=== PATIENT | female | born 1940 | race Caucasian/White ===

== ENCOUNTER 2016-02-10 13:35 | Inpatient (IN) | payer OTHER, MEDICARE ==
[2016-02-10 14:23] VITALS: BMI 23.1
[2016-02-10 14:37] LABS: MCHC 31.4 g/dl (32.0-36.0); MEAN CELL VOLUME 92.4 fl (80-96); MEAN PLT VOLUME 8.5 fl (7.5-11.1); PLATELET COUNT 144 K/MM3 (134-434); RDW 17.2 % (11.6-15.6); WHITE BLOOD COUNT 14.5 K/mm3 (4.0-10.0)
--- NOTE | 2016-02-10 14:52 | PDOC ---
History of Present Illness - General Chief Complaint: AV shunt bleeding Stated Complaint: BLEEDING Time Seen by Provider: 02/10/16 13:48 History Source: Patient, Primary Care Provider Exam Limitations: No Limitations - History of Present Illness Initial Comments: 02/10/16 14:26 75-year-old female presents to the ED for evaluation of bleeding left AV fistula. As per pt she had dialysis but has not been feeling well and today when she went to dialysis they were unable to access her fistula and then it began to bleed. Patient states has not been feeling well over the past few days describing nausea myalgia, and decreased appetite. Patient denies headache, throat pain, chest pain or shortness of breath. Patient with history of anemia, CVA, CHF, dementia, diabetes, dialysis, hypertension and dyslipidemia , and thyroid disease. Timing/Duration: unsure Severity: moderate Associated Symptoms: reports: loss of appetite, malaise, nausea/vomiting, weakness Past History - Past Medical History Allergies/Adverse Reactions: Allergies Allergy/AdvReac Type Severity Reaction Status Date / Time No Known Drug Allergies Allergy Verified 02/10/16 13:53 Home Medications: Ambulatory Orders Acetaminophen [Tylenol] 650 mg PO BID 04/26/15 Ascorbic Acid [Vitamin C] 500 mg PO DAILY 04/26/15 Ferrous Sulfate [Feosol] 325 mg PO DAILY 04/26/15 Furosemide [Lasix -] 80 mg PO DAILY 04/26/15 Insulin (Levemir) [Levemir Vial] 5 unit SQ DAILY 04/26/15 Metoprolol Succinate [Toprol XL -] 25 mg PO DAILY 04/26/15 Pantoprazole Sodium [Protonix -] 40 mg PO DAILY 04/26/15 Paroxetine HCl 20 mg PO DAILY 04/26/15 Pregabalin [Lyrica -] 50 mg PO DAILY 04/26/15 Sevelamer Carbonate [Renvela -] 1,600 mg PO TID 04/26/15 Hydralazine HCl [Apresoline -] 25 mg PO TID #21 tablet 05/06/15 Oxycodone HCl 10 mg PO BID 05/17/15 Multivitamin [Poly-Vitamin] 1 each PO DAILY 08/15/15 Silver Sulfadiazine 1% Top Cr [Silvadene -] 1 applic TP DAILY 08/15/15 Atorvastatin Ca [Lipitor] 10 mg PO HS 08/28/15 Bisacodyl [Bisacodyl -] 20 mg PO DAILY tablet. 08/31/15 Methylnaltrexone [place] [Relistor -] 12 mg SQ Q2D@2200 kit 09/01/15 Polyethylene Glycol 3350 [Miralax 119 gm Btl -] 17 gm PO DAILY 10/17/15 Zinc Oxide 20% Topical Oint 454 gm NR DAILY 10/17/15 Anemia: Yes Asthma: No Cancer: No Cardiac Disorders: No CVA: Yes (OCT 2012) COPD: No CHF: Yes Dementia: Yes (memory deficit) Diabetes: Yes Dialysis: Yes () GI Disorders: No Disorders: No HTN: Yes Hypercholesterolemia: Yes Liver Disease: No Seizures: No Thyroid Disease: Yes (GOITER) - Surgical History Abdominal Surgery: No Appendectomy: No Cardiac Surgery: No Cholecystectomy: Yes (2011) Lung Surgery: No Neurologic Surgery: No Orthopedic Surgery: No - Immunization History Immunization Up to Date: Yes - Psycho/Social/Smoking Cessation Hx Anxiety: No Suicidal Ideation: No Smoking Status: No Smoking History: Never smoked Have you smoked in the past 12 months: No Number of Cigarettes Smoked Daily: 0 Hx Alcohol Use: No Drug/Substance Use Hx: No Substance Use Type: None Hx Substance Use Treatment: No Patient Lives Alone: No Lives with/in: snf ([facility]) Review of Systems - Review of Systems Able to Perform ROS?: Yes Constitutional: Yes: Loss of Appetite, Weakness HEENTM: No: Symptoms Reported Respiratory: No: Symptoms reported Cardiac (ROS): No: Symptoms Reported ABD/GI: Yes: Nausea : No: Symptoms Reported Musculoskeletal: No: Symptoms Reported Integumentary: No: Symptoms Reported Neurological: No: Symptoms reported Endocrine: No: Symptoms Reported Hematologic/Lymphatic: No: Symptoms Reported *Physical Exam - Vital Signs Last Vital Signs Temp Pulse Resp BP Pulse Ox 97.3 F L 55 L 18 124/48 100 02/10/16 13:45 02/10/16 13:45 02/10/16 13:45 02/10/16 13:45 02/10/16 13:45 - Physical Exam General Appearance: Yes: Nourished, Appropriately Dressed. No: Apparent Distress HEENT: positive: EOMI, ZACARIAS, Pharynx Normal (dry). negative: Pale Conjunctivae Neck: positive: Supple Respiratory/Chest: positive: Lungs Clear, Normal Breath Sounds. negative: Respiratory Distress, Accessory Muscle Use Cardiovascular: positive: Regular Rhythm. negative: Murmur, Bradycardia Gastrointestinal/Abdominal: positive: Soft. negative: Tenderness Extremity: positive: Normal Capillary Refill. negative: Pedal Edema Integumentary: positive: Normal Color, Dry, Warm Neurologic: positive: Alert, Motor Strength 5/5 (moving all extemities actively actively on ). negative: Fully Oriented (time) Heart Score/ECG Review - ECG Intrepretation Rhythm: Regular Rhythm (sinus bradycardic at 55. 1st degree AV block) ED Treatment Course - LABORATORY CBC & Chemistry Diagram: 02/12/16 16:45 02/12/16 08:30 - ADDITIONAL ORDERS Additional order review: 02/10/16 14:30 RBC 4.12 D MCV 92.4 MCHC 31.4 L RDW 17.2 H D MPV 8.5 D Neutrophils % Y Lymphocytes % Y Medical Decision Making - Critical Care Time Total Critical Care Time (minutes): 40 Critical Care Statement: The care of this patient involved high complexity decision making to prevent further life threatening deterioration of the patient 's condition and/or to evalute & treat vital organ system(s) failure or risk of failure. - Medical Decision Making 02/10/16 14:56 Patient with history of end-stage renal disease with left AV fistula bleeding. Patient was sent here from Dr. August, hot roll inspector for admission. He also states patient's mentation is altered also. Patient did not receive dialysis today. Patient was placed for cardiac septic, and nor workup including head CT and ammonia level. Case discussed with Dr. Polly Ramos who will admit to [facility] inpatient. consultation will be placed to Dr. negrete and Dr. August 02/10/16 15:40 Laboratory Tests 02/10/16 02/10/16 02/10/16 14:30 14:30 14:30 WBC 14.5 H D Hgb 11.9 D Hct 38.0 D Plt Count 144 Neutrophils % 94.4 H D INR 1.20 H Sodium 129 L Potassium 7.0 H* D Chloride 93 L Carbon Dioxide 19 L Anion Gap 17 H BUN 104 H Creatinine 7.3 H Random Glucose 99 D Calcium 8.0 L Magnesium 2.4 AST 35 D ALT 30 Ammonia CK-MB (CK-2) 8.861 H Troponin I 1.09 H* Albumin 3.1 L Blood Type Antibody Screen 02/10/16 02/10/16 14:30 14:30 WBC Hgb Hct Plt Count Neutrophils % INR Sodium Potassium Chloride Carbon Dioxide Anion Gap BUN Creatinine Random Glucose Calcium Magnesium AST ALT Ammonia < 10 L CK-MB (CK-2) Troponin I Albumin Blood Type A POSITIVE Antibody Screen Negative Surgery PA here for consultation for Dr. Reid and states patient is to go to the OR tomorrow. Patient ordered for albuterol, calcium gluconate, sodium bicarbonate, incident, D50 and will consult cardiology. Elevated troponin may be related to renal failure versus cardiac etiology. Will hold on heparinizing secondary to bleeding left AV fistula. 02/10/16 16:09 Patient currently receiving emergency bedside shunt placement to her right groin. Call placed to Dr. jones to discuss dialysis today. Case also will be discussed with Dr. Sutton to upgrade to the ICU. 02/10/16 16:[address] Sutton who accepted the patient to the ICU. Patient needs a head CT as per Dr. Jones before they do start dialysis. Dr. Chanel also consulted on patient and feels the elevated troponin is likely due to the renal failure and to hold on heparinizing her secondary to bleeding left AV fistula 02/10/16 17:00 Chest x-ray shows interval bibasal atelectasis changes versus infiltrate with questionable small left pleural effusion. *DC/Admit/Observation/Transfer Diagnosis at time of Disposition: Elevated troponin Dialysis AV fistula malfunction Qualifiers: Encounter type: initial encounter Qualified Code(s): T82.590A - Other mechanical complication of surgically created arteriovenous fistula, initial encounter Altered mental status, unspecified Qualifiers: Altered mental status type: unspecified Qualified Code(s): R41.82 - Altered mental status, unspecified - Discharge Dispostion Admit: Yes
[2016-02-10 14:58] LABS: ALBUMIN 3.1 g/dl (3.4-5.0); BASOPHIL 0.1 % (0-2.0); BILIRUBIN,TOTAL 0.8 mg/dL (0.2-1.0); CREATININE 7.3 mg/dL (0.55-1.02); EOSINOPHIL 0.1 % (0-4.5); MAGNESIUM 2.4 mg/dL (1.8-2.4); NEUTROPHILS 94.4 % (42.8-82.8); PHOSPHOROUS 6.3 mg/dL (2.5-4.9); TOT PROT 7.5 g/dl (6.4-8.2)
[2016-02-10 15:18] LABS: INR 1.2 (0.82-1.09); PROTHROMBIN TIME (PATIENT) 13.2 SEC (9.98-11.88)
[2016-02-10 15:21] LABS: TROPONIN I 1.09 ng/ml (0.00-0.05)
[2016-02-10] MEDS ORDERED: SODIUM BICARBONATE 8.4% 50 MEQ/50 ML DISP.SYRIN IVPUSH ONE (15:21)
[2016-02-10] MEDS ORDERED: INSULIN REGULAR HUMAN 100 UNITS/ML *VIAL IVPUSH ONE (15:21)
[2016-02-10] MEDS ORDERED: DEXTROSE 50%-WATER 50 ML VIAL IVPUSH ONE (15:21)
[2016-02-10] MEDS ORDERED: ALBUTEROL SO4 0.083% IH SOL 2.5 MG/3 ML VIAL.NEB. NEB ONE ×2 (15:22→15:36)
[2016-02-10] MEDS ORDERED: CALCIUM GLUCONATE 10% - 1,000 MG/10 ML VIAL IVPUSH ONE (15:22)
[2016-02-10] MEDS ORDERED: SODIUM POLYSTYRENE SULFONATE 15 GM/60 ML BOTTLE PO ONE (15:29)
--- NOTE | 2016-02-10 15:31 | HP ---
Admitting History and Physical - Primary Care Physician PCP: Royce Joyce - Admission Chief Complaint: malfunctoin graft History of Present Illness: 75 yrs old female ,resident of [facility]- sent from dialysis today for bleeding from AV graft. Pt examined in ER with RAHEEM Puga - graft site bleeding. She is confused and as per Nephrolohgist- this is not her usual mental state. She missed dialysis on Tuesday and today. Appears to be volume overloaded, confused, uremic and with jerky arm movements. 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, Peripheral Neuropathy, Other (bilateral foot drops/gait instability, memory impairment) Cardiovascular: Yes: HTN, Hyperlipdemia, Murmur, Pulmonary Hypertension Pulmonary: Yes: Other (pleural effusions) Gastrointestinal: Yes: GI Bleed, Hemorrhoids Renal/: Yes: Renal Inusuff, Hemodialysis, UTI, Other (urine retention chronic with peters and leg bag) Heme/Onc: Yes: Anemia Musculoskeletal: Yes: Other (Periphral neuropathy and uses walker for mobility) Endocrine: Yes: Diabetes Mellitus (IDDM), Hyperthyroidism (w/ goiter), Other ( goitre) - Past Surgical History Past Surgical History: Yes: Cholecystectomy, Tonsillectomy - Smoking History Smoking history: Never smoked Have you smoked in the past 12 months: No Aproximately how many cigarettes per day: 0 - Alcohol/Substance Use Hx Alcohol Use: No History of Substance Use: reports: None - Social History ADL: Support Services (VNS) History of Recent Travel: No Home Medications - Allergies Allergies/Adverse Reactions: Allergies Allergy/AdvReac Type Severity Reaction Status Date / Time No Known Drug Allergies Allergy Verified 02/10/16 13:53 - Home Medications Home Medications: Ambulatory Orders Acetaminophen [Tylenol] 650 mg PO BID 04/26/15 Ascorbic Acid [Vitamin C] 500 mg PO DAILY 04/26/15 Ferrous Sulfate [Feosol] 325 mg PO DAILY 04/26/15 Furosemide [Lasix -] 80 mg PO DAILY 04/26/15 Insulin (Levemir) [Levemir Vial] 5 unit SQ DAILY 04/26/15 Metoprolol Succinate [Toprol XL -] 25 mg PO DAILY 04/26/15 Pantoprazole Sodium [Protonix -] 40 mg PO DAILY 04/26/15 Paroxetine HCl 20 mg PO DAILY 04/26/15 Pregabalin [Lyrica -] 50 mg PO DAILY 04/26/15 Sevelamer Carbonate [Renvela -] 1,600 mg PO TID 04/26/15 Hydralazine HCl [Apresoline -] 25 mg PO TID #21 tablet 05/06/15 Oxycodone HCl 10 mg PO BID 05/17/15 Multivitamin [Poly-Vitamin] 1 each PO DAILY 08/15/15 Silver Sulfadiazine 1% Top Cr [Silvadene -] 1 applic TP DAILY 08/15/15 Atorvastatin Ca [Lipitor] 10 mg PO HS 08/28/15 Bisacodyl [Bisacodyl -] 20 mg PO DAILY tablet. 08/31/15 Methylnaltrexone [place] [Relistor -] 12 mg SQ Q2D@2200 kit 09/01/15 Polyethylene Glycol 3350 [Miralax 119 gm Btl -] 17 gm PO DAILY 10/17/15 Zinc Oxide 20% Topical Oint 454 gm NR DAILY 10/17/15 Family Disease History - Family Disease History Family Disease History: CA: Mother (Pancreatic cancer 54,colon cancer), Other: Father ( 91), Mother Review of Systems - Review of Systems Constitutional: reports: Weakness. denies: Chills, Fever Cardiovascular: denies: Chest Pain Respiratory: reports: SOB. denies: Cough Physical Examination Vital Signs: Vital Signs Temperature 97.3 F L 02/10/16 13:45 Pulse Rate 55 L 02/10/16 13:45 Respiratory Rate 18 02/10/16 13:45 Blood Pressure 124/48 02/10/16 13:45 O2 Sat by Pulse Oximetry (%) 100 02/10/16 13:45 Constitutional: Yes: No Distress Cardiovascular: Yes: Regular Rate and Rhythm, JVD Respiratory: Yes: Diminished Gastrointestinal: Yes: Normal Bowel Sounds, Soft. No: Distention, Tenderness Musculoskeletal: Yes: Other (asterixis) Extremities: Yes: Other (left AVF- bleeding, poor thrill) Edema: No Neurological: Yes: Confusion Psychiatric: Yes: Alert Labs: Laboratory Last Values WBC 14.5 K/mm3 (4.0-10.0) H D 02/10/16 14:30 RBC 4.12 M/mm3 (3.60-5.2) D 02/10/16 14:30 Hgb 11.9 GM/dL (10.7-15.3) D 02/10/16 14:30 Hct 38.0 % (32.4-45.2) D 02/10/16 14:30 MCV 92.4 fl (80-96) 02/10/16 14:30 MCHC 31.4 g/dl (32.0-36.0) L 02/10/16 14:30 RDW 17.2 % (11.6-15.6) H D 02/10/16 14:30 Plt Count 144 K/MM3 (134-434) 02/10/16 14:30 MPV 8.5 fl (7.5-11.1) D 02/10/16 14:30 Neutrophils % 94.4 % (42.8-82.8) H D 02/10/16 14:30 Lymphocytes % 1.9 % (8-40) L D 02/10/16 14:30 Monocytes % 3.5 % (3.8-10.2) L 02/10/16 14:30 Eosinophils % 0.1 % (0-4.5) D 02/10/16 14:30 Basophils % 0.1 % (0-2.0) 02/10/16 14:30 Band Neutrophils Cancelled 02/10/16 14:30 Metamyelocytes Cancelled 02/10/16 14:30 Myelocytes Cancelled 02/10/16 14:30 Promyelocytes Cancelled 02/10/16 14:30 Nucleated RBCs Cancelled 02/10/16 14:30 Hypersegmented Neuts Cancelled 02/10/16 14:30 Plasmacytoid Lymphs Cancelled 02/10/16 14:30 Reactive Lymphocytes Cancelled 02/10/16 14:30 Blast Cells Cancelled 02/10/16 14:30 Plasma Cells Cancelled 02/10/16 14:30 Other Cell Type Cancelled 02/10/16 14:30 Toxic Granulation Cancelled 02/10/16 14:30 Dohle Bodies Cancelled 02/10/16 14:30 Amilcar Rods Cancelled 02/10/16 14:30 Polychromasia Cancelled 02/10/16 14:30 Hypochromic-Microcytic Cancelled 02/10/16 14:30 Poikilocytosis Cancelled 02/10/16 14:30 Basophilic Stippling Cancelled 02/10/16 14:30 Anisocytosis Cancelled 02/10/16 14:30 Microcytosis Cancelled 02/10/16 14:30 Macrocytosis Cancelled 02/10/16 14:30 Spherocytes Cancelled 02/10/16 14:30 Siderocytes Cancelled 02/10/16 14:30 Sickle Cells Cancelled 02/10/16 14:30 Target Cells Cancelled 02/10/16 14:30 Tear Drop Cells Cancelled 02/10/16 14:30 Ovalocytes Cancelled 02/10/16 14:30 Stomatocytes Cancelled 02/10/16 14:30 Helmet Cells Cancelled 02/10/16 14:30 [place] Bodies Cancelled 02/10/16 14:30 Harvey Rings Cancelled 02/10/16 14:30 [place] Cells Cancelled 02/10/16 14:30 Acanthocytes (Spur) Cancelled 02/10/16 14:30 Rouleaux Cancelled 02/10/16 14:30 Fragmented RBCs Cancelled 02/10/16 14:30 Schistocytes Cancelled 02/10/16 14:30 Morphology Comment Cancelled 02/10/16 14:30 INR 1.20 (0.82-1.09) H 02/10/16 14:30 VBG pH 7.23 (7.31-7.41) L* 02/10/16 15:38 POC VBG pCO2 37.4 mmHg (41-51) L D 02/10/16 15:38 POC VBG pO2 52.2 mmHg (30-40) H D 02/10/16 15:38 Sodium 129 mmol/L (136-145) L 02/10/16 14:30 Potassium 7.0 mmol/L (3.5-5.1) H* D 02/10/16 14:30 Chloride 93 mmol/L (98-107) L 02/10/16 14:30 Carbon Dioxide 19 mmol/L (21-32) L 02/10/16 14:30 Anion Gap 17 (8-16) H 02/10/16 14:30 BUN 104 mg/dL (7-18) H 02/10/16 14:30 Creatinine 7.3 mg/dL (0.55-1.02) H 02/10/16 14:30 Creat Clearance w eGFR 5.48 (>60) 02/10/16 14:30 Random Glucose 99 mg/dL (74-106) D 02/10/16 14:30 Calcium 8.0 mg/dL (8.5-10.1) L 02/10/16 14:30 Phosphorus 6.3 mg/dL (2.5-4.9) H 02/10/16 14:30 Magnesium 2.4 mg/dL (1.8-2.4) 02/10/16 14:30 Total Bilirubin 0.8 mg/dL (0.2-1.0) D 02/10/16 14:30 AST 35 U/L (15-37) D 02/10/16 14:30 ALT 30 U/L (12-78) 02/10/16 14:30 Alkaline Phosphatase 169 U/L (45-117) H 02/10/16 14:30 Ammonia < 10 umol/L (11-32) L 02/10/16 14:30 Creatine Kinase 170 IU/L (26-192) D 02/10/16 14:30 CK-MB (CK-2) 8.861 ng/ml (0.5-3.6) H 02/10/16 14:30 Troponin I 1.09 ng/ml (0.00-0.05) H* 02/10/16 14:30 Total Protein 7.5 g/dl (6.4-8.2) 02/10/16 14:30 Albumin 3.1 g/dl (3.4-5.0) L 02/10/16 14:30 Fluid Tot Cell Count Cancelled 02/10/16 14:30 Blood Type A POSITIVE 02/10/16 14:30 Antibody Screen Negative 02/10/16 14:30 Imaging - Results Chest X-ray: Image Reviewed (bibasilar congestive changes) EKG: Image Reviewed (NSR, no tall T waves) Problem List - Problems (1) Altered mental status, unspecified Code(s): R41.82 - ALTERED MENTAL STATUS, UNSPECIFIED Qualifiers: Altered mental status type: unspecified Qualified Code(s): R41.82 - Altered mental status, unspecified (2) Dialysis AV fistula malfunction Code(s): T82.590A - [facility] COMPL OF SURGICALLY CREATED ARTERIOVENOUS FISTULA, INIT Qualifiers: Encounter type: initial encounter Qualified Code(s): T82.590A - Other mechanical complication of surgically created arteriovenous fistula, initial encounter (3) Elevated troponin Code(s): R79.89 - OTHER SPECIFIED ABNORMAL FINDINGS OF BLOOD CHEMISTRY (4) Hyperkalemia Code(s): E87.5 - HYPERKALEMIA (5) Thrombosis of surgically created arteriovenous fistula Code(s): T82.868A - THROMBOSIS DUE TO VASCULAR PROSTH DEV/GRFT, INIT (6) ESRD (end stage renal disease) on dialysis Code(s): N18.6 - END STAGE RENAL DISEASE Z99.2 - DEPENDENCE ON RENAL DIALYSIS (7) CHF (congestive heart failure) Code(s): I50.9 - HEART FAILURE, UNSPECIFIED (8) Diabetes mellitus Code(s): E11.9 - TYPE 2 DIABETES MELLITUS WITHOUT COMPLICATIONS Assessment/Plan PLAN pt is uremic and needs urgent dialysis. pt will get femoral shiley placed today hyperkalemia-- was given Na Bicarb ,D50 with insulin, Ca-gluconate and kayexalate in ER ICU monitoring Has elevated troponins- likely secondary to renal disease - cardiology consult called may need to go to OR for thrombectomy. continue with meds aspiration precautions serial cardiac enzymes check CXR in AM
[2016-02-10] MEDS ORDERED: CALCIUM CHLORIDE 1 GM/10 ML *DISP.SYRIN ONE (15:36)
[2016-02-10] MEDS ORDERED: DEXTROSE 50%-WATER 50 ML DISP.SYRIN ONE (15:36)
[2016-02-10] MEDS ORDERED: SODIUM BICARBONATE 8.4% 50 MEQ/50 ML VIAL ONE (15:36)
[2016-02-10] MEDS ORDERED: INSULIN REGULAR HUMAN 100 UNITS/ML *VIAL ONE (15:37)
[2016-02-10] MEDS ORDERED: CALCIUM GLUCONATE 10% - 1,000 MG/10 ML VIAL ONE (15:39)
[2016-02-10 15:41] LABS: VENOUS BLOOD GAS HCO3 14.9 meq/L (22-29)
[2016-02-10 15:42] LABS: VENOUS PH 7.23 (7.31-7.41)
[2016-02-10] MEDS ORDERED: VANCOMYCIN 1,000 MG in DEXTROSE 5%-WATER - 250 ML IVPB ONE (15:54)
--- NOTE | 2016-02-10 16:00 | CONSULT ---
Consult Consult Specialty:: Nephrology - History of Present Illness Chief Complaint: sent in for access malfunction History of Present Illness: Pt is a 75 year old female with pmhx of ESRD, anemia, CHF and HTN who was sent in from HD for bleeding from access site. She missed her HD on Tuesday as she did not want to come in. She appeared fluid overloaded in HD today. She did complain of shortness of breath. She denies chest pain. I called vascular surgery to evaluate her. She will need surgical intervention for the graft. She was also confused in the HD unit and did not recognize the staff. 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, Peripheral Neuropathy, Other (bilateral foot drops/gait instability, memory impairment) Cardio/Vascular: Yes: HTN, Hyperlipdemia, Murmur, Pulmonary Hypertension Pulmonary: Yes: Other (pleural effusions) Gastrointestinal: Yes: GI Bleed, Hemorrhoids Renal/: Yes: Renal Inusuff, Hemodialysis, UTI, Other (urine retention chronic with peters and leg bag) Musculoskeletal: Yes: Other (Periphral neuropathy and uses walker for mobility) Endocrine: Yes: Diabetes Mellitus (IDDM), Hyperthyroidism (w/ goiter), Other ( goitre) - Past Surgical History Past Surgical History: Yes: Cholecystectomy, Tonsillectomy - Alcohol/Substance Use Hx Alcohol Use: No History of Substance Use: reports: None - Smoking History Smoking history: Never smoked Have you smoked in the past 12 months: No Aproximately how many cigarettes per day: 0 - Social History Usual Living Arrangement: With Spouse ADL: Support Services (VNS) History of Recent Travel: No Home Medications - Allergies Allergies/Adverse Reactions: Allergies Allergy/AdvReac Type Severity Reaction Status Date / Time No Known Drug Allergies Allergy Verified 02/10/16 13:53 - Home Medications Home Medications: Ambulatory Orders Acetaminophen [Tylenol] 650 mg PO BID 04/26/15 Ascorbic Acid [Vitamin C] 500 mg PO DAILY 04/26/15 Ferrous Sulfate [Feosol] 325 mg PO DAILY 04/26/15 Furosemide [Lasix -] 80 mg PO DAILY 04/26/15 Insulin (Levemir) [Levemir Vial] 5 unit SQ DAILY 04/26/15 Metoprolol Succinate [Toprol XL -] 25 mg PO DAILY 04/26/15 Pantoprazole Sodium [Protonix -] 40 mg PO DAILY 04/26/15 Paroxetine HCl 20 mg PO DAILY 04/26/15 Pregabalin [Lyrica -] 50 mg PO DAILY 04/26/15 Sevelamer Carbonate [Renvela -] 1,600 mg PO TID 04/26/15 Hydralazine HCl [Apresoline -] 25 mg PO TID #21 tablet 05/06/15 Oxycodone HCl 10 mg PO BID 05/17/15 Multivitamin [Poly-Vitamin] 1 each PO DAILY 08/15/15 Silver Sulfadiazine 1% Top Cr [Silvadene -] 1 applic TP DAILY 08/15/15 Atorvastatin Ca [Lipitor] 10 mg PO HS 08/28/15 Bisacodyl [Bisacodyl -] 20 mg PO DAILY tablet. 08/31/15 Methylnaltrexone [place] [Relistor -] 12 mg SQ Q2D@2200 kit 09/01/15 Polyethylene Glycol 3350 [Miralax 119 gm Btl -] 17 gm PO DAILY 10/17/15 Zinc Oxide 20% Topical Oint 454 gm NR DAILY 10/17/15 Family Disease History - Family Disease History Family Disease History: CA: Mother (Pancreatic cancer 54,colon cancer), Other: Father ( 91), Mother Review of Systems - Review of Systems Constitutional: reports: Malaise Eyes: reports: No Symptoms HENT: reports: No Symptoms Neck: reports: No Symptoms Cardiovascular: reports: Shortness of Breath Respiratory: reports: SOB Gastrointestinal: reports: No Symptoms Genitourinary: reports: No Symptoms Musculoskeletal: reports: No Symptoms Integumentary: reports: No Symptoms Neurological: reports: No Symptoms Endocrine: reports: No Symptoms Hematology/Lymphatic: reports: No Symptoms Psychiatric: reports: No Symptoms Physical Exam Vital Signs: Vital Signs Temperature 97.3 F L 02/10/16 13:45 Pulse Rate 55 L 02/10/16 13:45 Respiratory Rate 18 02/10/16 13:45 Blood Pressure 124/48 02/10/16 13:45 O2 Sat by Pulse Oximetry (%) 100 02/10/16 13:45 Constitutional: Yes: Calm Eyes: Yes: Conjunctiva Clear HENT: Yes: Atraumatic Cardiovascular: Yes: JVD, S1, S2 Respiratory: Yes: On Nasal O2, Rhonchi Gastrointestinal: Yes: Soft Musculoskeletal: Yes: Muscle Weakness Extremities: Yes: Other (dressing in place over graft) Edema: Yes Neurological: Yes: Oriented Psychiatric: Yes: Oriented Labs: Laboratory Tests 02/10/16 02/10/16 14:30 14:30 Hgb 11.9 D Sodium 129 L Potassium 7.0 H* D Chloride 93 L Carbon Dioxide 19 L BUN 104 H Creatinine 7.3 H Problem List - Problems (1) Altered mental status, unspecified Code(s): R41.82 - ALTERED MENTAL STATUS, UNSPECIFIED Qualifiers: Altered mental status type: unspecified Qualified Code(s): R41.82 - Altered mental status, unspecified (2) Dialysis AV fistula malfunction Code(s): T82.590A - [facility] COMPL OF SURGICALLY CREATED ARTERIOVENOUS FISTULA, INIT Qualifiers: Encounter type: initial encounter Qualified Code(s): T82.590A - Other mechanical complication of surgically created arteriovenous fistula, initial encounter (3) Elevated troponin Code(s): R79.89 - OTHER SPECIFIED ABNORMAL FINDINGS OF BLOOD CHEMISTRY (4) ESRD (end stage renal disease) on dialysis Code(s): N18.6 - END STAGE RENAL DISEASE Z99.2 - DEPENDENCE ON RENAL DIALYSIS (5) Anemia Code(s): D64.9 - ANEMIA, UNSPECIFIED Qualifiers: Other causes of anemia: acute posthemorrhagic (6) Hypertension Code(s): I10 - ESSENTIAL (PRIMARY) HYPERTENSION Assessment/Plan Current Medications Generic Name Dose Route Start Last Admin Trade Name Freq PRN Reason Stop Dose Admin Epoetin Jakob 5,000 units 02/10/16 15:49 Epogen - IVPUSH 02/10/16 15:50 ONCE ONE Vancomycin HCl 1,000 mg/ 250 mls @ 250 mls/hr 02/10/16 15:54 Dextrose IVPB 02/10/16 16:53 ONCE ONE Impression 1. ESRD 2. av access malfunction 3. hyperkalemia 4. CHF 5. DM 6. HTN 7. anemia 8. depression 9. hyperlipidemia 10. leukocytosis Plan - called and discussed case with vascular surgery - shiley catheter will be placed for HD - will arrange for urgent HD tonight - follow up ct head - send blood cultures - will give dose of vanco - ID eval - monitor hg - change in mental status can be from uremia however should get a ct scan prior to HD - monitor cardiac enzymes - can hold off kayexylate as she will be going to HD - will need admission to monitored unit for bedside HD Dr Jones
--- NOTE | 2016-02-10 16:10 | CONSULT ---
Consult Consult Specialty:: cardiology Reason for Consultation:: TNI elevation; ESRD; - History of Present Illness History of Present Illness: 75-year-old female presents to the ED for evaluation of bleeding left AV fistula. As per pt she had dialysis but has not been feeling well and today when she went to dialysis they were unable to access her fistula and then it began to bleed. Patient states has not been feeling well over the past few days describing nausea myalgia, and decreased appetite. Patient denies headache, throat pain, chest pain or shortness of breath. Patient with history of anemia, CVA, CHF, dementia, diabetes, dialysis, hypertension and dyslipidemia , and thyroid disease. Timing/Duration: unsure Severity: moderate Associated Symptoms: reports: loss of appetite, malaise, nausea/vomiting, weakness - History Source History Provided By: Medical Record - Past Medical History BREAD JOCKEY: Yes: CVA, Peripheral Neuropathy, Other (bilateral foot drops/gait instability, memory impairment) Cardio/Vascular: Yes: HTN, Hyperlipdemia, Murmur, Pulmonary Hypertension Pulmonary: Yes: Other (pleural effusions) Gastrointestinal: Yes: GI Bleed, Hemorrhoids Renal/: Yes: Renal Inusuff, Hemodialysis, UTI, Other (urine retention chronic with peters and leg bag) Reproductive: Yes: Postmenopausal ...: No Musculoskeletal: Yes: Other (Periphral neuropathy and uses walker for mobility) Endocrine: Yes: Diabetes Mellitus (IDDM), Hyperthyroidism (w/ goiter), Other ( goitre) - Past Surgical History Past Surgical History: Yes: Cholecystectomy, Tonsillectomy - Alcohol/Substance Use Hx Alcohol Use: No History of Substance Use: reports: None - Smoking History Smoking history: Never smoked Have you smoked in the past 12 months: No Aproximately how many cigarettes per day: 0 - Social History Usual Living Arrangement: With Spouse ADL: Support Services (VNS) History of Recent Travel: No Home Medications - Allergies Allergies/Adverse Reactions: Allergies Allergy/AdvReac Type Severity Reaction Status Date / Time No Known Drug Allergies Allergy Verified 02/10/16 13:53 - Home Medications Home Medications: Ambulatory Orders Acetaminophen [Tylenol] 650 mg PO BID 04/26/15 Ascorbic Acid [Vitamin C] 500 mg PO DAILY 04/26/15 Ferrous Sulfate [Feosol] 325 mg PO DAILY 04/26/15 Furosemide [Lasix -] 80 mg PO DAILY 04/26/15 Insulin (Levemir) [Levemir Vial] 5 unit SQ DAILY 04/26/15 Metoprolol Succinate [Toprol XL -] 25 mg PO DAILY 04/26/15 Pantoprazole Sodium [Protonix -] 40 mg PO DAILY 04/26/15 Paroxetine HCl 20 mg PO DAILY 04/26/15 Pregabalin [Lyrica -] 50 mg PO DAILY 04/26/15 Sevelamer Carbonate [Renvela -] 1,600 mg PO TID 04/26/15 Hydralazine HCl [Apresoline -] 25 mg PO TID #21 tablet 05/06/15 Oxycodone HCl 10 mg PO BID 05/17/15 Multivitamin [Poly-Vitamin] 1 each PO DAILY 08/15/15 Silver Sulfadiazine 1% Top Cr [Silvadene -] 1 applic TP DAILY 08/15/15 Atorvastatin Ca [Lipitor] 10 mg PO HS 08/28/15 Bisacodyl [Bisacodyl -] 20 mg PO DAILY tablet. 08/31/15 Methylnaltrexone [place] [Relistor -] 12 mg SQ Q2D@2200 kit 09/01/15 Polyethylene Glycol 3350 [Miralax 119 gm Btl -] 17 gm PO DAILY 10/17/15 Zinc Oxide 20% Topical Oint 454 gm NR DAILY 10/17/15 Family Disease History - Family Disease History Family Disease History: CA: Mother (Pancreatic cancer 54,colon cancer), Other: Father ( 91), Mother Review of Systems - Review of Systems Constitutional: reports: Weakness Vital Signs: Vital Signs Temperature 97.3 F L 02/10/16 13:45 Pulse Rate 55 L 02/10/16 13:45 Respiratory Rate 18 02/10/16 13:45 Blood Pressure 124/48 02/10/16 13:45 O2 Sat by Pulse Oximetry (%) 100 02/10/16 13:45 - Other Data Labs, Other Data: INR, PTT INR 1.20 (0.82-1.09) H 02/10/16 14:30 Problem List - Problems (1) Hyperkalemia Assessment/Plan: 7.0-->6.6. insulin; D50, calcium; kayexalate. Hemodialysis Code(s): E87.5 - HYPERKALEMIA (2) Dialysis AV fistula malfunction Code(s): T82.590A - [facility] COMPL OF SURGICALLY CREATED ARTERIOVENOUS FISTULA, INIT Qualifiers: Encounter type: initial encounter Qualified Code(s): T82.590A - Other mechanical complication of surgically created arteriovenous fistula, initial encounter (3) Elevated troponin Assessment/Plan: TNI 1.09-->1.38. EKG: NSR; 1st degree AVB, without acute ST-T changes (no significant change from 12/2015). Cannot r/o myocardial injury, though multiple other factors may contribute to TNI elevation, including CHF, ESRD, sepsis, hypoxia. Problematic starting antiplatelets and systemic AC due to AV graft bleed, but would consider doing so if cleared by surgeon. F/u TNI and EKG serially. On metoprolol. ECHO for LVEF, wall motion, valve status (hx severe pulmonary HTN, valvulopathy) , pericardial effusion ("small" in 2014). Code(s): R79.89 - OTHER SPECIFIED ABNORMAL FINDINGS OF BLOOD CHEMISTRY (4) ESRD (end stage renal disease) on dialysis Code(s): N18.6 - END STAGE RENAL DISEASE Z99.2 - DEPENDENCE ON RENAL DIALYSIS (5) CHF (congestive heart failure) Assessment/Plan: On metoprolol and hydralazine. ECHO for LVEF. Code(s): I50.9 - HEART FAILURE, UNSPECIFIED (6) Hypertension Assessment/Plan: on metoprolol and hydralazine. 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 F/u ECHO in am. Code(s): I27.2 - OTHER SECONDARY PULMONARY HYPERTENSION (8) Anemia Assessment/Plan: On Epogen. Code(s): D64.9 - ANEMIA, UNSPECIFIED Qualifiers: Other causes of anemia: acute posthemorrhagic (9) Leukocytosis Code(s): D72.829 - ELEVATED WHITE BLOOD CELL COUNT, UNSPECIFIED (10) Thyroid disease Assessment/Plan: f/u TFTs. Code(s): E07.9 - DISORDER OF THYROID, UNSPECIFIED
--- NOTE | 2016-02-10 16:10 | PROC ---
Central Line Insertion - Procedure Note TIME OUT performed prior to this procedure with verbal confirmation of correct patient identity, correct side, agreement of the procedure, correct patient position, availability of necessary equipment. The consent form is complete and accurate. Risk of possible infection and bleeding have been discussed with the patient. Safety precautions based on patient history or medication use has been addressed. Indication: Other (HD) Consent on Chart: Yes Central Line: Dialysis Cath, Tri Lumen Position: Supine Area prepped with Chlorhexidine solution then draped using sterile barrier protection. Anesthesia: Lidocaine 1% Technique used: Seldinger Ultrasound Guided Assistance: No Site: Right Femoral Dark venous non-pulsatile flow noted from hub of needle. The catheter was introduced. Guide wire removed intact. Each port aspirated then flushed with sterile normal saline and capped. Line secured to skin with silk suture. Biopatch placed around base of line. Sterile occlusive dressing applied. No complications. Patient tolerated the procedure well.
--- NOTE | 2016-02-10 16:12 | PN ---
Progress Note (short form) - Note Progress Note: PRE-OP NOTE Dx: ESRD on HD; Bleeding fistula (nightmute) Planned procedure: AVF revision; possible ligation Surgeon: True Reid Last Vital Signs Temp Pulse Resp BP Pulse Ox 97.3 F L 55 L 18 124/48 100 02/10/16 13:45 02/10/16 13:45 02/10/16 13:45 02/10/16 13:45 02/10/16 13:45 Blood Type Blood Type A POSITIVE 02/10/16 14:30 INR, PTT INR 1.20 (0.82-1.09) H 02/10/16 14:30 CBC, BMP 02/10/16 14:30 02/10/16 14:30 Troponin 02/10/16 14:30 Troponin I 1.09 H* Problem List - Problems (1) ESRD (end stage renal disease) on dialysis Assessment/Plan: NPO after midnight except PO meds GI / DVT ppx Medical optimization / clearance Cardiology clearance EKG Above plan discussed with Dr. Reid and agrees Code(s): N18.6 - END STAGE RENAL DISEASE Z99.2 - DEPENDENCE ON RENAL DIALYSIS (2) Hyperkalemia Code(s): E87.5 - HYPERKALEMIA (3) Elevated troponin Code(s): R79.89 - OTHER SPECIFIED ABNORMAL FINDINGS OF BLOOD CHEMISTRY
[2016-02-10] MEDS ORDERED: VANCOMYCIN 1 GRAM (PRE-DOCKED) 250 ML IVPB ONE ×2 (16:19→16:46)
--- NOTE | 2016-02-10 16:27 | PDOC ---
*Physical Exam - Vital Signs Last Vital Signs Temp Pulse Resp BP Pulse Ox 97.3 F L 75 17 166/93 96 02/10/16 13:45 02/10/16 16:25 02/10/16 16:25 02/10/16 16:25 02/10/16 16:25 ED Treatment Course - LABORATORY CBC & Chemistry Diagram: 02/17/16 05:00 02/17/16 05:00 - ADDITIONAL ORDERS Additional order review: Laboratory Results 02/10/16 02/10/16 02/10/16 14:30 14:30 14:30 INR Sodium 129 L Potassium 7.0 H* D Chloride 93 L Carbon Dioxide 19 L Anion Gap 17 H BUN 104 H Creatinine 7.3 H Creat Clearance w eGFR 5.48 Random Glucose 99 D Calcium 8.0 L Phosphorus 6.3 H Magnesium 2.4 Total Bilirubin 0.8 D AST 35 D ALT 30 Alkaline Phosphatase 169 H Ammonia < 10 L Creatine Kinase 170 D CK-MB (CK-2) 8.861 H Troponin I 1.09 H* Total Protein 7.5 Albumin 3.1 L Fluid Tot Cell Count Blood Type A POSITIVE Antibody Screen Negative 02/10/16 02/10/16 14:30 14:30 INR 1.20 H Sodium Potassium Chloride Carbon Dioxide Anion Gap BUN Creatinine Creat Clearance w eGFR Random Glucose Calcium Phosphorus Magnesium Total Bilirubin AST ALT Alkaline Phosphatase Ammonia Creatine Kinase CK-MB (CK-2) Troponin I Total Protein Albumin Fluid Tot Cell Count Cancelled Blood Type Antibody Screen 02/10/16 14:30 RBC 4.12 D MCV 92.4 MCHC 31.4 L RDW 17.2 H D MPV 8.5 D Neutrophils % 94.4 H D Lymphocytes % 1.9 L D Monocytes % 3.5 L Eosinophils % 0.1 D Basophils % 0.1 - RADIOLOGY Radiology Studies Ordered: Category Date Time Status HEAD CT WITHOUT CONTRAST [CT] Stat CT Scan 02/10/16 13:54 Ordered CHEST X-RAY PORTABLE* [RAD] Stat Radiology 02/10/16 13:54 Taken - Medications Given in the ED: ED Medications Discontinued Medications Generic Name Dose Route Start Last Admin Trade Name Freq PRN Reason Stop Dose Admin Albuterol Sulfate 1 amp 02/10/16 15:22 02/10/16 15:40 Ventolin 0.083% Nebulizer Soln - NEB 02/10/16 15:23 1 amp ONCE ONE Administration Calcium Gluconate 1,000 mg 02/10/16 15:22 02/10/16 15:47 Calcium Gluconate 10% - IVPUSH 02/10/16 15:23 1,000 mg ONCE ONE Administration Dextrose 50 ml 02/10/16 15:21 02/10/16 15:38 D50w (Vial) - IVPUSH 02/10/16 15:22 50 ml NOW ONE Administration Insulin Human Regular 10 units 02/10/16 15:21 02/10/16 15:38 Novolin R Vial *Ivpush / Er / Icu Only* IVPUSH 02/10/16 15:22 10 units ONCE ONE Administration Sodium Bicarbonate 50 meq 02/10/16 15:21 02/10/16 15:40 Sodium Bicarbonate 8.4% - IVPUSH 02/10/16 15:22 50 meq ONCE ONE Administration Medical Decision Making - Medical Decision Making The patient was seen and evaluated in conjunction with PREETI Amaya under my direct supervision, ancillary studies were reviewed. I independently interviewed and evaluated the patient and I agree with the plan as outlined by PREETI Amaya. Briefly, patient is a 75y F presenting for dialysis - pt had a AV fistula that has been inaccessible due to bleeding - last dialysis was on , pt was unable to obtain dialysis due to bleeding. pt endorses feeling nausea, achy. pt seemed alert, oriented x 2 was able to answer qeustions appropriately - pt was evalated by dr. miranda who was bedside - states pt seems a bit off. her exam otherwse fairly unremarkable. CT head was obtained and was negative. pts labs noted for hyperkalemia, which was treated. Dr. fournier was notified about the patients bleeding fistula, pressure dressing was placed. surgery placed a cordis introducer and pt was sent to dialysis. The pts troponin was slightly elevated to 1 originally, but as pt deneied any cp/sob, and has hx of renal insufficiency, it was thought that the pts troponin was secondary to reduced clearance and not secondary to a myocardial event. The pts EKG is not consistent with a cardiac event. The case was discussed with dr phelps who agrees with deferring a/c/heparin. CRITICAL CARE DOCUMENTATION: I spent 35 minutes of Critical Care time, excluding separately billable procedures, involving high complexity decision making to assess, manipulate and support vital system function(s) to treat single or multiple vital organ system failure and/or to prevent further life threatening deterioration of the patient' s condition. *DC/Admit/Observation/Transfer Diagnosis at time of Disposition: Elevated troponin Dialysis AV fistula malfunction Qualifiers: Encounter type: initial encounter Qualified Code(s): T82.590A - Other mechanical complication of surgically created arteriovenous fistula, initial encounter Altered mental status, unspecified Qualifiers: Altered mental status type: unspecified Qualified Code(s): R41.82 - Altered mental status, unspecified
--- NOTE | 2016-02-10 18:37 | CONSULT ---
Consultation: REQUESTING PROVIDER: CONSULT REQUEST: We have been asked to medically evaluate this patient for bleeding from HD access site. HISTORY OF PRESENT ILLNESS: Pt is a 75yo F with a significant past medical history of ESRD, anemia of chronic disease, CHF, and HTN who was admitted from the ED this afternoon due to a L bleeding AV fistula. Pt was seen today for dialysis however she did not receive it due to an inability to gain access. HD access site began to hemorrhage. Per pt's medical chart, she became altered mentally and did not recognize the dialysis staff. In addition pt states she has been experiencing symptoms of malaise since Tuesday associated with lack of appetite. Pt denies headache, lightheadedness, SOB, and CP/pressure. In the ED pt was found to have a potassium of 7.0, sodium of 129, and an elevated troponin of 1.09. A VBG was drawn showing a pH of 7.21. An emergent bedside shunt placement to her right groin was inserted with intent on emergent dialysis tonight per the nephrology team. ER course was notable for: 1) Head CT obtained (pending read) 2) Emergent bedside shunt placed in R groin 3) Elevated troponin 1.09 4) BMP, CBC, BCx x2, 5) Pt seen by Dr. Maynard, Dr. Sutton, Dr. Chanel, and vascular surgery REVIEW OF SYSTEMS: CONSTITUTIONAL: (+) generalized weakness, malaise Absent: fever, chills, diaphoresis, , loss of appetite, weight change HEENT: Absent: rhinorrhea, nasal congestion, throat pain, throat swelling, difficulty swallowing, mouth swelling, ear pain, eye pain, visual changes CARDIOVASCULAR: Absent: chest pain, syncope, palpitations, irregular heart rate, lightheadedness , peripheral edema RESPIRATORY: Absent: cough, shortness of breath, dyspnea with exertion, orthopnea, wheezing, stridor, hemoptysis GASTROINTESTINAL: Absent: abdominal pain, abdominal distension, nausea, vomiting, diarrhea, constipation, melena, hematochezia GENITOURINARY: Absent: dysuria, frequency, urgency, hesitancy, hematuria, flank pain, genital pain MUSCULOSKELETAL: Absent: myalgia, arthralgia, joint swelling, back pain, neck pain SKIN: Absent: rash, itching, pallor HEMATOLOGIC/IMMUNOLOGIC: Absent: easy bleeding, easy bruising, lymphadenopathy, frequent infections ENDOCRINE: Absent: unexplained weight gain, unexplained weight loss, heat intolerance, cold intolerance NEUROLOGIC: (+) oriented to person and place. Absent: headache, focal weakness or paresthesias, dizziness, unsteady gait, seizure, mental status changes, bladder or bowel incontinence PSYCHIATRIC: (+)AMS Absent: anxiety, depression, suicidal or homicidal ideation, hallucinations. PHYSICAL EXAMINATION Vital Signs - 24 hr 02/10/16 16:25 Pulse Rate [ 75 Apical] Respiratory 17 Rate Blood Pressure 166/93 [Right Arm] O2 Sat by Pulse 96 Oximetry (%) GENERAL: Awake, lethargic, mild Distress. HEAD: Normal with no signs of trauma. EYES: Pupils equal, round and reactive to light, extraocular movements intact, sclera anicteric, conjunctiva clear. No lid lag. EARS, NOSE, THROAT: Ears normal, nares patent, Moist mucous membranes. NECK: goiter on Right. No JVD. LUNGS:Bilateral Scattered rales > bases. No wheezes, and no crackles. No accessory muscle use. HEART: Regular rate and rhythm, normal S1 and S2 without murmur, rub or gallop. ABDOMEN: Soft, nontender, distended, normoactive bowel sounds, no guarding, no rebound, no masses. MUSCULOSKELETAL: Normal range of motion at all joints. No bony deformities or tenderness. No CVA tenderness. UPPER EXTREMITIES:LUE bandaged AV fistula. Bandage appears clean, dry , intact. 2+ pulses, warm, well-perfused. No cyanosis. No clubbing. Cap refill <2 seconds. No peripheral edema. LOWER EXTREMITIES: 2+ pulses, warm, well-perfused. No calf tenderness. No peripheral edema. Shiley placed R groin. NEUROLOGICAL: AAOx 2 and follows commands appropriately. PSYCHIATRIC: lethargic but cooperative. SKIN: Warm, dry, normal turgor, no rashes or lesions noted. Laboratory Results - last 24 hr 02/10/16 15:38 VBG pH 7.23 L* POC VBG pCO2 37.4 L D POC VBG pO2 52.2 H D Active Medications Generic Name Dose Route Start Last Admin Trade Name Freq PRN Reason Stop Dose Admin Epoetin Jakob 5,000 units 02/10/16 15:49 Epogen - IVPUSH 02/10/16 15:50 ONCE ONE ASSESSMENT/PLAN: 75 yo F with PMHx. of ESRD on HD, CHF, HTN, DM and depression admitted to ICU for emergent HD and vascular access revision tomorrow. Neuro: * AMS most likely uremia- will get HD tonight. * CT head (-) for acute pathology. * Continue to monitor with Neuro checks. Pulmonary: * Continue supplemental O2 with 50% Venti Mask to maintain O2 sat > 90% CV: * hyperkalemia-->HD tonight; repeat AM labs. * AVF revison tommopa Reid - NPO after midnight except meds. * Monitor H/H * Trend troponin's ID: * Given 1x VANCO in ED. * blood cultures pending * CXR shows bibasilar atelectasis. ?effusion left side. * repeat CXR in AM Endocrine: * ADA diet * ISS ACHS * BGM ACHS Renal: * Emergent HD tonight * Shiley placed today * Repeat labs in AM * Followed by Dr. Jones. Dispo: We will continue to follow the patient. Thank you for this consultative opportunity. Visit type - Emergency Visit Emergency Visit: Yes ED Registration Date: 02/10/16 Care time: The patient presented to the Emergency Department on the above date and was hospitalized for further evaluation of their emergent condition. - New Patient This patient is new to me today: Yes Date on this admission: 02/11/16 - Critical Care Critical Care patient: Yes Total Critical Care Time (in minutes): 33 Critical Care Statement: The care of this patient involved high complexity decision making to prevent further life threatening deterioration of the patient 's condition and/or to evalute & treat vital organ system(s) failure or risk of failure.
[2016-02-10] MEDS ORDERED: EPOETIN ALFA 2,000 UNITS/1 ML VIAL IVPUSH ONE (20:00)
--- NOTE | 2016-02-10 21:22 | CONSULT ---
Consult Consult Specialty:: Pulm/CCM Reason for Consultation:: Altered Mental status - History of Present Illness Chief Complaint: Bleeding A-V graft site; unable to have HD History of Present Illness: 75yo F with a significant past medical history of ESRD, anemia of chronic disease, CHF, and HTN who was admitted from the ED this afternoon due to a L bleeding AV fistula. Pt missed her HD session on tuesday for unclear reason and did not receive HD today because of A-V fistula bleed. As per report pt became altered mentally and did not recognize the dialysis staff. In addition pt states she has been experiencing symptoms of malaise since Tuesday associated with lack of appetite. Pt denies headache, lightheadedness, SOB, and CP/pressure. In the ED pt was A+O x2 and following simple commands , HD stable. Notable labs K 7.0, Na 129, Trop 1.09. A VBG was drawn showing a pH of 7.21. Hyperkalemia medically treated. CT head showed no acute pathology. An emergent rt femoral HD catheter was inserted and she was transferred to ICU for emergent HD. IN ICU pt admitted initially lethargic but responding to questions. HD was initiated. On exam pt more difficult to arouse and not following commands. - History Source History Provided By: Patient Limitations to Obtaining History: Unresponsive - Past Medical History [employer]: Yes: CVA, Peripheral Neuropathy, Other (bilateral foot drops/gait instability, memory impairment) Cardio/Vascular: Yes: HTN, Hyperlipdemia, Murmur, Pulmonary Hypertension Pulmonary: Yes: Other (pleural effusions) Gastrointestinal: Yes: GI Bleed, Hemorrhoids Renal/: Yes: Renal Inusuff, Hemodialysis, UTI, Other (urine retention chronic with peters and leg bag) Musculoskeletal: Yes: Other (Periphral neuropathy and uses walker for mobility) Endocrine: Yes: Diabetes Mellitus (IDDM), Hyperthyroidism (w/ goiter), Other ( goitre) - Past Surgical History Past Surgical History: Yes: Cholecystectomy, Tonsillectomy - Alcohol/Substance Use Hx Alcohol Use: No History of Substance Use: reports: None - Smoking History Smoking history: Never smoked Have you smoked in the past 12 months: No Aproximately how many cigarettes per day: 0 - Social History Usual Living Arrangement: With Spouse ADL: Support Services ([facility]) History of Recent Travel: No Home Medications - Allergies Allergies/Adverse Reactions: Allergies Allergy/AdvReac Type Severity Reaction Status Date / Time No Known Drug Allergies Allergy Verified 02/10/16 13:53 - Home Medications Home Medications: Ambulatory Orders Acetaminophen [Tylenol] 650 mg PO BID 04/26/15 Ascorbic Acid [Vitamin C] 500 mg PO DAILY 04/26/15 Ferrous Sulfate [Feosol] 325 mg PO DAILY 04/26/15 Furosemide [Lasix -] 80 mg PO DAILY 04/26/15 Insulin (Levemir) [Levemir Vial] 5 unit SQ DAILY 04/26/15 Metoprolol Succinate [Toprol XL -] 25 mg PO DAILY 04/26/15 Pantoprazole Sodium [Protonix -] 40 mg PO DAILY 04/26/15 Paroxetine HCl 20 mg PO DAILY 04/26/15 Pregabalin [Lyrica -] 50 mg PO DAILY 04/26/15 Sevelamer Carbonate [Renvela -] 1,600 mg PO TID 04/26/15 Hydralazine HCl [Apresoline -] 25 mg PO TID #21 tablet 05/06/15 Oxycodone HCl 10 mg PO BID 05/17/15 Multivitamin [Poly-Vitamin] 1 each PO DAILY 08/15/15 Silver Sulfadiazine 1% Top Cr [Silvadene -] 1 applic TP DAILY 08/15/15 Atorvastatin Ca [Lipitor] 10 mg PO HS 08/28/15 Bisacodyl [Bisacodyl -] 20 mg PO DAILY tablet. 08/31/15 Methylnaltrexone [place] [Relistor -] 12 mg SQ Q2D@2200 kit 09/01/15 Polyethylene Glycol 3350 [Miralax 119 gm Btl -] 17 gm PO DAILY 10/17/15 Zinc Oxide 20% Topical Oint 454 gm NR DAILY 10/17/15 Family Disease History - Family Disease History Family History: Unremarkable Family Disease History: CA: Mother (Pancreatic cancer 54,colon cancer), Other: Father ( 91), Mother Review of Systems Unable to obtain ROS, reason: Pt is unresponsive Physical Exam Vital Signs: Vital Signs Temperature 98.4 F 02/10/16 18:00 Pulse Rate 81 02/10/16 20:00 Respiratory Rate 14 02/10/16 20:00 Blood Pressure 106/79 02/10/16 20:00 O2 Sat by Pulse Oximetry (%) 100 02/10/16 19:11 Constitutional: Yes: Well Nourished Eyes: Yes: Other (Pupils dilated 3-4mm equally reactive to light) HENT: Yes: Normocephalic Neck: Yes: Other (large goiter) Cardiovascular: Yes: Regular Rate and Rhythm, Murmur (stage 2/6 systolic murmur) Respiratory: Yes: Diminished, On Venti-Mask Gastrointestinal: Yes: Soft, Abdomen, Obese Extremities: Yes: Other (Bilat foot drop Lt arm A-V fistula dressing intact) Edema: No Integumentary: Yes: WNL Neurological: Yes: Lethargy, Unresponsive ...Motor Strength: LUE (04/11) Labs: CBC, BMP 02/10/16 19:41 CBC,CMP WBC 14.5 K/mm3 (4.0-10.0) H D 02/10/16 14:30 RBC 4.12 M/mm3 (3.60-5.2) D 02/10/16 14:30 Hgb 11.9 GM/dL (10.7-15.3) D 02/10/16 14:30 Hct 38.0 % (32.4-45.2) D 02/10/16 14:30 MCV 92.4 fl (80-96) 02/10/16 14:30 MCHC 31.4 g/dl (32.0-36.0) L 02/10/16 14:30 RDW 17.2 % (11.6-15.6) H D 02/10/16 14:30 Plt Count 144 K/MM3 (134-434) 02/10/16 14:30 MPV 8.5 fl (7.5-11.1) D 02/10/16 14:30 Neutrophils % 94.4 % (42.8-82.8) H D 02/10/16 14:30 Lymphocytes % 1.9 % (8-40) L D 02/10/16 14:30 Monocytes % 3.5 % (3.8-10.2) L 02/10/16 14:30 Eosinophils % 0.1 % (0-4.5) D 02/10/16 14:30 Basophils % 0.1 % (0-2.0) 02/10/16 14:30 Band Neutrophils Cancelled 02/10/16 14:30 Metamyelocytes Cancelled 02/10/16 14:30 Myelocytes Cancelled 02/10/16 14:30 Promyelocytes Cancelled 02/10/16 14:30 Nucleated RBCs Cancelled 02/10/16 14:30 Hypersegmented Neuts Cancelled 02/10/16 14:30 Plasmacytoid Lymphs Cancelled 02/10/16 14:30 Reactive Lymphocytes Cancelled 02/10/16 14:30 Blast Cells Cancelled 02/10/16 14:30 Plasma Cells Cancelled 02/10/16 14:30 Other Cell Type Cancelled 02/10/16 14:30 Toxic Granulation Cancelled 02/10/16 14:30 Dohle Bodies Cancelled 02/10/16 14:30 Amilcar Rods Cancelled 02/10/16 14:30 Polychromasia Cancelled 02/10/16 14:30 Hypochromic-Microcytic Cancelled 02/10/16 14:30 Poikilocytosis Cancelled 02/10/16 14:30 Basophilic Stippling Cancelled 02/10/16 14:30 Anisocytosis Cancelled 02/10/16 14:30 Microcytosis Cancelled 02/10/16 14:30 Macrocytosis Cancelled 02/10/16 14:30 Spherocytes Cancelled 02/10/16 14:30 Siderocytes Cancelled 02/10/16 14:30 Sickle Cells Cancelled 02/10/16 14:30 Target Cells Cancelled 02/10/16 14:30 Tear Drop Cells Cancelled 02/10/16 14:30 Ovalocytes Cancelled 02/10/16 14:30 Stomatocytes Cancelled 02/10/16 14:30 Helmet Cells Cancelled 02/10/16 14:30 Strange-Maybrook Bodies Cancelled 02/10/16 14:30 Speer Rings Cancelled 02/10/16 14:30 Louie Cells Cancelled 02/10/16 14:30 Acanthocytes (Spur) Cancelled 02/10/16 14:30 Rouleaux Cancelled 02/10/16 14:30 Fragmented RBCs Cancelled 02/10/16 14:30 Schistocytes Cancelled 02/10/16 14:30 Morphology Comment Cancelled 02/10/16 14:30 Sodium 128 mmol/L (136-145) L 02/10/16 19:41 Potassium 6.6 mmol/L (3.5-5.1) H* 02/10/16 19:41 Chloride 93 mmol/L (98-107) L 02/10/16 19:41 Carbon Dioxide 21 mmol/L (21-32) 02/10/16 19:41 Anion Gap 14 (8-16) 02/10/16 19:41 BUN 108 mg/dL (7-18) H* 02/10/16 19:41 Creatinine 7.0 mg/dL (0.55-1.02) H 02/10/16 19:41 Creat Clearance w eGFR 5.48 (>60) 02/10/16 14:30 POC Glucometer 159.92440 UNITS (()) 02/10/16 22:39 Random Glucose 85 mg/dL (74-106) 02/10/16 19:41 Calcium 8.0 mg/dL (8.5-10.1) L 02/10/16 19:41 Phosphorus 6.3 mg/dL (2.5-4.9) H 02/10/16 14:30 Magnesium 2.4 mg/dL (1.8-2.4) 02/10/16 14:30 Total Bilirubin 0.8 mg/dL (0.2-1.0) D 02/10/16 14:30 AST 35 U/L (15-37) D 02/10/16 14:30 ALT 30 U/L (12-78) 02/10/16 14:30 Alkaline Phosphatase 169 U/L (45-117) H 02/10/16 14:30 Ammonia < 10 umol/L (11-32) L 02/10/16 14:30 Creatine Kinase 170 IU/L (26-192) D 02/10/16 14:30 CK-MB (CK-2) 8.861 ng/ml (0.5-3.6) H 02/10/16 14:30 Troponin I 1.38 ng/ml (0.00-0.05) H* 02/10/16 20:00 Total Protein 7.5 g/dl (6.4-8.2) 02/10/16 14:30 Albumin 3.1 g/dl (3.4-5.0) L 02/10/16 14:30 Problem List - Problems (1) Altered mental status, unspecified Code(s): R41.82 - ALTERED MENTAL STATUS, UNSPECIFIED Qualifiers: Altered mental status type: unspecified Qualified Code(s): R41.82 - Altered mental status, unspecified (2) Dialysis AV fistula malfunction Code(s): T82.590A - [facility] COMPL OF SURGICALLY CREATED ARTERIOVENOUS FISTULA, INIT Qualifiers: Encounter type: initial encounter Qualified Code(s): T82.590A - Other mechanical complication of surgically created arteriovenous fistula, initial encounter (3) Elevated troponin Code(s): R79.89 - OTHER SPECIFIED ABNORMAL FINDINGS OF BLOOD CHEMISTRY (4) Hyperkalemia Code(s): E87.5 - HYPERKALEMIA (5) Leukocytosis Code(s): D72.829 - ELEVATED WHITE BLOOD CELL COUNT, UNSPECIFIED (6) Thrombosis of surgically created arteriovenous fistula Code(s): T82.868A - THROMBOSIS DUE TO VASCULAR PROSTH DEV/GRFT, INIT (7) Thyroid disease Code(s): E07.9 - DISORDER OF THYROID, UNSPECIFIED (8) ESRD (end stage renal disease) on dialysis Code(s): N18.6 - END STAGE RENAL DISEASE Z99.2 - DEPENDENCE ON RENAL DIALYSIS Assessment/Plan 75yo F with a significant past medical history of DMII, ESRD, anemia of chronic disease, CHF, and HTN who was sent to the ED this afternoon due to a L bleeding AV fistula and inablity to complete HD. Emergent HD started via rt femoral catheter. Ccb AMS m/l 2/2 uremic encephalopathy, NSTEMI in setting of uremia and hyperkalemia, respiratory insufficiency requiring O2. Pulm: - O2 support -Fluid removal with HD as per nephrology -Aspiration precaution with AMS -Low threshold to intubate for airway protection if more altered CV- NSTEMI in setting of uremia, hyperkalemia -cardiac monitoring -Trend troponin and ECG -HD Renal: ESRD missed HD session; uremia and hyperkalemia -Emergent HD as per nephrology -Monitor BMP Neuro: Metabolic encephalopathy in setting of uremia and infection; c/f stroke on admission, CT head unremarkable -Neuro checks -Reorientation -Neuro consult if no improvement Endo: DMII -Fingersticks q4 -Sliding scale insulin coverage -D5W IV as needed ID/Vasc: Leukocytosis; Lt A-V fistula c/f infection +/-clot; Hx ESBL urine infections -Vasc consult -Dressing changes -f/u cultures -Continue vanco -Broad coverage with Meropenem -ID consult Proph: DVT/GI proph
[2016-02-10] MEDS: hydrALAZINE HCL 25 MG TABLET (FP) PO SCH (21:28)
[2016-02-10] MEDS ORDERED: INFLUENZA VACCINE 45 MCG/0.5 ML (MDV 16-17) IM ONE (22:00)
[2016-02-10] MEDS ORDERED: HEMOQUE TEST 1 EACH EACH ONE (22:37)
[2016-02-10 23:26] LABS: MCH 28.2 pg (25.7-33.7); MCHC 31.7 g/dl (32.0-36.0); MEAN CELL VOLUME 88.9 fl (80-96); MEAN PLT VOLUME 8.6 fl (7.5-11.1); PLATELET COUNT 174 K/MM3 (134-434); RDW 16.1 % (11.6-15.6); WHITE BLOOD COUNT 15.3 K/mm3 (4.0-10.0)
[2016-02-11 00:10] LABS: ALBUMIN 3.2 g/dl (3.4-5.0); BILIRUBIN,TOTAL 1.1 mg/dL (0.2-1.0); CALCIUM 8.1 mg/dL (8.5-10.1); CREATININE 2.4 mg/dL (0.55-1.02)
[2016-02-11 00:11] LABS: TOT PROT 7.9 g/dl (6.4-8.2)
[2016-02-11 00:58] LABS: ARTERIAL BLD GAS O2 SATURATION 98.9 % (90-98.9); ARTERIAL BLOOD GAS BASE EXCESS 0.5 meq/l (-2-2); ARTERIAL BLOOD GAS pH 7.39 (7.35-7.45)
[2016-02-11 01:00] LABS: ALLENS TEST POSITIVE; ART PUNCT SITE RIGHT BRACHIAL; LPM/O2% 50; PT. ON O2? YES; TYPE OF O2 VENTIMASK
[2016-02-11] MEDS ORDERED: ACETAMINOPHEN 650 MG SUPP.RECT PR PRN (03:50)
[2016-02-11] MEDS ORDERED: MEROPENEM 500 MG in DEXTROSE 5%-WATER - 100 ML IVPB ONE (04:58)
[2016-02-11 06:01] LABS: MCH 28.4 pg (25.7-33.7); MCHC 31.8 g/dl (32.0-36.0); MEAN CELL VOLUME 89.5 fl (80-96); MEAN PLT VOLUME 8.5 fl (7.5-11.1); PLATELET COUNT 150 K/MM3 (134-434); RDW 16.6 % (11.6-15.6); WHITE BLOOD COUNT 12.7 K/mm3 (4.0-10.0)
[2016-02-11] MEDS: hydrALAZINE HCL 25 MG TABLET (FP) PO SCH ×3 (06:27→22:41)
[2016-02-11 07:04] LABS: THYROID STIMULATING HORMONE < 0.01 uIU/ml (0.358-3.74)
[2016-02-11 07:21] LABS: TROPONIN I 2.91 ng/ml (0.00-0.05)
[2016-02-11 07:23] LABS: ALBUMIN 2.4 g/dl (3.4-5.0); CALCIUM 8.1 mg/dL (8.5-10.1); CREATININE 3.9 mg/dL (0.55-1.02); MAGNESIUM 1.8 mg/dL (1.8-2.4)
[2016-02-11 07:28] LABS: BILIRUBIN,TOTAL 0.8 mg/dL (0.2-1.0); TOT PROT 6.1 g/dl (6.4-8.2)
[2016-02-11] MEDS ORDERED: ACETAMINOPHEN 325 MG TABLET (FP) ONE (07:28)
[2016-02-11] MEDS: ACETAMINOPHEN 325 MG TABLET (FP) PO PRN ×2 (07:34→16:52)
[2016-02-11] MEDS: SEVELAMER CARBONATE 800 MG TAB (FP) PO SCH ×3 (07:47→16:46)
--- NOTE | 2016-02-11 08:17 | PN ---
Progress Note (short form) - Note Progress Note: PT remains in the ICU, as per Nursing staff she is still confused. She is complaining of non-consistent pain symptoms to her left side. No SOB/CP at this time. She had HD yesterday. Vital Signs Period Temp Pulse Resp BP Sys/Rangel Pulse Ox Last 24 Hr 97.3 F-101.7 F 55-90 11-22 79-166/38-97 96-100 PE: GEN: Alert and follows commands, oriented to place LUE: +2 radial pulse, LUE kerlix with mild bleeding on dressing. Solution Professional strength equal b/l. Lower ext: moving b/l lower ext Right groin: Shiley in place an without evidence of bleeding. CBC, BMP 02/11/16 05:00 02/11/16 05:00 Laboratory Tests 02/10/16 02/10/16 02/11/16 14:30 20:00 05:00 Troponin I 1.09 H* 1.38 H* 2.91 H* Current Medications Generic Name Dose Route Start Last Admin Trade Name Freq PRN Reason Stop Dose Admin Acetaminophen 650 mg 02/10/16 19:08 02/11/16 07:34 Tylenol - PO 650 mg BID PRN Administration FEVER Acetaminophen 650 mg 02/11/16 03:50 02/11/16 03:00 Tylenol Suppository - ME 650 mg Q6H PRN Administration FEVER OR PAIN Hydralazine HCl 25 mg 02/10/16 22:00 02/11/16 06:27 Apresoline - PO Not Given TID DUC Pantoprazole Sodium 100 mls @ 200 mls/hr 02/11/16 10:00 Protonix 40mg Ivpb (Pre-Docked) IVPB DAILY DUC Metoprolol Succinate 25 mg 02/11/16 10:00 Toprol Xl - PO DAILY DUC Sevelamer Carbonate 1,600 mg 02/11/16 08:00 02/11/16 07:47 Renvela - PO Not Given TIDCM DUC Problem List - Problems (1) Altered mental status, unspecified Assessment/Plan: Head CT upon admission without any evidence of bleed, pt remains confused today follow-upmanagement as per ICU Code(s): R41.82 - ALTERED MENTAL STATUS, UNSPECIFIED Qualifiers: Altered mental status type: unspecified Qualified Code(s): R41.82 - Altered mental status, unspecified (2) Elevated troponin Assessment/Plan: TNI continue to rise, cardiology follow-up today. AC on hold because of bleeding to LUE. Code(s): R79.89 - OTHER SPECIFIED ABNORMAL FINDINGS OF BLOOD CHEMISTRY (3) ESRD (end stage renal disease) on dialysis Assessment/Plan: HD via shiley, H&H decrease today, otherwise chem values improved BUN/CRET. Repeat HD as per Nephrology She remains npo for revision of LUE access today if she is cleared by cardiology /pulmonary Code(s): N18.6 - END STAGE RENAL DISEASE Z99.2 - DEPENDENCE ON RENAL DIALYSIS (4) AV graft thrombosis Code(s): T82.868A - THROMBOSIS DUE TO VASCULAR PROSTH DEV/GRFT, INIT Qualifiers: Encounter type: initial encounter Qualified Code(s): T82.868A - Thrombosis of vascular prosthetic devices, implants and grafts, initial encounter
[2016-02-11 08:28] LABS: URINE APPEARANCE TURBID; URINE BILIRUBIN NEGATIVE (NEGATIVE); URINE GLUCOSE (UA) NEGATIVE (NEGATIVE); URINE KETONE NEGATIVE (NEGATIVE); URINE NITRITE NEGATIVE (NEGATIVE); URINE UROBILINOGEN NEGATIVE E.U./dl (0.2-1.0)
[2016-02-11 08:31] LABS: URINE BLOOD 2+ (NEGATIVE); URINE COLOR GRAY; URINE LEUK ESTERASE 3+ (NEGATIVE); URINE PROTEIN 2+ (NEGATIVE)
[2016-02-11 08:33] LABS: URINE BACTERIA MODERATE /hpf (NONE SEEN); URINE MUCUS MODERATE; URINE RBC 13 /hpf (0-3); URINE WBC 70 /hpf (3-5)
--- NOTE | 2016-02-11 09:05 | PN ---
Progress Note, Physician Chief Complaint: S/p emergent dialysis yesterday No further bleeding in graft site-- but when dressing is moved, it starts bleeding Pt is more awake, no distress She is able to give more history Does not remember that she had dialysis yesterday - Current Medication List Current Medications: Active Medications Acetaminophen (Tylenol -) 650 mg PO BID PRN PRN Reason: FEVER Last Admin: 02/11/16 07:34 Dose: 650 mg Acetaminophen (Tylenol Suppository -) 650 mg LA Q6H PRN PRN Reason: FEVER OR PAIN Last Admin: 02/11/16 03:00 Dose: 650 mg Hydralazine HCl (Apresoline -) 25 mg PO TID DUC Last Admin: 02/11/16 06:27 Dose: Not Given Pantoprazole Sodium (Protonix 40mg Ivpb (Pre-Docked)) 100 mls @ 200 mls/hr IVPB DAILY DUC Metoprolol Succinate (Toprol Xl -) 25 mg PO DAILY DUC Sevelamer Carbonate (Renvela -) 1,600 mg PO TIDCM [facility] Last Admin: 02/11/16 07:47 Dose: Not Given - Objective Vital Signs: Vital Signs Temperature 98.6 F 02/11/16 07:30 Pulse Rate 72 02/11/16 07:30 Respiratory Rate 18 02/11/16 07:30 Blood Pressure 138/50 02/11/16 07:30 O2 Sat by Pulse Oximetry (%) 100 02/11/16 07:51 Constitutional: Yes: No Distress Neck: Yes: Thyromegaly Cardiovascular: Yes: Regular Rate and Rhythm Respiratory: Yes: Diminished Gastrointestinal: Yes: Normal Bowel Sounds, Soft. No: Distention, Tenderness Extremities: Yes: Other (right arm dressing in place) Edema: No Labs: CBC, BMP 02/11/16 05:00 02/11/16 05:00 INR, PTT INR 1.20 (0.82-1.09) H 02/10/16 14:30 Problem List - Problems (1) Altered mental status, unspecified Code(s): R41.82 - ALTERED MENTAL STATUS, UNSPECIFIED Qualifiers: Altered mental status type: unspecified Qualified Code(s): R41.82 - Altered mental status, unspecified (2) Dialysis AV fistula malfunction Code(s): T82.590A - [facility] COMPL OF SURGICALLY CREATED ARTERIOVENOUS FISTULA, INIT Qualifiers: Encounter type: initial encounter Qualified Code(s): T82.590A - Other mechanical complication of surgically created arteriovenous fistula, initial encounter (3) Elevated troponin Code(s): R79.89 - OTHER SPECIFIED ABNORMAL FINDINGS OF BLOOD CHEMISTRY (4) Hyperkalemia Code(s): E87.5 - HYPERKALEMIA (5) Thrombosis of surgically created arteriovenous fistula Code(s): T82.868A - THROMBOSIS DUE TO VASCULAR PROSTH DEV/GRFT, INIT (6) ESRD (end stage renal disease) on dialysis Code(s): N18.6 - END STAGE RENAL DISEASE Z99.2 - DEPENDENCE ON RENAL DIALYSIS (7) CHF (congestive heart failure) Code(s): I50.9 - HEART FAILURE, UNSPECIFIED (8) Diabetes mellitus Code(s): E11.9 - TYPE 2 DIABETES MELLITUS WITHOUT COMPLICATIONS Qualifiers: Diabetes mellitus type: type 2 Diabetes mellitus complication status: without complication Qualified Code(s): - (9) Bacteremia Code(s): R78.81 - BACTEREMIA (10) Arteriovenous graft infection Code(s): T82.7XXA - INFECT/INFLM REACT D/T OTH CARDI/VASC DEV/IMPLNT/GRFT, INIT Qualifiers: Encounter type: subsequent encounter Qualified Code(s): T82.7XXD - Infection and inflammatory reaction due to other cardiac and vascular devices, implants and grafts, subsequent encounter Assessment/Plan PLAN s/p emergent dialysis. has a femoral shiley hyperkalemia-- resolved ICU monitoring Has elevated troponins- rising troponins check Echo will need to start Heparin drip if ok with cardiology and Surgery spoke with Vascular , will hold off surgery today as blood cultures are positive Graft maybe the source of infection, though I did not see any pus from the graft yesterday continue with meds stat dose of Meropenum and vacno given, ID consult for positive blood cultures serial cardiac enzymes
[2016-02-11] MEDS: PANTOPRAZOLE SODIUM 100 ML IVPB SCH (10:00)
[2016-02-11] MEDS: METOPROLOL SUCCINATE 25 MG TAB.SR.24H (FP) PO SCH (10:01)
--- NOTE | 2016-02-11 10:22 | PN ---
Progress Note (short form) - Note Progress Note: Vascular surgery Pt seen and examined. Left AVG with no bruit and thrill. Blood cx are positive. Pt was bleeding from left avg on admission. Pt with positive troponins. Cardiology to evaluate pt. Will probably get HD thru [facility] and then take shiley out. Pt might need removal of avg, and insertion of permacath. Will insert permacath once cultures are negative. Will cont to follow True Reid DO
--- NOTE | 2016-02-11 11:06 | PN ---
Progress Note (short form) - Note Progress Note: ID consult dictated imp/reccd 75 year old female with ESRD/HD admitted yesterday with blooding from AVG she missed recent dialysis, K was 7 and she was lethargic she had a shiley inserted for emergent HD blood cultures were drawn she was given vancomycin yesterday and meropenem this am blood cultures are now positive for GPC clusters 2/4 bottles Gram positive bacteremia- suspect AVG infection vancomycin given yesterday, for stat level now, if less then 15 will give 1 gram now f/u blood cultures, ECHO- r/o endocarditis repeat blood cultures in am repeat vancomycin level in am vascular to f/u for AVG graft revision positive troponins- cardiology f/u esrd/hd
[2016-02-11 11:07] LABS: FREE T4 2.04 ng/dl (0.76-1.46)
--- NOTE | 2016-02-11 12:15 | PN ---
Teaching Attending Note Name of Resident: Romario Medina ATTENDING PHYSICIAN STATEMENT I saw and evaluated the patient. I reviewed the resident's note and discussed the case with the resident. I agree with the resident's findings and plan as documented. SUBJECTIVE: Pt seen and examined in the ICU. Denies chest pain or shortness of breath. L AVF wrapped with some sanguinous drainage. Blood cultures growing gram positive cocci. OBJECTIVE: Last Vital Signs Temp Pulse Resp BP Pulse Ox 98.6 F 72 18 109/50 95 02/11/16 07:30 02/11/16 11:26 02/11/16 09:56 02/11/16 10:15 02/11/16 11:26 Intake & Output 02/08/16 02/09/16 02/10/16 02/11/16 23:59 23:59 23:59 23:59 Intake Total 30 Output Total 80 Balance -50 Weight 138 lb 14.259 oz 139 lb 12.369 oz Gen: confused, but in NAD Heart: RRR, +systolic murmur Lung: decreased breath sounds at the bases Abd: soft, nontender Ext: no edema CBC, BMP 02/11/16 05:00 02/11/16 05:00 Active Medications Acetaminophen (Tylenol -) 650 mg PO BID PRN PRN Reason: FEVER Last Admin: 02/11/16 07:34 Dose: 650 mg Acetaminophen (Tylenol Suppository -) 650 mg SC Q6H PRN PRN Reason: FEVER OR PAIN Last Admin: 02/11/16 03:00 Dose: 650 mg Chlorhexidine Gluconate (Hibiclens For Decolonization -) 1 applic TP HS [facility] Hydralazine HCl (Apresoline -) 25 mg PO TID [facility] Last Admin: 02/11/16 06:27 Dose: Not Given Pantoprazole Sodium (Protonix 40mg Ivpb (Pre-Docked)) 100 mls @ 200 mls/hr IVPB DAILY [facility] Last Admin: 02/11/16 10:00 Dose: 200 mls/hr Vancomycin HCl (Vancomycin (Pre-Docked)) 250 mls @ 250 mls/hr IVPB ONCE ONE Stop: 02/11/16 15:59 Metoprolol Succinate (Toprol Xl -) 25 mg PO DAILY [facility] Last Admin: 02/11/16 10:01 Dose: 25 mg Mupirocin (Bactroban Ointment (For Decolonization) -) 1 applic NS BID [facility] Stop: 02/16/16 21:59 Sevelamer Carbonate (Renvela -) 1,600 mg PO TIDCM [facility] Last Admin: 02/11/16 11:18 Dose: Not Given ASSESSMENT AND PLAN: Gram Positive Bacteremia from likely AVG infection Acute Blood Loss from AVG NSTEMI Altered Mental Status ESRD on HD Hyperkalemia resolved Pulmonary HTN HTN DM - continue vanco by level - f/u cultures - cardiology f/u, will need clearance prior to OR - echocardiogram - trend cardiac enzymes, EKGs - HD per renal - d/c femoral catheter after next HD session - repeat cultures with HD - aspiration precautions - DVT prophylaxis
--- NOTE | 2016-02-11 12:36 | PN ---
Progress Note, Physician History of Present Illness: 75-year-old female presents to the ED for evaluation of bleeding left AV fistula. As per pt she had dialysis but has not been feeling well and today when she went to dialysis they were unable to access her fistula and then it began to bleed. Patient states has not been feeling well over the past few days describing nausea myalgia, and decreased appetite. Patient denies headache, throat pain, chest pain or shortness of breath. Patient with history of anemia, CVA, CHF, dementia, diabetes, dialysis, hypertension and dyslipidemia , and thyroid disease. - Current Medication List Current Medications: Active Medications Acetaminophen (Tylenol -) 650 mg PO BID PRN PRN Reason: FEVER Last Admin: 02/11/16 07:34 Dose: 650 mg Acetaminophen (Tylenol Suppository -) 650 mg [place] Q6H PRN PRN Reason: FEVER OR PAIN Last Admin: 02/11/16 03:00 Dose: 650 mg Chlorhexidine Gluconate (Hibiclens For Decolonization -) 1 applic TP HS [facility] Hydralazine HCl (Apresoline -) 25 mg PO TID [facility] Last Admin: 02/11/16 06:27 Dose: Not Given Pantoprazole Sodium (Protonix 40mg Ivpb (Pre-Docked)) 100 mls @ 200 mls/hr IVPB DAILY [facility] Last Admin: 02/11/16 10:00 Dose: 200 mls/hr Vancomycin HCl (Vancomycin (Pre-Docked)) 250 mls @ 250 mls/hr IVPB ONCE ONE Stop: 02/11/16 15:59 Metoprolol Succinate (Toprol Xl -) 25 mg PO DAILY [facility] Last Admin: 02/11/16 10:01 Dose: 25 mg Mupirocin (Bactroban Ointment (For Decolonization) -) 1 applic NS BID [facility] Stop: 02/16/16 21:59 Sevelamer Carbonate (Renvela -) 1,600 mg PO TIDCM [facility] Last Admin: 02/11/16 11:18 Dose: Not Given - Objective Vital Signs: Vital Signs Temperature 98.6 F 02/11/16 07:30 Pulse Rate 72 02/11/16 11:26 Respiratory Rate 18 02/11/16 09:56 Blood Pressure 109/50 02/11/16 10:15 O2 Sat by Pulse Oximetry (%) 95 02/11/16 11:26 Eyes: Yes: WNL, Conjunctiva Clear, EOM Intact HENT: Yes: WNL, Atraumatic, Normocephalic Neck: Yes: WNL, Supple, Trachea Midline Cardiovascular: Yes: WNL, Regular Rate and Rhythm Respiratory: Yes: WNL, Regular, CTA Bilaterally Gastrointestinal: Yes: WNL, Normal Bowel Sounds Genitourinary: Yes: WNL Musculoskeletal: Yes: WNL Extremities: Yes: WNL Edema: No Integumentary: Yes: WNL Neurological: Yes: WNL, Alert, Oriented ...Motor Strength: WNL Psychiatric: Yes: WNL Labs: CBC, BMP 02/11/16 05:00 02/11/16 05:00 INR, PTT INR 1.20 (0.82-1.09) H 02/10/16 14:30 Laboratory Tests 02/10/16 02/10/16 02/10/16 14:30 14:30 14:30 WBC 14.5 H D RBC 4.12 D Hgb 11.9 D Hct 38.0 D MCV 92.4 MCHC 31.4 L RDW 17.2 H D Plt Count 144 MPV 8.5 D Neutrophils % 94.4 H D Lymphocytes % 1.9 L D Monocytes % 3.5 L Eosinophils % 0.1 D Basophils % 0.1 Band Neutrophils Cancelled Metamyelocytes Cancelled Myelocytes Cancelled Promyelocytes Cancelled Nucleated RBCs Cancelled Hypersegmented Neuts Cancelled Plasmacytoid Lymphs Cancelled Reactive Lymphocytes Cancelled Blast Cells Cancelled Plasma Cells Cancelled Other Cell Type Cancelled Toxic Granulation Cancelled Dohle Bodies Cancelled Am[place]car Rods Cancelled Polychromasia Cancelled Hypochromic-Microcytic Cancelled Poikilocytosis Cancelled Basophilic Stippling Cancelled Anisocytosis Cancelled Microcytosis Cancelled Macrocytosis Cancelled Spherocytes Cancelled Siderocytes Cancelled Sickle Cells Cancelled Target Cells Cancelled Tear Drop Cells Cancelled Ovalocytes Cancelled Stomatocytes Cancelled Helmet Cells Cancelled [place] Bodies Cancelled [place] Rings Cancelled [place] Cells Cancelled Acanthocytes (Spur) Cancelled Rouleaux Cancelled Fragmented RBCs Cancelled Schistocytes Cancelled Morphology Comment Cancelled INR 1.20 H Puncture Site ABG pH ABG pCO2 at Pt Temp ABG pO2 at Pt Temp ABG HCO3 ABG O2 Sat (Measured) ABG O2 Content ABG Base Excess Joseph Test VBG pH POC VBG pCO2 POC VBG pO2 O2 Delivery Device Oxygen Flow Rate PEEP Sodium 129 L Potassium 7.0 H* D Chloride 93 L Carbon Dioxide 19 L Anion Gap 17 H BUN 104 H Creatinine 7.3 H Creat Clearance w eGFR 5.48 POC Glucometer Random Glucose 99 D Calcium 8.0 L Phosphorus 6.3 H Magnesium 2.4 Total Bilirubin 0.8 D AST 35 D ALT 30 Alkaline Phosphatase 169 H Ammonia Creatine Kinase 170 D CK-MB (CK-2) 8.861 H Troponin I 1.09 H* Total Protein 7.5 Albumin 3.1 L Triglycerides Cholesterol Total LDL Cholesterol HDL Cholesterol TSH Free T4 Urine Color Urine Appearance Urine pH Ur Specific [place] Urine Protein Urine Glucose (UA) Urine Ketones Urine Blood Urine Nitrite Urine Bilirubin Urine Urobilinogen Ur Leukocyte Esterase Urine RBC Urine WBC Amorphous Phosphates Urine Bacteria Urine Mucus Fluid Tot Cell Count Cancelled Blood Type Antibody Screen 02/10/16 02/10/16 02/10/16 14:30 14:30 15:38 WBC RBC Hgb Hct MCV MCHC RDW Plt Count MPV Neutrophils % Lymphocytes % Monocytes % Eosinophils % Basophils % Band Neutrophils Metamyelocytes Myelocytes Promyelocytes Nucleated RBCs Hypersegmented Neuts Plasmacytoid Lymphs Reactive Lymphocytes Blast Cells Plasma Cells Other Cell Type Toxic Granulation Dohle Bodies Am[place]car Rods Polychromasia Hypochromic-Microcytic Poikilocytosis Basophilic Stippling Anisocytosis Microcytosis Macrocytosis Spherocytes Siderocytes Sickle Cells Target Cells Tear Drop Cells Ovalocytes Stomatocytes Helmet Cells [place] Bodies [place] Rings [place] Cells Acanthocytes (Spur) Rouleaux Fragmented RBCs Schistocytes Morphology Comment INR Puncture Site ABG pH ABG pCO2 at Pt Temp ABG pO2 at Pt Temp ABG HCO3 ABG O2 Sat (Measured) ABG O2 Content ABG Base Excess Joseph Test VBG pH 7.23 L* POC VBG pCO2 37.4 L D POC VBG pO2 52.2 H D O2 Delivery Device Oxygen Flow Rate PEEP Sodium Potassium Chloride Carbon Dioxide Anion Gap BUN Creatinine Creat Clearance w eGFR POC Glucometer Random Glucose Calcium Phosphorus Magnesium Total Bilirubin AST ALT Alkaline Phosphatase Ammonia < 10 L Creatine Kinase CK-MB (CK-2) Troponin I Total Protein Albumin Triglycerides Cholesterol Total LDL Cholesterol HDL Cholesterol TSH Free T4 Urine Color Urine Appearance Urine pH Ur Specific [place] Urine Protein Urine Glucose (UA) Urine Ketones Urine Blood Urine Nitrite Urine Bilirubin Urine Urobilinogen Ur Leukocyte Esterase Urine RBC Urine WBC Amorphous Phosphates Urine Bacteria Urine Mucus Fluid Tot Cell Count Blood Type A POSITIVE Antibody Screen Negative 02/10/16 02/10/16 02/10/16 19:41 20:00 22:39 WBC RBC Hgb Hct MCV MCHC RDW Plt Count MPV Neutrophils % Lymphocytes % Monocytes % Eosinophils % Basophils % Band Neutrophils Metamyelocytes Myelocytes Promyelocytes Nucleated RBCs Hypersegmented Neuts Plasmacytoid Lymphs Reactive Lymphocytes Blast Cells Plasma Cells Other Cell Type Toxic Granulation Dohle Bodies [place]car Rods Polychromasia Hypochromic-Microcytic Poikilocytosis Basophilic Stippling Anisocytosis Microcytosis Macrocytosis Spherocytes Siderocytes Sickle Cells Target Cells Tear Drop Cells Ovalocytes Stomatocytes Helmet Cells [place] Bodies [place] Rings [place] Cells Acanthocytes (Spur) Rouleaux Fragmented RBCs Schistocytes Morphology Comment INR Puncture Site ABG pH ABG pCO2 at Pt Temp ABG pO2 at Pt Temp ABG HCO3 ABG O2 Sat (Measured) ABG O2 Content ABG Base Excess Joseph Test VBG pH POC VBG pCO2 POC VBG pO2 O2 Delivery Device Oxygen Flow Rate PEEP Sodium 128 L Potassium 6.6 H* Chloride 93 L Carbon Dioxide 21 Anion Gap 14 BUN 108 H* Creatinine 7.0 H Creat Clearance w eGFR POC Glucometer 159.34157 Random Glucose 85 Calcium 8.0 L Phosphorus Magnesium Total Bilirubin AST ALT Alkaline Phosphatase Ammonia Creatine Kinase CK-MB (CK-2) Troponin I 1.38 H* Total Protein Albumin Triglycerides Cholesterol Total LDL Cholesterol HDL Cholesterol TSH Free T4 Urine Color Urine Appearance Urine pH Ur Specific [place] Urine Protein Urine Glucose (UA) Urine Ketones Urine Blood Urine Nitrite Urine Bilirubin Urine Urobilinogen Ur Leukocyte Esterase Urine RBC Urine WBC Amorphous Phosphates Urine Bacteria Urine Mucus Fluid Tot Cell Count Blood Type Antibody Screen 02/10/16 02/10/16 02/11/16 23:15 23:15 00:33 WBC 15.3 H RBC 4.13 Hgb 11.6 Hct 36.7 MCV 88.9 MCHC 31.7 L RDW 16.1 H Plt Count 174 D MPV 8.6 Neutrophils % Lymphocytes % Monocytes % Eosinophils % Basophils % Band Neutrophils Metamyelocytes Myelocytes Promyelocytes Nucleated RBCs Hypersegmented Neuts Plasmacytoid Lymphs Reactive Lymphocytes Blast Cells Plasma Cells Other Cell Type Toxic Granulation Dohle Bodies [place]car Rods Polychromasia Hypochromic-Microcytic Poikilocytosis Basophilic Stippling Anisocytosis Microcytosis Macrocytosis Spherocytes Siderocytes Sickle Cells Target Cells Tear Drop Cells Ovalocytes Stomatocytes Helmet Cells [place] Bodies [place] Rings [place] Cells Acanthocytes (Spur) Rouleaux Fragmented RBCs Schistocytes Morphology Comment INR Puncture Site Right brachial ABG pH 7.39 ABG pCO2 at Pt Temp 42.2 ABG pO2 at Pt Temp 138.0 H D ABG HCO3 25.0 ABG O2 Sat (Measured) 98.9 ABG O2 Content 14.0 L ABG Base Excess 0.5 Joseph Test Positive VBG pH POC VBG pCO2 POC VBG pO2 O2 Delivery Device Ventimask Oxygen Flow Rate 50 PEEP 0.0 Sodium 135 L Potassium 3.6 D Chloride 95 L Carbon Dioxide 29 D Anion Gap 11 BUN 26 H D Creatinine 2.4 H D Creat Clearance w eGFR 19.79 POC Glucometer Random Glucose 124 H D Calcium 8.1 L Phosphorus Magnesium Total Bilirubin 1.1 H D AST 40 H ALT 33 Alkaline Phosphatase 181 H Ammonia Creatine Kinase CK-MB (CK-2) Troponin I Total Protein 7.9 Albumin 3.2 L Triglycerides Cholesterol Total LDL Cholesterol HDL Cholesterol TSH Free T4 Urine Color Urine Appearance Urine pH Ur Specific [place] Urine Protein Urine Glucose (UA) Urine Ketones Urine Blood Urine Nitrite Urine Bilirubin Urine Urobilinogen Ur Leukocyte Esterase Urine RBC Urine WBC Amorphous Phosphates Urine Bacteria Urine Mucus Fluid Tot Cell Count Blood Type Antibody Screen 02/11/16 02/11/16 02/11/16 05:00 05:00 05:00 WBC 12.7 H RBC 3.43 L Hgb 9.8 L D Hct 30.7 L D MCV 89.5 MCHC 31.8 L RDW 16.6 H Plt Count 150 MPV 8.5 Neutrophils % Y Lymphocytes % Y Monocytes % Eosinophils % Basophils % Band Neutrophils Metamyelocytes Myelocytes Promyelocytes Nucleated RBCs Hypersegmented Neuts Plasmacytoid Lymphs Reactive Lymphocytes Blast Cells Plasma Cells Other Cell Type Toxic Granulation Dohle Bodies Am[place]car Rods Polychromasia Hypochromic-Microcytic Poikilocytosis Basophilic Stippling Anisocytosis Microcytosis Macrocytosis Spherocytes Siderocytes Sickle Cells Target Cells Tear Drop Cells Ovalocytes Stomatocytes Helmet Cells [place] Bodies [place] Rings [place] Cells Acanthocytes (Spur) Rouleaux Fragmented RBCs Schistocytes Morphology Comment INR Puncture Site ABG pH ABG pCO2 at Pt Temp ABG pO2 at Pt Temp ABG HCO3 ABG O2 Sat (Measured) ABG O2 Content ABG Base Excess Joseph Test VBG pH POC VBG pCO2 POC VBG pO2 O2 Delivery Device Oxygen Flow Rate PEEP Sodium 137 Potassium 4.6 D Chloride 100 Carbon Dioxide 27 Anion Gap 10 BUN 47 H D Creatinine 3.9 H D Creat Clearance w eGFR 11.30 POC Glucometer Random Glucose 71 L D Calcium 8.1 L Phosphorus Magnesium 1.8 D Total Bilirubin 0.8 D AST 39 H ALT 25 D Alkaline Phosphatase 134 H D Ammonia Creatine Kinase CK-MB (CK-2) Troponin I 2.91 H* Total Protein 6.1 L D Albumin 2.4 L D Triglycerides 165 H Cholesterol 81 D Total LDL Cholesterol 34 HDL Cholesterol 20 L D TSH < 0.01 L Free T4 2.04 H D Urine Color Urine Appearance Urine pH Ur Specific [place] Urine Protein Urine Glucose (UA) Urine Ketones Urine Blood Urine Nitrite Urine Bilirubin Urine Urobilinogen Ur Leukocyte Esterase Urine RBC Urine WBC Amorphous Phosphates Urine Bacteria Urine Mucus Fluid Tot Cell Count Blood Type Antibody Screen 02/11/16 02/11/16 02/11/16 05:00 05:00 07:00 WBC RBC Hgb Hct MCV MCHC RDW Plt Count MPV Neutrophils % Lymphocytes % Monocytes % Eosinophils % Basophils % Band Neutrophils Metamyelocytes Myelocytes Promyelocytes Nucleated RBCs Hypersegmented Neuts Plasmacytoid Lymphs Reactive Lymphocytes Blast Cells Plasma Cells Other Cell Type Toxic Granulation Dohle Bodies [place] Rods Polychromasia Hypochromic-Microcytic Poikilocytosis Basophilic Stippling Anisocytosis Microcytosis Macrocytosis Spherocytes Siderocytes Sickle Cells Target Cells Tear Drop Cells Ovalocytes Stomatocytes Helmet Cells [place] Bodies [place] Rings [place] Cells Acanthocytes (Spur) Rouleaux Fragmented RBCs Schistocytes Morphology Comment INR Puncture Site ABG pH ABG pCO2 at Pt Temp ABG pO2 at Pt Temp ABG HCO3 ABG O2 Sat (Measured) ABG O2 Content ABG Base Excess Joseph Test VBG pH POC VBG pCO2 POC VBG pO2 O2 Delivery Device Oxygen Flow Rate PEEP Sodium Potassium Chloride Carbon Dioxide Anion Gap BUN Creatinine Creat Clearance w eGFR POC Glucometer Random Glucose Calcium Phosphorus Magnesium Cancelled Total Bilirubin AST ALT Alkaline Phosphatase Ammonia Creatine Kinase CK-MB (CK-2) Troponin I Total Protein Albumin Triglycerides Cancelled Cholesterol Cancelled Total LDL Cholesterol Cancelled HDL Cholesterol Cancelled TSH Free T4 Cancelled Urine Color [place] Urine Appearance Turbid Urine pH 7.0 Ur Specific [place] 1.014 Urine Protein 2+ H Urine Glucose (UA) Negative Urine Ketones Negative Urine Blood 2+ H Urine Nitrite Negative Urine Bilirubin Negative Urine Urobilinogen Negative Ur Leukocyte Esterase 3+ H Urine RBC 13 Urine WBC 70 Amorphous Phosphates Moderate Urine Bacteria Moderate Urine Mucus Moderate Fluid Tot Cell Count Blood Type Antibody Screen 02/11/16 02/11/16 07:10 11:16 WBC RBC Hgb Hct MCV MCHC RDW Plt Count MPV Neutrophils % Lymphocytes % Monocytes % Eosinophils % Basophils % Band Neutrophils Metamyelocytes Myelocytes Promyelocytes Nucleated RBCs Hypersegmented Neuts Plasmacytoid Lymphs Reactive Lymphocytes Blast Cells Plasma Cells Other Cell Type Toxic Granulation Dohle Bodies [place] Rods Polychromasia Hypochromic-Microcytic Poikilocytosis Basophilic Stippling Anisocytosis Microcytosis Macrocytosis Spherocytes Siderocytes Sickle Cells Target Cells Tear Drop Cells Ovalocytes Stomatocytes Helmet Cells [place] Bodies [place] Rings [place] Cells Acanthocytes (Spur) Rouleaux Fragmented RBCs Schistocytes Morphology Comment INR Puncture Site ABG pH ABG pCO2 at Pt Temp ABG pO2 at Pt Temp ABG HCO3 ABG O2 Sat (Measured) ABG O2 Content ABG Base Excess Joseph Test VBG pH POC VBG pCO2 POC VBG pO2 O2 Delivery Device Oxygen Flow Rate PEEP Sodium Potassium Chloride Carbon Dioxide Anion Gap BUN Creatinine Creat Clearance w eGFR POC Glucometer 110.06856 121.07144 Random Glucose Calcium Phosphorus Magnesium Total Bilirubin AST ALT Alkaline Phosphatase Ammonia Creatine Kinase CK-MB (CK-2) Troponin I Total Protein Albumin Triglycerides Cholesterol Total LDL Cholesterol HDL Cholesterol TSH Free T4 Urine Color Urine Appearance Urine pH Ur Specific [place] Urine Protein Urine Glucose (UA) Urine Ketones Urine Blood Urine Nitrite Urine Bilirubin Urine Urobilinogen Ur Leukocyte Esterase Urine RBC Urine WBC Amorphous Phosphates Urine Bacteria Urine Mucus Fluid Tot Cell Count Blood Type Antibody Screen Assessment/Plan Problems (1) Hyperkalemia Assessment/Plan: 7.0-->6.6. insulin; D50, calcium; kayexalate. Hemodialysis Code(s): E87.5 - HYPERKALEMIA (2) Dialysis AV fistula malfunction Code(s): T82.590A - [facility] COMPL OF SURGICALLY CREATED ARTERIOVENOUS FISTULA, INIT Qualifiers: Encounter type: initial encounter Qualified Code(s): T82.590A - Other mechanical complication of surgically created arteriovenous fistula, initial encounter (3) Elevated troponin Assessment/Plan: TNI 1.09-->1.38. EKG: NSR; 1st degree AVB, without acute ST-T changes (no significant change from 12/2015). Cannot r/o myocardial injury, though multiple other factors may contribute to TNI elevation, including CHF, ESRD, sepsis, hypoxia. Problematic starting antiplatelets and systemic AC due to AV graft bleed, but would consider doing so if cleared by surgeon. F/u TNI and EKG serially. On metoprolol. ECHO for LVEF, wall motion, valve status (hx severe pulmonary HTN, valvulopathy) , pericardial effusion ("small" in 2014). Code(s): R79.89 - OTHER SPECIFIED ABNORMAL FINDINGS OF BLOOD CHEMISTRY (4) ESRD (end stage renal disease) on dialysis Code(s): N18.6 - END STAGE RENAL DISEASE Z99.2 - DEPENDENCE ON RENAL DIALYSIS (5) CHF (congestive heart failure) Assessment/Plan: On metoprolol and hydralazine. ECHO for LVEF. Code(s): I50.9 - HEART FAILURE, UNSPECIFIED (6) Hypertension Assessment/Plan: on metoprolol and hydralazine. 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 F/u ECHO in am. Code(s): I27.2 - OTHER SECONDARY PULMONARY HYPERTENSION (8) Anemia Assessment/Plan: On Epogen. Code(s): D64.9 - ANEMIA, UNSPECIFIED Qualifiers: Other causes of anemia: acute posthemorrhagic (9) Leukocytosis Code(s): D72.829 - ELEVATED WHITE BLOOD CELL COUNT, UNSPECIFIED (10) Thyroid disease Assessment/Plan: f/u TFTs. Code(s): E07.9 - DISORDER OF THYROID, UNSPECIFIED CC time 35 min
[2016-02-11] MEDS ORDERED: VANCOMYCIN 1 GRAM (PRE-DOCKED) 250 ML IVPB ONE (15:00)
--- NOTE | 2016-02-11 15:01 | PN ---
Physical Exam: SUBJECTIVE: Patient seen and examined at bedside. Dialyzed overnight. No new complaints. Continue to be lethargic but abusable. Denies CP, PIÑA, SOB, abd. pain , palpitations, N/V. OBJECTIVE: Vital Signs Period Temp Pulse Resp BP Sys/Rangel Pulse Ox Last 24 Hr 98.4 F-101.7 F 65-90 11-22 79-166/38-97 95-100 Gen: Alert to verbal stimulus, resting comfortably at bedside Head: Normocephalic, atraumatic Eyes: PERRLA, EOMI, no scleral icterus/jaundice Neck: Protrusion of thryoid noted; Supple, ROM intact Lungs: CTA bilaterally; no wheezes, rhonchi, rales Cardiac: Regular rate and rhythm, Systolic murmur noted, S1 and S2 present; no clicks or rubs Abdomen: Soft, nontender, nondistended, R groin shiley noted C/D/I Extremities: LUE AVF wrapped in bandage with slight sangrinous breakthrough, pulses strong and intact throughout all four extremities, No edema, <2 cap refill in all four ext. Laboratory Results - last 24 hr 02/10/16 02/10/16 02/10/16 15:38 19:41 20:00 WBC RBC Hgb Hct MCV MCHC RDW Plt Count MPV Neutrophils % Lymphocytes % Puncture Site ABG pH ABG pCO2 at Pt Temp ABG pO2 at Pt Temp ABG HCO3 ABG O2 Sat (Measured) ABG O2 Content ABG Base Excess Joseph Test VBG pH 7.23 L* POC VBG pCO2 37.4 L D POC VBG pO2 52.2 H D O2 Delivery Device Oxygen Flow Rate PEEP Sodium 128 L Potassium 6.6 H* Chloride 93 L Carbon Dioxide 21 Anion Gap 14 BUN 108 H* Creatinine 7.0 H Creat Clearance w eGFR POC Glucometer Random Glucose 85 Calcium 8.0 L Magnesium Total Bilirubin AST ALT Alkaline Phosphatase Troponin I 1.38 H* Total Protein Albumin Triglycerides Cholesterol Total LDL Cholesterol HDL Cholesterol TSH Free T4 Urine Color Urine Appearance Urine pH Ur Specific [place] Urine Protein Urine Glucose (UA) Urine Ketones Urine Blood Urine Nitrite Urine Bilirubin Urine Urobilinogen Ur Leukocyte Esterase Urine RBC Urine WBC Amorphous Phosphates Urine Bacteria Urine Mucus Random Vancomycin 02/10/16 02/10/16 02/10/16 22:39 23:15 23:15 WBC 15.3 H RBC 4.13 Hgb 11.6 Hct 36.7 MCV 88.9 MCHC 31.7 L RDW 16.1 H Plt Count 174 D MPV 8.6 Neutrophils % Lymphocytes % Puncture Site ABG pH ABG pCO2 at Pt Temp ABG pO2 at Pt Temp ABG HCO3 ABG O2 Sat (Measured) ABG O2 Content ABG Base Excess Joseph Test VBG pH POC VBG pCO2 POC VBG pO2 O2 Delivery Device Oxygen Flow Rate PEEP Sodium 135 L Potassium 3.6 D Chloride 95 L Carbon Dioxide 29 D Anion Gap 11 BUN 26 H D Creatinine 2.4 H D Creat Clearance w eGFR 19.79 POC Glucometer [phone] Random Glucose 124 H D Calcium 8.1 L Magnesium Total Bilirubin 1.1 H D AST 40 H ALT 33 Alkaline Phosphatase 181 H Troponin I Total Protein 7.9 Albumin 3.2 L Triglycerides Cholesterol Total LDL Cholesterol HDL Cholesterol TSH Free T4 Urine Color Urine Appearance Urine pH Ur Specific [place] Urine Protein Urine Glucose (UA) Urine Ketones Urine Blood Urine Nitrite Urine Bilirubin Urine Urobilinogen Ur Leukocyte Esterase Urine RBC Urine WBC Amorphous Phosphates Urine Bacteria Urine Mucus Random Vancomycin 02/11/16 02/11/16 02/11/16 00:33 05:00 05:00 WBC 12.7 H RBC 3.43 L Hgb 9.8 L D Hct 30.7 L D MCV 89.5 MCHC 31.8 L RDW 16.6 H Plt Count 150 MPV 8.5 Neutrophils % Y Lymphocytes % Y Puncture Site Right brachial ABG pH 7.39 ABG pCO2 at Pt Temp 42.2 ABG pO2 at Pt Temp 138.0 H D ABG HCO3 25.0 ABG O2 Sat (Measured) 98.9 ABG O2 Content 14.0 L ABG Base Excess 0.5 Joseph Test Positive VBG pH POC VBG pCO2 POC VBG pO2 O2 Delivery Device Ventimask Oxygen Flow Rate 50 PEEP 0.0 Sodium 137 Potassium 4.6 D Chloride 100 Carbon Dioxide 27 Anion Gap 10 BUN 47 H D Creatinine 3.9 H D Creat Clearance w eGFR 11.30 POC Glucometer Random Glucose 71 L D Calcium 8.1 L Magnesium 1.8 D Total Bilirubin 0.8 D AST 39 H ALT 25 D Alkaline Phosphatase 134 H D Troponin I Total Protein 6.1 L D Albumin 2.4 L D Triglycerides 165 H Cholesterol 81 D Total LDL Cholesterol 34 HDL Cholesterol 20 L D TSH Free T4 Urine Color Urine Appearance Urine pH Ur Specific [place] Urine Protein Urine Glucose (UA) Urine Ketones Urine Blood Urine Nitrite Urine Bilirubin Urine Urobilinogen Ur Leukocyte Esterase Urine RBC Urine WBC Amorphous Phosphates Urine Bacteria Urine Mucus Random Vancomycin 02/11/16 02/11/16 02/11/16 05:00 05:00 05:00 WBC RBC Hgb Hct MCV MCHC RDW Plt Count MPV Neutrophils % Lymphocytes % Puncture Site ABG pH ABG pCO2 at Pt Temp ABG pO2 at Pt Temp ABG HCO3 ABG O2 Sat (Measured) ABG O2 Content ABG Base Excess Joseph Test VBG pH POC VBG pCO2 POC VBG pO2 O2 Delivery Device Oxygen Flow Rate PEEP Sodium Potassium Chloride Carbon Dioxide Anion Gap BUN Creatinine Creat Clearance w eGFR POC Glucometer Random Glucose Calcium Magnesium Cancelled Total Bilirubin AST ALT Alkaline Phosphatase Troponin I 2.91 H* Total Protein Albumin Triglycerides Cancelled Cholesterol Cancelled Total LDL Cholesterol Cancelled HDL Cholesterol Cancelled TSH < 0.01 L Free T4 2.04 H D Cancelled Urine Color Urine Appearance Urine pH Ur Specific [place] Urine Protein Urine Glucose (UA) Urine Ketones Urine Blood Urine Nitrite Urine Bilirubin Urine Urobilinogen Ur Leukocyte Esterase Urine RBC Urine WBC Amorphous Phosphates Urine Bacteria Urine Mucus Random Vancomycin 02/11/16 02/11/16 02/11/16 07:00 07:10 11:16 WBC RBC Hgb Hct MCV MCHC RDW Plt Count MPV Neutrophils % Lymphocytes % Puncture Site ABG pH ABG pCO2 at Pt Temp ABG pO2 at Pt Temp ABG HCO3 ABG O2 Sat (Measured) ABG O2 Content ABG Base Excess Joseph Test VBG pH POC VBG pCO2 POC VBG pO2 O2 Delivery Device Oxygen Flow Rate PEEP Sodium Potassium Chloride Carbon Dioxide Anion Gap BUN Creatinine Creat Clearance w eGFR POC Glucometer [phone] Random Glucose Calcium Magnesium Total Bilirubin AST ALT Alkaline Phosphatase Troponin I Total Protein Albumin Triglycerides Cholesterol Total LDL Cholesterol HDL Cholesterol TSH Free T4 Urine Color [place] Urine Appearance Turbid Urine pH 7.0 Ur Specific [place] 1.014 Urine Protein 2+ H Urine Glucose (UA) Negative Urine Ketones Negative Urine Blood 2+ H Urine Nitrite Negative Urine Bilirubin Negative Urine Urobilinogen Negative Ur Leukocyte Esterase 3+ H Urine RBC 13 Urine WBC 70 Amorphous Phosphates Moderate Urine Bacteria Moderate Urine Mucus Moderate Random Vancomycin 02/11/16 11:45 WBC RBC Hgb Hct MCV MCHC RDW Plt Count MPV Neutrophils % Lymphocytes % Puncture Site ABG pH ABG pCO2 at Pt Temp ABG pO2 at Pt Temp ABG HCO3 ABG O2 Sat (Measured) ABG O2 Content ABG Base Excess Joseph Test VBG pH POC VBG pCO2 POC VBG pO2 O2 Delivery Device Oxygen Flow Rate PEEP Sodium Potassium Chloride Carbon Dioxide Anion Gap BUN Creatinine Creat Clearance w eGFR POC Glucometer Random Glucose Calcium Magnesium Total Bilirubin AST ALT Alkaline Phosphatase Troponin I Total Protein Albumin Triglycerides Cholesterol Total LDL Cholesterol HDL Cholesterol TSH Free T4 Urine Color Urine Appearance Urine pH Ur Specific [place] Urine Protein Urine Glucose (UA) Urine Ketones Urine Blood Urine Nitrite Urine Bilirubin Urine Urobilinogen Ur Leukocyte Esterase Urine RBC Urine WBC Amorphous Phosphates Urine Bacteria Urine Mucus Random Vancomycin 11.620 Active Medications Generic Name Dose Route Start Last Admin Trade Name Freq PRN Reason Stop Dose Admin Acetaminophen 650 mg 02/10/16 19:08 02/11/16 07:34 Tylenol - PO 650 mg BID PRN Administration FEVER Acetaminophen 650 mg 02/11/16 03:50 02/11/16 03:00 Tylenol Suppository - [place] 650 mg Q6H PRN Administration FEVER OR PAIN Chlorhexidine Gluconate 1 applic 02/11/16 22:00 Hibiclens For Decolonization - TP HS DUC Hydralazine HCl 25 mg 02/10/16 22:00 02/11/16 13:32 Apresoline - PO 25 mg TID DUC Administration Pantoprazole Sodium 100 mls @ 200 mls/hr 02/11/16 10:00 02/11/16 10:00 Protonix 40mg Ivpb (Pre-Docked) IVPB 200 mls/hr DAILY DUC Administration Vancomycin HCl 250 mls @ 250 mls/hr 02/11/16 15:00 02/11/16 14:10 Vancomycin (Pre-Docked) IVPB 02/11/16 15:59 250 mls/hr ONCE ONE Administration Methimazole 5 mg 02/11/16 14:00 Tapazole - PO TID DUC Metoprolol Succinate 25 mg 02/11/16 10:00 02/11/16 10:01 Toprol Xl - PO 25 mg DAILY DUC Administration Mupirocin 1 applic 02/11/16 22:00 Bactroban Ointment (For Decolonization) - NS 02/16/16 21:59 BID DUC Sevelamer Carbonate 1,600 mg 02/11/16 08:00 02/11/16 11:18 Renvela - PO Not Given TIDCM DUC ASSESSMENT/PLAN: 75yo F with ESRD on dialysis with AMS and mechanical malformation of AVF. Received emergent dialysis last night. (+)BCx's gram positive cocci in clusters. Neuro: * Remains altered, but less than previous day s/p emergent dialysis * Head CT on admission negative for acute pathology noted * Cont. to monitor alongside neuro checks Pulmonary: * Cont. supplemetal O2 with 5L NC to maintain SpO2 >90% CV: * Troponins trending upward; 2.91 currently (Previously 1.09 on admission) --No ST abnormalites on EKG --NSTEMI vs other etiologies (ESRD, sepsis, CHF) * Serial EKGs; Serial Troponins * f/u Echo today --Systolic murmur noted today not apparent in previous reports * Cont. Toprol XL 25mg PO Q daily Renal: * HD per nephrology team (Dr. Jones) * Tentative plan to undergo dialysis tomorrow and remove R groin shiley afterwards * Hyperkalemia resolved after emergent dialysis (currently 4.7 down from 7.0) ID: * Cont. Vanco per ID (Vanco level 11.6 today) * Given Meropenem 1x during dialysis last night * Blood Cx's positive x2 for gram positive cocci in clusters; f/u final * Per ID will obtain new blood cx's and random vanco level tomorrow during dialysis Endocrine: * Head/Neck US- Markedly enlarged and nodular thyroid gland as described above with no additional cervical masses or fluid collections. * Cont. ISS ACHS * Cont. BGM ACHS F/E/N * No IVF * Hyperkalemia resolved s/p HD * Mechanical soft renal diet. Dispo: Continue ICU monitoring YocastaTessie GOEL MS4 Visit type - Emergency Visit Emergency Visit: Yes ED Registration Date: 02/10/16 Care time: The patient presented to the Emergency Department on the above date and was hospitalized for further evaluation of their emergent condition. - New Patient This patient is new to me today: No - Critical Care Critical Care patient: Yes Total Critical Care Time (in minutes): 31 Critical Care Statement: The care of this patient involved high complexity decision making to prevent further life threatening deterioration of the patient 's condition and/or to evalute & treat vital organ system(s) failure or risk of failure.
--- NOTE | 2016-02-11 15:05 | CONS ---
DATE OF CONSULTATION: 02/11/2016 HISTORY OF PRESENT ILLNESS: This is a 75-year-old woman who [facility] the [facility] year and a half. She has a history of end-stage renal disease. She is on dialysis. She has a history of prior CVA as well and is not ambulatory at the [facility]. She is a resident of the [facility]. She presented to the emergency room from dialysis where she was noted to have bleeding from her graft. She reports that she has had some fevers since Tuesday, and that she missed a dialysis. She was noted to be confused in the emergency room. She was evaluated by Nephrology, and she had a Shiley placed and she had emergent hemodialysis. She also had blood cultures drawn and was given a dose of vancomycin. I am asked to see her because blood cultures today 2 of 4 positives were growing Gram positive cocci. PAST MEDICAL HISTORY: Notable for CVA, peripheral neuropathy. She has bilateral foot drop. She has a history of hypertension, hyperlipidemia. She has pleural effusion. She has had GI bleed in the past. She reports she has been on dialysis for about 2 years now. She has a history of UTI, diabetes, hyperthyroidism with a known goiter. SURGICAL HISTORY: Notable for AV graft, cholecystectomy, and tonsillectomy. The graft was last manipulated in December when it was clotted and had to be revised. MEDICATIONS: Notable for Renvela, Lyrica, MiraLAX, Paxil, Protonix, oxycodone, multivitamin, Toprol XL, Relistor, Levemir, insulin, Apresoline, Lasix, Feosol, atorvastatin, and vitamins. ALLERGIES: She has no known drug allergies. SOCIAL HISTORY: Notable for the fact that prior to being at the [facility] she lived alone. She has no children. REVIEW OF SYSTEMS: She denies any cough, any chest pain, any fevers, chills, nausea, or vomiting. PHYSICAL EXAMINATION: General: She is awake and alert. She knows she is at the hospital. Vital signs: Her maximum temperature was 101.7, current temperature is 98.6, pulse of 72, blood pressure 109/50, respiratory rate 18. HEENT: She is normocephalic. Her eyes are anicteric. She has no conjunctival hemorrhages. Neck: She has a large right neck mass. Her neck is supple. She has no meningeal signs. She has no pharyngitis or thrush. Lungs: Clear to auscultation. Heart: Regular rate and rhythm. She has a 2/6 systolic ejection murmur. Abdomen: Soft, nontender. She has a femoral Shiley in place. Extremities: Without edema. She has erythema at both her heels. LABORATORIES: His white count on admission was 14.5, today it is 12.7; hemoglobin is 9.8; platelets are 150. BUN 47, creatinine 3.9. Troponin 2.9. Her blood cultures 2 of 4 bottles are growing positive cocci in clusters. Chest x-ray is negative for infiltrates. SUMMARY: 1. This is a 75-year-old woman with end-stage renal disease on dialysis, admitted with bleeding from her arteriovenous graft. She had missed her recent dialysis. Her potassium was 7, and she was lethargic. She had a Shiley inserted for emergent dialysis. Blood cultures were drawn. She was given vancomycin yesterday and meropenem this morning. She has a history of extended-spectrum beta-lactamase organisms in her urine in the past. Blood cultures are now positive for gram positive cocci in clusters 2 of 4 bottles. Concerns would be gram positive bacteremia. I suspect arteriovenous graft infection. Unfortunately, I cannot take the dressing off her arm as the apparatus lineman reports that she has been bleeding when this happens. Vancomycin was given yesterday. Would get a stat level now. If less than 15, would give another dose. Follow up her blood cultures, echocardiogram, rule out endocarditis. Repeat blood cultures and vancomycin level in the morning with dialysis. This was discussed with the apparatus lineman. Vasculist to follow up for arteriovenous graft revision. 2. Positive troponins. Management per Cardiology. 3. End-stage renal dialysis. Hemodialysis. 4. History of resistant organisms. To continue contact isolation. Further recommendations to follow based on her clinical course. VENKATESH YE M.D. [id number]
[2016-02-11] MEDS: METHIMAZOLE 5 MG TABLET (FP) PO SCH ×2 (16:46→22:41)
--- NOTE | 2016-02-11 17:40 | PN ---
Progress Note, Physician History of Present Illness: Pt seen and examined at bedside. She is more awake than she was yesterday. She has positive cardiac enzymes. - Current Medication List Current Medications: Active Medications Acetaminophen (Tylenol -) 650 mg PO BID PRN PRN Reason: FEVER Last Admin: 02/11/16 16:52 Dose: 650 mg Acetaminophen (Tylenol Suppository -) 650 mg [place] Q6H PRN PRN Reason: FEVER OR PAIN Last Admin: 02/11/16 03:00 Dose: 650 mg Chlorhexidine Gluconate (Hibiclens For Decolonization -) 1 applic TP HS [facility] Hydralazine HCl (Apresoline -) 25 mg PO TID [facility] Last Admin: 02/11/16 13:32 Dose: 25 mg Pantoprazole Sodium (Protonix 40mg Ivpb (Pre-Docked)) 100 mls @ 200 mls/hr IVPB DAILY [facility] Last Admin: 02/11/16 10:00 Dose: 200 mls/hr Methimazole (Tapazole -) 5 mg PO TID [facility] Last Admin: 02/11/16 16:46 Dose: 5 mg Metoprolol Succinate (Toprol Xl -) 25 mg PO DAILY [facility] Last Admin: 02/11/16 10:01 Dose: 25 mg Mupirocin (Bactroban Ointment (For Decolonization) -) 1 applic NS BID [facility] Stop: 02/16/16 21:59 Sevelamer Carbonate (Renvela -) 1,600 mg PO TIDCM [facility] Last Admin: 02/11/16 16:46 Dose: Not Given - Objective Vital Signs: Vital Signs Temperature 100 F H 02/11/16 16:50 Pulse Rate 74 02/11/16 16:00 Respiratory Rate 18 02/11/16 16:00 Blood Pressure 113/48 02/11/16 16:00 O2 Sat by Pulse Oximetry (%) 95 02/11/16 11:26 Constitutional: Yes: Calm Eyes: Yes: Conjunctiva Clear HENT: Yes: Atraumatic Neck: Yes: Other (neck mass) Cardiovascular: Yes: S1, S2 Respiratory: Yes: On Nasal O2 Gastrointestinal: Yes: Soft Musculoskeletal: Yes: Muscle Weakness Edema: Yes Neurological: Yes: Oriented Psychiatric: Yes: Oriented Labs: CBC, BMP 02/11/16 05:00 02/11/16 05:00 INR, PTT INR 1.20 (0.82-1.09) H 02/10/16 14:30 Problem List - Problems (1) Altered mental status, unspecified Code(s): R41.82 - ALTERED MENTAL STATUS, UNSPECIFIED Qualifiers: Altered mental status type: unspecified Qualified Code(s): R41.82 - Altered mental status, unspecified (2) Dialysis AV fistula malfunction Code(s): T82.590A - [facility] OF SURGICALLY CREATED ARTERIOVENOUS FISTULA, INIT Qualifiers: Encounter type: initial encounter Qualified Code(s): T82.590A - Other mechanical complication of surgically created arteriovenous fistula, initial encounter (3) Elevated troponin Code(s): R79.89 - OTHER SPECIFIED ABNORMAL FINDINGS OF BLOOD CHEMISTRY (4) ESRD (end stage renal disease) on dialysis Code(s): N18.6 - END STAGE RENAL DISEASE Z99.2 - DEPENDENCE ON RENAL DIALYSIS (5) Anemia Code(s): D64.9 - ANEMIA, UNSPECIFIED Qualifiers: Other causes of anemia: acute posthemorrhagic (6) Hypertension Code(s): I10 - ESSENTIAL (PRIMARY) HYPERTENSION Assessment/Plan Current Medications Generic Name Dose Route Start Last Admin Trade Name Freq PRN Reason Stop Dose Admin Acetaminophen 650 mg 02/10/16 19:08 02/11/16 16:52 Tylenol - PO 650 mg BID PRN Administration FEVER Acetaminophen 650 mg 02/11/16 03:50 02/11/16 03:00 Tylenol Suppository - [place] 650 mg Q6H PRN Administration FEVER OR PAIN Chlorhexidine Gluconate 1 applic 02/11/16 22:00 Hibiclens For Decolonization - TP HS DUC Hydralazine HCl 25 mg 02/10/16 22:00 02/11/16 13:32 Apresoline - PO 25 mg TID DUC Administration Pantoprazole Sodium 100 mls @ 200 mls/hr 02/11/16 10:00 02/11/16 10:00 Protonix 40mg Ivpb (Pre-Docked) IVPB 200 mls/hr DAILY DUC Administration Methimazole 5 mg 02/11/16 14:00 02/11/16 16:46 Tapazole - PO 5 mg TID DUC Administration Metoprolol Succinate 25 mg 02/11/16 10:00 02/11/16 10:01 Toprol Xl - PO 25 mg DAILY DUC Administration Mupirocin 1 applic 02/11/16 22:00 Bactroban Ointment (For Decolonization) - NS 02/16/16 21:59 BID DUC Sevelamer Carbonate 1,600 mg 02/11/16 08:00 02/11/16 16:46 Renvela - PO Not Given TIDCM DUC Impression 1. ESRD 2. av access malfunction 3. hyperkalemia 4. CHF 5. DM 6. HTN 7. anemia 8. depression 9. hyperlipidemia 10. leukocytosis 11. NSTEMI Plan - pt tolerated HD last night - adriana is in place - will arrange for HD tomorrow - will order blood cultures on HD - abx per ID - discussed with vascular surgery, graft may need to be removed, management per vascular - cardiology follow up - keep in ICU Dr Jones
[2016-02-11 21:06] LABS: TROPONIN I 3.25 ng/ml (0.00-0.05)
[2016-02-11] MEDS: MUPIROCIN 2% TOPICAL OINTMENT FOR DECOLONIZATION NS SCH (22:37)
[2016-02-11] MEDS: CHLORHEXIDINE GLUCONATE 4% CLEANSER FOR DECOLONIZATION TP SCH (22:38)
[2016-02-11] MEDS ORDERED: PT OWN MED DRAWER 7, Y5N ONE (22:40)
[2016-02-12 06:06] LABS: HEP B SURFACE AB Non Reactive (.)
[2016-02-12 06:40] LABS: BASOPHIL 0.2 % (0-2.0); EOSINOPHIL 0.8 % (0-4.5); MCH 29.3 pg (25.7-33.7); MCHC 32.6 g/dl (32.0-36.0); MEAN CELL VOLUME 89.8 fl (80-96); MEAN PLT VOLUME 8.7 fl (7.5-11.1); NEUTROPHILS 89.3 % (42.8-82.8); PLATELET COUNT 131 K/MM3 (134-434); RDW 16.8 % (11.6-15.6); WHITE BLOOD COUNT 13.2 K/mm3 (4.0-10.0)
[2016-02-12] MEDS: hydrALAZINE HCL 25 MG TABLET (FP) PO SCH ×3 (06:54→21:02)
[2016-02-12] MEDS: SEVELAMER CARBONATE 800 MG TAB (FP) PO SCH ×3 (07:48→17:43)
[2016-02-12] MEDS: METHIMAZOLE 5 MG TABLET (FP) PO SCH ×3 (07:48→21:03)
--- NOTE | 2016-02-12 08:20 | PN ---
Progress Note, Physician Chief Complaint: ID Follow up in the ICU for gram positive bacteremia On Vancomycin given yesterday She is lethargic but arousable and able to answer questions appropriately but eyes closed and sleepy. No fever VSS Dialysis in progress this morning Complains of headache - Current Medication List Current Medications: Active Medications Acetaminophen (Tylenol -) 650 mg PO BID PRN PRN Reason: FEVER Last Admin: 02/11/16 16:52 Dose: 650 mg Acetaminophen (Tylenol Suppository -) 650 mg [place] Q6H PRN PRN Reason: FEVER OR PAIN Last Admin: 02/11/16 03:00 Dose: 650 mg Chlorhexidine Gluconate (Hibiclens For Decolonization -) 1 applic TP HS [facility] Last Admin: 02/11/16 22:38 Dose: 1 applic Epoetin Jakob (Epogen -) 6,000 units IVPUSH ONCE ONE Stop: 02/12/16 17:41 Hydralazine HCl (Apresoline -) 25 mg PO TID [facility] Last Admin: 02/12/16 06:54 Dose: 25 mg Pantoprazole Sodium (Protonix 40mg Ivpb (Pre-Docked)) 100 mls @ 200 mls/hr IVPB DAILY [facility] Last Admin: 02/11/16 10:00 Dose: 200 mls/hr Methimazole (Tapazole -) 5 mg PO TID [facility] Last Admin: 02/12/16 07:48 Dose: Not Given Metoprolol Succinate (Toprol Xl -) 25 mg PO DAILY [facility] Last Admin: 02/11/16 10:01 Dose: 25 mg Mupirocin (Bactroban Ointment (For Decolonization) -) 1 applic NS BID [facility] Stop: 02/16/16 21:59 Last Admin: 02/11/16 22:37 Dose: 1 applic Sevelamer Carbonate (Renvela -) 1,600 mg PO TIDCM [facility] Last Admin: 02/12/16 07:48 Dose: Not Given - Objective Vital Signs: Vital Signs Temperature 98 F 02/12/16 06:00 Pulse Rate 80 02/12/16 06:00 Respiratory Rate 16 02/12/16 06:00 Blood Pressure 142/57 02/12/16 06:00 O2 Sat by Pulse Oximetry (%) 100 02/12/16 07:39 Constitutional: Yes: Well Nourished, No Distress, Other (Lethargic) Eyes: Yes: WNL, Conjunctiva Clear, Other (No petechiae) HENT: Yes: WNL, Atraumatic Neck: Yes: Thyromegaly Cardiovascular: Yes: Regular Rate and Rhythm, Murmur, S1, S2, Other (Grade 2/6 systolic murmur) Respiratory: Yes: WNL, Regular, CTA Bilaterally Gastrointestinal: Yes: WNL, Normal Bowel Sounds, Soft. No: Splenomegaly, Tenderness, Tenderness, Rebound Extremities: Yes: Other (Bleeding actively AVG left arm) Edema: No Labs: CBC, BMP 02/12/16 05:20 02/11/16 05:00 INR, PTT INR 1.20 (0.82-1.09) H 02/10/16 14:30 Assessment/Plan Microbiology 02/11/16 07:00 Urine - Urine - Catheterized Urine Culture - Final Contaminated: Please Repeat 02/10/16 20:00 Blood - Peripheral Venous Blood Culture - Preliminary Staphylococcus Latex Coag Pos 02/10/16 20:00 Blood - Peripheral Venous Blood Culture - Preliminary Staphylococcus Latex Coag Pos Laboratory Tests 02/10/16 02/11/16 02/11/16 14:30 00:33 05:00 WBC Hct Plt Count INR 1.20 H ABG pCO2 at Pt Temp 42.2 O2 Delivery Device Ventimask Troponin I 2.91 H* Random Vancomycin 02/11/16 02/12/16 11:45 05:20 WBC 13.2 H Hct 32.6 Plt Count 131 L INR ABG pCO2 at Pt Temp O2 Delivery Device Troponin I Random Vancomycin 11.620 Assessment Gram positive bacteremia Staph aureus on Vanco for now. Systolic murmur apex R/O endocardititis ESRD Bleeding AVG left arm not functioning Headaches to be monitered with imaging if worsen Resistant organism urine Elevated TNI Plan Repeat vanco level today CRP ECHO Repeat blood cultures Ligation of AVF per Dr Reid Discussed with housestaff 40 minutes spent rendering ICU care Andrew DAILEY
[2016-02-12 08:50] LABS: ALBUMIN 2.4 g/dl (3.4-5.0); BILIRUBIN,TOTAL 0.8 mg/dL (0.2-1.0); CALCIUM 8.4 mg/dL (8.5-10.1); CREATININE 4.9 mg/dL (0.55-1.02)
[2016-02-12 08:51] LABS: TOT PROT 6.2 g/dl (6.4-8.2)
--- NOTE | 2016-02-12 09:58 | PN ---
[id number] - Current Medication List Current Medications: Active Medications Acetaminophen (Tylenol -) 650 mg PO BID PRN PRN Reason: FEVER Last Admin: 02/11/16 16:52 Dose: 650 mg Acetaminophen (Tylenol Suppository -) 650 mg [place] Q6H PRN PRN Reason: FEVER OR PAIN Last Admin: 02/11/16 03:00 Dose: 650 mg Chlorhexidine Gluconate (Hibiclens For Decolonization -) 1 applic TP HS [facility] Last Admin: 02/11/16 22:38 Dose: 1 applic Epoetin Jakob (Procrit -) 6,000 unit IVPUSH ONCE ONE Stop: 02/12/16 10:01 Hydralazine HCl (Apresoline -) 25 mg PO TID [facility] Last Admin: 02/12/16 06:54 Dose: 25 mg Pantoprazole Sodium (Protonix 40mg Ivpb (Pre-Docked)) 100 mls @ 200 mls/hr IVPB DAILY [facility] Last Admin: 02/11/16 10:00 Dose: 200 mls/hr Methimazole (Tapazole -) 5 mg PO TID [facility] Last Admin: 02/12/16 07:48 Dose: Not Given Metoprolol Succinate (Toprol Xl -) 25 mg PO DAILY [facility] Last Admin: 02/11/16 10:01 Dose: 25 mg Mupirocin (Bactroban Ointment (For Decolonization) -) 1 applic NS BID [facility] Stop: 02/16/16 21:59 Last Admin: 02/11/16 22:37 Dose: 1 applic Sevelamer Carbonate (Renvela -) 1,600 mg PO TIDCM [facility] Last Admin: 02/12/16 07:48 Dose: Not Given - Objective Vital Signs: Vital Signs Temperature 98 F 02/12/16 06:00 Pulse Rate 86 02/12/16 09:22 Respiratory Rate 16 02/12/16 09:22 Blood Pressure 139/57 02/12/16 09:22 O2 Sat by Pulse Oximetry (%) 100 02/12/16 07:39 Constitutional: Yes: No Distress, Calm Cardiovascular: Yes: Regular Rate and Rhythm Respiratory: Yes: Diminished Gastrointestinal: Yes: Normal Bowel Sounds, Soft. No: Distention, Tenderness Edema: No Labs: CBC, BMP 02/12/16 05:20 02/12/16 08:30 INR, PTT INR 1.20 (0.82-1.09) H 02/10/16 14:30 Problem List - Problems (1) Altered mental status, unspecified Code(s): R41.82 - ALTERED MENTAL STATUS, UNSPECIFIED Qualifiers: Altered mental status type: unspecified Qualified Code(s): R41.82 - Altered mental status, unspecified (2) Dialysis AV fistula malfunction Code(s): T82.590A - [facility] COMPL OF SURGICALLY CREATED ARTERIOVENOUS FISTULA, INIT Qualifiers: Encounter type: initial encounter Qualified Code(s): T82.590A - Other mechanical complication of surgically created arteriovenous fistula, initial encounter (3) Elevated troponin Code(s): R79.89 - OTHER SPECIFIED ABNORMAL FINDINGS OF BLOOD CHEMISTRY (4) Hyperkalemia Code(s): E87.5 - HYPERKALEMIA (5) Thrombosis of surgically created arteriovenous fistula Code(s): T82.868A - THROMBOSIS DUE TO VASCULAR PROSTH DEV/GRFT, INIT (6) ESRD (end stage renal disease) on dialysis Code(s): N18.6 - END STAGE RENAL DISEASE Z99.2 - DEPENDENCE ON RENAL DIALYSIS (7) CHF (congestive heart failure) Code(s): I50.9 - HEART FAILURE, UNSPECIFIED (8) Diabetes mellitus Code(s): E11.9 - TYPE 2 DIABETES MELLITUS WITHOUT COMPLICATIONS Qualifiers: Diabetes mellitus type: type 2 Diabetes mellitus complication status: without complication (9) Bacteremia Code(s): R78.81 - BACTEREMIA (10) Arteriovenous graft infection Code(s): T82.7XXA - INFECT/INFLM REACT D/T OTH CARDI/VASC DEV/IMPLNT/GRFT, INIT Qualifiers: Encounter type: subsequent encounter Qualified Code(s): T82.7XXD - Infection and inflammatory reaction due to other cardiac and vascular devices, implants and grafts, subsequent encounter Assessment/Plan PLAN currently receiving dialysis has a femoral shiley -- need to remove it today after dialysis ICU monitoring troponins trending down not on anticoagulation, aspirin or Plavix due to bleeding from the graft spoke with Vascular , may be able to use the graft on Tuesday as he sutured it IV antibiotics per ID continue with meds
[2016-02-12] MEDS ORDERED: METHIMAZOLE 5 MG TABLET (FP) PO SCH (10:00)
[2016-02-12] MEDS ORDERED: EPOETIN ALFA 3,000 UNIT/1 ML ML IVPUSH ONE (10:00)
[2016-02-12 10:10] LABS: TROPONIN I 2.53 ng/ml (0.00-0.05)
[2016-02-12] MEDS: PANTOPRAZOLE SODIUM 100 ML IVPB SCH (12:51)
[2016-02-12] MEDS: MUPIROCIN 2% TOPICAL OINTMENT FOR DECOLONIZATION NS SCH (12:52)
[2016-02-12] MEDS: METOPROLOL SUCCINATE 25 MG TAB.SR.24H (FP) PO SCH (12:52)
--- NOTE | 2016-02-12 13:24 | PN ---
Teaching Attending Note Name of Resident: Romario Medina ATTENDING PHYSICIAN STATEMENT I saw and evaluated the patient. I reviewed the resident's note and discussed the case with the resident. I agree with the resident's findings and plan as documented. SUBJECTIVE: Pt seen and examined in the ICU. Still some bleeding from AVG site. Lethargic but arousable. Presumptive MSSA in blood cultures. Being dialyzed via femoral catheter. OBJECTIVE: Last Vital Signs Temp Pulse Resp BP Pulse Ox 98.3 F 84 18 143/55 100 02/12/16 11:58 02/12/16 11:58 02/12/16 11:58 02/12/16 11:58 02/12/16 12:00 Intake & Output 02/09/16 02/10/16 02/11/16 02/12/16 23:59 23:59 23:59 23:59 Intake Total 480 Output Total 80 Balance 400 Weight 138 lb 14.259 oz 139 lb 12.369 oz 138 lb 0.15 oz Gen: lethargic but arousable Heart: RRR, +systolic murmur Lung: decreased breath sounds at the bases Abd: soft, nontender Ext: + edema CBC, BMP 02/12/16 05:20 02/12/16 08:30 Active Medications Acetaminophen (Tylenol -) 650 mg PO BID PRN PRN Reason: FEVER Last Admin: 02/11/16 16:52 Dose: 650 mg Acetaminophen (Tylenol Suppository -) 650 mg [place] Q6H PRN PRN Reason: FEVER OR PAIN Last Admin: 02/11/16 03:00 Dose: 650 mg Chlorhexidine Gluconate (Hibiclens For Decolonization -) 1 applic TP HS [facility] Last Admin: 02/11/16 22:38 Dose: 1 applic Hydralazine HCl (Apresoline -) 25 mg PO TID [facility] Last Admin: 02/12/16 06:54 Dose: 25 mg Pantoprazole Sodium (Protonix 40mg Ivpb (Pre-Docked)) 100 mls @ 200 mls/hr IVPB DAILY [facility] Last Admin: 02/12/16 12:51 Dose: 200 mls/hr Methimazole (Tapazole -) 5 mg PO TID [facility] Last Admin: 02/12/16 07:48 Dose: Not Given Metoprolol Succinate (Toprol Xl -) 25 mg PO DAILY [facility] Last Admin: 02/12/16 12:52 Dose: 25 mg Mupirocin (Bactroban Ointment (For Decolonization) -) 1 applic NS BID [facility] Stop: 02/16/16 21:59 Last Admin: 02/12/16 12:52 Dose: 1 applic Sevelamer Carbonate (Renvela -) 1,600 mg PO TIDCM [facility] Last Admin: 02/12/16 12:52 Dose: Not Given ASSESSMENT AND PLAN: Staph Bacteremia from likely AVG infection Acute Blood Loss from AVG NSTEMI Altered Mental Status ESRD on HD Hyperkalemia resolved Pulmonary HTN HTN DM - continue vanco by level - f/u cultures and sensitivities - cardiology f/u, will need clearance prior to OR - trend cardiac enzymes, EKGs - HD per renal - d/c femoral catheter - f/u repeat cultures from HD - aspiration precautions - DVT prophylaxis
--- NOTE | 2016-02-12 14:02 | PN ---
Progress Note, Physician Chief Complaint: Pt alert; denies chest pain or dyspnea; weak, lethargic. History of Present Illness: 75-year-old white female presents to the ED for evaluation of bleeding left AV fistula. As per pt she had dialysis but has not been feeling well and today when she went to dialysis they were unable to access her fistula and then it began to bleed. Patient states has not been feeling well over the past few days describing nausea myalgia, and decreased appetite. Patient denies headache, throat pain, chest pain or shortness of breath. Patient with history of anemia, CVA, CHF, dementia, diabetes, dialysis, hypertension and dyslipidemia , and thyroid disease. Timing/Duration: unsure Severity: moderate Associated Symptoms: reports: loss of appetite, malaise, nausea/vomiting, weakness - Current Medication List Current Medications: Active Medications Acetaminophen (Tylenol -) 650 mg PO BID PRN PRN Reason: FEVER Last Admin: 02/11/16 16:52 Dose: 650 mg Acetaminophen (Tylenol Suppository -) 650 mg [place] Q6H PRN PRN Reason: FEVER OR PAIN Last Admin: 02/11/16 03:00 Dose: 650 mg Chlorhexidine Gluconate (Hibiclens For Decolonization -) 1 applic TP HS [facility] Last Admin: 02/11/16 22:38 Dose: 1 applic Hydralazine HCl (Apresoline -) 25 mg PO TID [facility] Last Admin: 02/12/16 13:24 Dose: 25 mg Pantoprazole Sodium (Protonix 40mg Ivpb (Pre-Docked)) 100 mls @ 200 mls/hr IVPB DAILY [facility] Last Admin: 02/12/16 12:51 Dose: 200 mls/hr Methimazole (Tapazole -) 5 mg PO TID [facility] Last Admin: 02/12/16 13:24 Dose: 5 mg Metoprolol Succinate (Toprol Xl -) 25 mg PO DAILY [facility] Last Admin: 02/12/16 12:52 Dose: 25 mg Mupirocin (Bactroban Ointment (For Decolonization) -) 1 applic NS BID [facility] Stop: 02/16/16 21:59 Last Admin: 02/12/16 12:52 Dose: 1 applic Sevelamer Carbonate (Renvela -) 1,600 mg PO TIDCM [facility] Last Admin: 02/12/16 12:52 Dose: Not Given - Objective Vital Signs: Vital Signs Temperature 98.3 F 02/12/16 11:58 Pulse Rate 82 02/12/16 13:41 Respiratory Rate 18 02/12/16 13:41 Blood Pressure 120/90 02/12/16 13:41 O2 Sat by Pulse Oximetry (%) 100 02/12/16 12:00 Constitutional: Yes: Calm Eyes: Yes: WNL HENT: Yes: WNL Neck: Yes: WNL Cardiovascular: Yes: Murmur (2/6 systolic murmur, RSB-->apex), S1 (split), S2 ( normal) Respiratory: Yes: Regular Gastrointestinal: Yes: Soft ...Rectal Exam: Yes: Deferred Genitourinary: No: Anuria Musculoskeletal: Yes: Muscle Weakness Extremities: Yes: Cool Edema: No Peripheral Pulses WNL: No Peripheral Pulses: Left Doralis Pedis: 1+, Right Dorsalis Pedis: 1+ Integumentary: Yes: Other (LUE AV graft bleed) Neurological: Yes: Alert, Weakness Psychiatric: Yes: Other Labs: CBC, BMP 02/12/16 05:20 02/12/16 08:30 INR, PTT INR 1.20 (0.82-1.09) H 02/10/16 14:30 Abnormal Lab Results 02/12/16 02/12/16 02/12/16 05:20 08:30 08:45 WBC 13.2 H RBC Hgb 10.6 L Hct MCHC RDW 16.8 H Plt Count 131 L Neutrophils % 89.3 H Lymphocytes % 3.1 L D Sodium 133 L BUN 63 H D Creatinine 4.9 H D Calcium 8.4 L Alkaline Phosphatase 136 H Troponin I 2.53 H* C-Reactive Protein 25.2 H Total Protein 6.2 L Albumin 2.4 L 02/12/16 02/12/16 16:45 20:30 WBC 13.6 H 12.2 H RBC 3.12 L 3.54 L Hgb 8.7 L D 9.9 L D Hct 28.2 L 31.6 L MCHC 30.7 L 31.4 L RDW 16.9 H 17.1 H Plt Count 133 L Neutrophils % Lymphocytes % Sodium BUN Creatinine Calcium Alkaline Phosphatase Troponin I C-Reactive Protein Total Protein Albumin Problem List - Problems (1) Hyperkalemia Assessment/Plan: 7.0 on admission; now 5.0. insulin; D50, calcium; kayexalate. s/p hemodialysis today. Code(s): E87.5 - HYPERKALEMIA (2) Dialysis AV fistula malfunction Assessment/Plan: From a cardiac standpoint, there are no absolute contraindications for pt to undergo removal of AV graft and PICC line insertion. Code(s): T82.590A - [facility] COMPL OF SURGICALLY CREATED ARTERIOVENOUS FISTULA, INIT Qualifiers: Encounter type: initial encounter Qualified Code(s): T82.590A - Other mechanical complication of surgically created arteriovenous fistula, initial encounter (3) Elevated troponin Assessment/Plan: TNI 1.09-->1.38-->3.25-->2.5. EKG: NSR; 1st degree AVB, without acute ST-T changes (no significant change from 12/2015). Likely NSTEMI/demand ischemia, though multiple other factors may contribute to TNI elevation, including CHF, ESRD, sepsis, hypoxia. Problematic starting antiplatelets and systemic AC due to AV graft bleed, but would consider doing so if cleared by surgeon. On metoprolol. ECHO: normal LVEF; moderate ; mild-moderate AR; severe TR; mild LA and MR; no pericardial effusion. Pt will require coronary artery evaluation when stable. Code(s): R79.89 - OTHER SPECIFIED ABNORMAL FINDINGS OF BLOOD CHEMISTRY (4) ESRD (end stage renal disease) on dialysis Code(s): N18.6 - END STAGE RENAL DISEASE Z99.2 - DEPENDENCE ON RENAL DIALYSIS (5) Hypertension Assessment/Plan: on metoprolol and hydralazine. Code(s): I10 - ESSENTIAL (PRIMARY) HYPERTENSION (6) Pulmonary hypertension Assessment/Plan: severe pulmonary HTN by 02/11/2015 ECHO; normal LVEF. Code(s): I27.2 - OTHER SECONDARY PULMONARY HYPERTENSION (7) Anemia Assessment/Plan: On Epogen. Code(s): D64.9 - ANEMIA, UNSPECIFIED Qualifiers: Other causes of anemia: acute posthemorrhagic (8) Leukocytosis Code(s): D72.829 - ELEVATED WHITE BLOOD CELL COUNT, UNSPECIFIED (9) Thyroid disease Assessment/Plan: low TSH; elevated Free T4; adjust Tapazole accordingly. Code(s): E07.9 - DISORDER OF THYROID, UNSPECIFIED (10) Acute on chronic diastolic CHF (congestive heart failure) Assessment/Plan: f/u daily weight, Is and Os, BUN/Cr, electrolytes. Code(s): I50.33 - ACUTE ON CHRONIC DIASTOLIC (CONGESTIVE) HEART FAILURE
--- NOTE | 2016-02-12 14:12 | PN ---
Progress Note (short form) - Note Progress Note: Vascular Surgery Pt seen and examined. Shiley cath to be dC Cultures show organism to be staph, with mssa. Will cont vanco, and repeat cx on HD Once cleared, will remove AVG, and place pc. Will need cardiology clearance for procedure. True Reid DO
--- NOTE | 2016-02-12 15:52 | PN ---
Progress Note, Physician History of Present Illness: Pt seen and examined at bedside. She tolerated HD today. She denies shortness of breath. She is lethargic today. - Current Medication List Current Medications: Active Medications Acetaminophen (Tylenol -) 650 mg PO BID PRN PRN Reason: FEVER Last Admin: 02/11/16 16:52 Dose: 650 mg Acetaminophen (Tylenol Suppository -) 650 mg [place] Q6H PRN PRN Reason: FEVER OR PAIN Last Admin: 02/11/16 03:00 Dose: 650 mg Chlorhexidine Gluconate (Hibiclens For Decolonization -) 1 applic TP HS [facility] Last Admin: 02/11/16 22:38 Dose: 1 applic Hydralazine HCl (Apresoline -) 25 mg PO TID [facility] Last Admin: 02/12/16 13:24 Dose: 25 mg Pantoprazole Sodium (Protonix 40mg Ivpb (Pre-Docked)) 100 mls @ 200 mls/hr IVPB DAILY [facility] Last Admin: 02/12/16 12:51 Dose: 200 mls/hr Nafcillin Sodium 2 gm/ (Dextrose) 100 mls @ 100 mls/hr IVPB Q4H-IV DUC Methimazole (Tapazole -) 5 mg PO TID [facility] Last Admin: 02/12/16 13:24 Dose: 5 mg Metoprolol Succinate (Toprol Xl -) 25 mg PO DAILY [facility] Last Admin: 02/12/16 12:52 Dose: 25 mg Mupirocin (Bactroban Ointment (For Decolonization) -) 1 applic NS BID [facility] Stop: 02/16/16 21:59 Last Admin: 02/12/16 12:52 Dose: 1 applic Sevelamer Carbonate (Renvela -) 1,600 mg PO TIDCM [facility] Last Admin: 02/12/16 12:52 Dose: Not Given - Objective Vital Signs: Vital Signs Temperature 98.3 F 02/12/16 14:00 Pulse Rate 82 02/12/16 14:00 Respiratory Rate 18 02/12/16 14:00 Blood Pressure 120/90 02/12/16 14:00 O2 Sat by Pulse Oximetry (%) 100 02/12/16 12:00 Constitutional: Yes: Calm Eyes: Yes: Conjunctiva Clear HENT: Yes: Atraumatic Neck: Yes: Other (neck mass) Cardiovascular: Yes: S1, S2 Respiratory: Yes: On Nasal O2 Gastrointestinal: Yes: Soft Musculoskeletal: Yes: Muscle Weakness Edema: No Neurological: Yes: Other (drowsy) Labs: CBC, BMP 02/12/16 05:20 02/12/16 08:30 INR, PTT INR 1.20 (0.82-1.09) H 02/10/16 14:30 Problem List - Problems (1) Altered mental status, unspecified Code(s): R41.82 - ALTERED MENTAL STATUS, UNSPECIFIED Qualifiers: Altered mental status type: unspecified Qualified Code(s): R41.82 - Altered mental status, unspecified (2) Dialysis AV fistula malfunction Code(s): T82.590A - [facility] COMPL OF SURGICALLY CREATED ARTERIOVENOUS FISTULA, INIT Qualifiers: Encounter type: initial encounter Qualified Code(s): T82.590A - Other mechanical complication of surgically created arteriovenous fistula, initial encounter (3) Elevated troponin Code(s): R79.89 - OTHER SPECIFIED ABNORMAL FINDINGS OF BLOOD CHEMISTRY (4) ESRD (end stage renal disease) on dialysis Code(s): N18.6 - END STAGE RENAL DISEASE Z99.2 - DEPENDENCE ON RENAL DIALYSIS (5) Anemia Code(s): D64.9 - ANEMIA, UNSPECIFIED Qualifiers: Other causes of anemia: acute posthemorrhagic (6) Hypertension Code(s): I10 - ESSENTIAL (PRIMARY) HYPERTENSION Assessment/Plan Current Medications Generic Name Dose Route Start Last Admin Trade Name Freq PRN Reason Stop Dose Admin Acetaminophen 650 mg 02/10/16 19:08 02/11/16 16:52 Tylenol - PO 650 mg BID PRN Administration FEVER Acetaminophen 650 mg 02/11/16 03:50 02/11/16 03:00 Tylenol Suppository - OR 650 mg Q6H PRN Administration FEVER OR PAIN Chlorhexidine Gluconate 1 applic 02/11/16 22:00 02/11/16 22:38 Hibiclens For Decolonization - TP 1 applic HS DUC Administration Hydralazine HCl 25 mg 02/10/16 22:00 02/12/16 13:24 Apresoline - PO 25 mg TID DUC Administration Pantoprazole Sodium 100 mls @ 200 mls/hr 02/11/16 10:00 02/12/16 12:51 Protonix 40mg Ivpb (Pre-Docked) IVPB 200 mls/hr DAILY DUC Administration Nafcillin Sodium 2 gm/ 100 mls @ 100 mls/hr 02/12/16 18:00 Dextrose IVPB Q4H-IV DUC Methimazole 5 mg 02/11/16 14:00 02/12/16 13:24 Tapazole - PO 5 mg TID DUC Administration Metoprolol Succinate 25 mg 02/11/16 10:00 02/12/16 12:52 Toprol Xl - PO 25 mg DAILY DUC Administration Mupirocin 1 applic 02/11/16 22:00 02/12/16 12:52 Bactroban Ointment (For Decolonization) - NS 02/16/16 21:59 1 applic BID DUC Administration Sevelamer Carbonate 1,600 mg 02/11/16 08:00 02/12/16 12:52 Renvela - PO Not Given TIDCM DUC Impression 1. ESRD 2. av access malfunction 3. hyperkalemia 4. CHF 5. DM 6. HTN 7. anemia 8. depression 9. hyperlipidemia 10. leukocytosis 11. NSTEMI Plan - pt was dialyzed today - dressing removed from graft and stitch placed, there is no pain or erythema around graft - pt dialyzed via shiley today - graft has thrill and bruit, discussed with vascular will use on Tuesday - check stat hg and if low can give prbc - abx per ID - follow up repeat blood cultures - cardiology input appreciated - discussed with ICU team - keep in ICU Dr Jones
[2016-02-12] MEDS ORDERED: PT OWN MED DRAWER 7, Y5N ONE ×2 (16:35→20:49)
--- NOTE | 2016-02-12 16:35 | EKG ---
Test Reason : Blood Pressure : / mmHG Vent. Rate : 055 BPM Atrial Rate : 055 BPM P-R Int : 266 ms QRS Dur : 088 ms QT Int : 452 ms P-R-T Axes : 060 031 062 degrees QTc Int : 432 ms POOR DATA QUALITY, INTERPRETATION MAY BE ADVERSELY AFFECTED SINUS BRADYCARDIA WITH 1ST DEGREE A-V BLOCK OTHERWISE NORMAL ECG WHEN COMPARED WITH ECG OF 30-DEC-2015 12:01, NO SIGNIFICANT CHANGE WAS FOUND Confirmed by KING LUCERO MD ([id number]) on 02/12/2016 4:35:17 PM Referred By: Confirmed By:KING LUCERO MD
[2016-02-12] MEDS: BACITRACIN 30 GM TUBE TOPICAL OINTMENT TP SCH (16:38)
[2016-02-12 17:32] LABS: MCH 27.8 pg (25.7-33.7); MCHC 30.7 g/dl (32.0-36.0); MEAN CELL VOLUME 90.3 fl (80-96); MEAN PLT VOLUME 9.1 fl (7.5-11.1); PLATELET COUNT 133 K/MM3 (134-434); RDW 16.9 % (11.6-15.6); WHITE BLOOD COUNT 13.6 K/mm3 (4.0-10.0)
--- NOTE | 2016-02-12 17:37 | PN ---
Physical Exam: SUBJECTIVE: Patient seen and examined at bedside. No overnight events. No new complaints. Continues to be lethargic but arousable. . Denies CP, PIÑA, SOB, palpitations, N/V. OBJECTIVE: Vital Signs Period Temp Pulse Resp BP Sys/Rangel Pulse Ox Last 24 Hr 98 F-99 F 72-90 12-20 103-143/37-90 100-100 Gen: Alert to verbal stimulus, resting comfortably at bedside Head: Normocephalic, atraumatic Eyes: PERRLA, EOMI, no scleral icterus/jaundice Neck: Protrusion of thryoid noted; Supple, ROM intact Lungs: CTA bilaterally; no wheezes, rhonchi, rales Cardiac: Regular rate and rhythm, Systolic murmur noted, S1 and S2 present; no clicks or rubs Abdomen: Soft, nontender, nondistended, R groin shiley noted C/D/I Extremities: LUE AVF wrapped in bandage with slight sangrinous breakthrough, pulses strong and intact throughout all four extremities, No edema, <2 cap refill in all four ext. Laboratory Results - last 24 hr 02/10/16 02/10/16 02/11/16 20:00 20:00 19:28 WBC RBC Hgb Hct MCV MCHC RDW Plt Count MPV Neutrophils % Lymphocytes % Monocytes % Eosinophils % Basophils % Sodium Potassium Chloride Carbon Dioxide Anion Gap BUN Creatinine Creat Clearance w eGFR POC Glucometer [phone] Random Glucose Calcium Total Bilirubin AST ALT Alkaline Phosphatase Creatine Kinase CK-MB (CK-2) Troponin I C-Reactive Protein Total Protein Albumin Random Vancomycin Hepatitis A Ab Total Negative Hep Bs Antigen Negative Hep Bs Antibody Non reactive Hep B Core Total Ab Negative Hepatitis C Antibody 0.2 02/11/16 02/11/16 02/12/16 19:40 22:01 05:20 WBC 13.2 H RBC 3.63 Hgb 10.6 L Hct 32.6 MCV 89.8 MCHC 32.6 RDW 16.8 H Plt Count 131 L MPV 8.7 Neutrophils % 89.3 H Lymphocytes % 3.1 L D Monocytes % 6.6 D Eosinophils % 0.8 D Basophils % 0.2 Sodium Potassium Chloride Carbon Dioxide Anion Gap BUN Creatinine Creat Clearance w eGFR POC Glucometer [phone] Random Glucose Calcium Total Bilirubin AST ALT Alkaline Phosphatase Creatine Kinase 267 H D CK-MB (CK-2) 4.957 H Troponin I 3.25 H* C-Reactive Protein Total Protein Albumin Random Vancomycin Hepatitis A Ab Total Hep Bs Antigen Hep Bs Antibody Hep B Core Total Ab Hepatitis C Antibody 02/12/16 02/12/16 02/12/16 07:00 08:30 08:45 WBC RBC Hgb Hct MCV MCHC RDW Plt Count MPV Neutrophils % Lymphocytes % Monocytes % Eosinophils % Basophils % Sodium 133 L Potassium 5.0 Chloride 100 Carbon Dioxide 23 Anion Gap 10 BUN 63 H D Creatinine 4.9 H D Creat Clearance w eGFR 8.68 POC Glucometer [phone] Random Glucose 83 Calcium 8.4 L Total Bilirubin 0.8 AST 33 ALT 24 Alkaline Phosphatase 136 H Creatine Kinase 148 CK-MB (CK-2) Troponin I 2.53 H* C-Reactive Protein 25.2 H Total Protein 6.2 L Albumin 2.4 L Random Vancomycin Hepatitis A Ab Total Hep Bs Antigen Hep Bs Antibody Hep B Core Total Ab Hepatitis C Antibody 02/12/16 02/12/16 08:45 16:50 WBC RBC Hgb Hct MCV MCHC RDW Plt Count MPV Neutrophils % Lymphocytes % Monocytes % Eosinophils % Basophils % Sodium Potassium Chloride Carbon Dioxide Anion Gap BUN Creatinine Creat Clearance w eGFR POC Glucometer 202.91169 Random Glucose Calcium Total Bilirubin AST ALT Alkaline Phosphatase Creatine Kinase CK-MB (CK-2) Troponin I C-Reactive Protein Total Protein Albumin Random Vancomycin 16.611 Hepatitis A Ab Total Hep Bs Antigen Hep Bs Antibody Hep B Core Total Ab Hepatitis C Antibody Active Medications Generic Name Dose Route Start Last Admin Trade Name Freq PRN Reason Stop Dose Admin Acetaminophen 650 mg 02/10/16 19:08 02/11/16 16:52 Tylenol - PO 650 mg BID PRN Administration FEVER Acetaminophen 650 mg 02/11/16 03:50 02/11/16 03:00 Tylenol Suppository - [place] 650 mg Q6H PRN Administration FEVER OR PAIN Bacitracin 1 applic 02/12/16 16:30 02/12/16 16:38 Bacitracin - TP 1 applic DAILY DUC Administration Chlorhexidine Gluconate 1 applic 02/11/16 22:00 02/11/16 22:38 Hibiclens For Decolonization - TP 1 applic HS DUC Administration Hydralazine HCl 25 mg 02/10/16 22:00 02/12/16 13:24 Apresoline - PO 25 mg TID DUC Administration Pantoprazole Sodium 100 mls @ 200 mls/hr 02/11/16 10:00 02/12/16 12:51 Protonix 40mg Ivpb (Pre-Docked) IVPB 200 mls/hr DAILY DUC Administration Nafcillin Sodium 2 gm/ 100 mls @ 100 mls/hr 02/12/16 18:00 Dextrose IVPB Q4H-IV DUC Methimazole 5 mg 02/11/16 14:00 02/12/16 13:24 Tapazole - PO 5 mg TID DUC Administration Metoprolol Succinate 25 mg 02/11/16 10:00 02/12/16 12:52 Toprol Xl - PO 25 mg DAILY DUC Administration Mupirocin 1 applic 02/11/16 22:00 02/12/16 12:52 Bactroban Ointment (For Decolonization) - NS 02/16/16 21:59 1 applic BID DUC Administration Sevelamer Carbonate 1,600 mg 02/11/16 08:00 02/12/16 12:52 Renvela - PO Not Given TIDCM DUC ASSESSMENT/PLAN: 75yo F with ESRD on dialysis with AMS and mechanical malformation of AVF. Received emergent dialysis last night. (+)BCx's gram positive cocci in clusters. Neuro: * Remains lethargic but more alert than yesterday. * Head CT on admission negative for acute pathology noted * Cont. to monitor alongside neuro checks Pulmonary:C * Cont. supplemetal O2 with 5L NC to maintain SpO2 >90% CV: * Troponins trending upward; 2.91 currently (Previously 1.09 on admission) --No ST abnormalites on EKG --NSTEMI vs other etiologies (ESRD, sepsis, CHF) Serial EKGs; Serial Troponins Echo- shows normal LV size and function RVSP elevated 50-60 --Systolic murmur noted today not apparent in previous reports Cont. Toprol XL 25mg PO Q daily Renal: * HD today took of 2+L (Dr. Jones) * Shilley removed, nothing replaced; will let rest given the setting of active infection. ID: * Cont. Vanco per ID (Vanco level 11.6 today) * Blood Cx's positive x2 for gram positive cocci in clusters; f/u final * Per ID will obtain new blood cx's and random vanco level today with dialysis. Endocrine: * Head/Neck US- Markedly enlarged and nodular thyroid gland as described above with no additional cervical masses or fluid collections. * Cont. ISS ACHS * Cont. BGM ACHS F/E/N * No IVF * Hyperkalemia resolved s/p HD * Mechanical soft renal diet. Visit type - Emergency Visit Emergency Visit: Yes ED Registration Date: 02/10/16 Care time: The patient presented to the Emergency Department on the above date and was hospitalized for further evaluation of their emergent condition. - New Patient This patient is new to me today: No - Critical Care Critical Care patient: Yes Total Critical Care Time (in minutes): 32 Critical Care Statement: The care of this patient involved high complexity decision making to prevent further life threatening deterioration of the patient 's condition and/or to evalute & treat vital organ system(s) failure or risk of failure.
[2016-02-12] MEDS: NAFCILLIN - 2 GM in DEXTROSE 5%-WATER - 100 ML IVPB SCH ×2 (17:43→21:21)
[2016-02-12] MEDS: INSULIN SLIDING SCALE (NOVOLOG) 1 VIAL SQ SCH ×3 (17:47→23:50)
[2016-02-12 21:20] LABS: MCH 28.1 pg (25.7-33.7); MCHC 31.4 g/dl (32.0-36.0); MEAN CELL VOLUME 89.3 fl (80-96); MEAN PLT VOLUME 8.8 fl (7.5-11.1); PLATELET COUNT 152 K/MM3 (134-434); RDW 17.1 % (11.6-15.6); WHITE BLOOD COUNT 12.2 K/mm3 (4.0-10.0)
[2016-02-12] MEDS ORDERED: ACETAMINOPHEN 325 MG TABLET (FP) ONE (21:27)
[2016-02-12] MEDS: ACETAMINOPHEN 325 MG TABLET (FP) PO PRN (21:34)
[2016-02-12] MEDS: CHLORHEXIDINE GLUCONATE 4% CLEANSER FOR DECOLONIZATION TP SCH (23:50)
[2016-02-13] MEDS: NAFCILLIN - 2 GM in DEXTROSE 5%-WATER - 100 ML IVPB SCH ×6 (02:08→21:32)
[2016-02-13] MEDS: INSULIN SLIDING SCALE (NOVOLOG) 1 VIAL SQ SCH ×4 (06:05→22:03)
[2016-02-13] MEDS: hydrALAZINE HCL 25 MG TABLET (FP) PO SCH (06:11)
[2016-02-13] MEDS: METHIMAZOLE 5 MG TABLET (FP) PO SCH ×4 (06:11→21:32)
[2016-02-13 06:12] LABS: BASOPHIL 0.2 % (0-2.0); EOSINOPHIL 0.3 % (0-4.5); MCH 27.8 pg (25.7-33.7); MEAN CELL VOLUME 89.4 fl (80-96); MEAN PLT VOLUME 8.6 fl (7.5-11.1); NEUTROPHILS 84.8 % (42.8-82.8); PLATELET COUNT 147 K/MM3 (134-434); RDW 17.3 % (11.6-15.6); WHITE BLOOD COUNT 12.7 K/mm3 (4.0-10.0)
[2016-02-13 06:38] LABS: ALBUMIN 2.1 g/dl (3.4-5.0); CALCIUM 8.2 mg/dL (8.5-10.1)
[2016-02-13 06:40] LABS: BILIRUBIN,TOTAL 1.7 mg/dL (0.2-1.0); TOT PROT 5.8 g/dl (6.4-8.2)
--- NOTE | 2016-02-13 07:40 | PN ---
Progress Note (short form) - Note Progress Note: icu care Pt seen/ examined/ chart reviewed Drowsy bur arousable denies pain afebrile +ve cultures Vital Signs Temp 97.8 F 02/13/16 05:56 Pulse 72 02/13/16 05:56 Resp 16 02/13/16 05:56 BP 100/34 02/13/16 05:56 Pulse Ox 95 02/13/16 07:27 Intake & Output 02/12/16 02/12/16 02/13/16 11:59 23:59 11:59 Intake Total 480 200 Balance 480 200 Weight 138 lb 0.15 oz 133 lb 6.075 oz Intake: IVPB 300 200 Oral 180 Other: Bowel Movement 1 1 2 Weight Measurement Method Built in Bedscale Built in Bedscale Active Medications Acetaminophen (Tylenol -) 650 mg PO BID PRN PRN Reason: FEVER Last Admin: 02/12/16 21:34 Dose: 650 mg Acetaminophen (Tylenol Suppository -) 650 mg [place] Q6H PRN PRN Reason: FEVER OR PAIN Last Admin: 02/11/16 03:00 Dose: 650 mg Bacitracin (Bacitracin -) 1 applic TP DAILY [facility] Last Admin: 02/12/16 16:38 Dose: 1 applic Chlorhexidine Gluconate (Hibiclens For Decolonization -) 1 applic TP HS [facility] Last Admin: 02/12/16 23:50 Dose: 1 applic Hydralazine HCl (Apresoline -) 25 mg PO TID [facility] Last Admin: 02/13/16 06:11 Dose: Not Given Pantoprazole Sodium (Protonix 40mg Ivpb (Pre-Docked)) 100 mls @ 200 mls/hr IVPB DAILY [facility] Last Admin: 02/12/16 12:51 Dose: 200 mls/hr Nafcillin Sodium 2 gm/ (Dextrose) 100 mls @ 100 mls/hr IVPB Q4H-IV DUC Last Admin: 02/13/16 06:05 Dose: 100 mls/hr Insulin Aspart (Novolog Vial Sliding Scale -) 1 vial SQ ACHS DUC PRN Reason: Protocol Last Admin: 02/13/16 06:05 Dose: 2 units Methimazole (Tapazole -) 5 mg PO TID [facility] Last Admin: 02/13/16 06:18 Dose: Not Given Metoprolol Succinate (Toprol Xl -) 25 mg PO DAILY [facility] Last Admin: 02/12/16 12:52 Dose: 25 mg Mupirocin (Bactroban Ointment (For Decolonization) -) 1 applic NS BID [facility] Stop: 02/16/16 21:59 Last Admin: 02/13/16 00:00 Dose: 1 applic Sevelamer Carbonate (Renvela -) 1,600 mg PO TIDCM [facility] Last Admin: 02/12/16 17:43 Dose: 1,600 mg Physical Exam Constitutional: Yes: No Distress, Calm Cardiovascular: Yes: Regular Rate and Rhythm Respiratory: Yes: Diminished Gastrointestinal: Yes: Normal Bowel Sounds, Soft. No: Distention, Tenderness Edema: No Problem List - Problems (1) Altered mental status, unspecified Code(s): R41.82 - ALTERED MENTAL STATUS, UNSPECIFIED Qualifiers: Altered mental status type: unspecified Qualified Code(s): R41.82 - Altered mental status, unspecified (2) Dialysis AV fistula malfunction Code(s): T82.590A - [facility] COMPL OF SURGICALLY CREATED ARTERIOVENOUS FISTULA, INIT Qualifiers: Encounter type: initial encounter Qualified Code(s): T82.590A - Other mechanical complication of surgically created arteriovenous fistula, initial encounter (3) Elevated troponin Code(s): R79.89 - OTHER SPECIFIED ABNORMAL FINDINGS OF BLOOD CHEMISTRY (4) Hyperkalemia Code(s): E87.5 - HYPERKALEMIA (5) Thrombosis of surgically created arteriovenous fistula Code(s): T82.868A - THROMBOSIS DUE TO VASCULAR PROSTH DEV/GRFT, INIT (6) ESRD (end stage renal disease) on dialysis Code(s): N18.6 - END STAGE RENAL DISEASE Z99.2 - DEPENDENCE ON RENAL DIALYSIS (7) CHF (congestive heart failure) Code(s): I50.9 - HEART FAILURE, UNSPECIFIED (8) Diabetes mellitus Code(s): E11.9 - TYPE 2 DIABETES MELLITUS WITHOUT COMPLICATIONS Qualifiers: Diabetes mellitus type: type 2 Diabetes mellitus complication status: without complication (9) Bacteremia Code(s): R78.81 - BACTEREMIA (10) Arteriovenous graft infection Code(s): T82.7XXA - INFECT/INFLM REACT D/T OTH CARDI/VASC DEV/IMPLNT/GRFT, INIT Qualifiers: Encounter type: subsequent encounter Qualified Code(s): T82.7XXD - Infection and inflammatory reaction due to other cardiac and vascular devices, implants and grafts, subsequent encounter Assessment/Plan Mssa bactremia Meds reviewed Continue present care vascular to follow Echo noted - garry TR Cardiology f/u noted not on anticoagulation, aspirin or Plavix due to bleeding from the graft IV antibiotics per ID will follow
[2016-02-13] MEDS: SEVELAMER CARBONATE 800 MG TAB (FP) PO SCH ×3 (08:54→17:20)
[2016-02-13] MEDS: PANTOPRAZOLE SODIUM 100 ML IVPB SCH (09:31)
[2016-02-13] MEDS: BACITRACIN 30 GM TUBE TOPICAL OINTMENT TP SCH (09:31)
[2016-02-13] MEDS: METOPROLOL SUCCINATE 25 MG TAB.SR.24H (FP) PO SCH (09:32)
--- NOTE | 2016-02-13 11:36 | PN ---
Progress Note, Physician History of Present Illness: 75-year-old female presents to the ED for evaluation of bleeding left AV fistula. As per pt she had dialysis but has not been feeling well and today when she went to dialysis they were unable to access her fistula and then it began to bleed. Patient states has not been feeling well over the past few days describing nausea myalgia, and decreased appetite. Patient denies headache, throat pain, chest pain or shortness of breath. Patient with history of anemia, CVA, CHF, dementia, diabetes, dialysis, hypertension and dyslipidemia , and thyroid disease. - Current Medication List Current Medications: Active Medications Acetaminophen (Tylenol -) 650 mg PO BID PRN PRN Reason: FEVER Last Admin: 02/12/16 21:34 Dose: 650 mg Acetaminophen (Tylenol Suppository -) 650 mg [place] Q6H PRN PRN Reason: FEVER OR PAIN Last Admin: 02/11/16 03:00 Dose: 650 mg Bacitracin (Bacitracin -) 1 applic TP DAILY [facility] Last Admin: 02/13/16 09:31 Dose: 1 applic Chlorhexidine Gluconate (Hibiclens For Decolonization -) 1 applic TP HS [facility] Last Admin: 02/12/16 23:50 Dose: 1 applic Hydralazine HCl (Apresoline -) 25 mg PO TID [facility] Last Admin: 02/13/16 06:11 Dose: Not Given Pantoprazole Sodium (Protonix 40mg Ivpb (Pre-Docked)) 100 mls @ 200 mls/hr IVPB DAILY [facility] Last Admin: 02/13/16 09:31 Dose: 200 mls/hr Nafcillin Sodium 2 gm/ (Dextrose) 100 mls @ 100 mls/hr IVPB Q4H-IV [facility] Last Admin: 02/13/16 10:14 Dose: 100 mls/hr Insulin Aspart (Novolog Vial Sliding Scale -) 1 vial SQ ACHS DUC PRN Reason: Protocol Last Admin: 02/13/16 06:05 Dose: 2 units Methimazole (Tapazole -) 5 mg PO TID [facility] Last Admin: 02/13/16 06:18 Dose: Not Given Metoprolol Succinate (Toprol Xl -) 25 mg PO DAILY [facility] Last Admin: 02/13/16 09:32 Dose: Not Given Mupirocin (Bactroban Ointment (For Decolonization) -) 1 applic NS BID [facility] Stop: 02/16/16 21:59 Last Admin: 02/13/16 00:00 Dose: 1 applic Sevelamer Carbonate (Renvela -) 1,600 mg PO TIDCM [facility] Last Admin: 02/13/16 08:54 Dose: Not Given - Objective Vital Signs: Vital Signs Temperature 97.2 F L 02/13/16 10:00 Pulse Rate 77 02/13/16 10:00 Respiratory Rate 17 02/13/16 10:00 Blood Pressure 97/33 02/13/16 10:00 O2 Sat by Pulse Oximetry (%) 99 02/13/16 08:00 Eyes: Yes: WNL, Conjunctiva Clear, EOM Intact HENT: Yes: WNL, Atraumatic, Normocephalic Neck: Yes: WNL, Supple, Trachea Midline Cardiovascular: Yes: WNL, Regular Rate and Rhythm Respiratory: Yes: WNL, Regular, CTA Bilaterally Gastrointestinal: Yes: WNL, Normal Bowel Sounds Genitourinary: Yes: WNL Musculoskeletal: Yes: WNL Extremities: Yes: WNL Edema: No Integumentary: Yes: WNL Neurological: Yes: Lethargy ...Motor Strength: WNL Psychiatric: Yes: WNL Labs: CBC, BMP 02/13/16 05:15 02/13/16 05:15 INR, PTT INR 1.20 (0.82-1.09) H 02/10/16 14:30 Assessment/Plan - Problems (1) Hyperkalemia Assessment/Plan: 7.0 on admission; now 5.0. insulin; D50, calcium; kayexalate. s/p hemodialysis today. Code(s): E87.5 - HYPERKALEMIA (2) Dialysis AV fistula malfunction Assessment/Plan: From a cardiac standpoint, there are no absolute contraindications for pt to undergo removal of AV graft and PICC line insertion. Code(s): T82.590A - [facility] COMPL OF SURGICALLY CREATED ARTERIOVENOUS FISTULA, INIT Qualifiers: Encounter type: initial encounter Qualified Code(s): T82.590A - Other mechanical complication of surgically created arteriovenous fistula, initial encounter (3) Elevated troponin Assessment/Plan: TNI 1.09-->1.38-->3.25-->2.5. EKG: NSR; 1st degree AVB, without acute ST-T changes (no significant change from 12/2015). Likely NSTEMI/demand ischemia, though multiple other factors may contribute to TNI elevation, including CHF, ESRD, sepsis, hypoxia. Problematic starting antiplatelets and systemic AC due to AV graft bleed, but would consider doing so if cleared by surgeon. On metoprolol. ECHO: normal LVEF; moderate ; mild-moderate AR; severe TR; mild TN and MR; no pericardial effusion. Pt will require coronary artery evaluation when stable. Code(s): R79.89 - OTHER SPECIFIED ABNORMAL FINDINGS OF BLOOD CHEMISTRY (4) ESRD (end stage renal disease) on dialysis Code(s): N18.6 - END STAGE RENAL DISEASE Z99.2 - DEPENDENCE ON RENAL DIALYSIS (5) Hypertension Assessment/Plan: on metoprolol and hydralazine. Code(s): I10 - ESSENTIAL (PRIMARY) HYPERTENSION (6) Pulmonary hypertension Assessment/Plan: severe pulmonary HTN by 02/11/2015 ECHO; normal LVEF. Code(s): I27.2 - OTHER SECONDARY PULMONARY HYPERTENSION (7) Anemia Assessment/Plan: On Epogen. Code(s): D64.9 - ANEMIA, UNSPECIFIED Qualifiers: Other causes of anemia: acute posthemorrhagic (8) Leukocytosis Code(s): D72.829 - ELEVATED WHITE BLOOD CELL COUNT, UNSPECIFIED (9) Thyroid disease Assessment/Plan: low TSH; elevated Free T4; adjust Tapazole accordingly. Code(s): E07.9 - DISORDER OF THYROID, UNSPECIFIED (10) Acute on chronic diastolic CHF (congestive heart failure) Assessment/Plan: f/u daily weight, Is and Os, BUN/Cr, electrolytes. Code(s): I50.33 - ACUTE ON CHRONIC DIASTOLIC (CONGESTIVE) HEART FAILURE cc time 35 min
[2016-02-13] MEDS: MUPIROCIN 2% TOPICAL OINTMENT FOR DECOLONIZATION NS SCH ×3 (11:37→21:32)
--- NOTE | 2016-02-13 11:40 | PN ---
Progress Note, Physician History of Present Illness: Pt seen and examined at bedside. She is arousable however is not at her baseline status. - Current Medication List Current Medications: Active Medications Acetaminophen (Tylenol -) 650 mg PO BID PRN PRN Reason: FEVER Last Admin: 02/12/16 21:34 Dose: 650 mg Acetaminophen (Tylenol Suppository -) 650 mg [place] Q6H PRN PRN Reason: FEVER OR PAIN Last Admin: 02/11/16 03:00 Dose: 650 mg Bacitracin (Bacitracin -) 1 applic TP DAILY [facility] Last Admin: 02/13/16 09:31 Dose: 1 applic Chlorhexidine Gluconate (Hibiclens For Decolonization -) 1 applic TP HS [facility] Last Admin: 02/12/16 23:50 Dose: 1 applic Hydralazine HCl (Apresoline -) 25 mg PO TID [facility] Last Admin: 02/13/16 06:11 Dose: Not Given Pantoprazole Sodium (Protonix 40mg Ivpb (Pre-Docked)) 100 mls @ 200 mls/hr IVPB DAILY [facility] Last Admin: 02/13/16 09:31 Dose: 200 mls/hr Nafcillin Sodium 2 gm/ (Dextrose) 100 mls @ 100 mls/hr IVPB Q4H-IV [facility] Last Admin: 02/13/16 10:14 Dose: 100 mls/hr Insulin Aspart (Novolog Vial Sliding Scale -) 1 vial SQ ACHS DUC PRN Reason: Protocol Last Admin: 02/13/16 06:05 Dose: 2 units Methimazole (Tapazole -) 5 mg PO TID [facility] Last Admin: 02/13/16 06:18 Dose: Not Given Metoprolol Succinate (Toprol Xl -) 25 mg PO DAILY [facility] Last Admin: 02/13/16 09:32 Dose: Not Given Mupirocin (Bactroban Ointment (For Decolonization) -) 1 applic NS BID [facility] Stop: 02/16/16 21:59 Last Admin: 02/13/16 00:00 Dose: 1 applic Sevelamer Carbonate (Renvela -) 1,600 mg PO TIDCM [facility] Last Admin: 02/13/16 08:54 Dose: Not Given - Objective Vital Signs: Vital Signs Temperature 97.2 F L 02/13/16 10:00 Pulse Rate 77 02/13/16 10:00 Respiratory Rate 17 02/13/16 10:00 Blood Pressure 97/33 02/13/16 10:00 O2 Sat by Pulse Oximetry (%) 99 02/13/16 08:00 Constitutional: Yes: Calm Eyes: Yes: Conjunctiva Clear HENT: Yes: Atraumatic Neck: Yes: Other (neck mass) Cardiovascular: Yes: S1, S2 Respiratory: Yes: CTA Bilaterally Gastrointestinal: Yes: Soft Genitourinary: Yes: Incontinence Musculoskeletal: Yes: Muscle Weakness Extremities: Yes: Other (left arm graft with thrill and bruit) Edema: Yes Edema: LLE: Trace, RLE: Trace Neurological: Yes: Lethargy Labs: CBC, BMP 02/13/16 05:15 02/13/16 05:15 INR, PTT INR 1.20 (0.82-1.09) H 02/10/16 14:30 Problem List - Problems (1) Altered mental status, unspecified Code(s): R41.82 - ALTERED MENTAL STATUS, UNSPECIFIED Qualifiers: Qualified Code(s): R41.82 - Altered mental status, unspecified (2) Dialysis AV fistula malfunction Code(s): T82.590A - [facility] COMPL OF SURGICALLY CREATED ARTERIOVENOUS FISTULA, INIT Qualifiers: Qualified Code(s): T82.590A - Other mechanical complication of surgically created arteriovenous fistula, initial encounter (3) Elevated troponin Code(s): R79.89 - OTHER SPECIFIED ABNORMAL FINDINGS OF BLOOD CHEMISTRY (4) ESRD (end stage renal disease) on dialysis Code(s): N18.6 - END STAGE RENAL DISEASE Z99.2 - DEPENDENCE ON RENAL DIALYSIS (5) Anemia Code(s): D64.9 - ANEMIA, UNSPECIFIED Qualifiers: Qualified Code(s): D62 - Acute posthemorrhagic anemia (6) Hypertension Code(s): I10 - ESSENTIAL (PRIMARY) HYPERTENSION Assessment/Plan Current Medications Generic Name Dose Route Start Last Admin Trade Name Freq PRN Reason Stop Dose Admin Acetaminophen 650 mg 02/10/16 19:08 02/12/16 21:34 Tylenol - PO 650 mg BID PRN Administration FEVER Acetaminophen 650 mg 02/11/16 03:50 02/11/16 03:00 Tylenol Suppository - [place] 650 mg Q6H PRN Administration FEVER OR PAIN Bacitracin 1 applic 02/12/16 16:30 02/13/16 09:31 Bacitracin - TP 1 applic DAILY DUC Administration Chlorhexidine Gluconate 1 applic 02/11/16 22:00 02/12/16 23:50 Hibiclens For Decolonization - TP 1 applic HS DUC Administration Hydralazine HCl 25 mg 02/10/16 22:00 02/13/16 06:11 Apresoline - PO Not Given TID DUC Pantoprazole Sodium 100 mls @ 200 mls/hr 02/11/16 10:00 02/13/16 09:31 Protonix 40mg Ivpb (Pre-Docked) IVPB 200 mls/hr DAILY DUC Administration Nafcillin Sodium 2 gm/ 100 mls @ 100 mls/hr 02/12/16 18:00 02/13/16 10:14 Dextrose IVPB 100 mls/hr Q4H-IV DUC Administration Insulin Aspart 1 vial 02/12/16 22:00 02/13/16 11:37 Novolog Vial Sliding Scale - SQ 8 units ACHS DUC Administration Protocol Methimazole 5 mg 02/11/16 14:00 02/13/16 06:18 Tapazole - PO Not Given TID DUC Metoprolol Succinate 25 mg 02/11/16 10:00 02/13/16 09:32 Toprol Xl - PO Not Given DAILY DUC Mupirocin 1 applic 02/11/16 22:00 02/13/16 11:37 Bactroban Ointment (For Decolonization) - NS 02/16/16 21:59 1 applic BID DUC Administration Sevelamer Carbonate 1,600 mg 02/11/16 08:00 02/13/16 08:54 Renvela - PO Not Given TIDCM [facility] Impression 1. ESRD 2. av access malfunction 3. hyperkalemia 4. CHF 5. DM 6. HTN 7. anemia 8. depression 9. hyperlipidemia 10. leukocytosis 11. NSTEMI 12. bacteremia Plan - blood cultures are all positive, called vascular surgery - will evaluate for HD in am, will need access - graft had some oozing from the site today - cont abx - repeat cultures - cardio follow up - monitor hg - discussed with ICU team - keep in ICU Dr Jones
--- NOTE | 2016-02-13 12:13 | EKG ---
Test Reason : Blood Pressure : / mmHG Vent. Rate : 072 BPM Atrial Rate : 072 BPM P-R Int : 236 ms QRS Dur : 098 ms QT Int : 408 ms P-R-T Axes : 060 023 060 degrees QTc Int : 446 ms SINUS RHYTHM WITH 1ST DEGREE A-V BLOCK NONSPECIFIC T WAVE ABNORMALITY ABNORMAL ECG Confirmed by ALOK WRIGHT MD ([id number]) on 02/13/2016 12:13:26 PM Referred By: PETE SERRA Confirmed By:ALOK WRIGHT MD
--- NOTE | 2016-02-13 12:19 | PN ---
Teaching Attending Note Name of Resident: Romario Medina ATTENDING PHYSICIAN STATEMENT I saw and evaluated the patient. I reviewed the resident's note and discussed the case with the resident. I agree with the resident's findings and plan as documented. SUBJECTIVE: Patient seen and examined in the ICU. Lethargic but easily arousable. Oriented to person and place. Vascular follow up noted. OBJECTIVE: Intake & Output 02/10/16 02/11/16 02/12/16 02/13/16 23:59 23:59 23:59 23:59 Intake Total 480 480 200 Output Total 80 Balance 400 480 200 Weight 138 lb 14.259 oz 139 lb 12.369 oz 138 lb 0.15 oz 133 lb 6.075 oz Last Vital Signs Temp Pulse Resp BP Pulse Ox 97.2 F L 77 17 97/33 99 02/13/16 10:00 02/13/16 10:00 02/13/16 10:00 02/13/16 10:00 02/13/16 08:00 Active Medications Acetaminophen (Tylenol -) 650 mg PO BID PRN PRN Reason: FEVER Last Admin: 02/12/16 21:34 Dose: 650 mg Acetaminophen (Tylenol Suppository -) 650 mg AL Q6H PRN PRN Reason: FEVER OR PAIN Last Admin: 02/11/16 03:00 Dose: 650 mg Bacitracin (Bacitracin -) 1 applic TP DAILY DUC Last Admin: 02/13/16 09:31 Dose: 1 applic Chlorhexidine Gluconate (Hibiclens For Decolonization -) 1 applic TP HS DUC Last Admin: 02/12/16 23:50 Dose: 1 applic Hydralazine HCl (Apresoline -) 25 mg PO TID DUC Last Admin: 02/13/16 06:11 Dose: Not Given Pantoprazole Sodium (Protonix 40mg Ivpb (Pre-Docked)) 100 mls @ 200 mls/hr IVPB DAILY DUC Last Admin: 02/13/16 09:31 Dose: 200 mls/hr Nafcillin Sodium 2 gm/ (Dextrose) 100 mls @ 100 mls/hr IVPB Q4H-IV DUC Last Admin: 02/13/16 10:14 Dose: 100 mls/hr Insulin Aspart (Novolog Vial Sliding Scale -) 1 vial SQ ACHS DUC PRN Reason: Protocol Last Admin: 02/13/16 11:37 Dose: 8 units Methimazole (Tapazole -) 5 mg PO TID [facility] Last Admin: 02/13/16 06:18 Dose: Not Given Metoprolol Succinate (Toprol Xl -) 25 mg PO DAILY [facility] Last Admin: 02/13/16 09:32 Dose: Not Given Mupirocin (Bactroban Ointment (For Decolonization) -) 1 applic NS BID [facility] Stop: 02/16/16 21:59 Last Admin: 02/13/16 11:37 Dose: 1 applic Sevelamer Carbonate (Renvela -) 1,600 mg PO TIDCM [facility] Last Admin: 02/13/16 08:54 Dose: Not Given Gen: lethargic but arousable Heart: RRR, +systolic murmur Lung: decreased breath sounds at the bases Abd: soft, nontender Ext: + edema Laboratory Results - last 24 hr 02/12/16 02/12/16 02/12/16 16:45 16:50 20:30 WBC 13.6 H 12.2 H RBC 3.12 L 3.54 L Hgb 8.7 L D 9.9 L D Hct 28.2 L 31.6 L MCV 90.3 89.3 MCHC 30.7 L 31.4 L RDW 16.9 H 17.1 H Plt Count 133 L 152 MPV 9.1 8.8 Neutrophils % Lymphocytes % Monocytes % Eosinophils % Basophils % Sodium Potassium Chloride Carbon Dioxide Anion Gap BUN Creatinine Creat Clearance w eGFR POC Glucometer 202.53263 Random Glucose Calcium Total Bilirubin AST ALT Alkaline Phosphatase Total Protein Albumin 02/12/16 02/13/16 02/13/16 23:48 05:15 05:15 WBC 12.7 H RBC 3.57 L Hgb 9.9 L Hct 31.9 L MCV 89.4 MCHC 31.0 L RDW 17.3 H Plt Count 147 MPV 8.6 Neutrophils % 84.8 H Lymphocytes % 5.1 L D Monocytes % 9.6 Eosinophils % 0.3 Basophils % 0.2 Sodium 139 Potassium 3.8 D Chloride 99 Carbon Dioxide 31 D Anion Gap 9 BUN 38 H D Creatinine 3.0 H D Creat Clearance w eGFR 15.30 POC Glucometer 248.80236 Random Glucose 150 H D Calcium 8.2 L Total Bilirubin 1.7 H D AST 18 D ALT 20 Alkaline Phosphatase 127 H Total Protein 5.8 L Albumin 2.1 L 02/13/16 02/13/16 05:20 10:56 WBC RBC Hgb Hct MCV MCHC RDW Plt Count MPV Neutrophils % Lymphocytes % Monocytes % Eosinophils % Basophils % Sodium Potassium Chloride Carbon Dioxide Anion Gap BUN Creatinine Creat Clearance w eGFR POC Glucometer 184.37946 335.94055 Random Glucose Calcium Total Bilirubin AST ALT Alkaline Phosphatase Total Protein Albumin ASSESSMENT AND PLAN: Staph Bacteremia from likely AVG infection Acute Blood Loss from AVG NSTEMI Altered Mental Status ESRD on HD Hyperkalemia resolved Pulmonary HTN HTN DM - ABX per ID - Vascular plan : to possibly remove AVG with Permacath placement - HD per renal - aspiration precautions - DVT prophylaxis Dr Pryor CCTime 35"
[2016-02-13] MEDS: ACETAMINOPHEN 325 MG TABLET (FP) PO PRN (13:28)
[2016-02-13] MEDS ORDERED: ACETAMINOPHEN 325 MG TABLET (FP) ONE (13:28)
[2016-02-13] MEDS ORDERED: SODIUM CHLORIDE 500 ML IV STA ×2 (13:45→16:18)
--- NOTE | 2016-02-13 13:52 | PN ---
Progress Note (short form) - Note Progress Note: talks to me with her eyes closed, still a bit lethargic Vital Signs Period Temp Pulse Resp BP Sys/Rangel Pulse Ox Last 24 Hr 97.0 F-99.2 F 70-88 13-21 97-128/33-90 95-100 no conjunctival hemorrhages cor-rrr lungs clear abd soft, nt left arm bandaged- small hole in AVG ext no edema CBC, BMP 02/13/16 05:15 02/13/16 05:15 Microbiology 02/10/16 20:00 Blood - Peripheral Venous Blood Culture - Final Staphylococcus Aureus 02/10/16 20:00 Blood - Peripheral Venous Blood Culture - Final Staphylococcus Aureus 02/12/16 08:45 Blood - Post-Dialysis Blood Culture - Preliminary Pending Organism 02/12/16 08:45 Blood - Post-Dialysis Blood Culture - Preliminary Pending Organism 02/11/16 07:00 Urine - Urine - Catheterized Urine Culture - Final Contaminated: Please Repeat 02/10/16 21:30 Nasopharyngeal Swab Respiratory Virus Panel - Preliminary 02/10/16 21:30 Nasopharyngeal Swab Influenza Types A,B Antigen (MANOJ) - Final 02/10/16 21:30 Nasopharyngeal Swab - Final a/p MSSA bacteremia infected avg should remove avg when possible continue nafcillin repeat blood cultures in am esrd/hd d/w Dr Jones who has spoken to vascular
--- NOTE | 2016-02-13 14:14 | PN ---
Physical Exam: SUBJECTIVE: Patient seen and examined at bedside. No overnight events. No new complaints. Continues to be lethargic but arousable. . Denies CP, PIÑA, SOB, palpitations, N/V OBJECTIVE: Vital Signs Period Temp Pulse Resp BP Sys/Rangel Pulse Ox Last 24 Hr 97.0 F-99.2 F 70-88 13-21 97-128/33-90 95-100 Gen: Alert to verbal stimulus, resting comfortably at bedside Head: Normocephalic, atraumatic Eyes: PERRLA, EOMI, no scleral icterus/jaundice Neck: Protrusion of thryoid noted; Supple, ROM intact Lungs: CTA bilaterally; no wheezes, rhonchi, rales Cardiac: Regular rate and rhythm, Systolic murmur noted, S1 and S2 present; no clicks or rubs Abdomen: Soft, nontender, nondistended, R groin shiley noted C/D/I Extremities: LUE AVF wrapped in bandage with slight sangrinous breakthrough, pulses strong and intact throughout all four extremities, No edema, <2 cap refill in all four ext. Laboratory Results - last 24 hr 02/12/16 02/12/16 02/12/16 16:45 16:50 20:30 WBC 13.6 H 12.2 H RBC 3.12 L 3.54 L Hgb 8.7 L D 9.9 L D Hct 28.2 L 31.6 L MCV 90.3 89.3 MCHC 30.7 L 31.4 L RDW 16.9 H 17.1 H Plt Count 133 L 152 MPV 9.1 8.8 Neutrophils % Lymphocytes % Monocytes % Eosinophils % Basophils % Sodium Potassium Chloride Carbon Dioxide Anion Gap BUN Creatinine Creat Clearance w eGFR POC Glucometer 202.50713 Random Glucose Calcium Total Bilirubin AST ALT Alkaline Phosphatase Total Protein Albumin 02/12/16 02/13/16 02/13/16 23:48 05:15 05:15 WBC 12.7 H RBC 3.57 L Hgb 9.9 L Hct 31.9 L MCV 89.4 MCHC 31.0 L RDW 17.3 H Plt Count 147 MPV 8.6 Neutrophils % 84.8 H Lymphocytes % 5.1 L D Monocytes % 9.6 Eosinophils % 0.3 Basophils % 0.2 Sodium 139 Potassium 3.8 D Chloride 99 Carbon Dioxide 31 D Anion Gap 9 BUN 38 H D Creatinine 3.0 H D Creat Clearance w eGFR 15.30 POC Glucometer 248.85565 Random Glucose 150 H D Calcium 8.2 L Total Bilirubin 1.7 H D AST 18 D ALT 20 Alkaline Phosphatase 127 H Total Protein 5.8 L Albumin 2.1 L 02/13/16 02/13/16 05:20 10:56 WBC RBC Hgb Hct MCV MCHC RDW Plt Count MPV Neutrophils % Lymphocytes % Monocytes % Eosinophils % Basophils % Sodium Potassium Chloride Carbon Dioxide Anion Gap BUN Creatinine Creat Clearance w eGFR POC Glucometer 184.92907 335.61515 Random Glucose Calcium Total Bilirubin AST ALT Alkaline Phosphatase Total Protein Albumin Active Medications Generic Name Dose Route Start Last Admin Trade Name Freq PRN Reason Stop Dose Admin Acetaminophen 650 mg 02/10/16 19:08 02/13/16 13:28 Tylenol - PO 650 mg BID PRN Administration FEVER Acetaminophen 650 mg 02/11/16 03:50 02/11/16 03:00 Tylenol Suppository - NV 650 mg Q6H PRN Administration FEVER OR PAIN Bacitracin 1 applic 02/12/16 16:30 02/13/16 09:31 Bacitracin - TP 1 applic DAILY DUC Administration Chlorhexidine Gluconate 1 applic 02/11/16 22:00 02/12/16 23:50 Hibiclens For Decolonization - TP 1 applic HS DUC Administration Hydralazine HCl 25 mg 02/10/16 22:00 02/13/16 06:11 Apresoline - PO Not Given TID DUC Pantoprazole Sodium 100 mls @ 200 mls/hr 02/11/16 10:00 02/13/16 09:31 Protonix 40mg Ivpb (Pre-Docked) IVPB 200 mls/hr DAILY DUC Administration Nafcillin Sodium 2 gm/ 100 mls @ 100 mls/hr 02/12/16 18:00 02/13/16 13:32 Dextrose IVPB 100 mls/hr Q4H-IV DUC Administration Sodium Chloride 500 mls @ 500 mls/hr 02/13/16 13:45 Normal Saline - IV 02/13/16 14:44 ASDIR STA Insulin Aspart 1 vial 02/12/16 22:00 02/13/16 11:37 Novolog Vial Sliding Scale - SQ 8 units ACHS DUC Administration Protocol Methimazole 5 mg 02/11/16 14:00 02/13/16 13:26 Tapazole - PO 5 mg TID DUC Administration Metoprolol Succinate 25 mg 02/11/16 10:00 02/13/16 09:32 Toprol Xl - PO Not Given DAILY DUC Mupirocin 1 applic 02/11/16 22:00 02/13/16 11:37 Bactroban Ointment (For Decolonization) - NS 02/16/16 21:59 1 applic BID DUC Administration Sevelamer Carbonate 1,600 mg 02/11/16 08:00 02/13/16 12:00 Renvela - PO Not Given TIDCM DUC ASSESSMENT/PLAN: 75yo F with ESRD on dialysis with AMS and mechanical malformation of AVF. Received emergent dialysis last night. (+) MSSA. Neuro: Remains lethargic but more alert than yesterday. Head CT on admission negative for acute pathology noted Cont. to monitor alongside neuro checks Pulmonary: Cont. supplemetal O2 with 5L NC to maintain SpO2 >90% CV: BP has been low ; meds held Troponins trending down- most likely are result of demand ichemia 2/2 Sepsis --No ST abnormalites on EKG --NSTEMI vs other etiologies (ESRD, sepsis, CHF) Echo- shows normal LV size and function RVSP elevated 50-60 --Systolic murmur noted today not apparent in previous reports Renal: HD tomorrow (Dr. Jones) Shilley removed, nothing replaced; will let rest given the setting of active infection. Possibly place shillley in left groin for HD tomorrow. ID: MSSA bacteremia- possibly from infected AVG Continue Nafcillin Repeat blood cultures in AM with HD. Endocrine: Head/Neck US- Markedly enlarged and nodular thyroid gland as described above with no additional cervical masses or fluid collections. Cont. ISS ACHS Cont. BGM ACHS F/E/N No IVF HD scheduled for tomorrow. Mechanical soft renal diet. Visit type - Emergency Visit Emergency Visit: Yes ED Registration Date: 02/10/16 Care time: The patient presented to the Emergency Department on the above date and was hospitalized for further evaluation of their emergent condition. - New Patient This patient is new to me today: No - Critical Care Critical Care patient: Yes Total Critical Care Time (in minutes): 31 Critical Care Statement: The care of this patient involved high complexity decision making to prevent further life threatening deterioration of the patient 's condition and/or to evalute & treat vital organ system(s) failure or risk of failure.
[2016-02-13] MEDS ORDERED: PT OWN MED DRAWER 7, Y5N ONE ×2 (17:22→21:25)
[2016-02-13] MEDS: CHLORHEXIDINE GLUCONATE 4% CLEANSER FOR DECOLONIZATION TP SCH (21:32)
--- NOTE | 2016-02-13 22:50 | PROC ---
Central Line Insertion Indication: Other (Dialysis) Risks and Benefits Explained: Yes Consent on Chart: Yes Central Line: Dialysis Cath, Tri Lumen Anesthesia: 1% Lidocaine Sterile Technique: Yes Ultrasound Guided Assistance: Yes Position: Left Femoral Sterile Dressing Applied: Yes Remarks: tolerated well w/o complication
[2016-02-14] MEDS: NAFCILLIN - 2 GM in DEXTROSE 5%-WATER - 100 ML IVPB SCH ×6 (01:13→21:14)
[2016-02-14] MEDS: METHIMAZOLE 5 MG TABLET (FP) PO SCH ×3 (06:26→21:14)
[2016-02-14] MEDS: hydrALAZINE HCL 25 MG TABLET (FP) PO SCH ×3 (06:29→21:13)
[2016-02-14] MEDS: INSULIN SLIDING SCALE (NOVOLOG) 1 VIAL SQ SCH ×4 (07:01→21:28)
--- NOTE | 2016-02-14 09:13 | PN ---
Progress Note (short form) - Note Progress Note: talks to me with her eyes closed Vital Signs Period Temp Pulse Resp BP Sys/Rangel Pulse Ox Last 24 Hr 97.0 F-98.9 F 71-85 14-18 91-119/33-54 99-99 cor-rrr lungs decreased bs abd soft,nt ext no edema femoral line (for HD) CBC, BMP 02/13/16 05:15 02/13/16 05:15 Microbiology 02/12/16 08:45 Blood - Post-Dialysis Blood Culture - Preliminary Staphylococcus Latex Coag Pos 02/10/16 20:00 Blood - Peripheral Venous Blood Culture - Final Staphylococcus Aureus 02/10/16 20:00 Blood - Peripheral Venous Blood Culture - Final Staphylococcus Aureus 02/12/16 08:45 Blood - Post-Dialysis Blood Culture - Preliminary Pending Organism 02/11/16 07:00 Urine - Urine - Catheterized Urine Culture - Final Contaminated: Please Repeat 02/10/16 21:30 Nasopharyngeal Swab Respiratory Virus Panel - Preliminary 02/10/16 21:30 Nasopharyngeal Swab Influenza Types A,B Antigen (MANOJ) - Final 02/10/16 21:30 Nasopharyngeal Swab - Final Current Medications Acetaminophen (Tylenol -) 650 mg PO BID PRN PRN Reason: FEVER Last Admin: 02/13/16 13:28 Dose: 650 mg Acetaminophen (Tylenol Suppository -) 650 mg GA Q6H PRN PRN Reason: FEVER OR PAIN Last Admin: 02/11/16 03:00 Dose: 650 mg Bacitracin (Bacitracin -) 1 applic TP DAILY DUC Last Admin: 02/13/16 09:31 Dose: 1 applic Chlorhexidine Gluconate (Hibiclens For Decolonization -) 1 applic TP HS DUC Last Admin: 02/13/16 21:32 Dose: 1 applic Hydralazine HCl (Apresoline -) 25 mg PO TID DUC Last Admin: 02/14/16 06:29 Dose: Not Given Pantoprazole Sodium (Protonix 40mg Ivpb (Pre-Docked)) 100 mls @ 200 mls/hr IVPB DAILY DUC Last Admin: 02/13/16 09:31 Dose: 200 mls/hr Nafcillin Sodium 2 gm/ (Dextrose) 100 mls @ 100 mls/hr IVPB Q4H-IV DUC Last Admin: 02/14/16 06:26 Dose: 100 mls/hr Insulin Aspart (Novolog Vial Sliding Scale -) 1 vial SQ ACHS [facility] PRN Reason: Protocol Last Admin: 02/14/16 07:01 Dose: 4 units Methimazole (Tapazole -) 5 mg PO TID [facility] Last Admin: 02/14/16 06:26 Dose: 5 mg Metoprolol Succinate (Toprol Xl -) 25 mg PO DAILY [facility] Last Admin: 02/13/16 09:32 Dose: Not Given Mupirocin (Bactroban Ointment (For Decolonization) -) 1 applic NS BID [facility] Stop: 02/16/16 21:59 Last Admin: 02/13/16 21:32 Dose: 1 applic Sevelamer Carbonate (Renvela -) 1,600 mg PO TIDCM [facility] Last Admin: 02/13/16 17:20 Dose: Not Given a/p MSSA bacteremia infected avg should remove avg when possible continue nafcillin repeat blood cultures today esrd/hd d/w Dr Jones who has spoken to vascular
[2016-02-14] MEDS: SEVELAMER CARBONATE 800 MG TAB (FP) PO SCH ×3 (09:32→17:43)
[2016-02-14] MEDS: MUPIROCIN 2% TOPICAL OINTMENT FOR DECOLONIZATION NS SCH ×2 (09:33→21:14)
[2016-02-14] MEDS: PANTOPRAZOLE SODIUM 100 ML IVPB SCH (09:34)
[2016-02-14] MEDS: METOPROLOL SUCCINATE 25 MG TAB.SR.24H (FP) PO SCH (09:42)
[2016-02-14] MEDS: BACITRACIN 30 GM TUBE TOPICAL OINTMENT TP SCH (09:43)
--- NOTE | 2016-02-14 10:26 | EKG ---
Test Reason : Blood Pressure : / mmHG Vent. Rate : 067 BPM Atrial Rate : 067 BPM P-R Int : 228 ms QRS Dur : 100 ms QT Int : 414 ms P-R-T Axes : 055 016 103 degrees QTc Int : 437 ms SINUS RHYTHM WITH 1ST DEGREE A-V BLOCK T WAVE ABNORMALITY, CONSIDER LATERAL ISCHEMIA ABNORMAL ECG WHEN COMPARED WITH ECG OF 10-FEB-2016 14:22, NON-SPECIFIC CHANGE IN ST SEGMENT IN LATERAL LEADS T WAVE INVERSION NOW EVIDENT IN LATERAL LEADS Confirmed by KING LUCERO MD ([id number]) on 02/14/2016 10:25:55 AM Referred By: ISABEL RHODES Confirmed By:KING LUCERO MD
--- NOTE | 2016-02-14 10:27 | PN ---
Progress Note, Physician Chief Complaint: Pt c/o not feeling well but has no specific complaints Due for dialysis today via femoral catheter For repeat BC at HD as per ID request - Current Medication List Current Medications: Active Medications Acetaminophen (Tylenol -) 650 mg PO BID PRN PRN Reason: FEVER Last Admin: 02/13/16 13:28 Dose: 650 mg Acetaminophen (Tylenol Suppository -) 650 mg [place] Q6H PRN PRN Reason: FEVER OR PAIN Last Admin: 02/11/16 03:00 Dose: 650 mg Bacitracin (Bacitracin -) 1 applic TP DAILY [facility] Last Admin: 02/14/16 09:43 Dose: 1 applic Chlorhexidine Gluconate (Hibiclens For Decolonization -) 1 applic TP HS [facility] Last Admin: 02/13/16 21:32 Dose: 1 applic Hydralazine HCl (Apresoline -) 25 mg PO TID [facility] Last Admin: 02/14/16 06:29 Dose: Not Given Pantoprazole Sodium (Protonix 40mg Ivpb (Pre-Docked)) 100 mls @ 200 mls/hr IVPB DAILY [facility] Last Admin: 02/14/16 09:34 Dose: 200 mls/hr Nafcillin Sodium 2 gm/ (Dextrose) 100 mls @ 100 mls/hr IVPB Q4H-IV DUC Last Admin: 02/14/16 09:34 Dose: 100 mls/hr Insulin Aspart (Novolog Vial Sliding Scale -) 1 vial SQ ACHS [facility] PRN Reason: Protocol Last Admin: 02/14/16 07:01 Dose: 4 units Methimazole (Tapazole -) 5 mg PO TID [facility] Last Admin: 02/14/16 06:26 Dose: 5 mg Metoprolol Succinate (Toprol Xl -) 25 mg PO DAILY [facility] Last Admin: 02/14/16 09:42 Dose: 25 mg Mupirocin (Bactroban Ointment (For Decolonization) -) 1 applic NS BID [facility] Stop: 02/16/16 21:59 Last Admin: 02/14/16 09:33 Dose: 1 applic Sevelamer Carbonate (Renvela -) 1,600 mg PO TIDCM [facility] Last Admin: 02/14/16 09:32 Dose: 1,600 mg - Objective Vital Signs: Vital Signs Temperature 98.9 F 02/14/16 06:00 Pulse Rate 78 01/07/17 08:00 Respiratory Rate 18 02/14/16 08:44 Blood Pressure 112/44 02/14/16 08:00 O2 Sat by Pulse Oximetry (%) 99 02/14/16 08:44 Constitutional: Yes: No Distress Cardiovascular: Yes: S1, S2 Respiratory: Yes: Other (Decreased BS at bases) Gastrointestinal: Yes: Normal Bowel Sounds, Soft. No: Tenderness, Rebound Edema: No (Ankle edema ) Labs: CBC, BMP 02/13/16 05:15 02/13/16 05:15 INR, PTT INR 1.20 (0.82-1.09) H 02/10/16 14:30 Assessment/Plan Impression ESRD AV access infection with bacteremia S/P hyperkalemia CHF DM HTN Anemia Depression Hyperlipidemia Leukocytosis NSTEMI Plan HD and repeat BC X2 sets ordered for today Vascular surgery F/U of the LUE AV access that appears to be infected Dr Bess
--- NOTE | 2016-02-14 10:45 | PN ---
Progress Note, Physician History of Present Illness: 75-year-old female presents to the ED for evaluation of bleeding left AV fistula. As per pt she had dialysis but has not been feeling well and today when she went to dialysis they were unable to access her fistula and then it began to bleed. Patient states has not been feeling well over the past few days describing nausea myalgia, and decreased appetite. Patient denies headache, throat pain, chest pain or shortness of breath. Patient with history of anemia, CVA, CHF, dementia, diabetes, dialysis, hypertension and dyslipidemia , and thyroid disease. - Current Medication List Current Medications: Active Medications Acetaminophen (Tylenol -) 650 mg PO BID PRN PRN Reason: FEVER Last Admin: 02/13/16 13:28 Dose: 650 mg Acetaminophen (Tylenol Suppository -) 650 mg IN Q6H PRN PRN Reason: FEVER OR PAIN Last Admin: 02/11/16 03:00 Dose: 650 mg Bacitracin (Bacitracin -) 1 applic TP DAILY [facility] Last Admin: 02/14/16 09:43 Dose: 1 applic Chlorhexidine Gluconate (Hibiclens For Decolonization -) 1 applic TP HS [facility] Last Admin: 02/13/16 21:32 Dose: 1 applic Hydralazine HCl (Apresoline -) 25 mg PO TID [facility] Last Admin: 02/14/16 06:29 Dose: Not Given Pantoprazole Sodium (Protonix 40mg Ivpb (Pre-Docked)) 100 mls @ 200 mls/hr IVPB DAILY [facility] Last Admin: 02/14/16 09:34 Dose: 200 mls/hr Nafcillin Sodium 2 gm/ (Dextrose) 100 mls @ 100 mls/hr IVPB Q4H-IV DUC Last Admin: 02/14/16 09:34 Dose: 100 mls/hr Insulin Aspart (Novolog Vial Sliding Scale -) 1 vial SQ ACHS [facility] PRN Reason: Protocol Last Admin: 02/14/16 07:01 Dose: 4 units Methimazole (Tapazole -) 5 mg PO TID [facility] Last Admin: 02/14/16 06:26 Dose: 5 mg Metoprolol Succinate (Toprol Xl -) 25 mg PO DAILY [facility] Last Admin: 02/14/16 09:42 Dose: 25 mg Mupirocin (Bactroban Ointment (For Decolonization) -) 1 applic NS BID [facility] Stop: 02/16/16 21:59 Last Admin: 02/14/16 09:33 Dose: 1 applic Sevelamer Carbonate (Renvela -) 1,600 mg PO TIDCM [facility] Last Admin: 02/14/16 09:32 Dose: 1,600 mg - Objective Vital Signs: Vital Signs Temperature 98.9 F 02/14/16 06:00 Pulse Rate 78 02/14/16 08:00 Respiratory Rate 18 02/14/16 08:44 Blood Pressure 112/44 02/14/16 08:00 O2 Sat by Pulse Oximetry (%) 99 02/14/16 08:44 Eyes: Yes: WNL, Conjunctiva Clear, EOM Intact HENT: Yes: WNL, Atraumatic, Normocephalic Neck: Yes: WNL, Supple, Trachea Midline Cardiovascular: Yes: WNL, Regular Rate and Rhythm Respiratory: Yes: WNL, Regular, CTA Bilaterally Gastrointestinal: Yes: WNL, Normal Bowel Sounds Genitourinary: Yes: WNL Musculoskeletal: Yes: WNL Extremities: Yes: WNL Edema: No Integumentary: Yes: WNL Neurological: Yes: WNL, Alert, Oriented ...Motor Strength: WNL Psychiatric: Yes: WNL Labs: CBC, BMP 02/13/16 05:15 02/13/16 05:15 INR, PTT INR 1.20 (0.82-1.09) H 02/10/16 14:30 Assessment/Plan - Problems (1) Hyperkalemia Assessment/Plan: 7.0 on admission; now 5.0. insulin; D50, calcium; kayexalate. s/p hemodialysis today. Code(s): E87.5 - HYPERKALEMIA (2) Dialysis AV fistula malfunction Assessment/Plan: From a cardiac standpoint, there are no absolute contraindications for pt to undergo removal of AV graft and PICC line insertion. Code(s): T82.590A - [facility] COMPL OF SURGICALLY CREATED ARTERIOVENOUS FISTULA, INIT Qualifiers: Encounter type: initial encounter Qualified Code(s): T82.590A - Other mechanical complication of surgically created arteriovenous fistula, initial encounter (3) Elevated troponin Assessment/Plan: TNI 1.09-->1.38-->3.25-->2.5. EKG: NSR; 1st degree AVB, without acute ST-T changes (no significant change from 12/2015). Likely NSTEMI/demand ischemia, though multiple other factors may contribute to TNI elevation, including CHF, ESRD, sepsis, hypoxia. Problematic starting antiplatelets and systemic AC due to AV graft bleed, but would consider doing so if cleared by surgeon. On metoprolol. ECHO: normal LVEF; moderate ; mild-moderate AR; severe TR; mild IN and MR; no pericardial effusion. Pt will require coronary artery evaluation when stable. Code(s): R79.89 - OTHER SPECIFIED ABNORMAL FINDINGS OF BLOOD CHEMISTRY (4) ESRD (end stage renal disease) on dialysis Code(s): N18.6 - END STAGE RENAL DISEASE Z99.2 - DEPENDENCE ON RENAL DIALYSIS (5) Hypertension Assessment/Plan: on metoprolol and hydralazine. Code(s): I10 - ESSENTIAL (PRIMARY) HYPERTENSION (6) Pulmonary hypertension Assessment/Plan: severe pulmonary HTN by 02/11/2015 ECHO; normal LVEF. Code(s): I27.2 - OTHER SECONDARY PULMONARY HYPERTENSION (7) Anemia Assessment/Plan: On Epogen. Code(s): D64.9 - ANEMIA, UNSPECIFIED Qualifiers: Other causes of anemia: acute posthemorrhagic (8) Leukocytosis Code(s): D72.829 - ELEVATED WHITE BLOOD CELL COUNT, UNSPECIFIED (9) Thyroid disease Assessment/Plan: low TSH; elevated Free T4; adjust Tapazole accordingly. Code(s): E07.9 - DISORDER OF THYROID, UNSPECIFIED (10) Acute on chronic diastolic CHF (congestive heart failure) Assessment/Plan: f/u daily weight, Is and Os, BUN/Cr, electrolytes. Code(s): I50.33 - ACUTE ON CHRONIC DIASTOLIC (CONGESTIVE) HEART FAILURE cc time 35 min
--- NOTE | 2016-02-14 10:46 | PN ---
Progress Note, Physician Chief Complaint: sleepy today but she answers appropriately pt is eating without difficulty - Current Medication List Current Medications: Active Medications Acetaminophen (Tylenol -) 650 mg PO BID PRN PRN Reason: FEVER Last Admin: 02/13/16 13:28 Dose: 650 mg Acetaminophen (Tylenol Suppository -) 650 mg [place] Q6H PRN PRN Reason: FEVER OR PAIN Last Admin: 02/11/16 03:00 Dose: 650 mg Bacitracin (Bacitracin -) 1 applic TP DAILY [facility] Last Admin: 02/14/16 09:43 Dose: 1 applic Chlorhexidine Gluconate (Hibiclens For Decolonization -) 1 applic TP HS [facility] Last Admin: 02/13/16 21:32 Dose: 1 applic Hydralazine HCl (Apresoline -) 25 mg PO TID [facility] Last Admin: 02/14/16 06:29 Dose: Not Given Pantoprazole Sodium (Protonix 40mg Ivpb (Pre-Docked)) 100 mls @ 200 mls/hr IVPB DAILY [facility] Last Admin: 02/14/16 09:34 Dose: 200 mls/hr Nafcillin Sodium 2 gm/ (Dextrose) 100 mls @ 100 mls/hr IVPB Q4H-IV [facility] Last Admin: 02/14/16 09:34 Dose: 100 mls/hr Insulin Aspart (Novolog Vial Sliding Scale -) 1 vial SQ ACHS [facility] PRN Reason: Protocol Last Admin: 02/14/16 07:01 Dose: 4 units Methimazole (Tapazole -) 5 mg PO TID [facility] Last Admin: 02/14/16 06:26 Dose: 5 mg Metoprolol Succinate (Toprol Xl -) 25 mg PO DAILY [facility] Last Admin: 02/14/16 09:42 Dose: 25 mg Mupirocin (Bactroban Ointment (For Decolonization) -) 1 applic NS BID [facility] Stop: 02/16/16 21:59 Last Admin: 02/14/16 09:33 Dose: 1 applic Sevelamer Carbonate (Renvela -) 1,600 mg PO TIDCM [facility] Last Admin: 02/14/16 09:32 Dose: 1,600 mg - Objective Vital Signs: Vital Signs Temperature 98.9 F 02/14/16 06:00 Pulse Rate 78 02/14/16 08:00 Respiratory Rate 18 02/14/16 08:44 Blood Pressure 112/44 02/14/16 08:00 O2 Sat by Pulse Oximetry (%) 99 02/14/16 08:44 Constitutional: Yes: No Distress Cardiovascular: Yes: Regular Rate and Rhythm Respiratory: Yes: Diminished Gastrointestinal: Yes: Normal Bowel Sounds, Soft. No: Distention, Tenderness Extremities: Yes: Other (elgy arm- dressning in place, left femoral shiley in place) Edema: No Labs: CBC, BMP 02/13/16 05:15 02/13/16 05:15 INR, PTT INR 1.20 (0.82-1.09) H 02/10/16 14:30 Problem List - Problems (1) Altered mental status, unspecified Code(s): R41.82 - ALTERED MENTAL STATUS, UNSPECIFIED Qualifiers: Altered mental status type: unspecified Qualified Code(s): R41.82 - Altered mental status, unspecified (2) Dialysis AV fistula malfunction Code(s): T82.590A - [facility] COMPL OF SURGICALLY CREATED ARTERIOVENOUS FISTULA, INIT Qualifiers: Encounter type: initial encounter Qualified Code(s): T82.590A - Other mechanical complication of surgically created arteriovenous fistula, initial encounter (3) Elevated troponin Code(s): R79.89 - OTHER SPECIFIED ABNORMAL FINDINGS OF BLOOD CHEMISTRY (4) Hyperkalemia Code(s): E87.5 - HYPERKALEMIA (5) Thrombosis of surgically created arteriovenous fistula Code(s): T82.868A - THROMBOSIS DUE TO VASCULAR PROSTH DEV/GRFT, INIT (6) ESRD (end stage renal disease) on dialysis Code(s): N18.6 - END STAGE RENAL DISEASE Z99.2 - DEPENDENCE ON RENAL DIALYSIS (7) Diabetes mellitus Code(s): E11.9 - TYPE 2 DIABETES MELLITUS WITHOUT COMPLICATIONS Qualifiers: Diabetes mellitus type: type 2 Diabetes mellitus complication status: without complication (8) Bacteremia Code(s): R78.81 - BACTEREMIA (9) Arteriovenous graft infection Code(s): T82.7XXA - INFECT/INFLM REACT D/T OTH CARDI/VASC DEV/IMPLNT/GRFT, INIT Qualifiers: Encounter type: subsequent encounter Qualified Code(s): T82.7XXD - Infection and inflammatory reaction due to other cardiac and vascular devices, implants and grafts, subsequent encounter Assessment/Plan PLAN repeat blood cultures still positive ICU monitoring IV antibiotics per ID continue with meds will need to remove AVG as blood cultures are continuing to be positive SCD for DVT prophylaxis
--- NOTE | 2016-02-14 11:19 | PN ---
Progress Note (short form) - Note Progress Note: PULMONARY/CCM Pt seen and examined in the ICU. Somnolent but arousable. Left femoral HD catheter placed overnight. Last blood cultures still positive. Last Vital Signs Temp Pulse Resp BP Pulse Ox 98.9 F 78 18 112/44 99 02/14/16 06:00 02/14/16 08:00 02/14/16 08:44 02/14/16 08:00 02/14/16 08:44 Intake & Output 02/11/16 02/12/16 02/13/16 02/14/16 23:59 23:59 23:59 23:59 Intake Total 944 678 9177 100 Output Total 80 Balance 175 984 5158 100 Weight 139 lb 12.369 oz 138 lb 0.15 oz 133 lb 6.075 oz 136 lb 1 oz Gen: somnolent but arousable Heart: RRR Lung: decreased breath sounds at the bases Abd: soft, nontender Ext: no edema CBC, BMP 02/13/16 05:15 02/13/16 05:15 Active Medications Acetaminophen (Tylenol -) 650 mg PO BID PRN PRN Reason: FEVER Last Admin: 02/13/16 13:28 Dose: 650 mg Acetaminophen (Tylenol Suppository -) 650 mg NE Q6H PRN PRN Reason: FEVER OR PAIN Last Admin: 02/11/16 03:00 Dose: 650 mg Bacitracin (Bacitracin -) 1 applic TP DAILY [facility] Last Admin: 02/14/16 09:43 Dose: 1 applic Chlorhexidine Gluconate (Hibiclens For Decolonization -) 1 applic TP HS [facility] Last Admin: 02/13/16 21:32 Dose: 1 applic Hydralazine HCl (Apresoline -) 25 mg PO TID [facility] Last Admin: 02/14/16 06:29 Dose: Not Given Pantoprazole Sodium (Protonix 40mg Ivpb (Pre-Docked)) 100 mls @ 200 mls/hr IVPB DAILY [facility] Last Admin: 02/14/16 09:34 Dose: 200 mls/hr Nafcillin Sodium 2 gm/ (Dextrose) 100 mls @ 100 mls/hr IVPB Q4H-IV DUC Last Admin: 02/14/16 09:34 Dose: 100 mls/hr Insulin Aspart (Novolog Vial Sliding Scale -) 1 vial SQ ACHS [facility] PRN Reason: Protocol Last Admin: 02/14/16 11:15 Dose: 4 units Methimazole (Tapazole -) 5 mg PO TID [facility] Last Admin: 02/14/16 06:26 Dose: 5 mg Metoprolol Succinate (Toprol Xl -) 25 mg PO DAILY [facility] Last Admin: 02/14/16 09:42 Dose: 25 mg Mupirocin (Bactroban Ointment (For Decolonization) -) 1 applic NS BID [facility] Stop: 02/16/16 21:59 Last Admin: 02/14/16 09:33 Dose: 1 applic Sevelamer Carbonate (Renvela -) 1,600 mg PO TIDCM [facility] Last Admin: 02/14/16 09:32 Dose: 1,600 mg A/P Staph Bacteremia from likely AVG infection Acute Blood Loss from AVG NSTEMI Altered Mental Status ESRD on HD Hyperkalemia resolved Pulmonary HTN HTN DM - continue vanco by level - repeat blood cultures with HD - cardiology f/u, will need clearance prior to OR - HD per renal - will need to remove AVG - aspiration precautions - DVT prophylaxis
[2016-02-14] MEDS: CHLORHEXIDINE GLUCONATE 4% CLEANSER FOR DECOLONIZATION TP SCH (21:14)
[2016-02-14] MEDS ORDERED: INSULIN (NOVOLOG) ASPART 100 UNITS/ML 10ML VIAL ONE (21:27)
[2016-02-15] MEDS: NAFCILLIN - 2 GM in DEXTROSE 5%-WATER - 100 ML IVPB SCH ×6 (02:17→23:20)
[2016-02-15 05:56] LABS: BASOPHIL 0.8 % (0-2.0); EOSINOPHIL 1.4 % (0-4.5); MCH 28.6 pg (25.7-33.7); MCHC 31.8 g/dl (32.0-36.0); MEAN CELL VOLUME 89.8 fl (80-96); MEAN PLT VOLUME 8.7 fl (7.5-11.1); NEUTROPHILS 83.8 % (42.8-82.8); PLATELET COUNT 163 K/MM3 (134-434); WHITE BLOOD COUNT 14.1 K/mm3 (4.0-10.0)
[2016-02-15 06:33] LABS: ALBUMIN 1.7 g/dl (3.4-5.0); BILIRUBIN,TOTAL 3.6 mg/dL (0.2-1.0); CALCIUM 7.9 mg/dL (8.5-10.1); CREATININE 3.5 mg/dL (0.55-1.02); MAGNESIUM 1.9 mg/dL (1.8-2.4); PHOSPHOROUS 1.9 mg/dL (2.5-4.9); TOT PROT 5.4 g/dl (6.4-8.2)
[2016-02-15] MEDS: hydrALAZINE HCL 25 MG TABLET (FP) PO SCH ×3 (06:37→23:21)
[2016-02-15] MEDS: METHIMAZOLE 5 MG TABLET (FP) PO SCH ×3 (06:37→23:21)
[2016-02-15] MEDS: INSULIN SLIDING SCALE (NOVOLOG) 1 VIAL SQ SCH ×4 (07:04→23:38)
[2016-02-15] MEDS: SEVELAMER CARBONATE 800 MG TAB (FP) PO SCH ×3 (08:48→17:24)
--- NOTE | 2016-02-15 08:49 | PN ---
Progress Note, Physician Chief Complaint: sleepy today but she answers appropriately pt is eating without difficulty - Current Medication List Current Medications: Active Medications Acetaminophen (Tylenol -) 650 mg PO BID PRN PRN Reason: FEVER Last Admin: 02/13/16 13:28 Dose: 650 mg Acetaminophen (Tylenol Suppository -) 650 mg [place] Q6H PRN PRN Reason: FEVER OR PAIN Last Admin: 02/11/16 03:00 Dose: 650 mg Bacitracin (Bacitracin -) 1 applic TP DAILY [facility] Last Admin: 02/14/16 09:43 Dose: 1 applic Chlorhexidine Gluconate (Hibiclens For Decolonization -) 1 applic TP HS [facility] Last Admin: 02/14/16 21:14 Dose: 1 applic Hydralazine HCl (Apresoline -) 25 mg PO TID [facility] Last Admin: 02/15/16 06:37 Dose: 25 mg Pantoprazole Sodium (Protonix 40mg Ivpb (Pre-Docked)) 100 mls @ 200 mls/hr IVPB DAILY [facility] Last Admin: 02/14/16 09:34 Dose: 200 mls/hr Nafcillin Sodium 2 gm/ (Dextrose) 100 mls @ 100 mls/hr IVPB Q4H-IV [facility] Last Admin: 02/15/16 06:37 Dose: 100 mls/hr Insulin Aspart (Novolog Vial Sliding Scale -) 1 vial SQ ACHS [facility] PRN Reason: Protocol Last Admin: 02/15/16 07:04 Dose: 2 units Methimazole (Tapazole -) 5 mg PO TID [facility] Last Admin: 02/15/16 06:37 Dose: 5 mg Metoprolol Succinate (Toprol Xl -) 25 mg PO DAILY [facility] Last Admin: 02/14/16 09:42 Dose: 25 mg Mupirocin (Bactroban Ointment (For Decolonization) -) 1 applic NS BID [facility] Stop: 02/16/16 21:59 Last Admin: 02/14/16 21:14 Dose: 1 applic Sevelamer Carbonate (Renvela -) 1,600 mg PO TIDCM [facility] Last Admin: 02/15/16 08:48 Dose: 1,600 mg - Objective Vital Signs: Vital Signs Temperature 97.8 F 02/15/16 06:00 Pulse Rate 88 02/15/16 06:00 Respiratory Rate 20 02/15/16 06:00 Blood Pressure 133/41 02/15/16 06:00 O2 Sat by Pulse Oximetry (%) 99 02/14/16 21:00 Constitutional: Yes: No Distress Cardiovascular: Yes: Regular Rate and Rhythm Respiratory: Yes: Diminished Gastrointestinal: Yes: Normal Bowel Sounds, Soft. No: Distention, Tenderness Extremities: Yes: Other (left arm dressing- very small amount of bloody drainage ) Edema: No Labs: CBC, BMP 02/15/16 05:00 02/15/16 05:00 INR, PTT INR 1.20 (0.82-1.09) H 02/10/16 14:30 Problem List - Problems (1) Altered mental status, unspecified Code(s): R41.82 - ALTERED MENTAL STATUS, UNSPECIFIED Qualifiers: Altered mental status type: unspecified Qualified Code(s): R41.82 - Altered mental status, unspecified (2) Dialysis AV fistula malfunction Code(s): T82.590A - [facility] COMPL OF SURGICALLY CREATED ARTERIOVENOUS FISTULA, INIT Qualifiers: Encounter type: initial encounter Qualified Code(s): T82.590A - Other mechanical complication of surgically created arteriovenous fistula, initial encounter (3) Elevated troponin Code(s): R79.89 - OTHER SPECIFIED ABNORMAL FINDINGS OF BLOOD CHEMISTRY (4) Hyperkalemia Code(s): E87.5 - HYPERKALEMIA (5) Thrombosis of surgically created arteriovenous fistula Code(s): T82.868A - THROMBOSIS DUE TO VASCULAR PROSTH DEV/GRFT, INIT (6) ESRD (end stage renal disease) on dialysis Code(s): N18.6 - END STAGE RENAL DISEASE Z99.2 - DEPENDENCE ON RENAL DIALYSIS (7) Diabetes mellitus Code(s): E11.9 - TYPE 2 DIABETES MELLITUS WITHOUT COMPLICATIONS Qualifiers: Diabetes mellitus type: type 2 Diabetes mellitus complication status: without complication (8) Bacteremia Code(s): R78.81 - BACTEREMIA (9) Arteriovenous graft infection Code(s): T82.7XXA - INFECT/INFLM REACT D/T OTH CARDI/VASC DEV/IMPLNT/GRFT, INIT Qualifiers: Encounter type: subsequent encounter Qualified Code(s): T82.7XXD - Infection and inflammatory reaction due to other cardiac and vascular devices, implants and grafts, subsequent encounter Assessment/Plan PLAN repeat blood cultures pending ICU monitoring AVG to be surgically removed likely Tuesday as blood cultures are continuing to be positive IV antibiotics per ID continue with meds troponins to be checked denies any chest pain ,SOB SCD for DVT prophylaxis
[2016-02-15] MEDS ORDERED: PT OWN MED DRAWER 7, Y5N ONE ×3 (08:52→23:14)
[2016-02-15] MEDS: PANTOPRAZOLE SODIUM 100 ML IVPB SCH (09:09)
[2016-02-15] MEDS: METOPROLOL SUCCINATE 25 MG TAB.SR.24H (FP) PO SCH (09:13)
[2016-02-15] MEDS: BACITRACIN 30 GM TUBE TOPICAL OINTMENT TP SCH (09:18)
[2016-02-15] MEDS: MUPIROCIN 2% TOPICAL OINTMENT FOR DECOLONIZATION NS SCH ×2 (09:19→23:21)
--- NOTE | 2016-02-15 10:19 | PN ---
Progress Note, Physician History of Present Illness: 75-year-old female presents to the ED for evaluation of bleeding left AV fistula. As per pt she had dialysis but has not been feeling well and today when she went to dialysis they were unable to access her fistula and then it began to bleed. Patient states has not been feeling well over the past few days describing nausea myalgia, and decreased appetite. Patient denies headache, throat pain, chest pain or shortness of breath. Patient with history of anemia, CVA, CHF, dementia, diabetes, dialysis, hypertension and dyslipidemia , and thyroid disease. - Current Medication List Current Medications: Active Medications Acetaminophen (Tylenol -) 650 mg PO BID PRN PRN Reason: FEVER Last Admin: 02/13/16 13:28 Dose: 650 mg Acetaminophen (Tylenol Suppository -) 650 mg [place] Q6H PRN PRN Reason: FEVER OR PAIN Last Admin: 02/11/16 03:00 Dose: 650 mg Bacitracin (Bacitracin -) 1 applic TP DAILY [facility] Last Admin: 02/15/16 09:18 Dose: 1 applic Chlorhexidine Gluconate (Hibiclens For Decolonization -) 1 applic TP HS [facility] Last Admin: 02/14/16 21:14 Dose: 1 applic Hydralazine HCl (Apresoline -) 25 mg PO TID [facility] Last Admin: 02/15/16 06:37 Dose: 25 mg Pantoprazole Sodium (Protonix 40mg Ivpb (Pre-Docked)) 100 mls @ 200 mls/hr IVPB DAILY [facility] Last Admin: 02/15/16 09:09 Dose: 200 mls/hr Nafcillin Sodium 2 gm/ (Dextrose) 100 mls @ 100 mls/hr IVPB Q4H-IV DUC Last Admin: 02/15/16 09:11 Dose: 100 mls/hr Insulin Aspart (Novolog Vial Sliding Scale -) 1 vial SQ ACHS [facility] PRN Reason: Protocol Last Admin: 02/15/16 07:04 Dose: 2 units Methimazole (Tapazole -) 5 mg PO TID [facility] Last Admin: 02/15/16 06:37 Dose: 5 mg Metoprolol Succinate (Toprol Xl -) 25 mg PO DAILY [facility] Last Admin: 02/15/16 09:13 Dose: 25 mg Mupirocin (Bactroban Ointment (For Decolonization) -) 1 applic NS BID [facility] Stop: 02/16/16 21:59 Last Admin: 02/15/16 09:19 Dose: 1 applic Sevelamer Carbonate (Renvela -) 1,600 mg PO TIDCM [facility] Last Admin: 02/15/16 08:48 Dose: 1,600 mg - Objective Vital Signs: Vital Signs Temperature 97.8 F 02/15/16 06:00 Pulse Rate 88 02/15/16 06:00 Respiratory Rate 20 02/15/16 06:00 Blood Pressure 133/41 02/15/16 06:00 O2 Sat by Pulse Oximetry (%) 99 02/14/16 21:00 Eyes: Yes: WNL, Conjunctiva Clear, EOM Intact HENT: Yes: WNL, Atraumatic, Normocephalic Neck: Yes: WNL, Supple, Trachea Midline Cardiovascular: Yes: WNL, Regular Rate and Rhythm, Murmur, S1, S2 Respiratory: Yes: WNL, Regular, CTA Bilaterally Gastrointestinal: Yes: WNL, Normal Bowel Sounds Genitourinary: Yes: WNL Musculoskeletal: Yes: WNL Extremities: Yes: WNL Edema: No Integumentary: Yes: WNL Neurological: Yes: WNL, Alert, Oriented ...Motor Strength: WNL Psychiatric: Yes: WNL Labs: CBC, BMP 02/15/16 05:00 02/15/16 05:00 INR, PTT INR 1.20 (0.82-1.09) H 02/10/16 14:30 Assessment/Plan - Problems (1) Hyperkalemia Assessment/Plan: 7.0 on admission; now 5.0. insulin; D50, calcium; kayexalate. s/p hemodialysis today. Code(s): E87.5 - HYPERKALEMIA (2) Dialysis AV fistula malfunction Assessment/Plan: From a cardiac standpoint, there are no absolute contraindications for pt to undergo removal of AV graft and PICC line insertion. Code(s): T82.590A - [facility] COMPL OF SURGICALLY CREATED ARTERIOVENOUS FISTULA, INIT Qualifiers: Encounter type: initial encounter Qualified Code(s): T82.590A - Other mechanical complication of surgically created arteriovenous fistula, initial encounter (3) Elevated troponin Assessment/Plan: TNI 1.09-->1.38-->3.25-->2.5. EKG: NSR; 1st degree AVB, without acute ST-T changes (no significant change from 12/2015). Likely NSTEMI/demand ischemia, though multiple other factors may contribute to TNI elevation, including CHF, ESRD, sepsis, hypoxia. Problematic starting antiplatelets and systemic AC due to AV graft bleed, but would consider doing so if cleared by surgeon. On metoprolol. ECHO: normal LVEF; moderate ; mild-moderate AR; severe TR; mild DE and MR; no pericardial effusion. Pt will require coronary artery evaluation when stable. Code(s): R79.89 - OTHER SPECIFIED ABNORMAL FINDINGS OF BLOOD CHEMISTRY (4) ESRD (end stage renal disease) on dialysis Code(s): N18.6 - END STAGE RENAL DISEASE Z99.2 - DEPENDENCE ON RENAL DIALYSIS (5) Hypertension Assessment/Plan: on metoprolol and hydralazine. Code(s): I10 - ESSENTIAL (PRIMARY) HYPERTENSION (6) Pulmonary hypertension Assessment/Plan: severe pulmonary HTN by 02/11/2015 ECHO; normal LVEF. Code(s): I27.2 - OTHER SECONDARY PULMONARY HYPERTENSION (7) Anemia Assessment/Plan: On Epogen. Code(s): D64.9 - ANEMIA, UNSPECIFIED Qualifiers: Other causes of anemia: acute posthemorrhagic (8) Leukocytosis Code(s): D72.829 - ELEVATED WHITE BLOOD CELL COUNT, UNSPECIFIED (9) Thyroid disease Assessment/Plan: low TSH; elevated Free T4; adjust Tapazole accordingly. Code(s): E07.9 - DISORDER OF THYROID, UNSPECIFIED (10) Acute on chronic diastolic CHF (congestive heart failure) Assessment/Plan: f/u daily weight, Is and Os, BUN/Cr, electrolytes. Code(s): I50.33 - ACUTE ON CHRONIC DIASTOLIC (CONGESTIVE) HEART FAILURE cc time 35 min
--- NOTE | 2016-02-15 10:51 | PN ---
Progress Note (short form) - Note Progress Note: much more alert still speaking with her eyes closed Vital Signs Period Temp Pulse Resp BP Sys/Rangel Pulse Ox Last 24 Hr 97.8 F-98.6 F 82-104 16-20 100-133/40-52 99-99 cor-rrr lungs clear abd soft,nt ext dressing right arm CBC, BMP 02/15/16 05:00 02/15/16 05:00 Microbiology 02/12/16 08:45 Blood - Post-Dialysis Blood Culture - Preliminary Staphylococcus Latex Coag Pos 02/12/16 08:45 Blood - Post-Dialysis Blood Culture - Preliminary Staphylococcus Latex Coag Pos 02/10/16 20:00 Blood - Peripheral Venous Blood Culture - Final Staphylococcus Aureus 02/10/16 20:00 Blood - Peripheral Venous Blood Culture - Final Staphylococcus Aureus 02/11/16 07:00 Urine - Urine - Catheterized Urine Culture - Final Contaminated: Please Repeat 02/10/16 21:30 Nasopharyngeal Swab Respiratory Virus Panel - Preliminary 02/10/16 21:30 Nasopharyngeal Swab Influenza Types A,B Antigen (MANOJ) - Final 02/10/16 21:30 Nasopharyngeal Swab - Final Current Medications Acetaminophen (Tylenol -) 650 mg PO BID PRN PRN Reason: FEVER Last Admin: 02/13/16 13:28 Dose: 650 mg Acetaminophen (Tylenol Suppository -) 650 mg [place] Q6H PRN PRN Reason: FEVER OR PAIN Last Admin: 02/11/16 03:00 Dose: 650 mg Bacitracin (Bacitracin -) 1 applic TP DAILY [facility] Last Admin: 02/15/16 09:18 Dose: 1 applic Chlorhexidine Gluconate (Hibiclens For Decolonization -) 1 applic TP HS [facility] Last Admin: 02/14/16 21:14 Dose: 1 applic Hydralazine HCl (Apresoline -) 25 mg PO TID [facility] Last Admin: 02/15/16 06:37 Dose: 25 mg Pantoprazole Sodium (Protonix 40mg Ivpb (Pre-Docked)) 100 mls @ 200 mls/hr IVPB DAILY [facility] Last Admin: 02/15/16 09:09 Dose: 200 mls/hr Nafcillin Sodium 2 gm/ (Dextrose) 100 mls @ 100 mls/hr IVPB Q4H-IV [facility] Last Admin: 02/15/16 09:11 Dose: 100 mls/hr Insulin Aspart (Novolog Vial Sliding Scale -) 1 vial SQ ACHS [facility] PRN Reason: Protocol Last Admin: 02/15/16 07:04 Dose: 2 units Methimazole (Tapazole -) 5 mg PO TID [facility] Last Admin: 02/15/16 06:37 Dose: 5 mg Metoprolol Succinate (Toprol Xl -) 25 mg PO DAILY [facility] Last Admin: 02/15/16 09:13 Dose: 25 mg Mupirocin (Bactroban Ointment (For Decolonization) -) 1 applic NS BID [facility] Stop: 02/16/16 21:59 Last Admin: 02/15/16 09:19 Dose: 1 applic Sevelamer Carbonate (Renvela -) 1,600 mg PO TIDCM [facility] Last Admin: 02/15/16 08:48 Dose: 1,600 mg a/p MSSA bacteremia infected avg should remove avg when possible continue nafcillin repeat blood cultures sent yesterday esrd/hd
--- NOTE | 2016-02-15 11:23 | PN ---
Progress Note, Physician Chief Complaint: Pt looks and feels better No longer complaining of not feeling well - Current Medication List Current Medications: Active Medications Acetaminophen (Tylenol -) 650 mg PO BID PRN PRN Reason: FEVER Last Admin: 02/13/16 13:28 Dose: 650 mg Acetaminophen (Tylenol Suppository -) 650 mg NE Q6H PRN PRN Reason: FEVER OR PAIN Last Admin: 02/11/16 03:00 Dose: 650 mg Bacitracin (Bacitracin -) 1 applic TP DAILY [facility] Last Admin: 02/15/16 09:18 Dose: 1 applic Chlorhexidine Gluconate (Hibiclens For Decolonization -) 1 applic TP HS [facility] Last Admin: 02/14/16 21:14 Dose: 1 applic Hydralazine HCl (Apresoline -) 25 mg PO TID [facility] Last Admin: 02/15/16 06:37 Dose: 25 mg Pantoprazole Sodium (Protonix 40mg Ivpb (Pre-Docked)) 100 mls @ 200 mls/hr IVPB DAILY [facility] Last Admin: 02/15/16 09:09 Dose: 200 mls/hr Nafcillin Sodium 2 gm/ (Dextrose) 100 mls @ 100 mls/hr IVPB Q4H-IV [facility] Last Admin: 02/15/16 09:11 Dose: 100 mls/hr Insulin Aspart (Novolog Vial Sliding Scale -) 1 vial SQ ACHS [facility] PRN Reason: Protocol Last Admin: 02/15/16 07:04 Dose: 2 units Methimazole (Tapazole -) 5 mg PO TID [facility] Last Admin: 02/15/16 06:37 Dose: 5 mg Metoprolol Succinate (Toprol Xl -) 25 mg PO DAILY [facility] Last Admin: 02/15/16 09:13 Dose: 25 mg Mupirocin (Bactroban Ointment (For Decolonization) -) 1 applic NS BID [facility] Stop: 02/16/16 21:59 Last Admin: 02/15/16 09:19 Dose: 1 applic Sevelamer Carbonate (Renvela -) 1,600 mg PO TIDCM [facility] Last Admin: 02/15/16 08:48 Dose: 1,600 mg - Objective Vital Signs: Vital Signs Temperature 97.8 F 02/15/16 06:00 Pulse Rate 93 H 02/15/16 10:00 Respiratory Rate 15 02/15/16 10:00 Blood Pressure 117/41 02/15/16 10:00 O2 Sat by Pulse Oximetry (%) 98 02/15/16 10:55 Constitutional: Yes: No Distress Cardiovascular: Yes: S1, S2 Respiratory: Yes: CTA Bilaterally Gastrointestinal: Yes: Soft. No: Tenderness, Rebound Edema: No Labs: CBC, BMP 02/15/16 05:00 02/15/16 05:00 INR, PTT INR 1.20 (0.82-1.09) H 02/10/16 14:30 Assessment/Plan Impression ESRD AV access infection with bacteremia S/P hyperkalemia CHF DM HTN Anemia Depression Hyperlipidemia Leukocytosis NSTEMI Plan Await repeat BC results For removal of the AVG scheduled for 02/16 Dr Bess
--- NOTE | 2016-02-15 11:52 | PN ---
Progress Note (short form) - Note Progress Note: Pt somewhat lethargic this am. Vital Signs Period Temp Pulse Resp BP Sys/Rangel Pulse Ox Last 24 Hr 97.8 F-98.6 F 82-104 15-20 100-133/40-52 98-99 PE: GEN: alert, follows commands LUE: no evidence of bleeding, suture in place, gd thrill, left hand +2 radial pulse. No erythema to LUE. Left groin: no evidnece of hematoma, Trialysis catheter in place. CBC, BMP 02/15/16 05:00 02/15/16 05:00 Microbiology 02/12/16 08:45 Blood - Post-Dialysis Blood Culture - Final Staphylococcus Aureus PRE/post dialysis cultures pending from 02/13 Problem List - Problems (1) ESRD (end stage renal disease) on dialysis Assessment/Plan: Pt had dialysis yesterday via left groin shiley, she remains afebrile with elevated WBC. S/w Dr. Reid and will plan for LUE graft removal on Tuesday. If possible plan for HD tomorrow so the patient will be optimized prior to surgery. Cont IV abx. Await culture results from 02/13 Code(s): N18.6 - END STAGE RENAL DISEASE Z99.2 - DEPENDENCE ON RENAL DIALYSIS
--- NOTE | 2016-02-15 12:06 | PN ---
Progress Note (short form) - Note Progress Note: PULMONARY/CCM Pt seen and examined in the ICU. Somnolent but arousable. No fevers recorded. Repeat cultures pending. Last Vital Signs Temp Pulse Resp BP Pulse Ox 97.8 F 93 H 15 117/41 98 02/15/16 06:00 02/15/16 10:00 02/15/16 10:00 02/15/16 10:00 02/15/16 10:55 Intake & Output 02/12/16 02/13/16 02/14/16 02/15/16 23:59 23:59 23:59 23:59 Intake Total 480 1450 1300 600 Output Total 0 Balance 480 1450 1300 600 Weight 138 lb 0.15 oz 133 lb 6.075 oz 136 lb 1 oz 138 lb 1 oz Gen: somnolent but arousable Heart: RRR Lung: decreased breath sounds at the bases Abd: soft, nontender Ext: no edema CBC, BMP 02/15/16 05:00 02/15/16 05:00 Active Medications Acetaminophen (Tylenol -) 650 mg PO BID PRN PRN Reason: FEVER Last Admin: 02/13/16 13:28 Dose: 650 mg Acetaminophen (Tylenol Suppository -) 650 mg MA Q6H PRN PRN Reason: FEVER OR PAIN Last Admin: 02/11/16 03:00 Dose: 650 mg Bacitracin (Bacitracin -) 1 applic TP DAILY [facility] Last Admin: 02/15/16 09:18 Dose: 1 applic Chlorhexidine Gluconate (Hibiclens For Decolonization -) 1 applic TP HS [facility] Last Admin: 02/14/16 21:14 Dose: 1 applic Hydralazine HCl (Apresoline -) 25 mg PO TID [facility] Last Admin: 02/15/16 06:37 Dose: 25 mg Pantoprazole Sodium (Protonix 40mg Ivpb (Pre-Docked)) 100 mls @ 200 mls/hr IVPB DAILY [facility] Last Admin: 02/15/16 09:09 Dose: 200 mls/hr Nafcillin Sodium 2 gm/ (Dextrose) 100 mls @ 100 mls/hr IVPB Q4H-IV DUC Last Admin: 02/15/16 09:11 Dose: 100 mls/hr Insulin Aspart (Novolog Vial Sliding Scale -) 1 vial SQ ACHS [facility] PRN Reason: Protocol Last Admin: 02/15/16 07:04 Dose: 2 units Methimazole (Tapazole -) 5 mg PO TID [facility] Last Admin: 02/15/16 06:37 Dose: 5 mg Metoprolol Succinate (Toprol Xl -) 25 mg PO DAILY [facility] Last Admin: 02/15/16 09:13 Dose: 25 mg Mupirocin (Bactroban Ointment (For Decolonization) -) 1 applic NS BID [facility] Stop: 02/16/16 21:59 Last Admin: 02/15/16 09:19 Dose: 1 applic Sevelamer Carbonate (Renvela -) 1,600 mg PO TIDCM [facility] Last Admin: 02/15/16 08:48 Dose: 1,600 mg A/P Staph Bacteremia from likely AVG infection Acute Blood Loss from AVG NSTEMI Altered Mental Status ESRD on HD Hyperkalemia resolved Pulmonary HTN HTN DM - continue vanco by level - f/u repeat blood cultures - HD per renal - will need to remove AVG - aspiration precautions - DVT prophylaxis - can monitor on telemetry
[2016-02-15 12:09] LABS: TROPONIN I 1.42 ng/ml (0.00-0.05)
[2016-02-15] MEDS: CHLORHEXIDINE GLUCONATE 4% CLEANSER FOR DECOLONIZATION TP SCH (23:21)
[2016-02-16] MEDS ORDERED: PT OWN MED DRAWER 7, Y5N ONE ×6 (02:58→20:25)
[2016-02-16] MEDS: NAFCILLIN - 2 GM in DEXTROSE 5%-WATER - 100 ML IVPB SCH ×5 (03:01→21:25)
[2016-02-16 06:13] LABS: BASOPHIL 0.2 % (0-2.0); EOSINOPHIL 0.8 % (0-4.5); MCH 27.7 pg (25.7-33.7); MEAN CELL VOLUME 89.5 fl (80-96); MEAN PLT VOLUME 7.8 fl (7.5-11.1); NEUTROPHILS 88.1 % (42.8-82.8); PLATELET COUNT 156 K/MM3 (134-434); RDW 16.4 % (11.6-15.6); WHITE BLOOD COUNT 16.2 K/mm3 (4.0-10.0)
[2016-02-16 06:46] LABS: ALBUMIN 1.6 g/dl (3.4-5.0); BILIRUBIN,TOTAL 3.7 mg/dL (0.2-1.0); CALCIUM 7.1 mg/dL (8.5-10.1); CREATININE 4.4 mg/dL (0.55-1.02); PHOSPHOROUS 3.4 mg/dL (2.5-4.9); TOT PROT 5.2 g/dl (6.4-8.2)
[2016-02-16 06:52] LABS: FREE T4 0.89 ng/dl (0.76-1.46); THYROID STIMULATING HORMONE < 0.01 uIU/ml (0.358-3.74)
[2016-02-16] MEDS: METHIMAZOLE 5 MG TABLET (FP) PO SCH ×3 (06:52→21:25)
[2016-02-16] MEDS: hydrALAZINE HCL 25 MG TABLET (FP) PO SCH ×3 (06:52→21:25)
[2016-02-16] MEDS: INSULIN SLIDING SCALE (NOVOLOG) 1 VIAL SQ SCH ×4 (06:58→21:38)
[2016-02-16 07:21] LABS: TROPONIN I 1.09 ng/ml (0.00-0.05)
--- NOTE | 2016-02-16 08:29 | PN ---
Progress Note (short form) - Note Progress Note: Subjective Patient seen and examined in the ICU. Chart reviewed. Patient comfortable Denies any pain. Persistent positive cultures. Objective Last Vital Signs Temp Pulse Resp BP Pulse Ox 97.8 F 83 18 127/44 98 02/16/16 06:00 02/16/16 08:00 02/16/16 08:00 02/16/16 08:00 02/15/16 21:00 Physical Exam Constitutional: Yes: No Distress Cardiovascular: Yes: Regular Rate and Rhythm Respiratory: Yes: Diminished Gastrointestinal: Yes: Normal Bowel Sounds, Soft. No: Distention, Tenderness Extremities: Yes: L groin shiley present Edema: No Labs CBC, BMP 02/16/16 05:00 02/16/16 05:00 Laboratory Results - last 24 hr 02/15/16 02/15/16 02/15/16 11:10 12:06 17:29 WBC RBC Hgb Hct MCV MCHC RDW Plt Count MPV Neutrophils % Lymphocytes % Monocytes % Eosinophils % Basophils % Sodium Potassium Chloride Carbon Dioxide Anion Gap BUN Creatinine Creat Clearance w eGFR POC Glucometer [phone] Random Glucose Calcium Phosphorus Magnesium Total Bilirubin AST ALT Alkaline Phosphatase Creatine Kinase 24 L Troponin I 1.42 H* Total Protein Albumin TSH Free T4 02/15/16 02/16/16 02/16/16 23:37 05:00 05:00 WBC RBC Hgb Hct MCV MCHC RDW Plt Count MPV Neutrophils % Lymphocytes % Monocytes % Eosinophils % Basophils % Sodium 133 L Potassium 4.5 Chloride 95 L Carbon Dioxide 26 Anion Gap 12 BUN 71 H D Creatinine 4.4 H D Creat Clearance w eGFR 9.83 POC Glucometer [phone] Random Glucose 165 H D Calcium 7.1 L Phosphorus 3.4 D Magnesium 2.0 Total Bilirubin 3.7 H AST 20 ALT 13 Alkaline Phosphatase 96 Creatine Kinase 14 L Troponin I 1.09 H* Total Protein 5.2 L Albumin 1.6 L TSH < 0.01 L Free T4 0.89 D 02/16/16 05:00 WBC 16.2 H RBC 3.01 L Hgb 8.3 L Hct 26.9 L MCV 89.5 MCHC 31.0 L RDW 16.4 H Plt Count 156 MPV 7.8 D Neutrophils % 88.1 H Lymphocytes % 5.7 L Monocytes % 5.2 Eosinophils % 0.8 Basophils % 0.2 Sodium Potassium Chloride Carbon Dioxide Anion Gap BUN Creatinine Creat Clearance w eGFR POC Glucometer Random Glucose Calcium Phosphorus Magnesium Total Bilirubin AST ALT Alkaline Phosphatase Creatine Kinase Troponin I Total Protein Albumin TSH Free T4 Assessment and Plan Persistent bacteremia. Continue abx. Discussed with Dr. Mota AV graft needs to be taken out. Discussed with vascular surgeon also by Dr. Moat in my presence. Will follow. Continue present care for now. Documentation prepared by Lian Eduardo, acting as a manager medical for Abhishek Oneal MD.
[2016-02-16] MEDS: SEVELAMER CARBONATE 800 MG TAB (FP) PO SCH ×3 (08:38→18:51)
--- NOTE | 2016-02-16 09:21 | PN ---
Progress Note (short form) - Note Progress Note: much more alert eyes open today but reports she cannot see well sees light but cannot see people Vital Signs Period Temp Pulse Resp BP Sys/Rangel Pulse Ox Last 24 Hr 97.8 F-98.6 F 82-96 12-20 115-137/35-53 98-98 +icterus cor-rrr 3/6 HSM lungs clear abd soft,nt ext dressing left arm left groin dialysis catheter CBC, BMP 02/16/16 05:00 02/16/16 05:00 Microbiology 02/14/16 14:00 Blood - Pre-Dialysis Blood Culture - Preliminary Pending Organism 02/14/16 14:00 Blood - Pre-Dialysis Blood Culture - Preliminary Pending Organism 02/12/16 08:45 Blood - Post-Dialysis Blood Culture - Final Staphylococcus Aureus 02/12/16 08:45 Blood - Post-Dialysis Blood Culture - Final Staphylococcus Aureus 02/10/16 20:00 Blood - Peripheral Venous Blood Culture - Final Staphylococcus Aureus 02/10/16 20:00 Blood - Peripheral Venous Blood Culture - Final Staphylococcus Aureus 02/11/16 07:00 Urine - Urine - Catheterized Urine Culture - Final Contaminated: Please Repeat 02/10/16 21:30 Nasopharyngeal Swab Respiratory Virus Panel - Preliminary 02/10/16 21:30 Nasopharyngeal Swab Influenza Types A,B Antigen (MANOJ) - Final 02/10/16 21:30 Nasopharyngeal Swab - Final Active Medications Acetaminophen (Tylenol -) 650 mg PO BID PRN PRN Reason: FEVER Last Admin: 02/13/16 13:28 Dose: 650 mg Acetaminophen (Tylenol Suppository -) 650 mg [place] Q6H PRN PRN Reason: FEVER OR PAIN Last Admin: 02/11/16 03:00 Dose: 650 mg Bacitracin (Bacitracin -) 1 applic TP DAILY [facility] Last Admin: 02/15/16 09:18 Dose: 1 applic Chlorhexidine Gluconate (Hibiclens For Decolonization -) 1 applic TP HS [facility] Last Admin: 02/15/16 23:21 Dose: 1 applic Hydralazine HCl (Apresoline -) 25 mg PO TID [facility] Last Admin: 02/16/16 06:52 Dose: 25 mg Pantoprazole Sodium (Protonix 40mg Ivpb (Pre-Docked)) 100 mls @ 200 mls/hr IVPB DAILY [facility] Last Admin: 02/15/16 09:09 Dose: 200 mls/hr Nafcillin Sodium 2 gm/ (Dextrose) 100 mls @ 100 mls/hr IVPB Q4H-IV [facility] Last Admin: 02/16/16 06:58 Dose: 100 mls/hr Insulin Aspart (Novolog Vial Sliding Scale -) 1 vial SQ ACHS [facility] PRN Reason: Protocol Last Admin: 02/16/16 06:58 Dose: 2 units Methimazole (Tapazole -) 5 mg PO TID [facility] Last Admin: 02/16/16 06:52 Dose: 5 mg Metoprolol Succinate (Toprol Xl -) 25 mg PO DAILY [facility] Last Admin: 02/15/16 09:13 Dose: 25 mg Mupirocin (Bactroban Ointment (For Decolonization) -) 1 applic NS BID [facility] Stop: 02/16/16 21:59 Last Admin: 02/15/16 23:21 Dose: 1 applic Sevelamer Carbonate (Renvela -) 1,600 mg PO TIDCM [facility] Last Admin: 02/16/16 08:38 Dose: 1,600 mg a/p MSSA bacteremia-persistent bacteremia infected avg should remove avg-d/w Dr Reid c/o visual changes- suggest head ct with and without contrast today- repeat blood cultures 02/13 are positive if blood cultures remain positive post removal of graft will need ASH esrd/hd elevated troponins- plan for cath when stable d/w Dr Reid, d/w ICU staff
[2016-02-16] MEDS: PANTOPRAZOLE SODIUM 100 ML IVPB SCH (10:09)
[2016-02-16] MEDS: METOPROLOL SUCCINATE 25 MG TAB.SR.24H (FP) PO SCH (10:09)
--- NOTE | 2016-02-16 10:09 | PN ---
Progress Note (short form) - Note Progress Note: Vascular Surgery Pt with persistent bacteremia. Will need to have avg removed in am. NPO past midnite. Case discussed with ID team. True Reid DO
[2016-02-16] MEDS: MUPIROCIN 2% TOPICAL OINTMENT FOR DECOLONIZATION NS SCH (10:10)
[2016-02-16] MEDS: BACITRACIN 30 GM TUBE TOPICAL OINTMENT TP SCH (10:10)
--- NOTE | 2016-02-16 12:07 | PN ---
Progress Note, Physician History of Present Illness: 75-year-old female presents to the ED for evaluation of bleeding left AV fistula. As per pt she had dialysis but has not been feeling well and today when she went to dialysis they were unable to access her fistula and then it began to bleed. Patient states has not been feeling well over the past few days describing nausea myalgia, and decreased appetite. Patient denies headache, throat pain, chest pain or shortness of breath. Patient with history of anemia, CVA, CHF, dementia, diabetes, dialysis, hypertension and dyslipidemia , and thyroid disease. - Current Medication List Current Medications: Active Medications Acetaminophen (Tylenol -) 650 mg PO BID PRN PRN Reason: FEVER Last Admin: 02/13/16 13:28 Dose: 650 mg Acetaminophen (Tylenol Suppository -) 650 mg [place] Q6H PRN PRN Reason: FEVER OR PAIN Last Admin: 02/11/16 03:00 Dose: 650 mg Bacitracin (Bacitracin -) 1 applic TP DAILY [facility] Last Admin: 02/16/16 10:10 Dose: 1 applic Chlorhexidine Gluconate (Hibiclens For Decolonization -) 1 applic TP HS [facility] Last Admin: 02/15/16 23:21 Dose: 1 applic Hydralazine HCl (Apresoline -) 25 mg PO TID [facility] Last Admin: 02/16/16 06:52 Dose: 25 mg Pantoprazole Sodium (Protonix 40mg Ivpb (Pre-Docked)) 100 mls @ 200 mls/hr IVPB DAILY [facility] Last Admin: 02/16/16 10:09 Dose: 200 mls/hr Nafcillin Sodium 2 gm/ (Dextrose) 100 mls @ 100 mls/hr IVPB Q4H-IV [facility]UC Last Admin: 02/16/16 10:09 Dose: 100 mls/hr Insulin Aspart (Novolog Vial Sliding Scale -) 1 vial SQ ACHS [facility] PRN Reason: Protocol Last Admin: 02/16/16 11:13 Dose: Not Given Methimazole (Tapazole -) 5 mg PO TID [facility] Last Admin: 02/16/16 06:52 Dose: 5 mg Metoprolol Succinate (Toprol Xl -) 25 mg PO DAILY [facility] Last Admin: 02/16/16 10:09 Dose: 25 mg Mupirocin (Bactroban Ointment (For Decolonization) -) 1 applic NS BID [facility] Stop: 02/16/16 21:59 Last Admin: 02/16/16 10:10 Dose: 1 applic Sevelamer Carbonate (Renvela -) 1,600 mg PO TIDCM [facility] Last Admin: 02/16/16 08:38 Dose: 1,600 mg - Objective Vital Signs: Vital Signs Temperature 98.5 F 02/16/16 10:00 Pulse Rate 85 02/16/16 11:38 Respiratory Rate 18 02/16/16 11:33 Blood Pressure 119/41 02/16/16 11:33 O2 Sat by Pulse Oximetry (%) 99 02/16/16 11:38 Eyes: Yes: WNL, Conjunctiva Clear, EOM Intact HENT: Yes: WNL, Atraumatic, Normocephalic Neck: Yes: WNL, Supple, Trachea Midline Cardiovascular: Yes: WNL, Regular Rate and Rhythm Respiratory: Yes: WNL, Regular, CTA Bilaterally Gastrointestinal: Yes: WNL, Normal Bowel Sounds Genitourinary: Yes: WNL Musculoskeletal: Yes: WNL Extremities: Yes: WNL Edema: No Integumentary: Yes: WNL Neurological: Yes: WNL, Alert, Oriented ...Motor Strength: WNL Psychiatric: Yes: WNL Labs: CBC, BMP 02/16/16 05:00 02/16/16 05:00 INR, PTT INR 1.20 (0.82-1.09) H 02/10/16 14:30 Assessment/Plan - Problems (1) Hyperkalemia Assessment/Plan: 7.0 on admission; now 5.0. insulin; D50, calcium; kayexalate. s/p hemodialysis today. Code(s): E87.5 - HYPERKALEMIA (2) Dialysis AV fistula malfunction Assessment/Plan: From a cardiac standpoint, there are no absolute contraindications for pt to undergo removal of AV graft and PICC line insertion. Code(s): T82.590A - [facility] COMPL OF SURGICALLY CREATED ARTERIOVENOUS FISTULA, INIT Qualifiers: Encounter type: initial encounter Qualified Code(s): T82.590A - Other mechanical complication of surgically created arteriovenous fistula, initial encounter (3) Elevated troponin Assessment/Plan: TNI 1.09-->1.38-->3.25-->2.5. EKG: NSR; 1st degree AVB, without acute ST-T changes (no significant change from 12/2015). Likely NSTEMI/demand ischemia, though multiple other factors may contribute to TNI elevation, including CHF, ESRD, sepsis, hypoxia. Problematic starting antiplatelets and systemic AC due to AV graft bleed, but would consider doing so if cleared by surgeon. On metoprolol. ECHO: normal LVEF; moderate ; mild-moderate AR; severe TR; mild VA and MR; no pericardial effusion. Pt will require coronary artery evaluation when stable. Code(s): R79.89 - OTHER SPECIFIED ABNORMAL FINDINGS OF BLOOD CHEMISTRY (4) ESRD (end stage renal disease) on dialysis Code(s): N18.6 - END STAGE RENAL DISEASE Z99.2 - DEPENDENCE ON RENAL DIALYSIS (5) Hypertension Assessment/Plan: on metoprolol and hydralazine. Code(s): I10 - ESSENTIAL (PRIMARY) HYPERTENSION (6) Pulmonary hypertension Assessment/Plan: severe pulmonary HTN by 02/11/2015 ECHO; normal LVEF. Code(s): I27.2 - OTHER SECONDARY PULMONARY HYPERTENSION (7) Anemia Assessment/Plan: On Epogen. Code(s): D64.9 - ANEMIA, UNSPECIFIED Qualifiers: Other causes of anemia: acute posthemorrhagic (8) Leukocytosis Code(s): D72.829 - ELEVATED WHITE BLOOD CELL COUNT, UNSPECIFIED (9) Thyroid disease Assessment/Plan: low TSH; elevated Free T4; adjust Tapazole accordingly. Code(s): E07.9 - DISORDER OF THYROID, UNSPECIFIED (10) Acute on chronic diastolic CHF (congestive heart failure) Assessment/Plan: f/u daily weight, Is and Os, BUN/Cr, electrolytes. Code(s): I50.33 - ACUTE ON CHRONIC DIASTOLIC (CONGESTIVE) HEART FAILURE cc time 35 min
--- NOTE | 2016-02-16 13:55 | PN ---
Progress Note, Physician History of Present Illness: Pt seen and examined at bedside. She says she can not see. She only sees shadows. She denies chest pain or shortness of breath. - Current Medication List Current Medications: Active Medications Acetaminophen (Tylenol -) 650 mg PO BID PRN PRN Reason: FEVER Last Admin: 02/13/16 13:28 Dose: 650 mg Acetaminophen (Tylenol Suppository -) 650 mg [place] Q6H PRN PRN Reason: FEVER OR PAIN Last Admin: 02/11/16 03:00 Dose: 650 mg Bacitracin (Bacitracin -) 1 applic TP DAILY [facility] Last Admin: 02/16/16 10:10 Dose: 1 applic Chlorhexidine Gluconate (Hibiclens For Decolonization -) 1 applic TP HS [facility] Last Admin: 02/15/16 23:21 Dose: 1 applic Hydralazine HCl (Apresoline -) 25 mg PO TID [facility] Last Admin: 02/16/16 06:52 Dose: 25 mg Pantoprazole Sodium (Protonix 40mg Ivpb (Pre-Docked)) 100 mls @ 200 mls/hr IVPB DAILY [facility] Last Admin: 02/16/16 10:09 Dose: 200 mls/hr Nafcillin Sodium 2 gm/ (Dextrose) 100 mls @ 100 mls/hr IVPB Q4H-IV [facility] Last Admin: 02/16/16 10:09 Dose: 100 mls/hr Insulin Aspart (Novolog Vial Sliding Scale -) 1 vial SQ ACHS [facility] PRN Reason: Protocol Last Admin: 02/16/16 11:13 Dose: Not Given Methimazole (Tapazole -) 5 mg PO TID [facility] Last Admin: 02/16/16 06:52 Dose: 5 mg Metoprolol Succinate (Toprol Xl -) 25 mg PO DAILY [facility] Last Admin: 02/16/16 10:09 Dose: 25 mg Mupirocin (Bactroban Ointment (For Decolonization) -) 1 applic NS BID [facility] Stop: 02/16/16 21:59 Last Admin: 02/16/16 10:10 Dose: 1 applic Sevelamer Carbonate (Renvela -) 1,600 mg PO TIDCM [facility] Last Admin: 02/16/16 12:35 Dose: 1,600 mg - Objective Vital Signs: Vital Signs Temperature 98.5 F 02/16/16 10:00 Pulse Rate 90 02/16/16 12:00 Respiratory Rate 18 02/16/16 12:00 Blood Pressure 119/41 02/16/16 12:00 O2 Sat by Pulse Oximetry (%) 99 02/16/16 11:38 Constitutional: Yes: Calm Eyes: Yes: Other (loss of vision) Neck: Yes: Other (neck mass) Respiratory: Yes: On Nasal O2 Gastrointestinal: Yes: Soft Musculoskeletal: Yes: Muscle Weakness Edema: Yes Edema: LLE: Trace, RLE: Trace Neurological: Yes: Oriented Psychiatric: Yes: Oriented Labs: CBC, BMP 02/16/16 05:00 02/16/16 05:00 INR, PTT INR 1.20 (0.82-1.09) H 02/10/16 14:30 Problem List - Problems (1) Altered mental status, unspecified Code(s): R41.82 - ALTERED MENTAL STATUS, UNSPECIFIED Qualifiers: Altered mental status type: unspecified Qualified Code(s): R41.82 - Altered mental status, unspecified (2) Dialysis AV fistula malfunction Code(s): T82.590A - [facility] COMPL OF SURGICALLY CREATED ARTERIOVENOUS FISTULA, INIT Qualifiers: Encounter type: initial encounter Qualified Code(s): T82.590A - Other mechanical complication of surgically created arteriovenous fistula, initial encounter (3) Elevated troponin Code(s): R79.89 - OTHER SPECIFIED ABNORMAL FINDINGS OF BLOOD CHEMISTRY (4) ESRD (end stage renal disease) on dialysis Code(s): N18.6 - END STAGE RENAL DISEASE Z99.2 - DEPENDENCE ON RENAL DIALYSIS (5) Anemia Code(s): D64.9 - ANEMIA, UNSPECIFIED Qualifiers: Other causes of anemia: acute posthemorrhagic (6) Hypertension Code(s): I10 - ESSENTIAL (PRIMARY) HYPERTENSION Assessment/Plan Current Medications Generic Name Dose Route Start Last Admin Trade Name Freq PRN Reason Stop Dose Admin Acetaminophen 650 mg 02/10/16 19:08 02/13/16 13:28 Tylenol - PO 650 mg BID PRN Administration FEVER Acetaminophen 650 mg 02/11/16 03:50 02/11/16 03:00 Tylenol Suppository - GA 650 mg Q6H PRN Administration FEVER OR PAIN Bacitracin 1 applic 02/12/16 16:30 02/16/16 10:10 Bacitracin - TP 1 applic DAILY [facility] Administration Chlorhexidine Gluconate 1 applic 02/11/16 22:00 02/15/16 23:21 Hibiclens For Decolonization - TP 1 applic HS [facility] Administration Hydralazine HCl 25 mg 02/10/16 22:00 02/16/16 06:52 Apresoline - PO 25 mg TID [facility]UC Administration Pantoprazole Sodium 100 mls @ 200 mls/hr 02/11/16 10:00 02/16/16 10:09 Protonix 40mg Ivpb (Pre-Docked) IVPB 200 mls/hr DAILY [facility] Administration Nafcillin Sodium 2 gm/ 100 mls @ 100 mls/hr 02/12/16 18:00 02/16/16 10:09 Dextrose IVPB 100 mls/hr Q4H-IV DUC Administration Insulin Aspart 1 vial 02/12/16 22:00 02/16/16 11:13 Novolog Vial Sliding Scale - SQ Not Given ACHS DUC Protocol Methimazole 5 mg 02/11/16 14:00 02/16/16 06:52 Tapazole - PO 5 mg TID [facility]UC Administration Metoprolol Succinate 25 mg 02/11/16 10:00 02/16/16 10:09 Toprol Xl - PO 25 mg DAILY [facility] Administration Mupirocin 1 applic 02/11/16 22:00 02/16/16 10:10 Bactroban Ointment (For Decolonization) - NS 02/16/16 21:59 1 applic BID DUC Administration Sevelamer Carbonate 1,600 mg 02/11/16 08:00 02/16/16 12:35 Renvela - PO 1,600 mg TIDCM DUC Administration Impression 1. ESRD 2. av access malfunction 3. hyperkalemia 4. CHF 5. DM 6. HTN 7. anemia 8. depression 9. hyperlipidemia 10. leukocytosis 11. NSTEMI 12. bacteremia Plan - ct head with contrast now - will arrange for HD after CT - persistent bacteremia - graft to be removed tomorrow - discussed with ICU team - get ophtho evaluation - remove femoral catheter after HD - cardio follow up - monitor hg - keep in ICU Dr Jones
[2016-02-16] MEDS ORDERED: EPOETIN ALFA 10,000 UNIT/1 ML VIAL IVPUSH ONE (14:15)
--- NOTE | 2016-02-16 15:13 | PN ---
Teaching Attending Note Name of Resident: Romario Medina ATTENDING PHYSICIAN STATEMENT I saw and evaluated the patient. I reviewed the resident's note and discussed the case with the resident. I agree with the resident's findings and plan as documented. SUBJECTIVE: Patient seen and examined in the ICU. Somnolent but arousable. Reports there is a possible change in her vision. Persistent bacteremia CT Head: No acute pathology Intake & Output 02/13/16 02/14/16 02/15/16 02/16/16 23:59 23:59 23:59 23:59 Intake Total 1450 1300 1700 100 Output Total 0 Balance 1450 1300 1700 100 Weight 133 lb 6.075 oz 136 lb 1 oz 138 lb 1 oz 142 lb Last Vital Signs Temp Pulse Resp BP Pulse Ox 98.3 F 82 18 108/44 99 02/16/16 14:10 02/16/16 14:50 02/16/16 14:50 02/16/16 14:50 02/16/16 11:38 Active Medications Acetaminophen (Tylenol -) 650 mg PO BID PRN PRN Reason: FEVER Last Admin: 02/13/16 13:28 Dose: 650 mg Acetaminophen (Tylenol Suppository -) 650 mg [place] Q6H PRN PRN Reason: FEVER OR PAIN Last Admin: 02/11/16 03:00 Dose: 650 mg Bacitracin (Bacitracin -) 1 applic TP DAILY [facility] Last Admin: 02/16/16 10:10 Dose: 1 applic Chlorhexidine Gluconate (Hibiclens For Decolonization -) 1 applic TP HS [facility] Last Admin: 02/15/16 23:21 Dose: 1 applic Hydralazine HCl (Apresoline -) 25 mg PO TID [facility] Last Admin: 02/16/16 06:52 Dose: 25 mg Pantoprazole Sodium (Protonix 40mg Ivpb (Pre-Docked)) 100 mls @ 200 mls/hr IVPB DAILY [facility] Last Admin: 02/16/16 10:09 Dose: 200 mls/hr Nafcillin Sodium 2 gm/ (Dextrose) 100 mls @ 100 mls/hr IVPB Q4H-IV [facility] Last Admin: 02/16/16 10:09 Dose: 100 mls/hr Insulin Aspart (Novolog Vial Sliding Scale -) 1 vial SQ ACHS [facility] PRN Reason: Protocol Last Admin: 02/16/16 11:13 Dose: Not Given Methimazole (Tapazole -) 5 mg PO TID [facility] Last Admin: 02/16/16 06:52 Dose: 5 mg Metoprolol Succinate (Toprol Xl -) 25 mg PO DAILY [facility] Last Admin: 02/16/16 10:09 Dose: 25 mg Mupirocin (Bactroban Ointment (For Decolonization) -) 1 applic NS BID [facility] Stop: 02/16/16 21:59 Last Admin: 02/16/16 10:10 Dose: 1 applic Sevelamer Carbonate (Renvela -) 1,600 mg PO TIDCM [facility] Last Admin: 02/16/16 12:35 Dose: 1,600 mg Gen: somnolent but arousable Heart: RRR Lung: decreased breath sounds at the bases Abd: soft, nontender Ext: no edema Laboratory Results - last 24 hr 02/15/16 02/15/16 02/16/16 17:29 23:37 05:00 WBC RBC Hgb Hct MCV MCHC RDW Plt Count MPV Neutrophils % Lymphocytes % Monocytes % Eosinophils % Basophils % Sodium Potassium Chloride Carbon Dioxide Anion Gap BUN Creatinine Creat Clearance w eGFR POC Glucometer 144.58086 250.53275 Random Glucose Calcium Phosphorus Magnesium Total Bilirubin AST ALT Alkaline Phosphatase Creatine Kinase Troponin I Total Protein Albumin TSH < 0.01 L Free T4 0.89 D 02/16/16 02/16/16 05:00 05:00 WBC 16.2 H RBC 3.01 L Hgb 8.3 L Hct 26.9 L MCV 89.5 MCHC 31.0 L RDW 16.4 H Plt Count 156 MPV 7.8 D Neutrophils % 88.1 H Lymphocytes % 5.7 L Monocytes % 5.2 Eosinophils % 0.8 Basophils % 0.2 Sodium 133 L Potassium 4.5 Chloride 95 L Carbon Dioxide 26 Anion Gap 12 BUN 71 H D Creatinine 4.4 H D Creat Clearance w eGFR 9.83 POC Glucometer Random Glucose 165 H D Calcium 7.1 L Phosphorus 3.4 D Magnesium 2.0 Total Bilirubin 3.7 H AST 20 ALT 13 Alkaline Phosphatase 96 Creatine Kinase 14 L Troponin I 1.09 H* Total Protein 5.2 L Albumin 1.6 L TSH Free T4 A/P Staph Bacteremia from likely AVG infection Acute Blood Loss from AVG NSTEMI Altered Mental Status ESRD on HD Hyperkalemia resolved Pulmonary HTN HTN DM - ABX per ID - For OR tomorrow for AVG removal - Will need temporary access - aspiration precautions - DVT prophylaxis - O2 as needed Dr Pryor CCTime 35"
--- NOTE | 2016-02-16 17:06 | PN ---
Physical Exam: SUBJECTIVE: Patient seen and examined at bedside. She remains lethargic but arousable. Complaining of decreased vision. Denies CP, PIÑA, SOB, N/V. OBJECTIVE: Vital Signs Period Temp Pulse Resp BP Sys/Rangel Pulse Ox Last 24 Hr 97.8 F-98.6 F 61-92 18-20 105-134/35-47 98-99 GENERAL: The patient is lethargic but arousable. in no acute distress. HEAD: Normal with no signs of trauma. EYES: PERRL, decreased vision bilat. sclera anicteric, conjunctiva clear. No ptosis. ENT: Ears normal, nares patent,, moist mucous membranes. NECK: supple, thyromegally R side. Lungs: CTA bilaterally; no wheezes, rhonchi, rales Heart: Regular rate and rhythm, Systolic murmur noted, S1 and S2 present; no clicks or rubs Abdomen: Soft, nontender, nondistended, R groin shiley noted C/D/I Extremities: LUE AVF wrapped in bandage with slight sangrinous breakthrough, pulses strong and intact throughout all four extremities, No edema, <2 cap refill in all four ext. Neuro: Lethargic but able to follow commands. Laboratory Results - last 24 hr 02/15/16 02/15/16 02/16/16 17:29 23:37 05:00 WBC RBC Hgb Hct MCV MCHC RDW Plt Count MPV Neutrophils % Lymphocytes % Monocytes % Eosinophils % Basophils % Sodium Potassium Chloride Carbon Dioxide Anion Gap BUN Creatinine Creat Clearance w eGFR POC Glucometer [phone] Random Glucose Calcium Phosphorus Magnesium Total Bilirubin AST ALT Alkaline Phosphatase Creatine Kinase Troponin I Total Protein Albumin TSH < 0.01 L Free T4 0.89 D 02/16/16 02/16/16 05:00 05:00 WBC 16.2 H RBC 3.01 L Hgb 8.3 L Hct 26.9 L MCV 89.5 MCHC 31.0 L RDW 16.4 H Plt Count 156 MPV 7.8 D Neutrophils % 88.1 H Lymphocytes % 5.7 L Monocytes % 5.2 Eosinophils % 0.8 Basophils % 0.2 Sodium 133 L Potassium 4.5 Chloride 95 L Carbon Dioxide 26 Anion Gap 12 BUN 71 H D Creatinine 4.4 H D Creat Clearance w eGFR 9.83 POC Glucometer Random Glucose 165 H D Calcium 7.1 L Phosphorus 3.4 D Magnesium 2.0 Total Bilirubin 3.7 H AST 20 ALT 13 Alkaline Phosphatase 96 Creatine Kinase 14 L Troponin I 1.09 H* Total Protein 5.2 L Albumin 1.6 L TSH Free T4 Active Medications Generic Name Dose Route Start Last Admin Trade Name Freq PRN Reason Stop Dose Admin Acetaminophen 650 mg 02/10/16 19:08 02/13/16 13:28 Tylenol - PO 650 mg BID PRN Administration FEVER Acetaminophen 650 mg 02/11/16 03:50 02/11/16 03:00 Tylenol Suppository - [place] 650 mg Q6H PRN Administration FEVER OR PAIN Bacitracin 1 applic 02/12/16 16:30 02/16/16 10:10 Bacitracin - TP 1 applic DAILY DUC Administration Chlorhexidine Gluconate 1 applic 02/11/16 22:00 02/15/16 23:21 Hibiclens For Decolonization - TP 1 applic HS DUC Administration Hydralazine HCl 25 mg 02/10/16 22:00 02/16/16 06:52 Apresoline - PO 25 mg TID DUC Administration Pantoprazole Sodium 100 mls @ 200 mls/hr 02/11/16 10:00 02/16/16 10:09 Protonix 40mg Ivpb (Pre-Docked) IVPB 200 mls/hr DAILY DUC Administration Nafcillin Sodium 2 gm/ 100 mls @ 100 mls/hr 02/12/16 18:00 02/16/16 10:09 Dextrose IVPB 100 mls/hr Q4H-IV DUC Administration Insulin Aspart 1 vial 02/12/16 22:00 02/16/16 11:13 Novolog Vial Sliding Scale - SQ Not Given ACHS DUC Protocol Methimazole 5 mg 02/11/16 14:00 02/16/16 06:52 Tapazole - PO 5 mg TID DUC Administration Metoprolol Succinate 25 mg 02/11/16 10:00 02/16/16 10:09 Toprol Xl - PO 25 mg DAILY DUC Administration Mupirocin 1 applic 02/11/16 22:00 02/16/16 10:10 Bactroban Ointment (For Decolonization) - NS 02/16/16 21:59 1 applic BID DUC Administration Sevelamer Carbonate 1,600 mg 02/11/16 08:00 02/16/16 12:35 Renvela - PO 1,600 mg TIDCM DUC Administration ASSESSMENT/PLAN: 75yo F with ESRD on dialysis with AMS and mechanical malformation of AVG. Received emergent dialysis (+) MSSA on repeat cultures. AVG removal scheduled tomorrow 02/17/16. Neuro: * Remains lethargic but more alert than yesterday. * Head CT w/wo contrast repeated (-) for acute pathology * Decreased vision; Neuro and Opthalmology consulted. ( Patient family state she has h/o Macular Degeneration treated with injections.) * Cont. to monitor alongside neuro checks Pulmonary: * Cont. supplemetal O2 with 5L NC to maintain SpO2 >90% CV: * BP has been low ; meds held * Troponins trending down- most likely are result of demand ichemia 2/2 Sepsis --No ST abnormalites on EKG --NSTEMI vs other etiologies (ESRD, sepsis, CHF) * Echo- shows normal LV size and function RVSP elevated 50-60 Renal: * HD today as per (Dr. Jones) * Shilley removed ID: * MSSA bacteremia- from infected AVG to be removed tomorrow Dr. Reid * Continue Nafcillin * Repeat blood cultures (+)MSSA Endocrine: * Head/Neck US- Markedly enlarged and nodular thyroid gland as described above with no additional cervical masses or fluid collections. * Cont. ISS ACHS * Cont. BGM ACHS F/E/N * No IVF * HD done today * NPO after midnight DISPO: continue to monitor in ICU will go for graft removal in AM . Visit type - Emergency Visit Emergency Visit: Yes ED Registration Date: 02/10/16 Care time: The patient presented to the Emergency Department on the above date and was hospitalized for further evaluation of their emergent condition. - New Patient This patient is new to me today: No - Critical Care Critical Care patient: Yes Total Critical Care Time (in minutes): 33 Critical Care Statement: The care of this patient involved high complexity decision making to prevent further life threatening deterioration of the patient 's condition and/or to evalute & treat vital organ system(s) failure or risk of failure.
--- NOTE | 2016-02-16 17:16 | EKG ---
Test Reason : Blood Pressure : / mmHG Vent. Rate : 086 BPM Atrial Rate : 086 BPM P-R Int : 250 ms QRS Dur : 096 ms QT Int : 370 ms P-R-T Axes : 059 032 071 degrees QTc Int : 442 ms SINUS RHYTHM WITH 1ST DEGREE A-V BLOCK NONSPECIFIC T WAVE ABNORMALITY ABNORMAL ECG WHEN COMPARED WITH ECG OF 13-FEB-2016 08:33, T WAVE VARIATION Confirmed by ELVIN DAILEY, MALOU ([id number]) on 02/16/2016 5:16:15 PM Referred By: CINDI HALL Confirmed By:MALOU OCONNOR MD
--- NOTE | 2016-02-16 18:34 | CONSULT ---
Consult Consult Specialty:: ophthalmology Referred by:: Willis Reason for Consultation:: blurry vision - History of Present Illness Chief Complaint: unable to see since "getting here" History of Present Illness: This 75 year-old female admitted to ICU with sepsis secondary to infected AV graft reports blurry vision. 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 Of note, patient's blood pressure was never extremely low and she did not require pressors or intubation. 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: Yes: CVA, Peripheral Neuropathy, Other (bilateral foot drops/gait instability, memory impairment) Cardio/Vascular: Yes: HTN, Hyperlipdemia, Murmur, Pulmonary Hypertension Pulmonary: Yes: Other (pleural effusions) Gastrointestinal: Yes: GI Bleed, Hemorrhoids Renal/: Yes: Renal Inusuff, Hemodialysis, UTI, Other (urine retention chronic with epters and leg bag) ...: No Musculoskeletal: Yes: Other (Periphral neuropathy and uses walker for mobility) Endocrine: Yes: Diabetes Mellitus (IDDM), Hyperthyroidism (w/ goiter), Other ( goitre) - Past Surgical History Past Surgical History: Yes: Cholecystectomy, Tonsillectomy - Alcohol/Substance Use Hx Alcohol Use: No History of Substance Use: reports: None - Smoking History Smoking history: Never smoked Have you smoked in the past 12 months: No Aproximately how many cigarettes per day: 0 - Social History Usual Living Arrangement: With Spouse ADL: Support Services History of Recent Travel: No Home Medications - Allergies Allergies/Adverse Reactions: Allergies Allergy/AdvReac Type Severity Reaction Status Date / Time No Known Drug Allergies Allergy Verified 02/10/16 13:53 - Home Medications Home Medications: Ambulatory Orders Acetaminophen [Tylenol] 650 mg PO BID 04/26/15 Ascorbic Acid [Vitamin C] 500 mg PO DAILY 04/26/15 Ferrous Sulfate [Feosol] 325 mg PO DAILY 04/26/15 Furosemide [Lasix -] 80 mg PO DAILY 04/26/15 Insulin (Levemir) [Levemir Vial] 5 unit SQ DAILY 04/26/15 Metoprolol Succinate [Toprol XL -] 25 mg PO DAILY 04/26/15 Pantoprazole Sodium [Protonix -] 40 mg PO DAILY 04/26/15 Paroxetine HCl 20 mg PO DAILY 04/26/15 Pregabalin [Lyrica -] 50 mg PO DAILY 04/26/15 Sevelamer Carbonate [Renvela -] 1,600 mg PO TID 04/26/15 Hydralazine HCl [Apresoline -] 25 mg PO TID #21 tablet 05/06/15 Oxycodone HCl 10 mg PO BID 05/17/15 Multivitamin [Poly-Vitamin] 1 each PO DAILY 08/15/15 Silver Sulfadiazine 1% Top Cr [Silvadene -] 1 applic TP DAILY 08/15/15 Atorvastatin Ca [Lipitor] 10 mg PO HS 08/28/15 Bisacodyl [Bisacodyl -] 20 mg PO DAILY tablet. 08/31/15 Methylnaltrexone [place] [Relistor -] 12 mg SQ Q2D@2200 kit 09/01/15 Polyethylene Glycol 3350 [Miralax 119 gm Btl -] 17 gm PO DAILY 10/17/15 Zinc Oxide 20% Topical Oint 454 gm NR DAILY 10/17/15 Family Disease History - Family Disease History Family History: Unable to Obtain Family Disease History: CA: Mother (Pancreatic cancer 54,colon cancer), Other: Father ( 91), Mother Physical Exam Vital Signs: Vital Signs Temperature 98.3 F 02/16/16 14:10 Pulse Rate 94 H 02/16/16 18:00 Respiratory Rate 18 02/16/16 18:00 Blood Pressure 126/51 02/16/16 18:00 O2 Sat by Pulse Oximetry (%) 99 02/16/16 11:38 Eyes: Yes: PERRL (rotations slight limitation in all gazes, poor effort. No APD , VA: HM ou. PLE lll wnl ou s/c white ou, k rk scars ou sligh haze OD, AC formed ou I wnl L PCIOL Od, +1 NS OS. DFE: reddish hue OU, no view of optic nerves or blood vessels.) Labs: CBC, BMP 02/16/16 05:00 02/16/16 05:00 Assessment/Plan 75 year-old female admitted to ICU with infected AV graft (staph aureus), now with blurry vision and limited view of fundus bilaterally. Patient has a history of wet ARMD and has had intravitreal injections OU. Likely bilateral vitreous hemorrhage given h/o wet ARMD, diabetes and ESRD on HD. Doubt bilateral endogenous endophthalmitis given white, quiet eye with lack of hypopyon. Advise continue iv Naficilin. Sleep with head of bed elevated. Exam is limited at beside with lack of ultrasound. I have called dr. Alejandra Dobbs who is not available for consultation in hospital. Also called Dr. Ankur Duffy(retina) and left message to return call. Will f/u with patient to make sure condition is not worsening, i.e patient does not develop hypopyon. Please try to find out from family who is patient's regular retina specialist.
[2016-02-16] MEDS ORDERED: ACETAMINOPHEN 650 MG SUPP.RECT PR PRN (19:41)
[2016-02-16] MEDS ORDERED: ACETAMINOPHEN 325 MG TABLET (FP) PO PRN (19:41)
[2016-02-17] MEDS: NAFCILLIN - 2 GM in DEXTROSE 5%-WATER - 100 ML IVPB SCH ×6 (01:40→21:08)
[2016-02-17] MEDS ORDERED: PT OWN MED DRAWER 7, Y5N ONE ×4 (05:38→20:59)
[2016-02-17] MEDS: METHIMAZOLE 5 MG TABLET (FP) PO SCH ×3 (05:41→21:07)
[2016-02-17] MEDS: hydrALAZINE HCL 25 MG TABLET (FP) PO SCH ×3 (05:44→21:07)
[2016-02-17 06:07] LABS: BASOPHIL 0.3 % (0-2.0); EOSINOPHIL 0.6 % (0-4.5); MCH 27.6 pg (25.7-33.7); MCHC 30.8 g/dl (32.0-36.0); MEAN CELL VOLUME 89.4 fl (80-96); MEAN PLT VOLUME 7.9 fl (7.5-11.1); NEUTROPHILS 87.5 % (42.8-82.8); PLATELET COUNT 182 K/MM3 (134-434); RDW 16.9 % (11.6-15.6); WHITE BLOOD COUNT 14.6 K/mm3 (4.0-10.0)
[2016-02-17] MEDS: INSULIN SLIDING SCALE (NOVOLOG) 1 VIAL SQ SCH ×4 (06:14→21:12)
[2016-02-17 06:22] LABS: INR 1.04 (0.82-1.09); PROTHROMBIN TIME (PATIENT) 11.5 SEC (9.98-11.88)
[2016-02-17 06:28] LABS: ALBUMIN 1.7 g/dl (3.4-5.0); BILIRUBIN,TOTAL 2.2 mg/dL (0.2-1.0); CALCIUM 7.5 mg/dL (8.5-10.1); CREATININE 2.9 mg/dL (0.55-1.02); TOT PROT 5.5 g/dl (6.4-8.2)
[2016-02-17] MEDS ORDERED: SEVELAMER CARBONATE 800 MG TAB (FP) PO SCH (08:00)
[2016-02-17] MEDS ORDERED: HEPARIN NA (PORCINE) 5,000 UNITS/ML 1ML VIAL ONE (08:05)
[2016-02-17] MEDS ORDERED: LIDOCAINE HCL 1%, 10 MG/ML (20ML VIAL) ONE (08:05)
--- NOTE | 2016-02-17 08:34 | PN ---
Progress Note (short form) - Note Progress Note: awake and alert anxious about surgery today vision unchanged Vital Signs Period Temp Pulse Resp BP Sys/Rangel Pulse Ox Last 24 Hr 98.2 F-98.8 F 61-103 13-24 87-133/39-51 99-99 cor-rrr lungs clear abd soft,nt ext swelling right arm left arm bandaged CBC, BMP 02/17/16 05:00 02/17/16 05:00 Microbiology 02/14/16 14:00 Blood - Pre-Dialysis Blood Culture - Preliminary Staphylococcus Latex Coag Pos 02/14/16 14:00 Blood - Pre-Dialysis Blood Culture - Preliminary Staphylococcus Latex Coag Pos 02/12/16 08:45 Blood - Post-Dialysis Blood Culture - Final Staphylococcus Aureus 02/12/16 08:45 Blood - Post-Dialysis Blood Culture - Final Staphylococcus Aureus 02/10/16 20:00 Blood - Peripheral Venous Blood Culture - Final Staphylococcus Aureus 02/10/16 20:00 Blood - Peripheral Venous Blood Culture - Final Staphylococcus Aureus 02/11/16 07:00 Urine - Urine - Catheterized Urine Culture - Final Contaminated: Please Repeat 02/10/16 21:30 Nasopharyngeal Swab Respiratory Virus Panel - Preliminary 02/10/16 21:30 Nasopharyngeal Swab Influenza Types A,B Antigen (MANOJ) - Final 02/10/16 21:30 Nasopharyngeal Swab - Final Active Medications Acetaminophen (Tylenol -) 650 mg PO BID PRN PRN Reason: FEVER Last Admin: 02/13/16 13:28 Dose: 650 mg Acetaminophen (Tylenol Suppository -) 650 mg NM Q6H PRN PRN Reason: FEVER OR PAIN Last Admin: 02/11/16 03:00 Dose: 650 mg Bacitracin (Bacitracin -) 1 applic TP DAILY DUC Last Admin: 02/15/16 09:18 Dose: 1 applic Chlorhexidine Gluconate (Hibiclens For Decolonization -) 1 applic TP HS DUC Last Admin: 02/15/16 23:21 Dose: 1 applic Hydralazine HCl (Apresoline -) 25 mg PO TID [facility] Last Admin: 02/16/16 06:52 Dose: 25 mg Pantoprazole Sodium (Protonix 40mg Ivpb (Pre-Docked)) 100 mls @ 200 mls/hr IVPB DAILY [facility] Last Admin: 02/15/16 09:09 Dose: 200 mls/hr Nafcillin Sodium 2 gm/ (Dextrose) 100 mls @ 100 mls/hr IVPB Q4H-IV [facility] Last Admin: 02/16/16 06:58 Dose: 100 mls/hr Insulin Aspart (Novolog Vial Sliding Scale -) 1 vial SQ ACHS [facility] PRN Reason: Protocol Last Admin: 02/16/16 06:58 Dose: 2 units Methimazole (Tapazole -) 5 mg PO TID [facility] Last Admin: 02/16/16 06:52 Dose: 5 mg Metoprolol Succinate (Toprol Xl -) 25 mg PO DAILY [facility] Last Admin: 02/15/16 09:13 Dose: 25 mg Mupirocin (Bactroban Ointment (For Decolonization) -) 1 applic NS BID [facility] Stop: 02/16/16 21:59 Last Admin: 02/15/16 23:21 Dose: 1 applic Sevelamer Carbonate (Renvela -) 1,600 mg PO TIDCM [facility] Last Admin: 02/16/16 08:38 Dose: 1,[address] no CVA, no abscess a/p MSSA bacteremia-persistent bacteremia- infected avg-r/o endocarditis should remove avg-d/w Dr Franklin love consult noted repeat blood cultures 02/13 are positive if blood cultures remain positive post removal of graft will need ASH esrd/hd elevated troponins- plan for cath when stable d/w icu resident repeat blood cultures in am
[2016-02-17] MEDS ORDERED: ONDANSETRON 4 MG/2 ML VIAL IVPUSH PRN ×2 (09:22→11:15)
[2016-02-17] MEDS ORDERED: PROMETHAZINE HCL 25 MG/1 ML VIAL IVPUSH PRN ×2 (09:22→11:15)
[2016-02-17] MEDS ORDERED: SODIUM CHLORIDE 1,000 ML IV SCH ×2 (09:30→11:15)
[2016-02-17] MEDS ORDERED: MIDAZOLAM HCL 2 MG/2 ML SINGLE DOSE VIAL ONE (09:33)
--- NOTE | 2016-02-17 09:49 | PN ---
Progress Note, Physician Chief Complaint: pt in OR - Current Medication List Current Medications: Active Medications Acetaminophen (Tylenol -) 650 mg PO BID PRN PRN Reason: FEVER Last Admin: 02/16/16 20:50 Dose: 650 mg Acetaminophen (Tylenol Suppository -) 650 mg GA Q6H PRN PRN Reason: FEVER OR PAIN Bacitracin (Bacitracin -) 1 applic TP DAILY [facility] Fentanyl (Sublimaze Injection -) 50 mcg IVPUSH [id number] PRN PRN Reason: PAIN Stop: 02/20/16 09:23 Hydralazine HCl (Apresoline -) 25 mg PO TID [facility] Last Admin: 02/17/16 05:44 Dose: 25 mg Nafcillin Sodium 2 gm/ (Dextrose) 100 mls @ 100 mls/hr IVPB Q4H-IV DUC Last Admin: 02/17/16 05:40 Dose: 100 mls/hr Pantoprazole Sodium (Protonix 40mg Ivpb (Pre-Docked)) 100 mls @ 200 mls/hr IVPB DAILY [facility] Sodium Chloride (Normal Saline -) 1,000 mls @ 42 mls/hr IV ASDIR [facility] Insulin Aspart (Novolog Vial Sliding Scale -) 1 vial SQ ACHS DUC PRN Reason: Protocol Last Admin: 02/17/16 06:14 Dose: 2 units Methimazole (Tapazole -) 5 mg PO TID [facility] Last Admin: 02/17/16 05:41 Dose: 5 mg Metoprolol Succinate (Toprol Xl -) 25 mg PO DAILY [facility] Ondansetron HCl (Zofran Injection) 4 mg IVPUSH Q6H PRN PRN Reason: NAUSEA AND/OR VOMITING Stop: 02/17/16 15:23 Promethazine HCl (Phenergan Injection -) 12.5 mg IVPUSH Q6H PRN PRN Reason: NAUSEA Stop: 02/17/16 15:23 Sevelamer Carbonate (Renvela -) 1,600 mg PO TIDCM [facility] - Objective Vital Signs: Vital Signs Temperature 98.2 F 02/17/16 06:00 Pulse Rate 83 02/17/16 08:00 Respiratory Rate 18 02/17/16 08:00 Blood Pressure 117/43 02/17/16 08:00 O2 Sat by Pulse Oximetry (%) 100 02/17/16 08:42 Labs: CBC, BMP 02/17/16 05:00 02/17/16 05:00 INR, PTT INR 1.04 (0.82-1.09) 02/17/16 05:00 Problem List - Problems (1) Altered mental status, unspecified Code(s): R41.82 - ALTERED MENTAL STATUS, UNSPECIFIED Qualifiers: Altered mental status type: unspecified Qualified Code(s): R41.82 - Altered mental status, unspecified (2) Dialysis AV fistula malfunction Code(s): T82.590A - [facility] COMPL OF SURGICALLY CREATED ARTERIOVENOUS FISTULA, INIT Qualifiers: Encounter type: initial encounter Qualified Code(s): T82.590A - Other mechanical complication of surgically created arteriovenous fistula, initial encounter (3) Elevated troponin Code(s): R79.89 - OTHER SPECIFIED ABNORMAL FINDINGS OF BLOOD CHEMISTRY (4) Hyperkalemia Code(s): E87.5 - HYPERKALEMIA (5) Thrombosis of surgically created arteriovenous fistula Code(s): T82.868A - THROMBOSIS DUE TO VASCULAR PROSTH DEV/GRFT, INIT (6) ESRD (end stage renal disease) on dialysis Code(s): N18.6 - END STAGE RENAL DISEASE Z99.2 - DEPENDENCE ON RENAL DIALYSIS (7) Diabetes mellitus Code(s): E11.9 - TYPE 2 DIABETES MELLITUS WITHOUT COMPLICATIONS Qualifiers: Diabetes mellitus type: type 2 Diabetes mellitus complication status: without complication (8) Bacteremia Code(s): R78.81 - BACTEREMIA (9) Arteriovenous graft infection Code(s): T82.7XXA - INFECT/INFLM REACT D/T OTH CARDI/VASC DEV/IMPLNT/GRFT, INIT Qualifiers: Encounter type: subsequent encounter Qualified Code(s): T82.7XXD - Infection and inflammatory reaction due to other cardiac and vascular devices, implants and grafts, subsequent encounter
[2016-02-17] MEDS ORDERED: LIDOCAINE HCL 1%, 10 MG/ML (20ML VIAL) IJ ONE (09:55)
[2016-02-17] MEDS ORDERED: PANTOPRAZOLE SODIUM 100 ML IVPB SCH (10:00)
[2016-02-17] MEDS ORDERED: BACITRACIN 30 GM TUBE TOPICAL OINTMENT TP SCH (10:00)
[2016-02-17] MEDS ORDERED: METOPROLOL SUCCINATE 25 MG TAB.SR.24H (FP) PO SCH (10:00)
--- NOTE | 2016-02-17 10:35 | OP ---
Addendum entered and electronically signed by Winter Harper PA 02/17/16 10:42 : Dispatch Supervisor: Winter Harper PA-C Original Note: Operative Note - Note: Operative Date: 02/17/16 Pre-Operative Diagnosis: Infected left AVG Operation: removal of left avg Post-Operative Diagnosis: Same as Pre-op Surgeon: True Reid Anesthesia: Fractional Estimated Blood Loss (mls): 30 Operative Report Dictated: Yes
--- NOTE | 2016-02-17 10:44 | SURG ---
Surgery Fourdrinier Tender Note Fourdrinier Tender: Winter Harper PA-C Date of Service: 02/17/16 Diagnosis: Infected left AVG Procedure: removal of left avg I was present for the entirety of the operative procedure. For further detail, please refer to operative report. Visit type - Case Type Case Type: ED Admission
[2016-02-17] MEDS ORDERED: ACETAMINOPHEN 650 MG SUPP.RECT PR PRN (11:15)
--- NOTE | 2016-02-17 11:18 | CONSULT ---
Consult - text type - Consultation Consultation Note: Neurology 75-year-old female presented to the ED initally for evaluation of bleeding left AV fistula. As per notes, she went to dialysis, they were unable to access her fistula and then it began to bleed. Neurologically, she reports vision loss which has been ongoing with macular degeneration but reports acute vision loss superimposed on this since being admitted. Optho also on the case and following. CT head completed and without acute changes. Past History - Past Medical History Allergies/Adverse Reactions: Allergies Allergy/AdvReac Type Severity Reaction Status Date / Time No Known Drug Allergies Allergy Verified 02/10/16 13:53 Home Medications: Ambulatory Orders Acetaminophen [Tylenol] 650 mg PO BID 04/26/15 Ascorbic Acid [Vitamin C] 500 mg PO DAILY 04/26/15 Ferrous Sulfate [Feosol] 325 mg PO DAILY 04/26/15 Furosemide [Lasix -] 80 mg PO DAILY 04/26/15 Insulin (Levemir) [Levemir Vial] 5 unit SQ DAILY 04/26/15 Metoprolol Succinate [Toprol XL -] 25 mg PO DAILY 04/26/15 Pantoprazole Sodium [Protonix -] 40 mg PO DAILY 04/26/15 Paroxetine HCl 20 mg PO DAILY 04/26/15 Pregabalin [Lyrica -] 50 mg PO DAILY 04/26/15 Sevelamer Carbonate [Renvela -] 1,600 mg PO TID 04/26/15 Hydralazine HCl [Apresoline -] 25 mg PO TID #21 tablet 05/06/15 Oxycodone HCl 10 mg PO BID 05/17/15 Multivitamin [Poly-Vitamin] 1 each PO DAILY 08/15/15 Silver Sulfadiazine 1% Top Cr [Silvadene -] 1 applic TP DAILY 08/15/15 Atorvastatin Ca [Lipitor] 10 mg PO HS 08/28/15 Bisacodyl [Bisacodyl -] 20 mg PO DAILY tablet. 08/31/15 Methylnaltrexone [place] [Relistor -] 12 mg SQ Q2D@2200 kit 09/01/15 Polyethylene Glycol 3350 [Miralax 119 gm Btl -] 17 gm PO DAILY 10/17/15 Zinc Oxide 20% Topical Oint 454 gm NR DAILY 10/17/15 Anemia: Yes Asthma: No Cancer: No Cardiac Disorders: No CVA: Yes (OCT 2012) COPD: No CHF: Yes Dementia: Yes (memory deficit) Diabetes: Yes Dialysis: Yes () GI Disorders: No Disorders: No HTN: Yes Hypercholesterolemia: Yes Liver Disease: No Seizures: No Thyroid Disease: Yes (GOITER) - Surgical History Abdominal Surgery: No Appendectomy: No Cardiac Surgery: No Cholecystectomy: Yes (2011) Lung Surgery: No Neurologic Surgery: No Orthopedic Surgery: No - Immunization History Immunization Up to Date: Yes - Psycho/Social/Smoking Cessation Hx Anxiety: No Suicidal Ideation: No Smoking Status: No Smoking History: Never smoked Have you smoked in the past 12 months: No Number of Cigarettes Smoked Daily: 0 Hx Alcohol Use: No Drug/Substance Use Hx: No Substance Use Type: None Hx Substance Use Treatment: No Patient Lives Alone: No Lives with/in: [facility] Review of Systems - Review of Systems Able to Perform ROS?: Yes Constitutional: Yes: Loss of Appetite, Weakness HEENTM: No: Symptoms Reported Respiratory: No: Symptoms reported Cardiac (ROS): No: Symptoms Reported ABD/GI: Yes: Nausea : No: Symptoms Reported Musculoskeletal: No: Symptoms Reported Integumentary: No: Symptoms Reported Neurological: No: Symptoms reported Endocrine: No: Symptoms Reported Hematologic/Lymphatic: No: Symptoms Reported *Physical Exam Vital Signs Temperature 98.2 F 02/17/16 06:00 Pulse Rate 83 02/17/16 08:00 Respiratory Rate 18 02/17/16 08:00 Blood Pressure 117/43 02/17/16 08:00 O2 Sat by Pulse Oximetry (%) 100 02/17/16 08:42 - Physical Exam General Appearance: Yes: Nourished, Appropriately Dressed. No: Apparent Distress HEENT: positive: EOMI, ZACARIAS, Pharynx Normal (dry). negative: Pale Conjunctivae Neck: positive: Supple Respiratory/Chest: positive: Lungs Clear, Normal Breath Sounds. negative: Respiratory Distress, Accessory Muscle Use Cardiovascular: positive: Regular Rhythm. negative: Murmur, Bradycardia Gastrointestinal/Abdominal: positive: Soft. negative: Tenderness Extremity: positive: Normal Capillary Refill. negative: Pedal Edema Integumentary: positive: Normal Color, Dry, Warm Neurologic: Alert, awake, slow movements, pupil equal and reactive, EOMI, Sensory intact, Strength equal b/l CBC, BMP 02/17/16 05:00 02/17/16 05:00 CT head reviewed Medical Decision Making 75-year-old female presented to the ED initally for evaluation of bleeding left AV fistula. As per notes, she went to dialysis, they were unable to access her fistula and then it began to bleed. Neurologically, she reports vision loss which has been ongoing with macular degeneration but reports acute vision loss superimposed on this since being admitted. Optho also on the case and following. CT head completed and without acute changes. Will obtain MRI brain with MRI optic canal. Maybe progression of prior disease but will evaluate for any acute cerebrovascular events. Blood pressure control, continue Anti-HTN medication, chronic goal <140/90.
[2016-02-17] MEDS: SEVELAMER CARBONATE 800 MG TAB (FP) PO SCH ×2 (13:00→17:30)
--- NOTE | 2016-02-17 13:02 | PN ---
Teaching Attending Note Name of Resident: Romario Medina ATTENDING PHYSICIAN STATEMENT I saw and evaluated the patient. I reviewed the resident's note and discussed the case with the resident. I agree with the resident's findings and plan as documented. SUBJECTIVE: Patient seen and examined in the ICU. S/P Left AVG removal due to persistent bacteremia. Awake and responsive on VM O2. Reports vision is no better. Intake & Output 02/14/16 02/15/16 02/16/16 02/17/16 23:59 23:59 23:59 23:59 Intake Total 1300 1700 1020 847 Output Total 0 30 Balance 1300 1700 1020 817 Weight 136 lb 1 oz 138 lb 1 oz 142 lb 139 lb 8 oz Last Vital Signs Temp Pulse Resp BP Pulse Ox 98.2 F 84 12 116/47 100 02/17/16 10:45 02/17/16 11:15 02/17/16 11:15 02/17/16 11:15 02/17/16 11:50 Active Medications Acetaminophen (Tylenol -) 650 mg PO BID PRN PRN Reason: FEVER Acetaminophen (Tylenol Suppository -) 650 mg [place] Q6H PRN PRN Reason: FEVER OR PAIN Bacitracin (Bacitracin -) 1 applic TP DAILY [facility] Fentanyl (Sublimaze Injection -) 50 mcg IVPUSH [id number] PRN PRN Reason: PAIN Stop: 02/20/16 09:23 Hydralazine HCl (Apresoline -) 25 mg PO TID DUC Nafcillin Sodium 2 gm/ (Dextrose) 100 mls @ 100 mls/hr IVPB Q4H-IV DUC Pantoprazole Sodium (Protonix 40mg Ivpb (Pre-Docked)) 100 mls @ 200 mls/hr IVPB DAILY DUC Sodium Chloride (Normal Saline -) 1,000 mls @ 42 mls/hr IV ASDIR [facility] Last Admin: 02/17/16 11:37 Dose: Not Given Insulin Aspart (Novolog Vial Sliding Scale -) 1 vial SQ ACHS DUC PRN Reason: Protocol Methimazole (Tapazole -) 5 mg PO TID [facility] Last Admin: 02/17/16 13:02 Dose: 5 mg Metoprolol Succinate (Toprol Xl -) 25 mg PO DAILY DUC Ondansetron HCl (Zofran Injection) 4 mg IVPUSH Q6H PRN PRN Reason: NAUSEA AND/OR VOMITING Stop: 02/17/16 15:23 Promethazine HCl (Phenergan Injection -) 12.5 mg IVPUSH Q6H PRN PRN Reason: NAUSEA Stop: 02/17/16 15:23 Sevelamer Carbonate (Renvela -) 1,600 mg PO TIDCM DUC Last Admin: 02/17/16 13:00 Dose: 1,600 mg Gen: drowsy but arousable Heart: RRR Lung: decreased breath sounds at the bases Abd: soft, nontender Ext: no edema Laboratory Results - last 24 hr 02/15/16 02/16/16 02/16/16 05:00 06:54 11:02 WBC RBC Hgb Hct MCV MCHC RDW Plt Count MPV Neutrophils % Lymphocytes % Monocytes % Eosinophils % Basophils % INR Sodium Potassium Chloride Carbon Dioxide Anion Gap BUN Creatinine Creat Clearance w eGFR POC Glucometer 172.64673 139.26087 Random Glucose Calcium Total Bilirubin AST ALT Alkaline Phosphatase Total Protein Albumin Hep Bs Ab Concentration Non reactive 02/17/16 02/17/16 02/17/16 05:00 05:00 05:00 WBC 14.6 H RBC 2.93 L Hgb 8.1 L Hct 26.2 L MCV 89.4 MCHC 30.8 L RDW 16.9 H Plt Count 182 MPV 7.9 Neutrophils % 87.5 H Lymphocytes % 6.0 L Monocytes % 5.6 Eosinophils % 0.6 Basophils % 0.3 INR 1.04 Sodium 135 L Potassium 4.0 Chloride 95 L Carbon Dioxide 29 Anion Gap 11 BUN 38 H D Creatinine 2.9 H D Creat Clearance w eGFR 15.91 POC Glucometer Random Glucose 128 H D Calcium 7.5 L Total Bilirubin 2.2 H D AST 20 ALT 15 Alkaline Phosphatase 89 Total Protein 5.5 L Albumin 1.7 L Hep Bs Ab Concentration 02/17/16 02/17/16 05:47 11:20 WBC RBC Hgb Hct MCV MCHC RDW Plt Count MPV Neutrophils % Lymphocytes % Monocytes % Eosinophils % Basophils % INR Sodium Potassium Chloride Carbon Dioxide Anion Gap BUN Creatinine Creat Clearance w eGFR POC Glucometer 161.73716 178.03899 Random Glucose Calcium Total Bilirubin AST ALT Alkaline Phosphatase Total Protein Albumin Hep Bs Ab Concentration A/P Staph Bacteremia from left AVG infection Acute Blood Loss from AVG NSTEMI Altered Mental Status ESRD on HD Hyperkalemia resolved Pulmonary HTN HTN DM - S/P Left AVG removal - ABX per ID - aspiration precautions - DVT prophylaxis - O2 as needed Dr Pryor CCTime 35"
--- NOTE | 2016-02-17 13:17 | PN ---
Physical Exam: SUBJECTIVE: Patient seen and examined at bedside.POD# 0 s/p removal of Left arm AVG Patient is more alert today. No overnight events. No new complaints. OBJECTIVE: Vital Signs Period Temp Pulse Resp BP Sys/Rangel Pulse Ox Last 24 Hr 98.2 F-98.8 F 61-103 12-24 87-133/39-54 99-100 GENERAL: The patient is lethargic but arousable. in no acute distress. HEAD: Normal with no signs of trauma. EYES: PERRL, decreased vision bilat. sclera anicteric, conjunctiva clear. No ptosis. ENT: Ears normal, nares patent,, moist mucous membranes. NECK: supple, thyromegally R side. Lungs: CTA bilaterally; no wheezes, rhonchi, rales Heart: Regular rate and rhythm, Systolic murmur noted, S1 and S2 present; no clicks or rubs Abdomen: Soft, nontender, nondistended, Extremities: LUE AVF removed bandaged with slight sangrinous breakthrough, pulses strong and intact throughout all four extremities, No edema, <2 cap refill in all four ext. Neuro: Lethargic but able to follow commands. Laboratory Results - last 24 hr 02/15/16 02/16/16 02/16/16 05:00 06:54 11:02 WBC RBC Hgb Hct MCV MCHC RDW Plt Count MPV Neutrophils % Lymphocytes % Monocytes % Eosinophils % Basophils % INR Sodium Potassium Chloride Carbon Dioxide Anion Gap BUN Creatinine Creat Clearance w eGFR POC Glucometer [phone] Random Glucose Calcium Total Bilirubin AST ALT Alkaline Phosphatase Total Protein Albumin Hep Bs Ab Concentration Non reactive 02/17/16 02/17/16 02/17/16 05:00 05:00 05:00 WBC 14.6 H RBC 2.93 L Hgb 8.1 L Hct 26.2 L MCV 89.4 MCHC 30.8 L RDW 16.9 H Plt Count 182 MPV 7.9 Neutrophils % 87.5 H Lymphocytes % 6.0 L Monocytes % 5.6 Eosinophils % 0.6 Basophils % 0.3 INR 1.04 Sodium 135 L Potassium 4.0 Chloride 95 L Carbon Dioxide 29 Anion Gap 11 BUN 38 H D Creatinine 2.9 H D Creat Clearance w eGFR 15.91 POC Glucometer Random Glucose 128 H D Calcium 7.5 L Total Bilirubin 2.2 H D AST 20 ALT 15 Alkaline Phosphatase 89 Total Protein 5.5 L Albumin 1.7 L Hep Bs Ab Concentration 02/17/16 02/17/16 05:47 11:20 WBC RBC Hgb Hct MCV MCHC RDW Plt Count MPV Neutrophils % Lymphocytes % Monocytes % Eosinophils % Basophils % INR Sodium Potassium Chloride Carbon Dioxide Anion Gap BUN Creatinine Creat Clearance w eGFR POC Glucometer 161.52450 178.30218 Random Glucose Calcium Total Bilirubin AST ALT Alkaline Phosphatase Total Protein Albumin Hep Bs Ab Concentration Active Medications Generic Name Dose Route Start Last Admin Trade Name Freq PRN Reason Stop Dose Admin Acetaminophen 650 mg 02/17/16 11:15 Tylenol - PO BID PRN FEVER Acetaminophen 650 mg 02/17/16 11:15 Tylenol Suppository - [place] Q6H PRN FEVER OR PAIN Bacitracin 1 applic 02/18/16 10:00 Bacitracin - TP DAILY [facility] Fentanyl 50 mcg 02/17/16 11:15 Sublimaze Injection - IVPUSH 02/20/16 09:23 [id number] PRN PAIN Hydralazine HCl 25 mg 02/17/16 14:00 Apresoline - PO TID [facility] Nafcillin Sodium 2 gm/ 100 mls @ 100 mls/hr 02/17/16 14:00 Dextrose IVPB Q4H-IV [facility] Pantoprazole Sodium 100 mls @ 200 mls/hr 02/18/16 10:00 Protonix 40mg Ivpb (Pre-Docked) IVPB DAILY [facility] Sodium Chloride 1,000 mls @ 42 mls/hr 02/17/16 11:15 02/17/16 11:37 Normal Saline - IV Not Given ASDIR [facility] Insulin Aspart 1 vial 02/17/16 16:30 Novolog Vial Sliding Scale - SQ ACHS [facility] Protocol Methimazole 5 mg 02/17/16 14:00 02/17/16 13:02 Tapazole - PO 5 mg TID [facility] Administration Metoprolol Succinate 25 mg 02/18/16 10:00 Toprol Xl - PO DAILY [facility] Ondansetron HCl 4 mg 02/17/16 11:15 Zofran Injection IVPUSH 02/17/16 15:23 Q6H PRN NAUSEA AND/OR VOMITING Promethazine HCl 12.5 mg 02/17/16 11:15 Phenergan Injection - IVPUSH 02/17/16 15:23 Q6H PRN NAUSEA Sevelamer Carbonate 1,600 mg 02/17/16 12:00 02/17/16 13:00 Renvela - PO 1,600 mg TIDCM DUC Administration ASSESSMENT/PLAN: 75yo F with ESRD on dialysis with AMS and mechanical malformation of AVG. Received emergent dialysis (+) MSSA on repeat cultures. AVG removal scheduled today 02/17/16. Neuro: * More alert than yesterday. * Head CT w/wo contrast repeated (-) for acute pathology * Decreased vision;seen by Ophthalmology believed to be vitreous hemorrhage. recommends retinal specialist. * Cont. to monitor alongside neuro checks Pulmonary: * Cont. supplemetal O2 with 5L NC to maintain SpO2 >90% CV: * BP has been low ; meds held * Troponins trending down- most likely are result of demand ichemia 2/2 Sepsis --No ST abnormalites on EKG --NSTEMI vs other etiologies (ESRD, sepsis, CHF) * Echo- shows normal LV size and function RVSP elevated 50-60 Renal: * HD yesterday.(Dr. Jones) * will give day of rest and consider Permacath. ID: * MSSA bacteremia- from infected AVG to be removed today Dr. Reid * Continue Nafcillin * Repeat blood cultures (+)MSSA tomorrow in AM Endocrine: * Head/Neck US- Markedly enlarged and nodular thyroid gland as described above with no additional cervical masses or fluid collections. * Cont. ISS ACHS * Cont. BGM ACHS F/E/N * No IVF * HD done yesterday. lytes stable * resume regular diet DISPO: continue to monitor in ICU possible transfer to floors tomorrow. Visit type - Emergency Visit Emergency Visit: Yes ED Registration Date: 02/10/16 Care time: The patient presented to the Emergency Department on the above date and was hospitalized for further evaluation of their emergent condition. - New Patient This patient is new to me today: No - Critical Care Critical Care patient: Yes Total Critical Care Time (in minutes): 33 Critical Care Statement: The care of this patient involved high complexity decision making to prevent further life threatening deterioration of the patient 's condition and/or to evalute & treat vital organ system(s) failure or risk of failure.
--- NOTE | 2016-02-17 13:29 | PN ---
Progress Note, Physician History of Present Illness: Pt seen and examined at bedside. She is awake and alert. She tolerated the procedure. - Current Medication List Current Medications: Active Medications Acetaminophen (Tylenol -) 650 mg PO BID PRN PRN Reason: FEVER Acetaminophen (Tylenol Suppository -) 650 mg [place] Q6H PRN PRN Reason: FEVER OR PAIN Bacitracin (Bacitracin -) 1 applic TP DAILY [facility] Fentanyl (Sublimaze Injection -) 50 mcg IVPUSH [id number] PRN PRN Reason: PAIN Stop: 02/20/16 09:23 Hydralazine HCl (Apresoline -) 25 mg PO TID [facility] Nafcillin Sodium 2 gm/ (Dextrose) 100 mls @ 100 mls/hr IVPB Q4H-IV DUC Pantoprazole Sodium (Protonix 40mg Ivpb (Pre-Docked)) 100 mls @ 200 mls/hr IVPB DAILY [facility] Sodium Chloride (Normal Saline -) 1,000 mls @ 42 mls/hr IV ASDIR [facility] Last Admin: 02/17/16 11:37 Dose: Not Given Insulin Aspart (Novolog Vial Sliding Scale -) 1 vial SQ ACHS [facility] PRN Reason: Protocol Methimazole (Tapazole -) 5 mg PO TID [facility] Last Admin: 02/17/16 13:02 Dose: 5 mg Metoprolol Succinate (Toprol Xl -) 25 mg PO DAILY [facility] Ondansetron HCl (Zofran Injection) 4 mg IVPUSH Q6H PRN PRN Reason: NAUSEA AND/OR VOMITING Stop: 02/17/16 15:23 Promethazine HCl (Phenergan Injection -) 12.5 mg IVPUSH Q6H PRN PRN Reason: NAUSEA Stop: 02/17/16 15:23 Sevelamer Carbonate (Renvela -) 1,600 mg PO TIDCM [facility] Last Admin: 02/17/16 13:00 Dose: 1,600 mg - Objective Vital Signs: Vital Signs Temperature 98.2 F 02/17/16 10:45 Pulse Rate 84 02/17/16 11:15 Respiratory Rate 12 02/17/16 11:15 Blood Pressure 116/47 02/17/16 11:15 O2 Sat by Pulse Oximetry (%) 100 02/17/16 11:50 Constitutional: Yes: Calm Eyes: Yes: Conjunctiva Clear HENT: Yes: Atraumatic Cardiovascular: Yes: S1, S2 Respiratory: Yes: On Nasal O2 Gastrointestinal: Yes: Soft Genitourinary: Yes: Incontinence Musculoskeletal: Yes: Muscle Weakness Edema: Yes Edema: LLE: 1+, RLE: 1+ Neurological: Yes: Oriented Psychiatric: Yes: Oriented Labs: CBC, BMP 02/17/16 05:00 02/17/16 05:00 INR, PTT INR 1.04 (0.82-1.09) 02/17/16 05:00 Problem List - Problems (1) Altered mental status, unspecified Code(s): R41.82 - ALTERED MENTAL STATUS, UNSPECIFIED Qualifiers: Altered mental status type: unspecified Qualified Code(s): R41.82 - Altered mental status, unspecified (2) Dialysis AV fistula malfunction Code(s): T82.590A - [facility] COMPL OF SURGICALLY CREATED ARTERIOVENOUS FISTULA, INIT Qualifiers: Encounter type: initial encounter Qualified Code(s): T82.590A - Other mechanical complication of surgically created arteriovenous fistula, initial encounter (3) Elevated troponin Code(s): R79.89 - OTHER SPECIFIED ABNORMAL FINDINGS OF BLOOD CHEMISTRY (4) ESRD (end stage renal disease) on dialysis Code(s): N18.6 - END STAGE RENAL DISEASE Z99.2 - DEPENDENCE ON RENAL DIALYSIS (5) Anemia Code(s): D64.9 - ANEMIA, UNSPECIFIED Qualifiers: Other causes of anemia: acute posthemorrhagic (6) Hypertension Code(s): I10 - ESSENTIAL (PRIMARY) HYPERTENSION Assessment/Plan Current Medications Generic Name Dose Route Start Last Admin Trade Name Freq PRN Reason Stop Dose Admin Acetaminophen 650 mg 02/17/16 11:15 Tylenol - PO BID PRN FEVER Acetaminophen 650 mg 02/17/16 11:15 Tylenol Suppository - [place] Q6H PRN FEVER OR PAIN Bacitracin 1 applic 02/18/16 10:00 Bacitracin - TP DAILY DUC Fentanyl 50 mcg 02/17/16 11:15 Sublimaze Injection - IVPUSH 02/20/16 09:23 [id number] PRN PAIN Hydralazine HCl 25 mg 02/17/16 14:00 Apresoline - PO TID DUC Nafcillin Sodium 2 gm/ 100 mls @ 100 mls/hr 02/17/16 14:00 Dextrose IVPB Q4H-IV DUC Pantoprazole Sodium 100 mls @ 200 mls/hr 02/18/16 10:00 Protonix 40mg Ivpb (Pre-Docked) IVPB DAILY [facility] Sodium Chloride 1,000 mls @ 42 mls/hr 02/17/16 11:15 02/17/16 11:37 Normal Saline - IV Not Given ASDIR [facility] Insulin Aspart 1 vial 02/17/16 16:30 Novolog Vial Sliding Scale - SQ ACHS [facility] Protocol Methimazole 5 mg 02/17/16 14:00 02/17/16 13:02 Tapazole - PO 5 mg TID DUC Administration Metoprolol Succinate 25 mg 02/18/16 10:00 Toprol Xl - PO DAILY DUC Ondansetron HCl 4 mg 02/17/16 11:15 Zofran Injection IVPUSH 02/17/16 15:23 Q6H PRN NAUSEA AND/OR VOMITING Promethazine HCl 12.5 mg 02/17/16 11:15 Phenergan Injection - IVPUSH 02/17/16 15:23 Q6H PRN NAUSEA Sevelamer Carbonate 1,600 mg 02/17/16 12:00 02/17/16 13:00 Renvela - PO 1,600 mg TIDCM DUC Administration Impression 1. ESRD 2. av access malfunction 3. hyperkalemia 4. CHF 5. DM 6. HTN 7. anemia 8. depression 9. hyperlipidemia 10. leukocytosis 11. NSTEMI 12. bacteremia Plan - ct head reviewed - graft removed today - pt will need access for HD - repeat blood cultures - cont abx - monitor pulse ox - keep in ICU please Dr Jones
--- NOTE | 2016-02-17 13:51 | OP ---
DATE OF OPERATION: 02/17/2016 PREOPERATIVE DIAGNOSIS: Infected left arteriovenous graft. POSTOPERATIVE DIAGNOSIS: Infected left arteriovenous graft. PROCEDURE: Removal of left arteriovenous graft. SURGEON: True Salas DO ANESTHESIA: Fractional. WARE DRESSER: . BLOOD LOSS: 30 mL. The patient is a 75-year-old female that has an infected left AV graft growing gram-positive cocci on blood cultures. Patient was given antibiotics over the weekend, but the cultures are not clearing and thus the graft needs to be removed. The graft also has a hole and a defect in it. Patient was consented for the procedure, understanding all risks, benefits, and alternatives, and taken to the operating room. Once in the operative suite, laid down on the operating table in a supine manner. The area of the left arm was prepped and draped in a sterile surgical manner. We then went ahead and injected 20 mL of lidocaine 1% in the proximal AV graft. There was already a defect that was open, and we went ahead and extended that using a 15 blade over the AV graft. We then dissected out the proximal AV graft anteriorly and posteriorly, and a vascular clamp was placed to occlude the graft. We then went ahead and went to the distal AV graft, made a transverse incision over the AV graft using a 15 blade. Lidocaine 0.5%, 20 mL, was given to the patient. We then dissected the AV graft anteriorly and posteriorly and a vascular clamp was placed on it. We then ligated the AV graft using scissors, and the AV graft was removed. The AV graft was then sent down for culture and sensitivity. At this point, we took 3-0 Prolene and the AV graft was suture ligated in a continuous manner in the proximal and distal portions. The vascular clamps were then removed. There was no bleeding from the proximal or distal portion. The wound was then well irrigated. Surgicel was placed and skin amauri were used to close our incisions. The area was wet and dried. A 4 x 4 Tegaderm was placed. Patient tolerated the procedure well with no complication. Patient transferred to the PACU in stable condition. TRUE SALAS DO AMMONIA TECHNICIAN/[id number]
--- NOTE | 2016-02-17 19:33 | PN ---
Progress Note (short form) - Note Progress Note: Pt came back from OR Awake No pain dressing is soaked with blood Vital Signs - 24 hr 02/16/16 02/16/16 02/16/16 20:00 21:00 22:00 Temperature 98.8 F Pulse Rate 102 H 98 H Respiratory 19 21 21 Rate Blood Pressure 100/39 108/46 O2 Sat by Pulse 99 Oximetry (%) 02/17/16 02/17/16 02/17/16 00:00 02:00 03:00 Temperature 98.7 F Pulse Rate 86 85 86 Respiratory 13 24 17 Rate Blood Pressure 95/41 87/39 130/48 O2 Sat by Pulse Oximetry (%) 02/17/16 02/17/16 02/17/16 04:00 06:00 06:30 Temperature 98.2 F Pulse Rate 87 84 Respiratory 17 17 Rate Blood Pressure 104/43 104/40 O2 Sat by Pulse 99 Oximetry (%) 02/17/16 02/17/16 02/17/16 08:00 08:42 10:45 Temperature 98.2 F Pulse Rate 83 81 Respiratory 18 15 Rate Blood Pressure 117/43 124/51 O2 Sat by Pulse 100 Oximetry (%) 02/17/16 02/17/16 02/17/16 11:00 11:15 11:50 Temperature Pulse Rate 81 84 Respiratory 14 12 Rate Blood Pressure 129/54 116/47 O2 Sat by Pulse 100 Oximetry (%) 02/17/16 02/17/16 02/17/16 12:00 13:00 14:00 Temperature 98.6 F Pulse Rate 85 84 87 Respiratory 18 12 12 Rate Blood Pressure 118/51 99/41 120/43 O2 Sat by Pulse Oximetry (%) 02/17/16 02/17/16 02/17/16 15:00 16:00 17:00 Temperature 98.9 F Pulse Rate 86 88 86 Respiratory 14 15 14 Rate Blood Pressure 124/45 139/46 131/48 O2 Sat by Pulse Oximetry (%) 02/17/16 18:00 Temperature Pulse Rate 89 Respiratory 15 Rate Blood Pressure 136/51 O2 Sat by Pulse Oximetry (%) Current Medications Generic Name Dose Route Start Last Admin Trade Name Freq PRN Reason Stop Dose Admin Acetaminophen 650 mg 02/17/16 11:15 Tylenol - PO BID PRN FEVER Acetaminophen 650 mg 02/17/16 11:15 Tylenol Suppository - [place] Q6H PRN FEVER OR PAIN Bacitracin 1 applic 02/18/16 10:00 Bacitracin - TP DAILY DUC Fentanyl 50 mcg 02/17/16 11:15 Sublimaze Injection - IVPUSH 02/20/16 09:23 [id number] PRN PAIN Hydralazine HCl 25 mg 02/17/16 14:00 02/17/16 14:29 Apresoline - PO 25 mg TID DUC Administration Nafcillin Sodium 2 gm/ 100 mls @ 100 mls/hr 02/17/16 14:00 02/17/16 18:46 Dextrose IVPB 100 mls/hr Q4H-IV DUC Administration Pantoprazole Sodium 100 mls @ 200 mls/hr 02/18/16 10:00 Protonix 40mg Ivpb (Pre-Docked) IVPB DAILY [facility]UC Sodium Chloride 1,000 mls @ 42 mls/hr 02/17/16 11:15 02/17/16 11:37 Normal Saline - IV Not Given ASDIR DUC Insulin Aspart 1 vial 02/17/16 16:30 02/17/16 17:30 Novolog Vial Sliding Scale - SQ 6 units ACHS DUC Administration Protocol Methimazole 5 mg 02/17/16 14:00 02/17/16 13:02 Tapazole - PO 5 mg TID DUC Administration Metoprolol Succinate 25 mg 02/18/16 10:00 Toprol Xl - PO DAILY DUC Sevelamer Carbonate 1,600 mg 02/17/16 12:00 02/17/16 17:30 Renvela - PO 1,600 mg TIDCM DUC Administration Laboratory Results - last 24 hr 02/15/16 02/17/16 02/17/16 05:00 05:00 05:00 WBC 14.6 H RBC 2.93 L Hgb 8.1 L Hct 26.2 L MCV 89.4 MCHC 30.8 L RDW 16.9 H Plt Count 182 MPV 7.9 Neutrophils % 87.5 H Lymphocytes % 6.0 L Monocytes % 5.6 Eosinophils % 0.6 Basophils % 0.3 INR 1.04 Sodium Potassium Chloride Carbon Dioxide Anion Gap BUN Creatinine Creat Clearance w eGFR POC Glucometer Random Glucose Calcium Total Bilirubin AST ALT Alkaline Phosphatase Total Protein Albumin Hep Bs Ab Concentration Non reactive 02/17/16 02/17/16 02/17/16 05:00 05:47 11:20 WBC RBC Hgb Hct MCV MCHC RDW Plt Count MPV Neutrophils % Lymphocytes % Monocytes % Eosinophils % Basophils % INR Sodium 135 L Potassium 4.0 Chloride 95 L Carbon Dioxide 29 Anion Gap 11 BUN 38 H D Creatinine 2.9 H D Creat Clearance w eGFR 15.91 POC Glucometer 161.80705 178.40605 Random Glucose 128 H D Calcium 7.5 L Total Bilirubin 2.2 H D AST 20 ALT 15 Alkaline Phosphatase 89 Total Protein 5.5 L Albumin 1.7 L Hep Bs Ab Concentration S1 S2 RRR Murmur+ Lungs no ronchi left arm- dressing soaked edema+ PLAN iv antibiotics per ID HD by permacat repeat blood cultures continue with meds CT head negative appreciate Neurology and Ophthalmology evaluation ICU monitoring Problem List - Problems (1) Altered mental status, unspecified Code(s): R41.82 - ALTERED MENTAL STATUS, UNSPECIFIED Qualifiers: Altered mental status type: unspecified Qualified Code(s): R41.82 - Altered mental status, unspecified (2) Dialysis AV fistula malfunction Code(s): T82.590A - [facility] COMPL OF SURGICALLY CREATED ARTERIOVENOUS FISTULA, INIT Qualifiers: Encounter type: initial encounter Qualified Code(s): T82.590A - Other mechanical complication of surgically created arteriovenous fistula, initial encounter (3) Elevated troponin Code(s): R79.89 - OTHER SPECIFIED ABNORMAL FINDINGS OF BLOOD CHEMISTRY (4) Hyperkalemia Code(s): E87.5 - HYPERKALEMIA (5) Thrombosis of surgically created arteriovenous fistula Code(s): T82.868A - THROMBOSIS DUE TO VASCULAR PROSTH DEV/GRFT, INIT (6) ESRD (end stage renal disease) on dialysis Code(s): N18.6 - END STAGE RENAL DISEASE Z99.2 - DEPENDENCE ON RENAL DIALYSIS (7) Diabetes mellitus Code(s): E11.9 - TYPE 2 DIABETES MELLITUS WITHOUT COMPLICATIONS Qualifiers: Diabetes mellitus type: type 2 Diabetes mellitus complication status: without complication (8) Bacteremia Code(s): R78.81 - BACTEREMIA (9) Arteriovenous graft infection Code(s): T82.7XXA - INFECT/INFLM REACT D/T OTH CARDI/VASC DEV/IMPLNT/GRFT, INIT Qualifiers: Encounter type: subsequent encounter Qualified Code(s): T82.7XXD - Infection and inflammatory reaction due to other cardiac and vascular devices, implants and grafts, subsequent encounter
--- NOTE | 2016-02-17 22:53 | PN ---
Progress Note, Physician Chief Complaint: Pt alert; denies chest pain or dyspnea; mild pain at LUE AVG removal. History of Present Illness: 75-year-old white female presents to the ED for evaluation of bleeding left AV fistula. As per pt she had dialysis but has not been feeling well and today when she went to dialysis they were unable to access her fistula and then it began to bleed. Patient states has not been feeling well over the past few days describing nausea myalgia, and decreased appetite. Patient denies headache, throat pain, chest pain or shortness of breath. Patient with history of anemia, CVA, CHF, dementia, diabetes, dialysis, hypertension and dyslipidemia , and thyroid disease. - Current Medication List Current Medications: Active Medications Acetaminophen (Tylenol -) 650 mg PO BID PRN PRN Reason: FEVER Acetaminophen (Tylenol Suppository -) 650 mg [place] Q6H PRN PRN Reason: FEVER OR PAIN Bacitracin (Bacitracin -) 1 applic TP DAILY [facility] Fentanyl (Sublimaze Injection -) 50 mcg IVPUSH [id number] PRN PRN Reason: PAIN Stop: 02/20/16 09:23 Hydralazine HCl (Apresoline -) 25 mg PO TID [facility] Last Admin: 02/17/16 21:07 Dose: 25 mg Nafcillin Sodium 2 gm/ (Dextrose) 100 mls @ 100 mls/hr IVPB Q4H-IV [facility] Last Admin: 02/17/16 21:08 Dose: 100 mls/hr Pantoprazole Sodium (Protonix 40mg Ivpb (Pre-Docked)) 100 mls @ 200 mls/hr IVPB DAILY [facility] Sodium Chloride (Normal Saline -) 1,000 mls @ 42 mls/hr IV ASDIR [facility] Last Admin: 02/17/16 11:37 Dose: Not Given Insulin Aspart (Novolog Vial Sliding Scale -) 1 vial SQ ACHS DUC PRN Reason: Protocol Last Admin: 02/17/16 21:12 Dose: 6 units Methimazole (Tapazole -) 5 mg PO TID [facility] Last Admin: 02/17/16 21:07 Dose: 5 mg Metoprolol Succinate (Toprol Xl -) 25 mg PO DAILY [facility] Sevelamer Carbonate (Renvela -) 1,600 mg PO TIDCM [facility] Last Admin: 02/17/16 17:30 Dose: 1,600 mg - Objective Vital Signs: Vital Signs Temperature 98.9 F 02/17/16 17:00 Pulse Rate 85 02/17/16 20:00 Respiratory Rate 18 02/17/16 20:00 Blood Pressure 117/44 02/17/16 20:00 O2 Sat by Pulse Oximetry (%) 97 02/17/16 21:39 Constitutional: Yes: Calm Eyes: Yes: WNL HENT: Yes: WNL Neck: Yes: WNL Cardiovascular: Yes: Regular Rate and Rhythm, S1 (split) Respiratory: Yes: Regular Gastrointestinal: Yes: Soft ...Rectal Exam: Yes: Deferred Genitourinary: No: Anuria Breast(s): Yes: WNL Musculoskeletal: Yes: Muscle Pain, Muscle Weakness Extremities: Yes: Cool Edema: No Peripheral Pulses WNL: Yes Integumentary: Yes: Incision Wound/Incision: Yes: Dressing Dry and Intact Neurological: Yes: Alert, Oriented, Weakness Psychiatric: Yes: Alert, Oriented Labs: CBC, BMP 02/17/16 05:00 02/17/16 05:00 INR, PTT INR 1.04 (0.82-1.09) 02/17/16 05:00 Abnormal Lab Results 02/17/16 02/17/16 05:00 05:00 WBC 14.6 H RBC 2.93 L Hgb 8.1 L Hct 26.2 L MCHC 30.8 L RDW 16.9 H Neutrophils % 87.5 H Lymphocytes % 6.0 L Sodium 135 L Chloride 95 L BUN 38 H D Creatinine 2.9 H D Random Glucose 128 H D Calcium 7.5 L Total Bilirubin 2.2 H D Total Protein 5.5 L Albumin 1.7 L - ....Imaging Other: Image Reviewed (Telemetry: NSR; 1st degree AV block) Problem List - Problems (1) Dialysis AV fistula malfunction Assessment/Plan: AV graft removed this morning by Dr. Krystin Reid. Plan for Permacath later this week. Code(s): T82.590A - [facility] COMPL OF SURGICALLY CREATED ARTERIOVENOUS FISTULA, INIT Qualifiers: Encounter type: initial encounter Qualified Code(s): T82.590A - Other mechanical complication of surgically created arteriovenous fistula, initial encounter (2) Elevated troponin Assessment/Plan: TNI 1.09-->1.38-->3.25-->2.5. EKG: NSR; 1st degree AVB, without acute ST-T changes (no significant change from 12/2015). Likely NSTEMI/demand ischemia, though multiple other factors may contribute to TNI elevation, including CHF, ESRD, sepsis, hypoxia. Problematic starting antiplatelets and systemic AC due to AV graft bleed, but would consider doing so if cleared by surgeon. On metoprolol. ECHO: normal LVEF; moderate ; mild-moderate AR; severe TR; mild OK and MR; no pericardial effusion. Pt will require coronary artery evaluation when stable (after Permacath). Code(s): R79.89 - OTHER SPECIFIED ABNORMAL FINDINGS OF BLOOD CHEMISTRY (3) ESRD (end stage renal disease) on dialysis Assessment/Plan: Hemodialysis per retail coverage merchandiser. Code(s): N18.6 - END STAGE RENAL DISEASE Z99.2 - DEPENDENCE ON RENAL DIALYSIS (4) Hypertension Assessment/Plan: on metoprolol and hydralazine. Code(s): I10 - ESSENTIAL (PRIMARY) HYPERTENSION (5) Pulmonary hypertension Assessment/Plan: severe pulmonary HTN by 02/11/2015 ECHO; normal LVEF. Code(s): I27.2 - OTHER SECONDARY PULMONARY HYPERTENSION (6) Anemia Code(s): D64.9 - ANEMIA, UNSPECIFIED Qualifiers: Other causes of anemia: acute posthemorrhagic (7) Leukocytosis Code(s): D72.829 - ELEVATED WHITE BLOOD CELL COUNT, UNSPECIFIED (8) Thyroid disease Code(s): E07.9 - DISORDER OF THYROID, UNSPECIFIED (9) Acute on chronic diastolic CHF (congestive heart failure) Code(s): I50.33 - ACUTE ON CHRONIC DIASTOLIC (CONGESTIVE) HEART FAILURE
[2016-02-18] MEDS ORDERED: PT OWN MED DRAWER 7, Y5N ONE ×3 (00:15→09:01)
[2016-02-18] MEDS: NAFCILLIN - 2 GM in DEXTROSE 5%-WATER - 100 ML IVPB SCH ×6 (01:30→21:27)
[2016-02-18] MEDS: hydrALAZINE HCL 25 MG TABLET (FP) PO SCH ×3 (05:20→21:29)
[2016-02-18] MEDS: METHIMAZOLE 5 MG TABLET (FP) PO SCH ×3 (05:20→21:27)
[2016-02-18] MEDS: INSULIN SLIDING SCALE (NOVOLOG) 1 VIAL SQ SCH ×4 (06:07→22:22)
[2016-02-18 06:17] LABS: BASOPHIL 0.4 % (0-2.0); EOSINOPHIL 0.7 % (0-4.5); MCH 27.3 pg (25.7-33.7); MCHC 30.6 g/dl (32.0-36.0); MEAN CELL VOLUME 89.1 fl (80-96); NEUTROPHILS 87.4 % (42.8-82.8); PLATELET COUNT 230 K/MM3 (134-434); RDW 16.6 % (11.6-15.6); WHITE BLOOD COUNT 15.2 K/mm3 (4.0-10.0)
[2016-02-18 07:16] LABS: CALCIUM 7.3 mg/dL (8.5-10.1)
[2016-02-18 07:19] LABS: CREATININE 3.8 mg/dL (0.55-1.02)
--- NOTE | 2016-02-18 08:33 | PN ---
Progress Note (short form) - Note Progress Note: more alert opening eyes more Vital Signs Period Temp Pulse Resp BP Sys/Rangel Pulse Ox Last 24 Hr 98.2 F-98.9 F 77-89 12-20 99-139/41-74 97-100 cor-rrr lungs clear abd soft,nt ext +edema left EJ +dermatomal zoster left buttock- few clustered vesicles CBC, BMP 02/18/16 05:15 02/18/16 05:15 Microbiology 02/10/16 21:30 Nasopharyngeal Swab Respiratory Virus Panel - Final 02/14/16 14:00 Blood - Pre-Dialysis Blood Culture - Final Staphylococcus Aureus 02/14/16 14:00 Blood - Pre-Dialysis Blood Culture - Final Staphylococcus Aureus 02/12/16 08:45 Blood - Post-Dialysis Blood Culture - Final Staphylococcus Aureus 02/12/16 08:45 Blood - Post-Dialysis Blood Culture - Final Staphylococcus Aureus 02/10/16 20:00 Blood - Peripheral Venous Blood Culture - Final Staphylococcus Aureus 02/10/16 20:00 Blood - Peripheral Venous Blood Culture - Final Staphylococcus Aureus 02/11/16 07:00 Urine - Urine - Catheterized Urine Culture - Final Contaminated: Please Repeat 02/10/16 21:30 Nasopharyngeal Swab Influenza Types A,B Antigen (MANOJ) - Final 02/10/16 21:30 Nasopharyngeal Swab - Final blood cultures 02/17 pending Current Medications Acetaminophen (Tylenol -) 650 mg PO BID PRN PRN Reason: FEVER Acetaminophen (Tylenol Suppository -) 650 mg [place] Q6H PRN PRN Reason: FEVER OR PAIN Bacitracin (Bacitracin -) 1 applic TP DAILY [facility] Fentanyl (Sublimaze Injection -) 50 mcg IVPUSH [id number] PRN PRN Reason: PAIN Stop: 02/20/16 09:23 Hydralazine HCl (Apresoline -) 25 mg PO TID [facility] Last Admin: 02/18/16 05:20 Dose: 25 mg Nafcillin Sodium 2 gm/ (Dextrose) 100 mls @ 100 mls/hr IVPB Q4H-IV [facility] Last Admin: 02/18/16 06:08 Dose: 100 mls/hr Pantoprazole Sodium (Protonix 40mg Ivpb (Pre-Docked)) 100 mls @ 200 mls/hr IVPB DAILY [facility] Sodium Chloride (Normal Saline -) 1,000 mls @ 42 mls/hr IV ASDIR [facility] Last Admin: 02/17/16 11:37 Dose: Not Given Insulin Aspart (Novolog Vial Sliding Scale -) 1 vial SQ ACHS [facility] PRN Reason: Protocol Last Admin: 02/18/16 06:07 Dose: 2 units Methimazole (Tapazole -) 5 mg PO TID [facility] Last Admin: 02/18/16 05:20 Dose: 5 mg Metoprolol Succinate (Toprol Xl -) 25 mg PO DAILY [facility] Sevelamer Carbonate (Renvela -) 1,600 mg PO TIDCM [facility] Last Admin: 02/17/16 17:30 Dose: 1,[address] no CVA, no abscess a/p MSSA bacteremia-persistent bacteremia- infected avg-r/o endocarditis avg removed 02/16, blood cultures repeated today dermatomal zoster left buttock optho consult noted repeat blood cultures 02/13 are positive if blood cultures remain positive post removal of graft will need ASH continue nafcillin add po valtrex adjusted for renal failure esrd/hd elevated troponins- plan for cath when stable d/w icu resident
[2016-02-18] MEDS: SEVELAMER CARBONATE 800 MG TAB (FP) PO SCH ×3 (08:54→17:51)
[2016-02-18] MEDS ORDERED: valACYclovir HCL 500 MG TABLET (FP) PO STA (08:59)
[2016-02-18] MEDS: PANTOPRAZOLE SODIUM 100 ML IVPB SCH (09:03)
[2016-02-18] MEDS: METOPROLOL SUCCINATE 25 MG TAB.SR.24H (FP) PO SCH (09:03)
[2016-02-18] MEDS: BACITRACIN 30 GM TUBE TOPICAL OINTMENT TP SCH (09:57)
--- NOTE | 2016-02-18 10:24 | PN ---
Progress Note, Physician Chief Complaint: awake, opens eyes to name no complaints - Current Medication List Current Medications: Active Medications Acetaminophen (Tylenol -) 650 mg PO BID PRN PRN Reason: FEVER Acetaminophen (Tylenol Suppository -) 650 mg [place] Q6H PRN PRN Reason: FEVER OR PAIN Bacitracin (Bacitracin -) 1 applic TP DAILY [facility] Last Admin: 02/18/16 09:57 Dose: 1 applic Fentanyl (Sublimaze Injection -) 50 mcg IVPUSH [id number] PRN PRN Reason: PAIN Stop: 02/20/16 09:23 Hydralazine HCl (Apresoline -) 25 mg PO TID [facility] Last Admin: 02/18/16 05:20 Dose: 25 mg Nafcillin Sodium 2 gm/ (Dextrose) 100 mls @ 100 mls/hr IVPB Q4H-IV [facility] Last Admin: 02/18/16 09:57 Dose: 100 mls/hr Pantoprazole Sodium (Protonix 40mg Ivpb (Pre-Docked)) 100 mls @ 200 mls/hr IVPB DAILY [facility] Last Admin: 02/18/16 09:03 Dose: 200 mls/hr Sodium Chloride (Normal Saline -) 1,000 mls @ 42 mls/hr IV ASDIR [facility] Last Admin: 02/17/16 11:37 Dose: Not Given Insulin Aspart (Novolog Vial Sliding Scale -) 1 vial SQ ACHS DUC PRN Reason: Protocol Last Admin: 02/18/16 06:07 Dose: 2 units Methimazole (Tapazole -) 5 mg PO TID [facility] Last Admin: 02/18/16 05:20 Dose: 5 mg Metoprolol Succinate (Toprol Xl -) 25 mg PO DAILY [facility] Last Admin: 02/18/16 09:03 Dose: 25 mg Sevelamer Carbonate (Renvela -) 1,600 mg PO TIDCM [facility] Last Admin: 02/18/16 08:54 Dose: 1,600 mg - Objective Vital Signs: Vital Signs Temperature 98.3 F 02/18/16 09:44 Pulse Rate 96 H 02/18/16 09:44 Respiratory Rate 20 02/18/16 09:44 Blood Pressure 136/58 02/18/16 09:44 O2 Sat by Pulse Oximetry (%) 97 02/18/16 10:00 Constitutional: Yes: No Distress, Calm Cardiovascular: Yes: Regular Rate and Rhythm Respiratory: Yes: Diminished. No: Rales, Rhonchi Gastrointestinal: Yes: Normal Bowel Sounds, Soft. No: Distention, Tenderness Extremities: Yes: Other (edema B/l arms) Edema: Yes Integumentary: Yes: Rash (blisters seen on left buttock- shingles, stage 2 ulcer about 1/2 cm in sacrum) Psychiatric: Yes: Alert Labs: CBC, BMP 02/18/16 05:15 02/18/16 05:15 INR, PTT INR 1.04 (0.82-1.09) 02/17/16 05:00 - ....Imaging Chest X-ray: Image Reviewed (no infiltrates) Problem List - Problems (1) Altered mental status, unspecified Code(s): R41.82 - ALTERED MENTAL STATUS, UNSPECIFIED Qualifiers: Altered mental status type: unspecified Qualified Code(s): R41.82 - Altered mental status, unspecified (2) Dialysis AV fistula malfunction Code(s): T82.590A - [facility] COMPL OF SURGICALLY CREATED ARTERIOVENOUS FISTULA, INIT Qualifiers: Encounter type: initial encounter Qualified Code(s): T82.590A - Other mechanical complication of surgically created arteriovenous fistula, initial encounter (3) Elevated troponin Code(s): R79.89 - OTHER SPECIFIED ABNORMAL FINDINGS OF BLOOD CHEMISTRY (4) Thrombosis of surgically created arteriovenous fistula Code(s): T82.868A - THROMBOSIS DUE TO VASCULAR PROSTH DEV/GRFT, INIT (5) ESRD (end stage renal disease) on dialysis Code(s): N18.6 - END STAGE RENAL DISEASE Z99.2 - DEPENDENCE ON RENAL DIALYSIS (6) Diabetes mellitus Code(s): E11.9 - TYPE 2 DIABETES MELLITUS WITHOUT COMPLICATIONS Qualifiers: Diabetes mellitus type: type 2 Diabetes mellitus complication status: without complication (7) Bacteremia Code(s): R78.81 - BACTEREMIA (8) Arteriovenous graft infection Code(s): T82.7XXA - INFECT/INFLM REACT D/T OTH CARDI/VASC DEV/IMPLNT/GRFT, INIT Qualifiers: Encounter type: subsequent encounter Qualified Code(s): T82.7XXD - Infection and inflammatory reaction due to other cardiac and vascular devices, implants and grafts, subsequent encounter (9) Zoster Code(s): B02.9 - ZOSTER WITHOUT COMPLICATIONS Assessment/Plan PLAN s/p removal of AVG repeat blood cultures pending IV antibiotics per ID continue with meds will need transfusion during dialysis denies any chest pain ,SOB ok to transfer to tele will need stress test SCD for DVT prophylaxis
--- NOTE | 2016-02-18 11:17 | PN ---
Progress Note (short form) - Note Progress Note: Anesthesia Post op S:Alert and oriented O: Vital Signs Temperature 98.3 F 02/18/16 09:44 Pulse Rate 96 H 02/18/16 09:44 Respiratory Rate 20 02/18/16 09:44 Blood Pressure 136/58 02/18/16 09:44 O2 Sat by Pulse Oximetry (%) 97 02/18/16 10:00 CBC, BMP 02/18/16 05:15 02/18/16 05:15 A/P: Current Active Problems Acute on chronic diastolic CHF (congestive heart failure) (Acute) Altered mental status, unspecified (Acute) Arteriovenous graft infection (Acute) Bacteremia (Acute) Dialysis AV fistula malfunction (Acute) Elevated troponin (Acute) Leukocytosis (Acute) Thrombosis of surgically created arteriovenous fistula (Acute) Thyroid disease (Acute) Zoster (Acute) ESRD (end stage renal disease) on dialysis (Chronic) s/p removal of left arm av graft Doing well post op Ramy Vale MD
--- NOTE | 2016-02-18 11:19 | PN ---
Progress Note, Physician History of Present Illness: Pt seen and examined at bedside. She is more awake and alert today. - Current Medication List Current Medications: Active Medications Acetaminophen (Tylenol -) 650 mg PO BID PRN PRN Reason: FEVER Acetaminophen (Tylenol Suppository -) 650 mg [place] Q6H PRN PRN Reason: FEVER OR PAIN Bacitracin (Bacitracin -) 1 applic TP DAILY [facility] Last Admin: 02/18/16 09:57 Dose: 1 applic Fentanyl (Sublimaze Injection -) 50 mcg IVPUSH [id number] PRN PRN Reason: PAIN Stop: 02/20/16 09:23 Hydralazine HCl (Apresoline -) 25 mg PO TID [facility] Last Admin: 02/18/16 05:20 Dose: 25 mg Nafcillin Sodium 2 gm/ (Dextrose) 100 mls @ 100 mls/hr IVPB Q4H-IV [facility] Last Admin: 02/18/16 09:57 Dose: 100 mls/hr Pantoprazole Sodium (Protonix 40mg Ivpb (Pre-Docked)) 100 mls @ 200 mls/hr IVPB DAILY [facility] Last Admin: 02/18/16 09:03 Dose: 200 mls/hr Insulin Aspart (Novolog Vial Sliding Scale -) 1 vial SQ ACHS [facility]UC PRN Reason: Protocol Last Admin: 02/18/16 06:07 Dose: 2 units Methimazole (Tapazole -) 5 mg PO TID [facility] Last Admin: 02/18/16 05:20 Dose: 5 mg Metoprolol Succinate (Toprol Xl -) 25 mg PO DAILY [facility] Last Admin: 02/18/16 09:03 Dose: 25 mg Sevelamer Carbonate (Renvela -) 1,600 mg PO TIDCM [facility] Last Admin: 02/18/16 08:54 Dose: 1,600 mg - Objective Vital Signs: Vital Signs Temperature 98.3 F 02/18/16 09:44 Pulse Rate 96 H 02/18/16 09:44 Respiratory Rate 20 02/18/16 09:44 Blood Pressure 136/58 02/18/16 09:44 O2 Sat by Pulse Oximetry (%) 97 02/18/16 10:00 Constitutional: Yes: Calm Eyes: Yes: Conjunctiva Clear Cardiovascular: Yes: S1, S2 Respiratory: Yes: CTA Bilaterally, On Nasal O2 Gastrointestinal: Yes: Soft Genitourinary: Yes: Incontinence Musculoskeletal: Yes: Muscle Weakness Edema: Yes Edema: LUE: 1+, RUE: 1+ Neurological: Yes: Oriented, Other (loss of vision) Psychiatric: Yes: Oriented Labs: CBC, BMP 02/18/16 05:15 02/18/16 05:15 INR, PTT INR 1.04 (0.82-1.09) 02/17/16 05:00 Problem List - Problems (1) Altered mental status, unspecified Code(s): R41.82 - ALTERED MENTAL STATUS, UNSPECIFIED Qualifiers: Qualified Code(s): R41.82 - Altered mental status, unspecified (2) Dialysis AV fistula malfunction Code(s): T82.590A - [facility] COMPL OF SURGICALLY CREATED ARTERIOVENOUS FISTULA, INIT Qualifiers: Qualified Code(s): T82.590A - Other mechanical complication of surgically created arteriovenous fistula, initial encounter (3) Elevated troponin Code(s): R79.89 - OTHER SPECIFIED ABNORMAL FINDINGS OF BLOOD CHEMISTRY (4) ESRD (end stage renal disease) on dialysis Code(s): N18.6 - END STAGE RENAL DISEASE Z99.2 - DEPENDENCE ON RENAL DIALYSIS (5) Anemia Code(s): D64.9 - ANEMIA, UNSPECIFIED Qualifiers: Qualified Code(s): D62 - Acute posthemorrhagic anemia (6) Hypertension Code(s): I10 - ESSENTIAL (PRIMARY) HYPERTENSION Assessment/Plan Current Medications Generic Name Dose Route Start Last Admin Trade Name Freq PRN Reason Stop Dose Admin Acetaminophen 650 mg 02/17/16 11:15 Tylenol - PO BID PRN FEVER Acetaminophen 650 mg 02/17/16 11:15 Tylenol Suppository - NE Q6H PRN FEVER OR PAIN Bacitracin 1 applic 02/18/16 10:00 02/18/16 09:57 Bacitracin - TP 1 applic DAILY [facility] Administration Fentanyl 50 mcg 02/17/16 11:15 Sublimaze Injection - IVPUSH 02/20/16 09:23 [id number] PRN PAIN Hydralazine HCl 25 mg 02/17/16 14:00 02/18/16 05:20 Apresoline - PO 25 mg TID [facility] Administration Nafcillin Sodium 2 gm/ 100 mls @ 100 mls/hr 02/17/16 14:00 02/18/16 09:57 Dextrose IVPB 100 mls/hr Q4H-IV [facility] Administration Pantoprazole Sodium 100 mls @ 200 mls/hr 02/18/16 10:00 02/18/16 09:03 Protonix 40mg Ivpb (Pre-Docked) IVPB 200 mls/hr DAILY [facility] Administration Insulin Aspart 1 vial 02/17/16 16:30 02/18/16 06:07 Novolog Vial Sliding Scale - SQ 2 units ACHS DUC Administration Protocol Methimazole 5 mg 02/17/16 14:00 02/18/16 05:20 Tapazole - PO 5 mg TID [facility] Administration Metoprolol Succinate 25 mg 02/18/16 10:00 02/18/16 09:03 Toprol Xl - PO 25 mg DAILY [facility] Administration Sevelamer Carbonate 1,600 mg 02/17/16 12:00 02/18/16 08:54 Renvela - PO 1,600 mg TIDCM DUC Administration Impression 1. ESRD 2. av access malfunction 3. hyperkalemia 4. CHF 5. DM 6. HTN 7. anemia 8. depression 9. hyperlipidemia 10. leukocytosis 11. NSTEMI 12. bacteremia Plan - follow up blood cultures - will not dialyze today, repeat labs in am - will keep pt catheter free for now - ophtho eval - discussed with neuro, pt will need MRI - cont abx - monitor pulse ox - keep in ICU please Dr Jones
--- NOTE | 2016-02-18 11:20 | PN ---
Progress Note (short form) - Note Progress Note: Neurology 75-year-old female presented to the ED initally for evaluation of bleeding left AV fistula. As per notes, she went to dialysis, they were unable to access her fistula and then it began to bleed. Neurologically, she reports vision loss which has been ongoing with macular degeneration but reports acute vision loss superimposed on this since being admitted. CT head completed and without acute changes. Ordered MRI brain and optic nerves but limitation due to amauri in L antecubidal region. May be able to have amauri removed and sutures placed in order to have imaging. Patient also with shingles of lower back, getting treatment. Active Medications Acetaminophen (Tylenol -) 650 mg PO BID PRN PRN Reason: FEVER Acetaminophen (Tylenol Suppository -) 650 mg [place] Q6H PRN PRN Reason: FEVER OR PAIN Bacitracin (Bacitracin -) 1 applic TP DAILY [facility] Last Admin: 02/18/16 09:57 Dose: 1 applic Fentanyl (Sublimaze Injection -) 50 mcg IVPUSH [id number] PRN PRN Reason: PAIN Stop: 02/20/16 09:23 Hydralazine HCl (Apresoline -) 25 mg PO TID [facility] Last Admin: 02/18/16 05:20 Dose: 25 mg Nafcillin Sodium 2 gm/ (Dextrose) 100 mls @ 100 mls/hr IVPB Q4H-IV [facility] Last Admin: 02/18/16 09:57 Dose: 100 mls/hr Pantoprazole Sodium (Protonix 40mg Ivpb (Pre-Docked)) 100 mls @ 200 mls/hr IVPB DAILY [facility] Last Admin: 02/18/16 09:03 Dose: 200 mls/hr Insulin Aspart (Novolog Vial Sliding Scale -) 1 vial SQ ACHS [facility] PRN Reason: Protocol Last Admin: 02/18/16 06:07 Dose: 2 units Methimazole (Tapazole -) 5 mg PO TID [facility] Last Admin: 02/18/16 05:20 Dose: 5 mg Metoprolol Succinate (Toprol Xl -) 25 mg PO DAILY [facility] Last Admin: 02/18/16 09:03 Dose: 25 mg Sevelamer Carbonate (Renvela -) 1,600 mg PO TIDCM [facility] Last Admin: 02/18/16 08:54 Dose: 1,600 mg *Physical Exam Vital Signs Temperature 98.2 F 02/17/16 06:00 Pulse Rate 83 02/17/16 08:00 Respiratory Rate 18 02/17/16 08:00 Blood Pressure 117/43 02/17/16 08:00 O2 Sat by Pulse Oximetry (%) 100 02/17/16 08:42 - Physical Exam General Appearance: Yes: Nourished, Appropriately Dressed. No: Apparent Distress HEENT: positive: EOMI, ZACARIAS, Pharynx Normal (dry). negative: Pale Conjunctivae Neck: positive: Supple Respiratory/Chest: positive: Lungs Clear, Normal Breath Sounds. negative: Respiratory Distress, Accessory Muscle Use Cardiovascular: positive: Regular Rhythm. negative: Murmur, Bradycardia Gastrointestinal/Abdominal: positive: Soft. negative: Tenderness Extremity: positive: Normal Capillary Refill. negative: Pedal Edema Integumentary: positive: Normal Color, Dry, Warm Neurologic: Alert, awake, slow movements, pupil equal and reactive, EOMI, Sensory intact, Strength equal b/l CBCD WBC 15.2 K/mm3 (4.0-10.0) H 02/18/16 05:15 RBC 2.60 M/mm3 (3.60-5.2) L 02/18/16 05:15 Hgb 7.1 GM/dL (10.7-15.3) L D 02/18/16 05:15 Hct 23.1 % (32.4-45.2) L 02/18/16 05:15 MCV 89.1 fl (80-96) 02/18/16 05:15 MCHC 30.6 g/dl (32.0-36.0) L 02/18/16 05:15 RDW 16.6 % (11.6-15.6) H 02/18/16 05:15 Plt Count 230 K/MM3 (134-434) D 02/18/16 05:15 MPV 8.0 fl (7.5-11.1) 02/18/16 05:15 CMP Sodium 130 mmol/L (136-145) L 02/18/16 05:15 Potassium 4.3 mmol/L (3.5-5.1) 02/18/16 05:15 Chloride 90 mmol/L (98-107) L 02/18/16 05:15 Carbon Dioxide 27 mmol/L (21-32) 02/18/16 05:15 Anion Gap 13 (8-16) 02/18/16 05:15 BUN 52 mg/dL (7-18) H D 02/18/16 05:15 Creatinine 3.8 mg/dL (0.55-1.02) H D 02/18/16 05:15 Creat Clearance w eGFR 15.91 (>60) 02/17/16 05:00 Calcium 7.3 mg/dL (8.5-10.1) L 02/18/16 05:15 Total Bilirubin 2.2 mg/dL (0.2-1.0) H D 02/17/16 05:00 AST 20 U/L (15-37) 02/17/16 05:00 ALT 15 U/L (12-78) 02/17/16 05:00 Alkaline Phosphatase 89 U/L (45-117) 02/17/16 05:00 Total Protein 5.5 g/dl (6.4-8.2) L 02/17/16 05:00 Albumin 1.7 g/dl (3.4-5.0) L 02/17/16 05:00 CT head reviewed Medical Decision Making 75-year-old female presented to the ED initally for evaluation of bleeding left AV fistula. As per notes, she went to dialysis, they were unable to access her fistula and then it began to bleed. Neurologically, she reports vision loss which has been ongoing with macular degeneration but reports acute vision loss superimposed on this since being admitted. CT head completed and without acute changes. Ordered MRI brain and optic nerves (noncontrast) but limitation due to amauri in L antecubidal region. May be able to have amauri removed and sutures placed in order to have imaging. Patient also with shingles of lower back, getting treatment.
--- NOTE | 2016-02-18 12:39 | PN ---
Progress Note, Physician History of Present Illness: 75-year-old female presents to the ED for evaluation of bleeding left AV fistula. As per pt she had dialysis but has not been feeling well and today when she went to dialysis they were unable to access her fistula and then it began to bleed. Patient states has not been feeling well over the past few days describing nausea myalgia, and decreased appetite. Patient denies headache, throat pain, chest pain or shortness of breath. Patient with history of anemia, CVA, CHF, dementia, diabetes, dialysis, hypertension and dyslipidemia , and thyroid disease. - Current Medication List Current Medications: Active Medications Acetaminophen (Tylenol -) 650 mg PO BID PRN PRN Reason: FEVER Acetaminophen (Tylenol Suppository -) 650 mg MA Q6H PRN PRN Reason: FEVER OR PAIN Bacitracin (Bacitracin -) 1 applic TP DAILY [facility] Last Admin: 02/18/16 09:57 Dose: 1 applic Fentanyl (Sublimaze Injection -) 50 mcg IVPUSH [id number] PRN PRN Reason: PAIN Stop: 02/20/16 09:23 Hydralazine HCl (Apresoline -) 25 mg PO TID [facility] Last Admin: 02/18/16 05:20 Dose: 25 mg Nafcillin Sodium 2 gm/ (Dextrose) 100 mls @ 100 mls/hr IVPB Q4H-IV [facility] Last Admin: 02/18/16 09:57 Dose: 100 mls/hr Pantoprazole Sodium (Protonix 40mg Ivpb (Pre-Docked)) 100 mls @ 200 mls/hr IVPB DAILY [facility] Last Admin: 02/18/16 09:03 Dose: 200 mls/hr Insulin Aspart (Novolog Vial Sliding Scale -) 1 vial SQ ACHS DUC PRN Reason: Protocol Last Admin: 02/18/16 11:49 Dose: 6 units Methimazole (Tapazole -) 5 mg PO TID [facility] Last Admin: 02/18/16 05:20 Dose: 5 mg Metoprolol Succinate (Toprol Xl -) 25 mg PO DAILY [facility] Last Admin: 02/18/16 09:03 Dose: 25 mg Sevelamer Carbonate (Renvela -) 1,600 mg PO TIDCM [facility] Last Admin: 02/18/16 11:49 Dose: 1,600 mg - Objective Vital Signs: Vital Signs Temperature 98.3 F 01/11/17 09:44 Pulse Rate 96 H 02/18/16 09:44 Respiratory Rate 20 02/18/16 09:44 Blood Pressure 136/58 02/18/16 09:44 O2 Sat by Pulse Oximetry (%) 97 02/18/16 10:00 Eyes: Yes: WNL, Conjunctiva Clear, EOM Intact HENT: Yes: WNL, Atraumatic, Normocephalic Neck: Yes: WNL, Supple, Trachea Midline Cardiovascular: Yes: WNL, Regular Rate and Rhythm, Murmur, S1, S2 Respiratory: Yes: WNL, Regular, CTA Bilaterally Gastrointestinal: Yes: WNL, Normal Bowel Sounds Genitourinary: Yes: WNL Musculoskeletal: Yes: WNL Extremities: Yes: WNL Edema: No Integumentary: Yes: WNL Neurological: Yes: WNL, Alert, Oriented ...Motor Strength: WNL Psychiatric: Yes: WNL Labs: CBC, BMP 02/18/16 05:15 02/18/16 05:15 INR, PTT INR 1.04 (0.82-1.09) 02/17/16 05:00 Assessment/Plan - Problems (1) Dialysis AV fistula malfunction Assessment/Plan: AV graft removed ty by Dr. Krystin Reid. Plan for Permacath later this week. Code(s): T82.590A - [facility] COMPL OF SURGICALLY CREATED ARTERIOVENOUS FISTULA, INIT Qualifiers: Encounter type: initial encounter Qualified Code(s): T82.590A - Other mechanical complication of surgically created arteriovenous fistula, initial encounter (2) Elevated troponin Assessment/Plan: TNI 1.09-->1.38-->3.25-->2.5. EKG: NSR; 1st degree AVB, without acute ST-T changes (no significant change from 12/2015). Likely NSTEMI/demand ischemia, though multiple other factors may contribute to TNI elevation, including CHF, ESRD, sepsis, hypoxia. Problematic starting antiplatelets and systemic AC due to AV graft bleed, but would consider doing so if cleared by surgeon. On metoprolol. ECHO: normal LVEF; moderate ; mild-moderate AR; severe TR; mild MA and MR; no pericardial effusion. Pt will require coronary artery evaluation when stable (after Permacath). Code(s): R79.89 - OTHER SPECIFIED ABNORMAL FINDINGS OF BLOOD CHEMISTRY (3) ESRD (end stage renal disease) on dialysis Assessment/Plan: Hemodialysis per pharmacist critical care. Code(s): N18.6 - END STAGE RENAL DISEASE Z99.2 - DEPENDENCE ON RENAL DIALYSIS (4) Hypertension Assessment/Plan: on metoprolol and hydralazine. Code(s): I10 - ESSENTIAL (PRIMARY) HYPERTENSION (5) Pulmonary hypertension Assessment/Plan: severe pulmonary HTN by 02/11/2015 ECHO; normal LVEF. Code(s): I27.2 - OTHER SECONDARY PULMONARY HYPERTENSION (6) Anemia Code(s): D64.9 - ANEMIA, UNSPECIFIED Qualifiers: Other causes of anemia: acute posthemorrhagic (7) Leukocytosis Code(s): D72.829 - ELEVATED WHITE BLOOD CELL COUNT, UNSPECIFIED (8) Thyroid disease Code(s): E07.9 - DISORDER OF THYROID, UNSPECIFIED (9) Acute on chronic diastolic CHF (congestive heart failure) Code(s): I50.33 - ACUTE ON CHRONIC DIASTOLIC (CONGESTIVE) HEART FAILURE Bacteremia. repeated BC Pending if persistantly positive despite AVG removal will proceed with ASH CC time 35 min
--- NOTE | 2016-02-18 13:07 | PN ---
Teaching Attending Note Name of Resident: Romario Medina ATTENDING PHYSICIAN STATEMENT I saw and evaluated the patient. I reviewed the resident's note and discussed the case with the resident. I agree with the resident's findings and plan as documented. SUBJECTIVE: Pt seen and examined in the ICU. AVG removed yesterday. No fevers recorded. No shortness of breath or chest pain. OBJECTIVE: Last Vital Signs Temp Pulse Resp BP Pulse Ox 98.3 F 94 H 20 123/52 97 02/18/16 09:44 02/18/16 12:41 02/18/16 12:41 02/18/16 12:41 02/18/16 10:00 Intake & Output 02/15/16 02/16/16 02/17/16 02/18/16 23:59 23:59 23:59 23:59 Intake Total 1700 1020 2477 1020 Output Total 30 Balance 1700 1020 2447 1020 Weight 138 lb 1 oz 142 lb 139 lb 8 oz Gen: lethargic but arousable Heart: RRR Lung: decreased breath sounds at the bases Abd: soft, nontender Ext: +edema Sacrum: +vesicles CBC, BMP 02/18/16 05:15 02/18/16 05:15 Active Medications Acetaminophen (Tylenol -) 650 mg PO BID PRN PRN Reason: FEVER Acetaminophen (Tylenol Suppository -) 650 mg GA Q6H PRN PRN Reason: FEVER OR PAIN Bacitracin (Bacitracin -) 1 applic TP DAILY [facility] Last Admin: 02/18/16 09:57 Dose: 1 applic Fentanyl (Sublimaze Injection -) 50 mcg IVPUSH [id number] PRN PRN Reason: PAIN Stop: 02/20/16 09:23 Hydralazine HCl (Apresoline -) 25 mg PO TID [facility] Last Admin: 02/18/16 05:20 Dose: 25 mg Nafcillin Sodium 2 gm/ (Dextrose) 100 mls @ 100 mls/hr IVPB Q4H-IV [facility] Last Admin: 02/18/16 09:57 Dose: 100 mls/hr Pantoprazole Sodium (Protonix 40mg Ivpb (Pre-Docked)) 100 mls @ 200 mls/hr IVPB DAILY [facility] Last Admin: 02/18/16 09:03 Dose: 200 mls/hr Insulin Aspart (Novolog Vial Sliding Scale -) 1 vial SQ ACHS [facility] PRN Reason: Protocol Last Admin: 02/18/16 11:49 Dose: 6 units Methimazole (Tapazole -) 5 mg PO TID [facility] Last Admin: 02/18/16 05:20 Dose: 5 mg Metoprolol Succinate (Toprol Xl -) 25 mg PO DAILY [facility] Last Admin: 02/18/16 09:03 Dose: 25 mg Sevelamer Carbonate (Renvela -) 1,600 mg PO TIDCM [facility] Last Admin: 02/18/16 11:49 Dose: 1,600 mg ASSESSMENT AND PLAN: Staph Bacteremia from likely AVG infection Acute Blood Loss from AVG NSTEMI Altered Mental Status ESRD on HD Hyperkalemia resolved Pulmonary HTN HTN DM - continue vanco by level - f/u repeat blood cultures - HD per renal, hope to prolong catheter free days - aspiration precautions - DVT prophylaxis
--- NOTE | 2016-02-18 14:21 | PN ---
Physical Exam: SUBJECTIVE: Patient seen and examined at bedside.POD# 1 s/p removal of Left arm AVG. No overnight events. No new complaints. OBJECTIVE: Vital Signs Period Temp Pulse Resp BP Sys/Rangel Pulse Ox Last 24 Hr 98.2 F-98.8 F 61-103 12-24 87-133/39-54 99-100 GENERAL: The patient is lethargic but arousable. in no acute distress. HEAD: Normal with no signs of trauma. EYES: PERRL, decreased vision bilat. sclera anicteric, conjunctiva clear. No ptosis. ENT: Ears normal, nares patent,, moist mucous membranes. NECK: supple, thyromegally R side. Lungs: CTA bilaterally; no wheezes, rhonchi, rales Heart: Regular rate and rhythm, Systolic murmur noted, S1 and S2 present; no clicks or rubs Abdomen: Soft, nontender, nondistended, Extremities: LUE AVF removed bandaged with slight sangrinous breakthrough, pulses strong and intact throughout all four extremities, No edema, <2 cap refill in all four ext. Neuro: Lethargic but able to follow commands. Laboratory Results - last 24 hr 17 17 02/17/16 19:00 21:35 17:20 WBC RBC Hgb Hct MCV MCHC RDW Plt Count MPV Neutrophils % Lymphocytes % Monocytes % Eosinophils % Basophils % Sodium Potassium Chloride Carbon Dioxide Anion Gap BUN Creatinine POC Glucometer 222.32114 377.08966 290.78370 Random Glucose Calcium 02/17/16 02/18/16 02/18/16 21:00 05:15 05:15 WBC 15.2 H RBC 2.60 L Hgb 7.1 L D Hct 23.1 L MCV 89.1 MCHC 30.6 L RDW 16.6 H Plt Count 230 D MPV 8.0 Neutrophils % 87.4 H Lymphocytes % 7.2 L Monocytes % 4.3 Eosinophils % 0.7 Basophils % 0.4 Sodium 130 L Potassium 4.3 Chloride 90 L Carbon Dioxide 27 Anion Gap 13 BUN 52 H D Creatinine 3.8 H D POC Glucometer [phone] Random Glucose 162 H D Calcium 7.3 L 02/18/16 05:22 WBC RBC Hgb Hct MCV MCHC RDW Plt Count MPV Neutrophils % Lymphocytes % Monocytes % Eosinophils % Basophils % Sodium Potassium Chloride Carbon Dioxide Anion Gap BUN Creatinine POC Glucometer [phone] Random Glucose Calcium Active Medications Generic Name Dose Route Start Last Admin Trade Name Freq PRN Reason Stop Dose Admin Acetaminophen 650 mg 02/17/16 11:15 Tylenol - PO BID PRN FEVER Acetaminophen 650 mg 02/17/16 11:15 Tylenol Suppository - [place] Q6H PRN FEVER OR PAIN Bacitracin 1 applic 02/18/16 10:00 02/18/16 09:57 Bacitracin - TP 1 applic DAILY [facility] Administration Fentanyl 50 mcg 02/17/16 11:15 Sublimaze Injection - IVPUSH 02/20/16 09:23 [id number] PRN PAIN Hydralazine HCl 25 mg 02/17/16 14:00 02/18/16 13:10 Apresoline - PO 25 mg TID [facility]UC Administration Nafcillin Sodium 2 gm/ 100 mls @ 100 mls/hr 02/17/16 14:00 02/18/16 13:09 Dextrose IVPB 100 mls/hr Q4H-IV [facility] Administration Pantoprazole Sodium 100 mls @ 200 mls/hr 02/18/16 10:00 02/18/16 09:03 Protonix 40mg Ivpb (Pre-Docked) IVPB 200 mls/hr DAILY [facility] Administration Insulin Aspart 1 vial 02/17/16 16:30 02/18/16 11:49 Novolog Vial Sliding Scale - SQ 6 units ACHS DUC Administration Protocol Methimazole 5 mg 02/17/16 14:00 02/18/16 13:09 Tapazole - PO 5 mg TID [facility] Administration Metoprolol Succinate 25 mg 02/18/16 10:00 02/18/16 09:03 Toprol Xl - PO 25 mg DAILY [facility] Administration Sevelamer Carbonate 1,600 mg 02/17/16 12:00 02/18/16 11:49 Renvela - PO 1,600 mg TIDCM DUC Administration ASSESSMENT/PLAN: 75yo F with ESRD on dialysis with AMS and mechanical malformation of AVG. Received emergent dialysis (+) MSSA on repeat cultures. AVG removal scheduled today 02/17/16. Neuro: * Head CT w/wo contrast repeated (-) for acute pathology * Decreased vision;seen by Ophthalmology believed to be vitreous hemorrhage. recommends retinal specialist. * Cont. to monitor alongside neuro checks Pulmonary: * Cont. supplemetal O2 with 3L NC to maintain SpO2 >90% CV: * H/H dropped post op will transfuse 1 unit PRBC and give 80mg IV Lasix. * BP has been low ; meds held * Echo- shows normal LV size and function RVSP elevated 50-60 Renal: * HD as per Dr. Jones * will give day of rest and consider Permacath. ID: * Patient found to have vesicular rash in dermatomal pattern. Most likely shingles--> will start Vatrex 500mg daily (renally dosed) * MSSA bacteremia- from infected AVG to be removed 02/16/15 Dr. Reid * Continue Nafcillin * Repeat blood cultures pending. Endocrine: * Head/Neck US- Markedly enlarged and nodular thyroid gland as described above with no additional cervical masses or fluid collections. * Cont. ISS ACHS * Cont. BGM ACHS F/E/N * No IVF * HD done yesterday. lytes stable * resume regular diet DISPO: continue to monitor in ICU. Visit type - Emergency Visit Emergency Visit: Yes ED Registration Date: 02/10/16 Care time: The patient presented to the Emergency Department on the above date and was hospitalized for further evaluation of their emergent condition. - New Patient This patient is new to me today: No - Critical Care Critical Care patient: Yes Total Critical Care Time (in minutes): 33 Critical Care Statement: The care of this patient involved high complexity decision making to prevent further life threatening deterioration of the patient 's condition and/or to evalute & treat vital organ system(s) failure or risk of failure.
[2016-02-18] MEDS ORDERED: FUROSEMIDE 40 MG/4 ML INJECTABLE VIAL IVPB ONE (16:47)
[2016-02-18] MEDS: ACETAMINOPHEN 325 MG TABLET (FP) PO PRN (17:51)
[2016-02-18] MEDS ORDERED: HEMOQUE TEST 1 EACH EACH ONE (22:18)
[2016-02-19] MEDS ORDERED: PT OWN MED DRAWER 7, Y5N ONE ×4 (02:13→21:44)
[2016-02-19] MEDS: NAFCILLIN - 2 GM in DEXTROSE 5%-WATER - 100 ML IVPB SCH ×6 (02:27→21:55)
[2016-02-19 06:21] LABS: BASOPHIL 0.2 % (0-2.0); EOSINOPHIL 0.7 % (0-4.5); MCH 27.8 pg (25.7-33.7); MCHC 31.9 g/dl (32.0-36.0); NEUTROPHILS 88.9 % (42.8-82.8); PLATELET COUNT 270 K/MM3 (134-434); RDW 17.5 % (11.6-15.6); WHITE BLOOD COUNT 16.6 K/mm3 (4.0-10.0)
[2016-02-19] MEDS: METHIMAZOLE 5 MG TABLET (FP) PO SCH ×3 (06:35→21:55)
[2016-02-19] MEDS: hydrALAZINE HCL 25 MG TABLET (FP) PO SCH ×3 (06:35→21:55)
[2016-02-19] MEDS: INSULIN SLIDING SCALE (NOVOLOG) 1 VIAL SQ SCH ×4 (06:36→22:01)
[2016-02-19] MEDS: SEVELAMER CARBONATE 800 MG TAB (FP) PO SCH ×3 (08:37→17:26)
[2016-02-19 08:40] LABS: ALBUMIN 1.6 g/dl (3.4-5.0); BILIRUBIN,TOTAL 2.4 mg/dL (0.2-1.0); CALCIUM 7.4 mg/dL (8.5-10.1); CREATININE 4.6 mg/dL (0.55-1.02); MAGNESIUM 2.1 mg/dL (1.8-2.4); PHOSPHOROUS 5.5 mg/dL (2.5-4.9); TOT PROT 5.9 g/dl (6.4-8.2)
--- NOTE | 2016-02-19 09:23 | PN ---
Progress Note, Physician Chief Complaint: awake, opens eyes to name no complaints s/p AVG removal no dialysis access - Current Medication List Current Medications: Active Medications Acetaminophen (Tylenol -) 650 mg PO BID PRN PRN Reason: FEVER Last Admin: 02/18/16 17:51 Dose: 650 mg Acetaminophen (Tylenol Suppository -) 650 mg [place] Q6H PRN PRN Reason: FEVER OR PAIN Bacitracin (Bacitracin -) 1 applic TP DAILY [facility] Last Admin: 02/18/16 09:57 Dose: 1 applic Hydralazine HCl (Apresoline -) 25 mg PO TID [facility] Last Admin: 02/19/16 06:35 Dose: 25 mg Nafcillin Sodium 2 gm/ (Dextrose) 100 mls @ 100 mls/hr IVPB Q4H-IV [facility] Last Admin: 02/19/16 06:34 Dose: 100 mls/hr Pantoprazole Sodium (Protonix 40mg Ivpb (Pre-Docked)) 100 mls @ 200 mls/hr IVPB DAILY [facility] Last Admin: 02/18/16 09:03 Dose: 200 mls/hr Insulin Aspart (Novolog Vial Sliding Scale -) 1 vial SQ ACHS [facility] PRN Reason: Protocol Last Admin: 02/19/16 06:36 Dose: 2 units Methimazole (Tapazole -) 5 mg PO TID [facility] Last Admin: 02/19/16 06:35 Dose: 5 mg Metoprolol Succinate (Toprol Xl -) 25 mg PO DAILY [facility] Last Admin: 02/18/16 09:03 Dose: 25 mg Sevelamer Carbonate (Renvela -) 1,600 mg PO TIDCM [facility] Last Admin: 02/19/16 08:37 Dose: 1,600 mg Valacyclovir HCl (Valtrex -) 500 mg PO DAILY [facility] - Objective Vital Signs: Vital Signs Temperature 98.2 F 02/19/16 06:00 Pulse Rate 82 02/19/16 08:00 Respiratory Rate 16 02/19/16 08:00 Blood Pressure 122/47 02/19/16 08:00 O2 Sat by Pulse Oximetry (%) 97 02/18/16 19:14 Constitutional: Yes: No Distress Cardiovascular: Yes: Regular Rate and Rhythm, Murmur Respiratory: Yes: Diminished Gastrointestinal: Yes: Normal Bowel Sounds, Soft. No: Distention, Tenderness Extremities: Yes: Other (arm edema B/L) Edema: Yes Psychiatric: Yes: Alert Labs: CBC, BMP 02/19/16 05:05 02/19/16 05:05 INR, PTT INR 1.04 (0.82-1.09) 02/17/16 05:00 Problem List - Problems (1) Altered mental status, unspecified Code(s): R41.82 - ALTERED MENTAL STATUS, UNSPECIFIED Qualifiers: Altered mental status type: unspecified Qualified Code(s): R41.82 - Altered mental status, unspecified (2) Dialysis AV fistula malfunction Code(s): T82.590A - [facility] COMPL OF SURGICALLY CREATED ARTERIOVENOUS FISTULA, INIT Qualifiers: Encounter type: initial encounter Qualified Code(s): T82.590A - Other mechanical complication of surgically created arteriovenous fistula, initial encounter (3) Elevated troponin Code(s): R79.89 - OTHER SPECIFIED ABNORMAL FINDINGS OF BLOOD CHEMISTRY (4) Thrombosis of surgically created arteriovenous fistula Code(s): T82.868A - THROMBOSIS DUE TO VASCULAR PROSTH DEV/GRFT, INIT (5) ESRD (end stage renal disease) on dialysis Code(s): N18.6 - END STAGE RENAL DISEASE Z99.2 - DEPENDENCE ON RENAL DIALYSIS (6) Diabetes mellitus Code(s): E11.9 - TYPE 2 DIABETES MELLITUS WITHOUT COMPLICATIONS Qualifiers: Diabetes mellitus type: type 2 Diabetes mellitus complication status: without complication (7) Bacteremia Code(s): R78.81 - BACTEREMIA (8) Arteriovenous graft infection Code(s): T82.7XXA - INFECT/INFLM REACT D/T OTH CARDI/VASC DEV/IMPLNT/GRFT, INIT Qualifiers: Encounter type: subsequent encounter Qualified Code(s): T82.7XXD - Infection and inflammatory reaction due to other cardiac and vascular devices, implants and grafts, subsequent encounter (9) Zoster Code(s): B02.9 - ZOSTER WITHOUT COMPLICATIONS Assessment/Plan PLAN s/p removal of AVG repeat blood cultures negative IV antibiotics per ID spoke with vascular-- will hold off access placement today and may place femoral shiley tomorrow and then she will get dialysis continue with meds s/p PRBC denies any chest pain ,SOB will need stress test once stable valtrex for zoster SCD for DVT prophylaxis CC time 35 min
[2016-02-19] MEDS: PANTOPRAZOLE SODIUM 100 ML IVPB SCH (09:37)
[2016-02-19] MEDS: METOPROLOL SUCCINATE 25 MG TAB.SR.24H (FP) PO SCH (09:38)
[2016-02-19] MEDS: BACITRACIN 30 GM TUBE TOPICAL OINTMENT TP SCH (09:39)
[2016-02-19] MEDS: valACYclovir HCL 500 MG TABLET (FP) PO SCH (09:53)
--- NOTE | 2016-02-19 10:17 | PN ---
Progress Note, Physician History of Present Illness: Awake but lethargic No complaints No chest pain/ dyspnea No c/o fever/ chills Low grade temp WBC elevated - Current Medication List Current Medications: Active Medications Acetaminophen (Tylenol -) 650 mg PO BID PRN PRN Reason: FEVER Last Admin: 02/18/16 17:51 Dose: 650 mg Acetaminophen (Tylenol Suppository -) 650 mg IN Q6H PRN PRN Reason: FEVER OR PAIN Bacitracin (Bacitracin -) 1 applic TP DAILY [facility] Last Admin: 02/19/16 09:39 Dose: 1 applic Hydralazine HCl (Apresoline -) 25 mg PO TID [facility] Last Admin: 02/19/16 06:35 Dose: 25 mg Nafcillin Sodium 2 gm/ (Dextrose) 100 mls @ 100 mls/hr IVPB Q4H-IV [facility] Last Admin: 02/19/16 09:38 Dose: 100 mls/hr Pantoprazole Sodium (Protonix 40mg Ivpb (Pre-Docked)) 100 mls @ 200 mls/hr IVPB DAILY [facility] Last Admin: 02/19/16 09:37 Dose: 200 mls/hr Insulin Aspart (Novolog Vial Sliding Scale -) 1 vial SQ ACHS [facility] PRN Reason: Protocol Last Admin: 02/19/16 06:36 Dose: 2 units Methimazole (Tapazole -) 5 mg PO TID [facility] Last Admin: 02/19/16 06:35 Dose: 5 mg Metoprolol Succinate (Toprol Xl -) 25 mg PO DAILY [facility] Last Admin: 02/19/16 09:38 Dose: 25 mg Sevelamer Carbonate (Renvela -) 1,600 mg PO TIDCM [facility] Last Admin: 02/19/16 08:37 Dose: 1,600 mg Valacyclovir HCl (Valtrex -) 500 mg PO DAILY [facility] Last Admin: 02/19/16 09:53 Dose: 500 mg - Objective Vital Signs: Vital Signs Temperature 98 F 02/19/16 10:00 Pulse Rate 88 02/19/16 10:00 Respiratory Rate 16 02/19/16 10:00 Blood Pressure 134/56 02/19/16 10:00 O2 Sat by Pulse Oximetry (%) 96 02/19/16 10:08 Constitutional: Yes: No Distress Eyes: Yes: Conjunctiva Clear Cardiovascular: Yes: Regular Rate and Rhythm, S1, S2 Respiratory: Yes: Diminished Gastrointestinal: Yes: Normal Bowel Sounds, Soft. No: Tenderness Edema: LLE: 1+, RLE: 1+ Integumentary: Yes: Other (few papular lesions, sacral area) Labs: CBC, BMP 02/19/16 05:05 02/19/16 05:05 INR, PTT INR 1.04 (0.82-1.09) 02/17/16 05:00 Assessment/Plan MSSA bacteremia , possible endocarditis ESRD S/P excision infected L AVG VZV Check repeat blood c/s Continue nafcillin Continue valtrex, adjusted for renal failure
--- NOTE | 2016-02-19 10:46 | PN ---
Progress Note (short form) - Note Progress Note: Vascular Surgery Pt seen and examined. Will place permacath in am. NPO past midnite. True Reid DO
--- NOTE | 2016-02-19 11:36 | PN ---
Progress Note (short form) - Note Progress Note: Neurology 75-year-old female presented to the ED initally for evaluation of bleeding left AV fistula. As per notes, she went to dialysis, they were unable to access her fistula and then it began to bleed. Neurologically, she reports vision loss which has been ongoing with macular degeneration but reports acute vision loss superimposed on this since being admitted. CT head completed and without acute changes. Ordered MRI brain and optic nerves but limitation due to amauri in L antecubidal region. Patient was to have amauri removed and sutures placed in order to have imaging. Patient also with shingles of lower back, getting treatment. Active Medications Acetaminophen (Tylenol -) 650 mg PO BID PRN PRN Reason: FEVER Last Admin: 02/18/16 17:51 Dose: 650 mg Acetaminophen (Tylenol Suppository -) 650 mg DC Q6H PRN PRN Reason: FEVER OR PAIN Bacitracin (Bacitracin -) 1 applic TP DAILY [facility] Last Admin: 02/19/16 09:39 Dose: 1 applic Hydralazine HCl (Apresoline -) 25 mg PO TID [facility] Last Admin: 02/19/16 06:35 Dose: 25 mg Nafcillin Sodium 2 gm/ (Dextrose) 100 mls @ 100 mls/hr IVPB Q4H-IV [facility] Last Admin: 02/19/16 09:38 Dose: 100 mls/hr Pantoprazole Sodium (Protonix 40mg Ivpb (Pre-Docked)) 100 mls @ 200 mls/hr IVPB DAILY [facility] Last Admin: 02/19/16 09:37 Dose: 200 mls/hr Insulin Aspart (Novolog Vial Sliding Scale -) 1 vial SQ ACHS [facility] PRN Reason: Protocol Last Admin: 02/19/16 06:36 Dose: 2 units Methimazole (Tapazole -) 5 mg PO TID [facility] Last Admin: 02/19/16 06:35 Dose: 5 mg Metoprolol Succinate (Toprol Xl -) 25 mg PO DAILY [facility] Last Admin: 02/19/16 09:38 Dose: 25 mg Sevelamer Carbonate (Renvela -) 1,600 mg PO TIDCM [facility] Last Admin: 02/19/16 08:37 Dose: 1,600 mg Valacyclovir HCl (Valtrex -) 500 mg PO DAILY [facility] Last Admin: 02/19/16 09:53 Dose: 500 mg *Physical Exam Vital Signs Temperature 98 F 02/19/16 10:00 Pulse Rate 88 02/19/16 10:00 Respiratory Rate 16 02/19/16 10:00 Blood Pressure 134/56 02/19/16 10:00 O2 Sat by Pulse Oximetry (%) 96 02/19/16 10:08 - Physical Exam General Appearance: Yes: Nourished, Appropriately Dressed. No: Apparent Distress HEENT: positive: EOMI, ZACARIAS, Pharynx Normal (dry). negative: Pale Conjunctivae Neck: positive: Supple Respiratory/Chest: positive: Lungs Clear, Normal Breath Sounds. negative: Respiratory Distress, Accessory Muscle Use Cardiovascular: positive: Regular Rhythm. negative: Murmur, Bradycardia Gastrointestinal/Abdominal: positive: Soft. negative: Tenderness Extremity: positive: Normal Capillary Refill. negative: Pedal Edema Integumentary: positive: Normal Color, Dry, Warm Neurologic: Alert, awake, slow movements, pupil equal and reactive, EOMI, Sensory intact, Strength equal b/l CBCD WBC 16.6 K/mm3 (4.0-10.0) H 02/19/16 05:05 RBC 3.07 M/mm3 (3.60-5.2) L 02/19/16 05:05 Hgb 8.5 GM/dL (10.7-15.3) L D 02/19/16 05:05 Hct 26.7 % (32.4-45.2) L D 02/19/16 05:05 MCV 87.0 fl (80-96) 02/19/16 05:05 MCHC 31.9 g/dl (32.0-36.0) L 02/19/16 05:05 RDW 17.5 % (11.6-15.6) H 02/19/16 05:05 Plt Count 270 K/MM3 (134-434) 02/19/16 05:05 MPV 8.0 fl (7.5-11.1) 02/19/16 05:05 CMP Sodium 128 mmol/L (136-145) L 02/19/16 05:05 Potassium 4.8 mmol/L (3.5-5.1) 02/19/16 05:05 Chloride 90 mmol/L (98-107) L 02/19/16 05:05 Carbon Dioxide 25 mmol/L (21-32) 02/19/16 05:05 Anion Gap 13 (8-16) 02/19/16 05:05 BUN 71 mg/dL (7-18) H D 02/19/16 05:05 Creatinine 4.6 mg/dL (0.55-1.02) H D 02/19/16 05:05 Creat Clearance w eGFR 9.34 (>60) 02/19/16 05:05 Calcium 7.4 mg/dL (8.5-10.1) L 02/19/16 05:05 Total Bilirubin 2.4 mg/dL (0.2-1.0) H 02/19/16 05:05 AST 17 U/L (15-37) 02/19/16 05:05 ALT 12 U/L (12-78) 02/19/16 05:05 Alkaline Phosphatase 92 U/L (45-117) 02/19/16 05:05 Total Protein 5.9 g/dl (6.4-8.2) L 02/19/16 05:05 Albumin 1.6 g/dl (3.4-5.0) L 02/19/16 05:05 CT head reviewed Medical Decision Making 75-year-old female presented to the ED initally for evaluation of bleeding left AV fistula. As per notes, she went to dialysis, they were unable to access her fistula and then it began to bleed. Neurologically, she reports vision loss which has been ongoing with macular degeneration but reports acute vision loss superimposed on this since being admitted. CT head completed and without acute changes. Ordered MRI brain and optic nerves but limitation due to amauri in L antecubidal region. Patient was to have amauri removed and sutures placed in order to have imaging. Patient also with shingles of lower back, getting treatment.
--- NOTE | 2016-02-19 12:40 | PN ---
Progress Note, Physician History of Present Illness: Pt seen and examined at bedside. She is more awake and alert today. She denies shortness of breath. - Current Medication List Current Medications: Active Medications Acetaminophen (Tylenol -) 650 mg PO BID PRN PRN Reason: FEVER Last Admin: 02/18/16 17:51 Dose: 650 mg Acetaminophen (Tylenol Suppository -) 650 mg [place] Q6H PRN PRN Reason: FEVER OR PAIN Bacitracin (Bacitracin -) 1 applic TP DAILY [facility] Last Admin: 02/19/16 09:39 Dose: 1 applic Hydralazine HCl (Apresoline -) 25 mg PO TID [facility] Last Admin: 02/19/16 06:35 Dose: 25 mg Nafcillin Sodium 2 gm/ (Dextrose) 100 mls @ 100 mls/hr IVPB Q4H-IV [facility] Last Admin: 02/19/16 09:38 Dose: 100 mls/hr Pantoprazole Sodium (Protonix 40mg Ivpb (Pre-Docked)) 100 mls @ 200 mls/hr IVPB DAILY [facility] Last Admin: 02/19/16 09:37 Dose: 200 mls/hr Insulin Aspart (Novolog Vial Sliding Scale -) 1 vial SQ ACHS DUC PRN Reason: Protocol Last Admin: 02/19/16 11:57 Dose: 2 units Methimazole (Tapazole -) 5 mg PO TID [facility] Last Admin: 02/19/16 06:35 Dose: 5 mg Metoprolol Succinate (Toprol Xl -) 25 mg PO DAILY [facility] Last Admin: 02/19/16 09:38 Dose: 25 mg Sevelamer Carbonate (Renvela -) 1,600 mg PO TIDCM [facility] Last Admin: 02/19/16 11:59 Dose: 1,600 mg Valacyclovir HCl (Valtrex -) 500 mg PO DAILY [facility] Last Admin: 02/19/16 09:53 Dose: 500 mg - Objective Vital Signs: Vital Signs Temperature 98 F 02/19/16 10:00 Pulse Rate 78 02/19/16 12:00 Respiratory Rate 16 02/19/16 12:00 Blood Pressure 127/57 02/19/16 12:00 O2 Sat by Pulse Oximetry (%) 96 02/19/16 10:08 Constitutional: Yes: Calm Eyes: Yes: Conjunctiva Clear HENT: Yes: Atraumatic Cardiovascular: Yes: S1, S2 Respiratory: Yes: CTA Bilaterally, On Nasal O2 Gastrointestinal: Yes: Soft Genitourinary: Yes: Incontinence Musculoskeletal: Yes: Muscle Weakness Edema: LUE: Trace, RUE: Trace, LLE: Trace, RLE: Trace Neurological: Yes: Oriented, Other (pt says she can see shadows today) Psychiatric: Yes: Oriented Labs: CBC, BMP 02/19/16 05:05 02/19/16 05:05 INR, PTT INR 1.04 (0.82-1.09) 02/17/16 05:00 Problem List - Problems (1) Altered mental status, unspecified Code(s): R41.82 - ALTERED MENTAL STATUS, UNSPECIFIED Qualifiers: Altered mental status type: unspecified Qualified Code(s): R41.82 - Altered mental status, unspecified (2) Dialysis AV fistula malfunction Code(s): T82.590A - [facility] COMPL OF SURGICALLY CREATED ARTERIOVENOUS FISTULA, INIT Qualifiers: Encounter type: initial encounter Qualified Code(s): T82.590A - Other mechanical complication of surgically created arteriovenous fistula, initial encounter (3) Elevated troponin Code(s): R79.89 - OTHER SPECIFIED ABNORMAL FINDINGS OF BLOOD CHEMISTRY (4) ESRD (end stage renal disease) on dialysis Code(s): N18.6 - END STAGE RENAL DISEASE Z99.2 - DEPENDENCE ON RENAL DIALYSIS (5) Anemia Code(s): D64.9 - ANEMIA, UNSPECIFIED Qualifiers: Other causes of anemia: acute posthemorrhagic (6) Hypertension Code(s): I10 - ESSENTIAL (PRIMARY) HYPERTENSION Assessment/Plan Current Medications Generic Name Dose Route Start Last Admin Trade Name Freq PRN Reason Stop Dose Admin Acetaminophen 650 mg 02/17/16 11:15 02/18/16 17:51 Tylenol - PO 650 mg BID PRN Administration FEVER Acetaminophen 650 mg 02/17/16 11:15 Tylenol Suppository - FL Q6H PRN FEVER OR PAIN Bacitracin 1 applic 02/18/16 10:00 02/19/16 09:39 Bacitracin - TP 1 applic DAILY DUC Administration Hydralazine HCl 25 mg 02/17/16 14:00 02/19/16 06:35 Apresoline - PO 25 mg TID DUC Administration Nafcillin Sodium 2 gm/ 100 mls @ 100 mls/hr 02/17/16 14:00 02/19/16 09:38 Dextrose IVPB 100 mls/hr Q4H-IV DUC Administration Pantoprazole Sodium 100 mls @ 200 mls/hr 02/18/16 10:00 02/19/16 09:37 Protonix 40mg Ivpb (Pre-Docked) IVPB 200 mls/hr DAILY DUC Administration Insulin Aspart 1 vial 02/17/16 16:30 02/19/16 11:57 Novolog Vial Sliding Scale - SQ 2 units ACHS DUC Administration Protocol Methimazole 5 mg 02/17/16 14:00 02/19/16 06:35 Tapazole - PO 5 mg TID DUC Administration Metoprolol Succinate 25 mg 02/18/16 10:00 02/19/16 09:38 Toprol Xl - PO 25 mg DAILY DUC Administration Sevelamer Carbonate 1,600 mg 02/17/16 12:00 02/19/16 11:59 Renvela - PO 1,600 mg TIDCM DUC Administration Valacyclovir HCl 500 mg 02/19/16 10:00 02/19/16 09:53 Valtrex - PO 500 mg DAILY DUC Administration Impression 1. ESRD 2. av access malfunction 3. hyperkalemia 4. CHF 5. DM 6. HTN 7. anemia 8. depression 9. hyperlipidemia 10. leukocytosis 11. NSTEMI 12. bacteremia Plan - continue to monitor blood cultures - keep on antibiotics - will place [facility] for HD tomorrow - permacath next week - discussed with vascular - discussed with ID and ICU team - cont to monitor for fevers and chills - monitor pulse ox - cxr reviewed - will keep pt catheter free for now - ophtho eval - discussed with neuro, pt will need MRI - monitor pulse ox Dr Jones
--- NOTE | 2016-02-19 15:20 | PN ---
Teaching Attending Note Name of Resident: Romario Medina ATTENDING PHYSICIAN STATEMENT I saw and evaluated the patient. I reviewed the resident's note and discussed the case with the resident. I agree with the resident's findings and plan as documented. SUBJECTIVE: Patient seen and examined in the ICU. Awake and alert. No fevers recorded. Denies shortness of breath or chest pain. Some improvement in her vision. Intake & Output 02/16/16 02/17/16 02/18/16 02/19/16 23:59 23:59 23:59 23:59 Intake Total 1020 2477 2650 250 Output Total 30 Balance 1020 2447 2650 250 Weight 142 lb 139 lb 8 oz 147 lb Last Vital Signs Temp Pulse Resp BP Pulse Ox 98.2 F 80 16 114/60 96 02/19/16 13:17 02/19/16 13:17 02/19/16 13:17 02/19/16 13:17 02/19/16 10:08 Active Medications Acetaminophen (Tylenol -) 650 mg PO BID PRN PRN Reason: FEVER Last Admin: 02/18/16 17:51 Dose: 650 mg Acetaminophen (Tylenol Suppository -) 650 mg [place] Q6H PRN PRN Reason: FEVER OR PAIN Bacitracin (Bacitracin -) 1 applic TP DAILY [facility] Last Admin: 02/19/16 09:39 Dose: 1 applic Epoetin Jakob (Epogen -) 8,000 units IVPUSH ONCE ONE Stop: 02/20/16 12:41 Hydralazine HCl (Apresoline -) 25 mg PO TID [facility] Last Admin: 02/19/16 13:11 Dose: 25 mg Nafcillin Sodium 2 gm/ (Dextrose) 100 mls @ 100 mls/hr IVPB Q4H-IV [facility] Last Admin: 02/19/16 13:11 Dose: 100 mls/hr Pantoprazole Sodium (Protonix 40mg Ivpb (Pre-Docked)) 100 mls @ 200 mls/hr IVPB DAILY [facility] Last Admin: 02/19/16 09:37 Dose: 200 mls/hr Insulin Aspart (Novolog Vial Sliding Scale -) 1 vial SQ ACHS DUC PRN Reason: Protocol Last Admin: 02/19/16 11:57 Dose: 2 units Methimazole (Tapazole -) 5 mg PO TID [facility] Last Admin: 02/19/16 13:11 Dose: 5 mg Metoprolol Succinate (Toprol Xl -) 25 mg PO DAILY [facility] Last Admin: 02/19/16 09:38 Dose: 25 mg Sevelamer Carbonate (Renvela -) 1,600 mg PO TIDCM [facility] Last Admin: 02/19/16 11:59 Dose: 1,600 mg Valacyclovir HCl (Valtrex -) 500 mg PO DAILY [facility] Last Admin: 02/19/16 09:53 Dose: 500 mg Gen: Awake and responsive Heart: RRR Lung: decreased breath sounds at the bases Abd: soft, nontender Ext: +edema Sacrum: +vesicles Laboratory Results - last 24 hr 02/18/16 02/18/16 02/19/16 14:30 17:29 05:05 WBC 16.6 H RBC 3.07 L Hgb 8.5 L D Hct 26.7 L D MCV 87.0 MCHC 31.9 L RDW 17.5 H Plt Count 270 MPV 8.0 Neutrophils % 88.9 H Lymphocytes % 4.8 L D Monocytes % 5.4 Eosinophils % 0.7 Basophils % 0.2 Sodium Potassium Chloride Carbon Dioxide Anion Gap BUN Creatinine Creat Clearance w eGFR POC Glucometer [phone] Random Glucose Calcium Phosphorus Magnesium Total Bilirubin AST ALT Alkaline Phosphatase Total Protein Albumin Blood Type A POSITIVE Antibody Screen Negative Crossmatch See Detail 02/19/16 05:05 WBC RBC Hgb Hct MCV MCHC RDW Plt Count MPV Neutrophils % Lymphocytes % Monocytes % Eosinophils % Basophils % Sodium 128 L Potassium 4.8 Chloride 90 L Carbon Dioxide 25 Anion Gap 13 BUN 71 H D Creatinine 4.6 H D Creat Clearance w eGFR 9.34 POC Glucometer Random Glucose 112 H D Calcium 7.4 L Phosphorus 5.5 H D Magnesium 2.1 Total Bilirubin 2.4 H AST 17 ALT 12 Alkaline Phosphatase 92 Total Protein 5.9 L Albumin 1.6 L Blood Type Antibody Screen Crossmatch ASSESSMENT AND PLAN: Staph Bacteremia from likely AVG infection Acute Blood Loss from AVG NSTEMI Altered Mental Status ESRD on HD Hyperkalemia resolved Pulmonary HTN HTN DM - continue vanco by level - f/u repeat blood cultures - HD per renal, hope to prolong catheter free days - aspiration precautions - DVT prophylaxis Dr Pryor CCTime 35"
--- NOTE | 2016-02-19 16:06 | PN ---
Physical Exam: SUBJECTIVE: Patient seen and examined at bedside. POD#2 s/p removal of left arm AVG. No overnight events. No new complaints. Denies CP, PIÑA, SOB, palpitations. OBJECTIVE: Vital Signs Period Temp Pulse Resp BP Sys/Rangel Pulse Ox Last 24 Hr 98 F-100.2 F 78-94 14-23 114-143/47-60 96-97 GENERAL: The patient is lethargic but arousable. in no acute distress. HEAD: Normal with no signs of trauma. EYES: PERRL, decreased vision bilat. sclera anicteric, conjunctiva clear. No ptosis. ENT: Ears normal, nares patent,, moist mucous membranes. NECK: supple, thyromegally R side. Lungs: CTA bilaterally; no wheezes, rhonchi, rales Heart: Regular rate and rhythm, Systolic murmur noted, S1 and S2 present; no clicks or rubs Abdomen: Soft, nontender, nondistended, Extremities: LUE AVF removed bandaged with slight sangrinous breakthrough, pulses strong and intact throughout all four extremities, No edema, <2 cap refill in all four ext. Neuro: Lethargic but able to follow commands. Laboratory Results - last 24 hr 02/18/16 02/18/16 02/19/16 14:30 17:29 05:05 WBC 16.6 H RBC 3.07 L Hgb 8.5 L D Hct 26.7 L D MCV 87.0 MCHC 31.9 L RDW 17.5 H Plt Count 270 MPV 8.0 Neutrophils % 88.9 H Lymphocytes % 4.8 L D Monocytes % 5.4 Eosinophils % 0.7 Basophils % 0.2 Sodium Potassium Chloride Carbon Dioxide Anion Gap BUN Creatinine Creat Clearance w eGFR POC Glucometer [phone] Random Glucose Calcium Phosphorus Magnesium Total Bilirubin AST ALT Alkaline Phosphatase Total Protein Albumin Blood Type A POSITIVE Antibody Screen Negative Crossmatch See Detail 02/19/16 05:05 WBC RBC Hgb Hct MCV MCHC RDW Plt Count MPV Neutrophils % Lymphocytes % Monocytes % Eosinophils % Basophils % Sodium 128 L Potassium 4.8 Chloride 90 L Carbon Dioxide 25 Anion Gap 13 BUN 71 H D Creatinine 4.6 H D Creat Clearance w eGFR 9.34 POC Glucometer Random Glucose 112 H D Calcium 7.4 L Phosphorus 5.5 H D Magnesium 2.1 Total Bilirubin 2.4 H AST 17 ALT 12 Alkaline Phosphatase 92 Total Protein 5.9 L Albumin 1.6 L Blood Type Antibody Screen Crossmatch Active Medications Generic Name Dose Route Start Last Admin Trade Name Freq PRN Reason Stop Dose Admin Acetaminophen 650 mg 02/17/16 11:15 02/18/16 17:51 Tylenol - PO 650 mg BID PRN Administration FEVER Acetaminophen 650 mg 02/17/16 11:15 Tylenol Suppository - [place] Q6H PRN FEVER OR PAIN Bacitracin 1 applic 02/18/16 10:00 02/19/16 09:39 Bacitracin - TP 1 applic DAILY DUC Administration Epoetin Jakob 8,000 units 02/20/16 12:40 Epogen - IVPUSH 02/20/16 12:41 ONCE ONE Hydralazine HCl 25 mg 02/17/16 14:00 02/19/16 13:11 Apresoline - PO 25 mg TID DUC Administration Nafcillin Sodium 2 gm/ 100 mls @ 100 mls/hr 02/17/16 14:00 02/19/16 13:11 Dextrose IVPB 100 mls/hr Q4H-IV DUC Administration Pantoprazole Sodium 100 mls @ 200 mls/hr 02/18/16 10:00 02/19/16 09:37 Protonix 40mg Ivpb (Pre-Docked) IVPB 200 mls/hr DAILY DUC Administration Insulin Aspart 1 vial 02/17/16 16:30 02/19/16 11:57 Novolog Vial Sliding Scale - SQ 2 units ACHS DUC Administration Protocol Methimazole 5 mg 02/17/16 14:00 02/19/16 13:11 Tapazole - PO 5 mg TID DUC Administration Metoprolol Succinate 25 mg 02/18/16 10:00 02/19/16 09:38 Toprol Xl - PO 25 mg DAILY DUC Administration Sevelamer Carbonate 1,600 mg 02/17/16 12:00 02/19/16 11:59 Renvela - PO 1,600 mg TIDCM DUC Administration Valacyclovir HCl 500 mg 02/19/16 10:00 02/19/16 09:53 Valtrex - PO 500 mg DAILY DUC Administration ASSESSMENT/PLAN: 75yo F with ESRD on dialysis with AMS and mechanical malformation of AVG. Received emergent dialysis (+) MSSA on repeat cultures. AVG removal scheduled today 02/17/16. Neuro: * Neurologically stable. * No change in mental status. Pulmonary: * Cont. supplemetal O2 with 3L NC to maintain SpO2 >90% CV: * H/H WNL transfused 1 unit PRBC and give 80mg IV Lasix with appropriate response. * BP has been low ; meds held * Echo- shows normal LV size and function RVSP elevated 50-60 Renal: * HD tomorrow as per Dr. Jones * will place Access tomorrow ID: * Continue Vatrex 500mg daily (renally dosed) * Continue Nafcillin for MSSA bacteremia * Repeat blood cultures show no growth in 48hrs. Endocrine: * Head/Neck US- Markedly enlarged and nodular thyroid gland as described above with no additional cervical masses or fluid collections. * Cont. ISS ACHS * Cont. BGM ACHS F/E/N * No IVF * HD for tomorrow. Repeat labs in AM * Renal diet Visit type - Emergency Visit Emergency Visit: Yes ED Registration Date: 02/10/16 Care time: The patient presented to the Emergency Department on the above date and was hospitalized for further evaluation of their emergent condition. - New Patient This patient is new to me today: No - Critical Care Critical Care patient: Yes Total Critical Care Time (in minutes): 31 Critical Care Statement: The care of this patient involved high complexity decision making to prevent further life threatening deterioration of the patient 's condition and/or to evalute & treat vital organ system(s) failure or risk of failure.
[2016-02-20] MEDS: ACETAMINOPHEN 325 MG TABLET (FP) PO PRN ×2 (02:01→16:34)
[2016-02-20] MEDS: NAFCILLIN - 2 GM in DEXTROSE 5%-WATER - 100 ML IVPB SCH ×6 (02:01→21:25)
--- NOTE | 2016-02-20 02:15 | PN ---
Progress Note, Physician Chief Complaint: Pt alert; denies chest pain or dyspnea. History of Present Illness: 75-year-old white female presents to the ED for evaluation of bleeding left AV fistula. As per pt she had dialysis but has not been feeling well and today when she went to dialysis they were unable to access her fistula and then it began to bleed. Patient states has not been feeling well over the past few days describing nausea myalgia, and decreased appetite. Patient denies headache, throat pain, chest pain or shortness of breath. Patient with history of ESRD-->hemodialysis 3x/week, anemia, CVA, CHF, dementia, diabetes, hypertension, dyslipidemia, "shingles", and thyroid disease. - Current Medication List Current Medications: Active Medications Acetaminophen (Tylenol -) 650 mg PO BID PRN PRN Reason: FEVER Last Admin: 02/20/16 02:01 Dose: 650 mg Acetaminophen (Tylenol Suppository -) 650 mg [place] Q6H PRN PRN Reason: FEVER OR PAIN Bacitracin (Bacitracin -) 1 applic TP DAILY [facility] Last Admin: 02/19/16 09:39 Dose: 1 applic Epoetin Jakob (Epogen -) 8,000 units IVPUSH ONCE ONE Stop: 02/20/16 12:41 Hydralazine HCl (Apresoline -) 25 mg PO TID [facility] Last Admin: 02/19/16 21:55 Dose: 25 mg Nafcillin Sodium 2 gm/ (Dextrose) 100 mls @ 100 mls/hr IVPB Q4H-IV [facility] Last Admin: 02/20/16 02:01 Dose: 100 mls/hr Pantoprazole Sodium (Protonix 40mg Ivpb (Pre-Docked)) 100 mls @ 200 mls/hr IVPB DAILY [facility] Last Admin: 02/19/16 09:37 Dose: 200 mls/hr Insulin Aspart (Novolog Vial Sliding Scale -) 1 vial SQ ACHS DUC PRN Reason: Protocol Last Admin: 02/19/16 22:01 Dose: 2 units Methimazole (Tapazole -) 5 mg PO TID [facility] Last Admin: 02/19/16 21:55 Dose: 5 mg Metoprolol Succinate (Toprol Xl -) 25 mg PO DAILY [facility] Last Admin: 02/19/16 09:38 Dose: 25 mg Sevelamer Carbonate (Renvela -) 1,600 mg PO TIDCM [facility] Last Admin: 02/19/16 17:26 Dose: 1,600 mg Valacyclovir HCl (Valtrex -) 500 mg PO DAILY [facility] Last Admin: 02/19/16 09:53 Dose: 500 mg - Objective Vital Signs: Vital Signs Temperature 97.6 F 02/19/16 22:00 Pulse Rate 77 02/20/16 00:00 Respiratory Rate 19 02/20/16 00:00 Blood Pressure 146/56 02/20/16 00:00 O2 Sat by Pulse Oximetry (%) 100 02/19/16 21:00 Constitutional: Yes: Calm Eyes: Yes: WNL HENT: Yes: WNL Neck: Yes: WNL Cardiovascular: Yes: Regular Rate and Rhythm, S1 (split) Respiratory: Yes: Regular, Rales Gastrointestinal: Yes: Soft ...Rectal Exam: Yes: Deferred Genitourinary: No: Anuria Breast(s): Yes: WNL Musculoskeletal: Yes: Muscle Weakness Extremities: Yes: Cool Edema: No Peripheral Pulses WNL: Yes Integumentary: Yes: Incision Neurological: Yes: Alert, Oriented, Weakness Psychiatric: Yes: Alert, Oriented Labs: CBC, BMP 02/19/16 05:05 02/19/16 05:05 INR, PTT INR 1.04 (0.82-1.09) 02/17/16 05:00 Abnormal Lab Results 02/19/16 02/19/16 05:05 05:05 WBC 16.6 H RBC 3.07 L Hgb 8.5 L D Hct 26.7 L D MCHC 31.9 L RDW 17.5 H Neutrophils % 88.9 H Lymphocytes % 4.8 L D Sodium 128 L Chloride 90 L BUN 71 H D Creatinine 4.6 H D Random Glucose 112 H D Calcium 7.4 L Phosphorus 5.5 H D Total Bilirubin 2.4 H Total Protein 5.9 L Albumin 1.6 L - ....Imaging Chest X-ray: Image Reviewed (new left basal changes) Other: Image Reviewed (telemetry: NSR; 1st degree AVB) Problem List - Problems (1) Dialysis AV fistula malfunction Assessment/Plan: AV graft removed. Plan for Permacath later this week. Code(s): T82.590A - [facility] COMPL OF SURGICALLY CREATED ARTERIOVENOUS FISTULA, INIT Qualifiers: Encounter type: initial encounter Qualified Code(s): T82.590A - Other mechanical complication of surgically created arteriovenous fistula, initial encounter (2) Elevated troponin Assessment/Plan: TNI 1.09-->1.38-->3.25-->2.5. EKG: NSR; 1st degree AVB, without acute ST-T changes (no significant change from 12/2015). Likely NSTEMI/demand ischemia, though multiple other factors may contribute to TNI elevation, including CHF, ESRD, sepsis, hypoxia. Problematic starting antiplatelets and systemic AC due to AV graft bleed, but would consider doing so if cleared by surgeon. On metoprolol. ECHO: normal LVEF; moderate ; mild-moderate AR; severe TR; mild CA and MR; no pericardial effusion. Pt will require coronary artery evaluation when stable (after Permacath). Code(s): R79.89 - OTHER SPECIFIED ABNORMAL FINDINGS OF BLOOD CHEMISTRY (3) ESRD (end stage renal disease) on dialysis Assessment/Plan: Hemodialysis per occupational therapy technician. Code(s): N18.6 - END STAGE RENAL DISEASE Z99.2 - DEPENDENCE ON RENAL DIALYSIS (4) Hypertension Assessment/Plan: on metoprolol and hydralazine. Code(s): I10 - ESSENTIAL (PRIMARY) HYPERTENSION (5) Pulmonary hypertension Assessment/Plan: severe pulmonary HTN by 02/11/2015 ECHO; normal LVEF. Code(s): I27.2 - OTHER SECONDARY PULMONARY HYPERTENSION (6) Anemia Assessment/Plan: On Epogen. Code(s): D64.9 - ANEMIA, UNSPECIFIED Qualifiers: Other causes of anemia: acute posthemorrhagic (7) Leukocytosis Assessment/Plan: f/u blood c/s (remain negative). Code(s): D72.829 - ELEVATED WHITE BLOOD CELL COUNT, UNSPECIFIED (8) Thyroid disease Assessment/Plan: low TSH; elevated Free T4; adjust Tapazole accordingly. Code(s): E07.9 - DISORDER OF THYROID, UNSPECIFIED (9) Acute on chronic diastolic CHF (congestive heart failure) Assessment/Plan: f/u daily weight, Is and Os, BUN/Cr, electrolytes. Code(s): I50.33 - ACUTE ON CHRONIC DIASTOLIC (CONGESTIVE) HEART FAILURE (10) Zoster Assessment/Plan: on Valtrex. Code(s): B02.9 - ZOSTER WITHOUT COMPLICATIONS
[2016-02-20 05:43] LABS: BASOPHIL 0.4 % (0-2.0); EOSINOPHIL 0.6 % (0-4.5); MCH 27.4 pg (25.7-33.7); MCHC 31.8 g/dl (32.0-36.0); MEAN CELL VOLUME 86.3 fl (80-96); MEAN PLT VOLUME 7.5 fl (7.5-11.1); NEUTROPHILS 88.3 % (42.8-82.8); PLATELET COUNT 290 K/MM3 (134-434); RDW 17.1 % (11.6-15.6); WHITE BLOOD COUNT 14.5 K/mm3 (4.0-10.0)
[2016-02-20 06:13] LABS: CALCIUM 7.2 mg/dL (8.5-10.1); CREATININE 5.7 mg/dL (0.55-1.02)
[2016-02-20 06:14] LABS: MAGNESIUM 2.1 mg/dL (1.8-2.4); PHOSPHOROUS 6.7 mg/dL (2.5-4.9)
[2016-02-20] MEDS: INSULIN SLIDING SCALE (NOVOLOG) 1 VIAL SQ SCH ×4 (06:30→21:48)
[2016-02-20] MEDS: METHIMAZOLE 5 MG TABLET (FP) PO SCH ×3 (06:32→21:25)
[2016-02-20] MEDS: hydrALAZINE HCL 25 MG TABLET (FP) PO SCH ×3 (06:32→21:26)
--- NOTE | 2016-02-20 08:25 | PROC ---
Central Line Insertion - Procedure Note TIME OUT performed prior to this procedure with verbal confirmation of correct patient identity, correct side, agreement of the procedure, correct patient position, availability of necessary equipment. The consent form is complete and accurate. Risk of possible infection and bleeding have been discussed with the patient. Safety precautions based on patient history or medication use has been addressed. Patient is having visual difficulty and unable to sign document. Consent obtained orally with patient's RN present. Indication: Other (HD access) Consent on Chart: Yes Central Line: Dialysis Cath, Tri Lumen Position: Reverse Trendelenberg Area prepped with Chlorhexidine solution then draped using sterile barrier protection. Anesthesia: Lidocaine 1% Technique used: Seldinger Ultrasound Guided Assistance: No Site: Left Femoral Dark venous non-pulsatile flow noted from hub of needle. The catheter was introduced. Guide wire removed intact. Each port aspirated then flushed with sterile normal saline and capped. Line secured to skin with nylon suture. Biopatch placed around base of line. Sterile occlusive dressing applied. No complications. Patient tolerated the procedure well. Ok to use line for HD.
[2016-02-20] MEDS ORDERED: PT OWN MED DRAWER 7, Y5N ONE ×4 (08:28→20:56)
[2016-02-20] MEDS: SEVELAMER CARBONATE 800 MG TAB (FP) PO SCH ×3 (08:32→16:34)
--- NOTE | 2016-02-20 08:58 | PN ---
Progress Note (short form) - Note Progress Note: SUBJECTIVE: Patient seen and examined. Chart reviewed. Awake and comfortable. Denies pain. Left femoral shiley placed today. AV graft was removed before. OBJECTIVE: Vital Signs - 8 hr 02/20/16 02/20/16 02/20/16 04:00 06:00 08:00 Temperature 98 F Pulse Rate 75 75 78 Respiratory 18 16 16 Rate Blood Pressure 122/37 148/48 138/60 Intake & Output 02/19/16 02/20/16 02/20/16 23:59 07:59 15:59 Intake Total 100 540 Balance 100 540 Weight 66.735 kg Intake: IVPB 300 Oral 100 240 Other: Voiding Method Diaper Bowel Movement Yes Weight Measurement [facility] Active Medications Acetaminophen (Tylenol -) 650 mg PO BID PRN PRN Reason: FEVER Last Admin: 02/20/16 02:01 Dose: 650 mg Acetaminophen (Tylenol Suppository -) 650 mg IN Q6H PRN PRN Reason: FEVER OR PAIN Bacitracin (Bacitracin -) 1 applic TP DAILY [facility] Last Admin: 02/20/16 09:19 Dose: 1 applic Epoetin Jakob (Procrit -) 8,000 unit IVPUSH ONCE ONE Stop: 02/20/16 11:01 Hydralazine HCl (Apresoline -) 25 mg PO TID [facility] Last Admin: 02/20/16 06:32 Dose: 25 mg Nafcillin Sodium 2 gm/ (Dextrose) 100 mls @ 100 mls/hr IVPB Q4H-IV [facility] Last Admin: 02/20/16 09:18 Dose: 100 mls/hr Pantoprazole Sodium (Protonix 40mg Ivpb (Pre-Docked)) 100 mls @ 200 mls/hr IVPB DAILY [facility] Last Admin: 02/20/16 09:19 Dose: 200 mls/hr Insulin Aspart (Novolog Vial Sliding Scale -) 1 vial SQ ACHS [facility] PRN Reason: Protocol Last Admin: 02/20/16 06:30 Dose: Not Given Methimazole (Tapazole -) 5 mg PO TID [facility] Last Admin: 02/20/16 06:32 Dose: 5 mg Metoprolol Succinate (Toprol Xl -) 25 mg PO DAILY [facility] Last Admin: 02/20/16 09:19 Dose: 25 mg Sevelamer Carbonate (Renvela -) 1,600 mg PO TIDCM [facility] Last Admin: 02/20/16 08:32 Dose: 1,600 mg Valacyclovir HCl (Valtrex -) 500 mg PO DAILY [facility] Last Admin: 02/20/16 09:19 Dose: 500 mg CBC, BMP 02/20/16 05:00 02/20/16 05:00 Laboratory Results - last 24 hr 02/18/16 02/18/16 02/19/16 14:30 22:21 06:32 WBC RBC Hgb Hct MCV MCHC RDW Plt Count MPV Neutrophils % Lymphocytes % Monocytes % Eosinophils % Basophils % Sodium Potassium Chloride Carbon Dioxide Anion Gap BUN Creatinine POC Glucometer 254.97627 153.18581 Random Glucose Calcium Phosphorus Magnesium Blood Type A POSITIVE Antibody Screen Negative Crossmatch See Detail 02/19/16 02/19/16 02/19/16 11:54 17:16 21:59 WBC RBC Hgb Hct MCV MCHC RDW Plt Count MPV Neutrophils % Lymphocytes % Monocytes % Eosinophils % Basophils % Sodium Potassium Chloride Carbon Dioxide Anion Gap BUN Creatinine POC Glucometer 199.10277 262.54198 170.33111 Random Glucose Calcium Phosphorus Magnesium Blood Type Antibody Screen Crossmatch 02/20/16 02/20/16 02/20/16 05:00 05:00 05:00 WBC 14.5 H RBC 2.74 L Hgb 7.5 L D Hct 23.6 L MCV 86.3 MCHC 31.8 L RDW 17.1 H Plt Count 290 MPV 7.5 Neutrophils % 88.3 H Lymphocytes % 5.5 L Monocytes % 5.2 Eosinophils % 0.6 Basophils % 0.4 Sodium 126 L Potassium 5.1 Chloride 87 L Carbon Dioxide 25 Anion Gap 14 BUN 85 H Creatinine 5.7 H D POC Glucometer Random Glucose 104 Calcium 7.2 L Phosphorus 6.7 H D Magnesium 2.1 Blood Type Antibody Screen Crossmatch 02/20/16 05:29 WBC RBC Hgb Hct MCV MCHC RDW Plt Count MPV Neutrophils % Lymphocytes % Monocytes % Eosinophils % Basophils % Sodium Potassium Chloride Carbon Dioxide Anion Gap BUN Creatinine POC Glucometer 130.69191 Random Glucose Calcium Phosphorus Magnesium Blood Type Antibody Screen Crossmatch Microbiology 02/18/16 05:15 Blood Culture - Preliminary Blood - Peripheral Venous NO GROWTH OBTAINED AFTER 48 HOURS, INCUBATION TO CONTINUE FOR 3 DAYS. 02/18/16 05:15 Blood Culture - Preliminary Blood - Peripheral Venous NO GROWTH OBTAINED AFTER 48 HOURS, INCUBATION TO CONTINUE FOR 3 DAYS. 02/17/16 11:00 Gram Stain - Final Tissue-Other Tissue Culture - Preliminary Staphylococcus Latex Coag Pos Anaerobic Culture - Final NO ANAEROBES WERE ISOLATED PHYSICAL EXAMINATION: Constitutional: Yes: No Distress Cardiovascular: Yes: Regular Rate and Rhythm, Murmur Respiratory: Yes: Diminished Gastrointestinal: Yes: Normal Bowel Sounds, Soft. No: Distention, Tenderness Extremities: Yes: Other (arm edema B/L) Edema: Yes Psychiatric: Yes: Alert ASSESSMENT & PLAN: - Clinically stable. - Hemodialysis per Renal. - Follow up cultures. - Antibiotics per ID. - Continue present care. - Will follow. Problem List - Problems (1) Altered mental status, unspecified Code(s): R41.82 - ALTERED MENTAL STATUS, UNSPECIFIED Qualifiers: Altered mental status type: unspecified Qualified Code(s): R41.82 - Altered mental status, unspecified (2) Dialysis AV fistula malfunction Code(s): T82.590A - [facility] COMPL OF SURGICALLY CREATED ARTERIOVENOUS FISTULA, INIT Qualifiers: Encounter type: initial encounter Qualified Code(s): T82.590A - Other mechanical complication of surgically created arteriovenous fistula, initial encounter (3) Elevated troponin Code(s): R79.89 - OTHER SPECIFIED ABNORMAL FINDINGS OF BLOOD CHEMISTRY (4) Thrombosis of surgically created arteriovenous fistula Code(s): T82.868A - THROMBOSIS DUE TO VASCULAR PROSTH DEV/GRFT, INIT (5) ESRD (end stage renal disease) on dialysis Code(s): N18.6 - END STAGE RENAL DISEASE Z99.2 - DEPENDENCE ON RENAL DIALYSIS (6) Diabetes mellitus Code(s): E11.9 - TYPE 2 DIABETES MELLITUS WITHOUT COMPLICATIONS Qualifiers: Diabetes mellitus type: type 2 Diabetes mellitus complication status: without complication (7) Bacteremia Code(s): R78.81 - BACTEREMIA (8) Arteriovenous graft infection Code(s): T82.7XXA - INFECT/INFLM REACT D/T OTH CARDI/VASC DEV/IMPLNT/GRFT, INIT Qualifiers: Encounter type: subsequent encounter Qualified Code(s): T82.7XXD - Infection and inflammatory reaction due to other cardiac and vascular devices, implants and grafts, subsequent encounter (9) Zoster Code(s): B02.9 - ZOSTER WITHOUT COMPLICATIONS Documentation prepared by Tatum Lomas, acting as a medical assembly for Abhishek Oneal MD.
[2016-02-20] MEDS: BACITRACIN 30 GM TUBE TOPICAL OINTMENT TP SCH (09:19)
[2016-02-20] MEDS: METOPROLOL SUCCINATE 25 MG TAB.SR.24H (FP) PO SCH (09:19)
[2016-02-20] MEDS: PANTOPRAZOLE SODIUM 100 ML IVPB SCH (09:19)
[2016-02-20] MEDS: valACYclovir HCL 500 MG TABLET (FP) PO SCH (09:19)
--- NOTE | 2016-02-20 10:41 | PN ---
Progress Note (short form) - Note Progress Note: Neurology 75-year-old female presented to the ED initally for evaluation of bleeding left AV fistula. As per notes, she went to dialysis, they were unable to access her fistula and then it began to bleed. Neurologically, she reports vision loss which has been ongoing with macular degeneration but reports acute vision loss superimposed on this since being admitted. CT head completed and without acute changes. Ordered MRI brain and optic nerves but limitation due to amauri in L antecubidal region. OPtho note reviewed and with mention of bilteral vitreous hemorrhages likely etiology. Active Medications Acetaminophen (Tylenol -) 650 mg PO BID PRN PRN Reason: FEVER Last Admin: 02/20/16 02:01 Dose: 650 mg Acetaminophen (Tylenol Suppository -) 650 mg OR Q6H PRN PRN Reason: FEVER OR PAIN Bacitracin (Bacitracin -) 1 applic TP DAILY [facility] Last Admin: 02/20/16 09:19 Dose: 1 applic Epoetin Jakob (Procrit -) 8,000 unit IVPUSH ONCE ONE Stop: 02/20/16 11:01 Hydralazine HCl (Apresoline -) 25 mg PO TID [facility] Last Admin: 02/20/16 06:32 Dose: 25 mg Nafcillin Sodium 2 gm/ (Dextrose) 100 mls @ 100 mls/hr IVPB Q4H-IV DUC Last Admin: 02/20/16 09:18 Dose: 100 mls/hr Pantoprazole Sodium (Protonix 40mg Ivpb (Pre-Docked)) 100 mls @ 200 mls/hr IVPB DAILY [facility] Last Admin: 02/20/16 09:19 Dose: 200 mls/hr Insulin Aspart (Novolog Vial Sliding Scale -) 1 vial SQ ACHS DUC PRN Reason: Protocol Last Admin: 02/20/16 06:30 Dose: Not Given Methimazole (Tapazole -) 5 mg PO TID [facility] Last Admin: 02/20/16 06:32 Dose: 5 mg Metoprolol Succinate (Toprol Xl -) 25 mg PO DAILY [facility] Last Admin: 02/20/16 09:19 Dose: 25 mg Sevelamer Carbonate (Renvela -) 1,600 mg PO TIDCM [facility] Last Admin: 02/20/16 08:32 Dose: 1,600 mg Valacyclovir HCl (Valtrex -) 500 mg PO DAILY [facility] Last Admin: 02/20/16 09:19 Dose: 500 mg *Physical Exam - Physical Exam General Appearance: Yes: Nourished, Appropriately Dressed. No: Apparent Distress HEENT: positive: EOMI, ZACARIAS, Pharynx Normal (dry). negative: Pale Conjunctivae Neck: positive: Supple Respiratory/Chest: positive: Lungs Clear, Normal Breath Sounds. negative: Respiratory Distress, Accessory Muscle Use Cardiovascular: positive: Regular Rhythm. negative: Murmur, Bradycardia Gastrointestinal/Abdominal: positive: Soft. negative: Tenderness Extremity: positive: Normal Capillary Refill. negative: Pedal Edema Integumentary: positive: Normal Color, Dry, Warm Neurologic: Alert, awake, slow movements, pupil equal and reactive, EOMI, Sensory intact, Strength equal b/l CBCD WBC 14.5 K/mm3 (4.0-10.0) H 02/20/16 05:00 RBC 2.74 M/mm3 (3.60-5.2) L 02/20/16 05:00 Hgb 7.5 GM/dL (10.7-15.3) L D 02/20/16 05:00 Hct 23.6 % (32.4-45.2) L 02/20/16 05:00 MCV 86.3 fl (80-96) 02/20/16 05:00 MCHC 31.8 g/dl (32.0-36.0) L 02/20/16 05:00 RDW 17.1 % (11.6-15.6) H 02/20/16 05:00 Plt Count 290 K/MM3 (134-434) 02/20/16 05:00 MPV 7.5 fl (7.5-11.1) 02/20/16 05:00 CMP Sodium 126 mmol/L (136-145) L 02/20/16 05:00 Potassium 5.1 mmol/L (3.5-5.1) 02/20/16 05:00 Chloride 87 mmol/L (98-107) L 02/20/16 05:00 Carbon Dioxide 25 mmol/L (21-32) 02/20/16 05:00 Anion Gap 14 (8-16) 02/20/16 05:00 BUN 85 mg/dL (7-18) H 02/20/16 05:00 Creatinine 5.7 mg/dL (0.55-1.02) H D 02/20/16 05:00 Creat Clearance w eGFR 9.34 (>60) 02/19/16 05:05 Calcium 7.2 mg/dL (8.5-10.1) L 02/20/16 05:00 Total Bilirubin 2.4 mg/dL (0.2-1.0) H 02/19/16 05:05 AST 17 U/L (15-37) 02/19/16 05:05 ALT 12 U/L (12-78) 02/19/16 05:05 Alkaline Phosphatase 92 U/L (45-117) 02/19/16 05:05 Total Protein 5.9 g/dl (6.4-8.2) L 02/19/16 05:05 Albumin 1.6 g/dl (3.4-5.0) L 02/19/16 05:05 CT head reviewed Medical Decision Making 75-year-old female presented to the ED initally for evaluation of bleeding left AV fistula. As per notes, she went to dialysis, they were unable to access her fistula and then it began to bleed. Neurologically, she reports vision loss which has been ongoing with macular degeneration but reports acute vision loss superimposed on this since being admitted. CT head completed and without acute changes. Ordered MRI brain and optic nerves but limitation due to amauri in L antecubidal region. OPtho note reviewed and with mention of bilteral vitreous hemorrhages likely etiology. Can defer on MRI for now. Getting treatment for shingles of lower back
[2016-02-20] MEDS ORDERED: EPOETIN ALFA 10,000 UNIT/1 ML VIAL IVPUSH ONE (11:00)
--- NOTE | 2016-02-20 11:54 | PN ---
Teaching Attending Note Name of Resident: Romario Medina ATTENDING PHYSICIAN STATEMENT I saw and evaluated the patient. I reviewed the resident's note and discussed the case with the resident. I agree with the resident's findings and plan as documented. SUBJECTIVE: Patient seen and examined in the ICU. Currently on HD. Awake and alert. No fevers recorded. Denies shortness of breath or chest pain. Reports some improvement in her vision -> can now see shadows on the TV. Intake & Output 02/17/16 02/18/16 02/19/16 02/20/16 23:59 23:59 23:59 23:59 Intake Total 2477 2650 890 540 Output Total 30 Balance 2447 2650 890 540 Weight 139 lb 8 oz 147 lb 147 lb 2 oz Last Vital Signs Temp Pulse Resp BP Pulse Ox 98.2 F 89 18 120/52 98 02/20/16 10:00 02/20/16 11:00 02/20/16 11:00 02/20/16 11:00 02/20/16 09:00 Active Medications Acetaminophen (Tylenol -) 650 mg PO BID PRN PRN Reason: FEVER Last Admin: 02/20/16 02:01 Dose: 650 mg Acetaminophen (Tylenol Suppository -) 650 mg [place] Q6H PRN PRN Reason: FEVER OR PAIN Bacitracin (Bacitracin -) 1 applic TP DAILY [facility] Last Admin: 02/20/16 09:19 Dose: 1 applic Hydralazine HCl (Apresoline -) 25 mg PO TID [facility] Last Admin: 02/20/16 06:32 Dose: 25 mg Nafcillin Sodium 2 gm/ (Dextrose) 100 mls @ 100 mls/hr IVPB Q4H-IV DUC Last Admin: 02/20/16 09:18 Dose: 100 mls/hr Pantoprazole Sodium (Protonix 40mg Ivpb (Pre-Docked)) 100 mls @ 200 mls/hr IVPB DAILY [facility] Last Admin: 02/20/16 09:19 Dose: 200 mls/hr Insulin Aspart (Novolog Vial Sliding Scale -) 1 vial SQ ACHS DUC PRN Reason: Protocol Last Admin: 02/20/16 06:30 Dose: Not Given Methimazole (Tapazole -) 5 mg PO TID [facility] Last Admin: 02/20/16 06:32 Dose: 5 mg Metoprolol Succinate (Toprol Xl -) 25 mg PO DAILY [facility] Last Admin: 02/20/16 09:19 Dose: 25 mg Sevelamer Carbonate (Renvela -) 1,600 mg PO TIDCM [facility] Last Admin: 02/20/16 08:32 Dose: 1,600 mg Valacyclovir HCl (Valtrex -) 500 mg PO DAILY [facility] Last Admin: 02/20/16 09:19 Dose: 500 mg Gen: Awake and responsive Heart: RRR Lung: decreased breath sounds at the bases Abd: soft, nontender Ext: +edema Sacrum: +vesicles Laboratory Results - last 24 hr 02/18/16 02/18/16 02/19/16 14:30 22:21 06:32 WBC RBC Hgb Hct MCV MCHC RDW Plt Count MPV Neutrophils % Lymphocytes % Monocytes % Eosinophils % Basophils % Sodium Potassium Chloride Carbon Dioxide Anion Gap BUN Creatinine POC Glucometer 254.06527 153.15766 Random Glucose Calcium Phosphorus Magnesium Blood Type A POSITIVE Antibody Screen Negative Crossmatch See Detail 02/19/16 02/19/16 02/19/16 11:54 17:16 21:59 WBC RBC Hgb Hct MCV MCHC RDW Plt Count MPV Neutrophils % Lymphocytes % Monocytes % Eosinophils % Basophils % Sodium Potassium Chloride Carbon Dioxide Anion Gap BUN Creatinine POC Glucometer 199.42873 262.03656 170.56427 Random Glucose Calcium Phosphorus Magnesium Blood Type Antibody Screen Crossmatch 02/20/16 02/20/16 02/20/16 05:00 05:00 05:00 WBC 14.5 H RBC 2.74 L Hgb 7.5 L D Hct 23.6 L MCV 86.3 MCHC 31.8 L RDW 17.1 H Plt Count 290 MPV 7.5 Neutrophils % 88.3 H Lymphocytes % 5.5 L Monocytes % 5.2 Eosinophils % 0.6 Basophils % 0.4 Sodium 126 L Potassium 5.1 Chloride 87 L Carbon Dioxide 25 Anion Gap 14 BUN 85 H Creatinine 5.7 H D POC Glucometer Random Glucose 104 Calcium 7.2 L Phosphorus 6.7 H D Magnesium 2.1 Blood Type Antibody Screen Crossmatch 02/20/16 05:29 WBC RBC Hgb Hct MCV MCHC RDW Plt Count MPV Neutrophils % Lymphocytes % Monocytes % Eosinophils % Basophils % Sodium Potassium Chloride Carbon Dioxide Anion Gap BUN Creatinine POC Glucometer 130.56321 Random Glucose Calcium Phosphorus Magnesium Blood Type Antibody Screen Crossmatch ASSESSMENT AND PLAN: Staph Bacteremia from likely AVG infection Acute Blood Loss from AVG NSTEMI Altered Mental Status ESRD on HD Hyperkalemia resolved Pulmonary HTN HTN DM - ABX per ID - follow up repeat blood cultures - HD per renal - aspiration precautions - DVT prophylaxis Dr Pryor CCTime 35"
--- NOTE | 2016-02-20 12:01 | PN ---
[id number] CP, PIÑA, SOB, palpitations. OBJECTIVE: Vital Signs Period Temp Pulse Resp BP Sys/Rangel Pulse Ox Last 24 Hr 97.5 F-98.2 F 75-92 16-22 102-148/37-60 98-100 GENERAL: The patient is lethargic but arousable. in no acute distress. HEAD: Normal with no signs of trauma. EYES: PERRL, decreased vision bilat. sclera anicteric, conjunctiva clear. No ptosis. ENT: Ears normal, nares patent,, moist mucous membranes. NECK: supple, thyromegally R side. Lungs: CTA bilaterally; no wheezes, rhonchi, rales Heart: Regular rate and rhythm, Systolic murmur noted, S1 and S2 present; no clicks or rubs Abdomen: Soft, nontender, nondistended, Extremities: LUE AVF removed bandaged with slight sangrinous breakthrough, pulses strong and intact throughout all four extremities, No edema, <2 cap refill in all four ext. Neuro: Lethargic but able to follow commands. Laboratory Results - last 24 hr 02/18/16 02/18/16 02/19/16 14:30 22:21 06:32 WBC RBC Hgb Hct MCV MCHC RDW Plt Count MPV Neutrophils % Lymphocytes % Monocytes % Eosinophils % Basophils % Sodium Potassium Chloride Carbon Dioxide Anion Gap BUN Creatinine POC Glucometer 254.83943 153.17159 Random Glucose Calcium Phosphorus Magnesium Blood Type A POSITIVE Antibody Screen Negative Crossmatch See Detail 02/19/16 02/19/16 02/19/16 11:54 17:16 21:59 WBC RBC Hgb Hct MCV MCHC RDW Plt Count MPV Neutrophils % Lymphocytes % Monocytes % Eosinophils % Basophils % Sodium Potassium Chloride Carbon Dioxide Anion Gap BUN Creatinine POC Glucometer 199.48250 262.00165 170.78845 Random Glucose Calcium Phosphorus Magnesium Blood Type Antibody Screen Crossmatch 02/20/16 02/20/16 02/20/16 05:00 05:00 05:00 WBC 14.5 H RBC 2.74 L Hgb 7.5 L D Hct 23.6 L MCV 86.3 MCHC 31.8 L RDW 17.1 H Plt Count 290 MPV 7.5 Neutrophils % 88.3 H Lymphocytes % 5.5 L Monocytes % 5.2 Eosinophils % 0.6 Basophils % 0.4 Sodium 126 L Potassium 5.1 Chloride 87 L Carbon Dioxide 25 Anion Gap 14 BUN 85 H Creatinine 5.7 H D POC Glucometer Random Glucose 104 Calcium 7.2 L Phosphorus 6.7 H D Magnesium 2.1 Blood Type Antibody Screen Crossmatch 02/20/16 05:29 WBC RBC Hgb Hct MCV MCHC RDW Plt Count MPV Neutrophils % Lymphocytes % Monocytes % Eosinophils % Basophils % Sodium Potassium Chloride Carbon Dioxide Anion Gap BUN Creatinine POC Glucometer 130.24185 Random Glucose Calcium Phosphorus Magnesium Blood Type Antibody Screen Crossmatch Active Medications Generic Name Dose Route Start Last Admin Trade Name Freq PRN Reason Stop Dose Admin Acetaminophen 650 mg 02/17/16 11:15 02/20/16 02:01 Tylenol - PO 650 mg BID PRN Administration FEVER Acetaminophen 650 mg 02/17/16 11:15 Tylenol Suppository - PA Q6H PRN FEVER OR PAIN Bacitracin 1 applic 02/18/16 10:00 02/20/16 09:19 Bacitracin - TP 1 applic DAILY [facility] Administration Hydralazine HCl 25 mg 02/17/16 14:00 02/20/16 06:32 Apresoline - PO 25 mg TID [facility]UC Administration Nafcillin Sodium 2 gm/ 100 mls @ 100 mls/hr 02/17/16 14:00 02/20/16 09:18 Dextrose IVPB 100 mls/hr Q4H-IV DUC Administration Pantoprazole Sodium 100 mls @ 200 mls/hr 02/18/16 10:00 02/20/16 09:19 Protonix 40mg Ivpb (Pre-Docked) IVPB 200 mls/hr DAILY [facility] Administration Insulin Aspart 1 vial 02/17/16 16:30 02/20/16 06:30 Novolog Vial Sliding Scale - SQ Not Given ACHS DUC Protocol Methimazole 5 mg 02/17/16 14:00 02/20/16 06:32 Tapazole - PO 5 mg TID [facility] Administration Metoprolol Succinate 25 mg 02/18/16 10:00 02/20/16 09:19 Toprol Xl - PO 25 mg DAILY [facility] Administration Sevelamer Carbonate 1,600 mg 02/17/16 12:00 02/20/16 08:32 Renvela - PO 1,600 mg TIDCM DUC Administration Valacyclovir HCl 500 mg 02/19/16 10:00 02/20/16 09:19 Valtrex - PO 500 mg DAILY [facility] Administration ASSESSMENT/PLAN: 75yo F with ESRD on dialysis with AMS and mechanical malformation of AVG. Received emergent dialysis (+) MSSA on repeat cultures. AVG removed 02/17/16. Neuro: * Neurologically stable. * No change in mental status. Pulmonary: * Cont. supplemetal O2 with 3L NC to maintain SpO2 >90% CV: * H/H WNL transfused 1 unit PRBC and give 80mg IV Lasix with appropriate response. * BP has been low ; meds held * Echo- shows normal LV size and function RVSP elevated 50-60 Renal: * HD tomorrow as per Dr. Jones * will place Access tomorrow ID: * Continue Vatrex 500mg daily (renally dosed) * Continue Nafcillin for MSSA bacteremia * Repeat blood cultures show no growth in 48hrs. Endocrine: * Head/Neck US- Markedly enlarged and nodular thyroid gland as described above with no additional cervical masses or fluid collections. * Cont. ISS ACHS * Cont. BGM ACHS F/E/N * No IVF * HD for tomorrow. Repeat labs in AM * Renal diet Visit type - Emergency Visit Emergency Visit: Yes ED Registration Date: 02/10/16 Care time: The patient presented to the Emergency Department on the above date and was hospitalized for further evaluation of their emergent condition. - New Patient This patient is new to me today: No - Critical Care Critical Care patient: Yes Total Critical Care Time (in minutes): 30 Critical Care Statement: The care of this patient involved high complexity decision making to prevent further life threatening deterioration of the patient 's condition and/or to evalute & treat vital organ system(s) failure or risk of failure.
--- NOTE | 2016-02-20 12:29 | PN ---
Progress Note, Physician History of Present Illness: Awake, alert Receiving hemodialysis No c/o fever/ chills Afebrile WBC remains slightly elevated BC (02/17) no growth - Current Medication List Current Medications: Active Medications Acetaminophen (Tylenol -) 650 mg PO BID PRN PRN Reason: FEVER Last Admin: 02/20/16 02:01 Dose: 650 mg Acetaminophen (Tylenol Suppository -) 650 mg [place] Q6H PRN PRN Reason: FEVER OR PAIN Bacitracin (Bacitracin -) 1 applic TP DAILY [facility] Last Admin: 02/20/16 09:19 Dose: 1 applic Hydralazine HCl (Apresoline -) 25 mg PO TID [facility] Last Admin: 02/20/16 06:32 Dose: 25 mg Nafcillin Sodium 2 gm/ (Dextrose) 100 mls @ 100 mls/hr IVPB Q4H-IV [facility] Last Admin: 02/20/16 09:18 Dose: 100 mls/hr Pantoprazole Sodium (Protonix 40mg Ivpb (Pre-Docked)) 100 mls @ 200 mls/hr IVPB DAILY [facility] Last Admin: 02/20/16 09:19 Dose: 200 mls/hr Insulin Aspart (Novolog Vial Sliding Scale -) 1 vial SQ ACHS DUC PRN Reason: Protocol Last Admin: 02/20/16 11:59 Dose: Not Given Methimazole (Tapazole -) 5 mg PO TID [facility] Last Admin: 02/20/16 06:32 Dose: 5 mg Metoprolol Succinate (Toprol Xl -) 25 mg PO DAILY [facility] Last Admin: 02/20/16 09:19 Dose: 25 mg Sevelamer Carbonate (Renvela -) 1,600 mg PO TIDCM [facility] Last Admin: 02/20/16 12:15 Dose: 1,600 mg Valacyclovir HCl (Valtrex -) 500 mg PO DAILY [facility] Last Admin: 02/20/16 09:19 Dose: 500 mg - Objective Vital Signs: Vital Signs Temperature 98.2 F 02/20/16 10:00 Pulse Rate 91 H 02/20/16 12:00 Respiratory Rate 18 02/20/16 12:00 Blood Pressure 138/61 02/20/16 12:00 O2 Sat by Pulse Oximetry (%) 98 02/20/16 09:00 Constitutional: Yes: No Distress Eyes: Yes: Conjunctiva Clear Cardiovascular: Yes: Regular Rate and Rhythm, S1, S2 Respiratory: Yes: Diminished Gastrointestinal: Yes: Normal Bowel Sounds, Soft. No: Tenderness Labs: CBC, BMP 02/20/16 05:00 02/20/16 05:00 INR, PTT INR 1.04 (0.82-1.09) 02/17/16 05:00 Assessment/Plan MSSA bacteremia , possible endocarditis ESRD S/P excision infected L AVG VZV repeat blood c/s (02/17) no growth Repeat BC today Continue nafcillin Continue valtrex, adjusted for renal failure
--- NOTE | 2016-02-20 15:51 | PN ---
Progress Note, Physician Chief Complaint: Pt alert; denies chest pain or dyspnea. History of Present Illness: 75-year-old white female presents to the ED for evaluation of bleeding left AV fistula. As per pt she had dialysis but has not been feeling well and today when she went to dialysis they were unable to access her fistula and then it began to bleed. Patient states has not been feeling well over the past few days describing nausea myalgia, and decreased appetite. Patient denies headache, throat pain, chest pain or shortness of breath. Patient with history of ESRD-->hemodialysis 3x/week, anemia, CVA, CHF, dementia, diabetes, hypertension, dyslipidemia, "shingles", and thyroid disease. - Current Medication List Current Medications: Active Medications Acetaminophen (Tylenol -) 650 mg PO BID PRN PRN Reason: FEVER Last Admin: 02/20/16 02:01 Dose: 650 mg Acetaminophen (Tylenol Suppository -) 650 mg [place] Q6H PRN PRN Reason: FEVER OR PAIN Bacitracin (Bacitracin -) 1 applic TP DAILY [facility] Last Admin: 02/20/16 09:19 Dose: 1 applic Hydralazine HCl (Apresoline -) 25 mg PO TID [facility] Last Admin: 02/20/16 14:46 Dose: 25 mg Nafcillin Sodium 2 gm/ (Dextrose) 100 mls @ 100 mls/hr IVPB Q4H-IV [facility] Last Admin: 02/20/16 14:46 Dose: 100 mls/hr Pantoprazole Sodium (Protonix 40mg Ivpb (Pre-Docked)) 100 mls @ 200 mls/hr IVPB DAILY [facility] Last Admin: 02/20/16 09:19 Dose: 200 mls/hr Insulin Aspart (Novolog Vial Sliding Scale -) 1 vial SQ ACHS DUC PRN Reason: Protocol Last Admin: 02/20/16 11:59 Dose: Not Given Methimazole (Tapazole -) 5 mg PO TID [facility] Last Admin: 02/20/16 14:46 Dose: 5 mg Metoprolol Succinate (Toprol Xl -) 25 mg PO DAILY [facility] Last Admin: 02/20/16 09:19 Dose: 25 mg Sevelamer Carbonate (Renvela -) 1,600 mg PO TIDCM [facility] Last Admin: 02/20/16 12:15 Dose: 1,600 mg Valacyclovir HCl (Valtrex -) 500 mg PO DAILY [facility] Last Admin: 02/20/16 09:19 Dose: 500 mg - Objective Vital Signs: Vital Signs Temperature 98 F 02/20/16 12:00 Pulse Rate 104 H 02/20/16 14:00 Respiratory Rate 16 02/20/16 14:00 Blood Pressure 139/58 02/20/16 14:00 O2 Sat by Pulse Oximetry (%) 98 02/20/16 09:00 Constitutional: Yes: Calm Eyes: Yes: WNL HENT: Yes: WNL Neck: Yes: WNL Cardiovascular: Yes: Regular Rate and Rhythm, S1 (split) Respiratory: Yes: Regular, Diminished Gastrointestinal: Yes: Soft ...Rectal Exam: No: Deferred Genitourinary: Yes: Anuria Breast(s): Yes: WNL Musculoskeletal: Yes: Muscle Weakness Extremities: Yes: Cool Edema: No Peripheral Pulses WNL: No Peripheral Pulses: Left Doralis Pedis: 1+, Right Dorsalis Pedis: 1+ Integumentary: Yes: Incision Neurological: Yes: Alert, Oriented, Weakness Psychiatric: Yes: Alert, Oriented Labs: CBC, BMP 02/20/16 05:00 02/20/16 05:00 INR, PTT INR 1.04 (0.82-1.09) 02/17/16 05:00 Abnormal Lab Results 02/18/16 02/20/16 02/20/16 14:30 05:00 05:00 WBC 14.5 H RBC 2.74 L Hgb 7.5 L D Hct 23.6 L MCHC 31.8 L RDW 17.1 H Neutrophils % 88.3 H Lymphocytes % 5.5 L Sodium 126 L Chloride 87 L BUN 85 H Creatinine 5.7 H D Calcium 7.2 L Phosphorus Crossmatch See Detail 02/20/16 05:00 WBC RBC Hgb Hct MCHC RDW Neutrophils % Lymphocytes % Sodium Chloride BUN Creatinine Calcium Phosphorus 6.7 H D Crossmatch - ....Imaging Chest X-ray: Image Reviewed Other: Image Reviewed (telemetry: NSR) Problem List - Problems (1) Dialysis AV fistula malfunction Assessment/Plan: AV graft removed. Plan for Permacath. Code(s): T82.590A - [facility] COMPL OF SURGICALLY CREATED ARTERIOVENOUS FISTULA, INIT Qualifiers: Encounter type: initial encounter Qualified Code(s): T82.590A - Other mechanical complication of surgically created arteriovenous fistula, initial encounter (2) Elevated troponin Assessment/Plan: TNI 1.09-->1.38-->3.25-->2.5. EKG: NSR; 1st degree AVB, without acute ST-T changes (no significant change from 12/2015). Likely NSTEMI/demand ischemia, though multiple other factors may contribute to TNI elevation, including CHF, ESRD, sepsis, hypoxia. Problematic starting antiplatelets and systemic AC due to AV graft bleed, but would consider doing so if cleared by surgeon. On metoprolol. ECHO: normal LVEF; moderate ; mild-moderate AR; severe TR; mild DE and MR; no pericardial effusion. Pt will require coronary artery evaluation when stable (after Permacath). Code(s): R79.89 - OTHER SPECIFIED ABNORMAL FINDINGS OF BLOOD CHEMISTRY (3) ESRD (end stage renal disease) on dialysis Assessment/Plan: Hemodialysis per bee robber. Code(s): N18.6 - END STAGE RENAL DISEASE Z99.2 - DEPENDENCE ON RENAL DIALYSIS (4) Hypertension Assessment/Plan: on metoprolol and hydralazine. Code(s): I10 - ESSENTIAL (PRIMARY) HYPERTENSION (5) Pulmonary hypertension Assessment/Plan: severe pulmonary HTN by 02/11/2015 ECHO; normal LVEF. Code(s): I27.2 - OTHER SECONDARY PULMONARY HYPERTENSION (6) Anemia Assessment/Plan: On Epogen. Code(s): D64.9 - ANEMIA, UNSPECIFIED Qualifiers: Other causes of anemia: acute posthemorrhagic (7) Leukocytosis Assessment/Plan: f/u blood c/s (02/17 blood remains negative; for repeat cultures). On Nafcillin and Valtrex. Code(s): D72.829 - ELEVATED WHITE BLOOD CELL COUNT, UNSPECIFIED (8) Thyroid disease Assessment/Plan: low TSH; elevated Free T4; adjust Tapazole accordingly. Code(s): E07.9 - DISORDER OF THYROID, UNSPECIFIED (9) Acute on chronic diastolic CHF (congestive heart failure) Assessment/Plan: f/u daily weight, Is and Os, BUN/Cr, electrolytes. Code(s): I50.33 - ACUTE ON CHRONIC DIASTOLIC (CONGESTIVE) HEART FAILURE (10) Zoster Assessment/Plan: on Valtrex (adjusted for renal dysfunction). Code(s): B02.9 - ZOSTER WITHOUT COMPLICATIONS
--- NOTE | 2016-02-20 18:17 | PN ---
Progress Note, Physician History of Present Illness: Pt seen and examined at bedside. She tolerated HD today. - Current Medication List Current Medications: Active Medications Acetaminophen (Tylenol -) 650 mg PO BID PRN PRN Reason: FEVER Last Admin: 02/20/16 16:34 Dose: 650 mg Acetaminophen (Tylenol Suppository -) 650 mg [place] Q6H PRN PRN Reason: FEVER OR PAIN Bacitracin (Bacitracin -) 1 applic TP DAILY [facility] Last Admin: 02/20/16 09:19 Dose: 1 applic Hydralazine HCl (Apresoline -) 25 mg PO TID [facility] Last Admin: 02/20/16 14:46 Dose: 25 mg Nafcillin Sodium 2 gm/ (Dextrose) 100 mls @ 100 mls/hr IVPB Q4H-IV [facility] Last Admin: 02/20/16 17:32 Dose: 100 mls/hr Pantoprazole Sodium (Protonix 40mg Ivpb (Pre-Docked)) 100 mls @ 200 mls/hr IVPB DAILY [facility] Last Admin: 02/20/16 09:19 Dose: 200 mls/hr Insulin Aspart (Novolog Vial Sliding Scale -) 1 vial SQ ACHS [facility] PRN Reason: Protocol Last Admin: 02/20/16 16:43 Dose: 10 units Methimazole (Tapazole -) 5 mg PO TID [facility] Last Admin: 02/20/16 14:46 Dose: 5 mg Metoprolol Succinate (Toprol Xl -) 25 mg PO DAILY [facility] Last Admin: 02/20/16 09:19 Dose: 25 mg Sevelamer Carbonate (Renvela -) 1,600 mg PO TIDCM [facility] Last Admin: 02/20/16 16:34 Dose: 1,600 mg Valacyclovir HCl (Valtrex -) 500 mg PO DAILY [facility] Last Admin: 02/20/16 09:19 Dose: 500 mg - Objective Vital Signs: Vital Signs Temperature 99.4 F 02/20/16 17:35 Pulse Rate 100 H 02/20/16 17:35 Respiratory Rate 16 02/20/16 17:35 Blood Pressure 129/50 02/20/16 17:35 O2 Sat by Pulse Oximetry (%) 98 02/20/16 09:00 Constitutional: Yes: Calm Eyes: Yes: Conjunctiva Clear HENT: Yes: Atraumatic Cardiovascular: Yes: S1, S2 Respiratory: Yes: On Nasal O2 Gastrointestinal: Yes: Soft Genitourinary: Yes: Incontinence Musculoskeletal: Yes: Muscle Weakness Edema: Yes Edema: LUE: 1+, RUE: 1+ Neurological: Yes: Oriented Psychiatric: Yes: Oriented Labs: CBC, BMP 02/20/16 05:00 02/20/16 05:00 INR, PTT INR 1.04 (0.82-1.09) 02/17/16 05:00 Problem List - Problems (1) Altered mental status, unspecified Code(s): R41.82 - ALTERED MENTAL STATUS, UNSPECIFIED Qualifiers: Altered mental status type: unspecified Qualified Code(s): R41.82 - Altered mental status, unspecified (2) Dialysis AV fistula malfunction Code(s): T82.590A - [facility] COMPL OF SURGICALLY CREATED ARTERIOVENOUS FISTULA, INIT Qualifiers: Encounter type: initial encounter Qualified Code(s): T82.590A - Other mechanical complication of surgically created arteriovenous fistula, initial encounter (3) Elevated troponin Code(s): R79.89 - OTHER SPECIFIED ABNORMAL FINDINGS OF BLOOD CHEMISTRY (4) ESRD (end stage renal disease) on dialysis Code(s): N18.6 - END STAGE RENAL DISEASE Z99.2 - DEPENDENCE ON RENAL DIALYSIS (5) Anemia Code(s): D64.9 - ANEMIA, UNSPECIFIED Qualifiers: Other causes of anemia: acute posthemorrhagic (6) Hypertension Code(s): I10 - ESSENTIAL (PRIMARY) HYPERTENSION Assessment/Plan Current Medications Generic Name Dose Route Start Last Admin Trade Name Freq PRN Reason Stop Dose Admin Acetaminophen 650 mg 02/17/16 11:15 02/20/16 16:34 Tylenol - PO 650 mg BID PRN Administration FEVER Acetaminophen 650 mg 02/17/16 11:15 Tylenol Suppository - RI Q6H PRN FEVER OR PAIN Bacitracin 1 applic 02/18/16 10:00 02/20/16 09:19 Bacitracin - TP 1 applic DAILY DUC Administration Hydralazine HCl 25 mg 02/17/16 14:00 02/20/16 14:46 Apresoline - PO 25 mg TID DUC Administration Nafcillin Sodium 2 gm/ 100 mls @ 100 mls/hr 02/17/16 14:00 02/20/16 17:32 Dextrose IVPB 100 mls/hr Q4H-IV DUC Administration Pantoprazole Sodium 100 mls @ 200 mls/hr 02/18/16 10:00 02/20/16 09:19 Protonix 40mg Ivpb (Pre-Docked) IVPB 200 mls/hr DAILY DUC Administration Insulin Aspart 1 vial 02/17/16 16:30 02/20/16 16:43 Novolog Vial Sliding Scale - SQ 10 units ACHS DUC Administration Protocol Methimazole 5 mg 02/17/16 14:00 02/20/16 14:46 Tapazole - PO 5 mg TID DUC Administration Metoprolol Succinate 25 mg 02/18/16 10:00 02/20/16 09:19 Toprol Xl - PO 25 mg DAILY DUC Administration Sevelamer Carbonate 1,600 mg 02/17/16 12:00 02/20/16 16:34 Renvela - PO 1,600 mg TIDCM DUC Administration Valacyclovir HCl 500 mg 02/19/16 10:00 02/20/16 09:19 Valtrex - PO 500 mg DAILY DUC Administration Impression 1. ESRD 2. av access malfunction 3. hyperkalemia 4. CHF 5. DM 6. HTN 7. anemia 8. depression 9. hyperlipidemia 10. leukocytosis 11. NSTEMI 12. bacteremia Plan - pt dialyzed today - will arrange for HD tomorrow as wel - check cbc in am and if hg is low we can transfuse during HD - repeat labs in am - cont current management - will pull shiley tomorrow after hd - permacath next week - follow cultures - ophtho eval - discussed with neuro, pt will need MRI - monitor pulse ox Dr Jones
[2016-02-20] MEDS ORDERED: ONDANSETRON 4 MG/2 ML VIAL IVPUSH PRN (20:09)
--- NOTE | 2016-02-20 20:13 | CONSULT ---
Consult - text type - Consultation Consultation Note: f/u Ophthalmology note The patient reports vision is clearing up. Denies pain or floaters VAnear card : 20/800 od CF 1 foot OS P sluggish oU, no apd Rotations full OU. PLE LLL wnl OU sc trace injection od, K rk scars ou AC formed, quiet, I wnl L PCIOL OD 1+ NS OU NDFE limited view of fundus- patient vomiting now, will not dilate. 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 Continue to elevate head of bed. Patient to f/u with her own retina specialist upon discharge from hospital. Ladonna Brennan MD
[2016-02-20] MEDS ORDERED: SIMETHICONE 80 MG TAB.CHEW (FP) PO PRN ×2 (20:22→20:28)
[2016-02-21] MEDS: NAFCILLIN - 2 GM in DEXTROSE 5%-WATER - 100 ML IVPB SCH ×6 (01:49→21:04)
[2016-02-21 06:07] LABS: MCH 28.6 pg (25.7-33.7); MEAN CELL VOLUME 86.6 fl (80-96); MEAN PLT VOLUME 7.5 fl (7.5-11.1); PLATELET COUNT 285 K/MM3 (134-434); RDW 16.5 % (11.6-15.6); WHITE BLOOD COUNT 12.3 K/mm3 (4.0-10.0)
[2016-02-21] MEDS: hydrALAZINE HCL 25 MG TABLET (FP) PO SCH ×3 (06:28→21:04)
[2016-02-21] MEDS: METHIMAZOLE 5 MG TABLET (FP) PO SCH ×3 (06:28→21:06)
[2016-02-21] MEDS: INSULIN SLIDING SCALE (NOVOLOG) 1 VIAL SQ SCH ×4 (06:29→21:06)
[2016-02-21 06:44] LABS: ALBUMIN 1.7 g/dl (3.4-5.0); CALCIUM 7.4 mg/dL (8.5-10.1)
[2016-02-21 06:49] LABS: BILIRUBIN,TOTAL 2.4 mg/dL (0.2-1.0); CREATININE 3.3 mg/dL (0.55-1.02); TOT PROT 5.6 g/dl (6.4-8.2)
--- NOTE | 2016-02-21 07:27 | PN ---
Progress Note (short form) - Note Progress Note: PULM/CCM SUBJECTIVE: Patient seen and examined in the ICU. stable, for another HD session today Reports some improvement in her vision repeat bcxl without growth so far. appears to have cleared Vital Signs Temp 98.5 F 02/21/16 06:00 Pulse 86 02/21/16 06:00 Resp 16 02/21/16 06:00 BP 139/52 02/21/16 06:00 Pulse Ox 98 02/20/16 19:23 Intake & Output 02/20/16 02/20/16 02/21/16 11:59 23:59 11:59 Intake Total 660 1510 250 Output Total 300 Balance 660 1210 250 Weight 66.735 kg 64.7 kg Intake: IVPB 300 500 200 Oral 360 1010 50 Output: Emesis 300 Other: Voiding Method Diaper Bowel Movement Yes Weight Measurement Method Built in Bedscale Built in Bedscale Active Medications Acetaminophen (Tylenol -) 650 mg PO BID PRN PRN Reason: FEVER Last Admin: 02/20/16 16:34 Dose: 650 mg Acetaminophen (Tylenol Suppository -) 650 mg [place] Q6H PRN PRN Reason: FEVER OR PAIN Bacitracin (Bacitracin -) 1 applic TP DAILY [facility] Last Admin: 02/20/16 09:19 Dose: 1 applic Epoetin Jakob (Epogen -) 8,000 units IVPUSH ONCE ONE Stop: 02/21/16 18:18 Hydralazine HCl (Apresoline -) 25 mg PO TID [facility] Last Admin: 02/21/16 06:28 Dose: 25 mg Nafcillin Sodium 2 gm/ (Dextrose) 100 mls @ 100 mls/hr IVPB Q4H-IV [facility] Last Admin: 02/21/16 06:27 Dose: 100 mls/hr Pantoprazole Sodium (Protonix 40mg Ivpb (Pre-Docked)) 100 mls @ 200 mls/hr IVPB DAILY [facility] Last Admin: 02/20/16 09:19 Dose: 200 mls/hr Insulin Aspart (Novolog Vial Sliding Scale -) 1 vial SQ ACHS DUC PRN Reason: Protocol Last Admin: 02/21/16 06:29 Dose: Not Given Methimazole (Tapazole -) 5 mg PO TID [facility] Last Admin: 02/21/16 06:28 Dose: 5 mg Metoprolol Succinate (Toprol Xl -) 25 mg PO DAILY [facility] Last Admin: 02/20/16 09:19 Dose: 25 mg Ondansetron HCl (Zofran Injection) 4 mg IVPUSH Q4H PRN PRN Reason: NAUSEA AND/OR VOMITING Stop: 02/21/16 08:10 Last Admin: 02/20/16 20:53 Dose: 4 mg Sevelamer Carbonate (Renvela -) 1,600 mg PO TIDCM [facility] Last Admin: 02/20/16 16:34 Dose: 1,600 mg Simethicone (Mylicon -) 80 mg PO Q4H PRN PRN Reason: GAS Valacyclovir HCl (Valtrex -) 500 mg PO DAILY [facility] Last Admin: 02/20/16 09:19 Dose: 500 mg Gen: Awake and responsive Heart: RRR Lung: decreased breath sounds at the bases Abd: soft, nontender, typanic slightly distended Ext: +edema Sacrum: +vesicles, not pain ful CBC, BMP 02/21/16 05:20 02/21/16 05:20 ASSESSMENT AND PLAN: Staph Bacteremia from likely AVG infection Acute Blood Loss from AVG NSTEMI Altered Mental Status ESRD on HD Hyperkalemia resolved Pulmonary HTN HTN DM - ABX per ID - follow up repeat blood cultures, negative so far - HD per renal, to get another session today - aspiration precautions - DVT prophylaxis - can monitor on floor after HD today TDC on Tuesday, should get picc for care home abx at same time Peewee Fernandez [facility] [id number]
--- NOTE | 2016-02-21 08:49 | PN ---
Progress Note (short form) - Note Progress Note: Doing well. Resting in position of comfort w/o complaint. S/p trialysis cath placed yesterday into left femoral vein. Tolerated HD yesterday. Denies n/v/f/c, CP or SOB Last Vital Signs Temp Pulse Resp BP Pulse Ox 98.5 F 84 16 136/50 98 02/21/16 06:00 02/21/16 08:00 02/21/16 08:00 02/21/16 08:00 02/20/16 19:23 CBC, BMP 02/21/16 05:20 02/21/16 05:20 PE General: NAD LUE: amauri intact. No hematoma Left groin: Trialysis cath in place. No hematoma. Problem List - Problems (1) ESRD (end stage renal disease) on dialysis Assessment/Plan: Per Renal, patient going for HD today then should have Trialysis cath removed. Plan for PC next week if her repeat blood cultures are negative. Continue ICU management. Code(s): N18.6 - END STAGE RENAL DISEASE Z99.2 - DEPENDENCE ON RENAL DIALYSIS
[2016-02-21] MEDS ORDERED: PT OWN MED DRAWER 7, Y5N ONE ×4 (08:55→20:57)
[2016-02-21] MEDS: PANTOPRAZOLE SODIUM 100 ML IVPB SCH (09:00)
[2016-02-21] MEDS: SEVELAMER CARBONATE 800 MG TAB (FP) PO SCH ×3 (09:00→17:11)
[2016-02-21] MEDS: METOPROLOL SUCCINATE 25 MG TAB.SR.24H (FP) PO SCH (09:01)
[2016-02-21] MEDS: valACYclovir HCL 500 MG TABLET (FP) PO SCH (09:34)
[2016-02-21] MEDS: BACITRACIN 30 GM TUBE TOPICAL OINTMENT TP SCH (09:35)
--- NOTE | 2016-02-21 10:33 | PN ---
Progress Note, Physician History of Present Illness: Awake, alert No complaints No c/o chest pain/ dyspnea No c/o fever/ chills + low grade temp WBC improved BC 02/17, 02/19 no growth - Current Medication List Current Medications: Active Medications Acetaminophen (Tylenol -) 650 mg PO BID PRN PRN Reason: FEVER Last Admin: 02/20/16 16:34 Dose: 650 mg Acetaminophen (Tylenol Suppository -) 650 mg [place] Q6H PRN PRN Reason: FEVER OR PAIN Bacitracin (Bacitracin -) 1 applic TP DAILY [facility] Last Admin: 02/21/16 09:35 Dose: 1 applic Epoetin Jakob (Epogen -) 8,000 units IVPUSH ONCE ONE Stop: 02/21/16 18:18 Hydralazine HCl (Apresoline -) 25 mg PO TID [facility] Last Admin: 02/21/16 06:28 Dose: 25 mg Nafcillin Sodium 2 gm/ (Dextrose) 100 mls @ 100 mls/hr IVPB Q4H-IV [facility] Last Admin: 02/21/16 09:00 Dose: 100 mls/hr Pantoprazole Sodium (Protonix 40mg Ivpb (Pre-Docked)) 100 mls @ 200 mls/hr IVPB DAILY [facility] Last Admin: 02/21/16 09:00 Dose: 200 mls/hr Insulin Aspart (Novolog Vial Sliding Scale -) 1 vial SQ ACHS DUC PRN Reason: Protocol Last Admin: 02/21/16 06:29 Dose: Not Given Methimazole (Tapazole -) 5 mg PO TID [facility] Last Admin: 02/21/16 06:28 Dose: 5 mg Metoprolol Succinate (Toprol Xl -) 25 mg PO DAILY [facility] Last Admin: 02/21/16 09:01 Dose: 25 mg Sevelamer Carbonate (Renvela -) 1,600 mg PO TIDCM [facility] Last Admin: 02/21/16 09:00 Dose: 1,600 mg Simethicone (Mylicon -) 80 mg PO Q4H PRN PRN Reason: GAS Valacyclovir HCl (Valtrex -) 500 mg PO DAILY [facility] Last Admin: 02/21/16 09:34 Dose: 500 mg - Objective Vital Signs: Vital Signs Temperature 98 F 02/21/16 10:00 Pulse Rate 84 02/21/16 10:00 Respiratory Rate 16 02/21/16 10:00 Blood Pressure 150/55 02/21/16 10:00 O2 Sat by Pulse Oximetry (%) 96 02/21/16 09:00 Constitutional: Yes: No Distress Eyes: Yes: Conjunctiva Clear Cardiovascular: Yes: Regular Rate and Rhythm, S1, S2 Respiratory: Yes: CTA Bilaterally Gastrointestinal: Yes: Normal Bowel Sounds, Soft. No: Tenderness Extremities: Yes: Other (L UE surgical sites no erythema/ drainage) Edema: LLE: 1+, RLE: 1+ Labs: CBC, BMP 02/21/16 05:20 02/21/16 05:20 INR, PTT INR 1.04 (0.82-1.09) 02/17/16 05:00 Assessment/Plan MSSA bacteremia , possible endocarditis ESRD S/P excision infected L AVG VZV repeat blood c/s (02/17, 02/19) no growth Continue nafcillin Continue valtrex, adjusted for renal failure
--- NOTE | 2016-02-21 11:06 | PN ---
Progress Note (short form) - Note Progress Note: pt seen/ examined. awake/ comfortable feels ok friends at bedside denies pain. says eyesight better Vital Signs Temp 98 F 02/21/16 10:00 Pulse 84 02/21/16 10:00 Resp 16 02/21/16 10:00 BP 150/55 02/21/16 10:00 Pulse Ox 96 02/21/16 09:00 Intake & Output 02/20/16 02/20/16 02/21/16 11:59 23:59 11:59 Intake Total 660 1510 250 Output Total 300 Balance 660 1210 250 Weight 147 lb 2 oz 142 lb 10.225 oz Intake: IVPB 300 500 200 Oral 360 1010 50 Output: Emesis 300 Other: Voiding Method Diaper Bowel Movement Yes Weight Measurement Method Built in Bedscale Built in Bedscale Active Medications Acetaminophen (Tylenol -) 650 mg PO BID PRN PRN Reason: FEVER Last Admin: 02/20/16 16:34 Dose: 650 mg Acetaminophen (Tylenol Suppository -) 650 mg [place] Q6H PRN PRN Reason: FEVER OR PAIN Bacitracin (Bacitracin -) 1 applic TP DAILY [facility] Last Admin: 02/21/16 09:35 Dose: 1 applic Epoetin Jakob (Epogen -) 8,000 units IVPUSH ONCE ONE Stop: 02/21/16 18:18 Hydralazine HCl (Apresoline -) 25 mg PO TID [facility] Last Admin: 02/21/16 06:28 Dose: 25 mg Nafcillin Sodium 2 gm/ (Dextrose) 100 mls @ 100 mls/hr IVPB Q4H-IV [facility] Last Admin: 02/21/16 09:00 Dose: 100 mls/hr Pantoprazole Sodium (Protonix 40mg Ivpb (Pre-Docked)) 100 mls @ 200 mls/hr IVPB DAILY [facility] Last Admin: 02/21/16 09:00 Dose: 200 mls/hr Insulin Aspart (Novolog Vial Sliding Scale -) 1 vial SQ ACHS DUC PRN Reason: Protocol Last Admin: 02/21/16 06:29 Dose: Not Given Methimazole (Tapazole -) 5 mg PO TID [facility] Last Admin: 02/21/16 06:28 Dose: 5 mg Metoprolol Succinate (Toprol Xl -) 25 mg PO DAILY [facility] Last Admin: 02/21/16 09:01 Dose: 25 mg Sevelamer Carbonate (Renvela -) 1,600 mg PO TIDCM [facility] Last Admin: 02/21/16 09:00 Dose: 1,600 mg Simethicone (Mylicon -) 80 mg PO Q4H PRN PRN Reason: GAS Valacyclovir HCl (Valtrex -) 500 mg PO DAILY [facility] Last Admin: 02/21/16 09:34 Dose: 500 mg CBC, BMP 02/21/16 05:20 02/21/16 05:20 Microbiology 02/17/16 11:00 Gram Stain - Final Tissue-Other Tissue Culture - Preliminary Staphylococcus Aureus Anaerobic Culture - Final NO ANAEROBES WERE ISOLATED 02/18/16 05:15 Blood Culture - Preliminary Blood - Peripheral Venous NO GROWTH OBTAINED AFTER 72 HOURS, INCUBATION TO CONTINUE FOR 2 DAYS. 02/18/16 05:15 Blood Culture - Preliminary Blood - Peripheral Venous NO GROWTH OBTAINED AFTER 72 HOURS, INCUBATION TO CONTINUE FOR 2 DAYS. PHYSICAL EXAMINATION: Constitutional: Yes: No Distress/ comfortable Cardiovascular: Yes: Regular Rate and Rhythm, Murmur Respiratory: Yes: Diminished at bases Gastrointestinal: Yes: Normal Bowel Sounds, Soft. No: Distention, Tenderness Extremities: Yes: Other Edema: Yes--trace Psychiatric: Yes: Alert ASSESSMENT & PLAN: - Clinically stable. - Hemodialysis per Renal. - Follow up cultures. - Antibiotics per ID. - Continue present care. - Will follow. Problem List - Problems (1) Altered mental status, unspecified Code(s): R41.82 - ALTERED MENTAL STATUS, UNSPECIFIED Qualifiers: Altered mental status type: unspecified Qualified Code(s): R41.82 - Altered mental status, unspecified (2) Dialysis AV fistula malfunction Code(s): T82.590A - [facility] COMPL OF SURGICALLY CREATED ARTERIOVENOUS FISTULA, INIT Qualifiers: Encounter type: initial encounter Qualified Code(s): T82.590A - Other mechanical complication of surgically created arteriovenous fistula, initial encounter (3) Elevated troponin Code(s): R79.89 - OTHER SPECIFIED ABNORMAL FINDINGS OF BLOOD CHEMISTRY (4) Thrombosis of surgically created arteriovenous fistula Code(s): T82.868A - THROMBOSIS DUE TO VASCULAR PROSTH DEV/GRFT, INIT (5) ESRD (end stage renal disease) on dialysis Code(s): N18.6 - END STAGE RENAL DISEASE Z99.2 - DEPENDENCE ON RENAL DIALYSIS (6) Diabetes mellitus Code(s): E11.9 - TYPE 2 DIABETES MELLITUS WITHOUT COMPLICATIONS Qualifiers: Diabetes mellitus type: type 2 Diabetes mellitus complication status: without complication (7) Bacteremia Code(s): R78.81 - BACTEREMIA (8) Arteriovenous graft infection Code(s): T82.7XXA - INFECT/INFLM REACT D/T OTH CARDI/VASC DEV/IMPLNT/GRFT, INIT Qualifiers: Encounter type: subsequent encounter Qualified Code(s): T82.7XXD - Infection and inflammatory reaction due to other cardiac and vascular devices, implants and grafts, subsequent encounter (9) Zoster Code(s): B02.9 - ZOSTER WITHOUT COMPLICATIONS ASSESSMENT & PLAN: MSSA bacteremia , endocarditis ? ESRD-- on hd S/P excision infected L AVG VZV vitreous hemmorage - Clinically stable. - overall better - Hemodialysis per Renal. - Follow up cultures. - Antibiotics - Continue present care. - Will follow. - may transfer to floor
--- NOTE | 2016-02-21 11:11 | PN ---
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 History of Present Illness: 75-year-old white female presents to the ED for evaluation of bleeding left AV fistula. As per pt she had dialysis but has not been feeling well and today when she went to dialysis they were unable to access her fistula and then it began to bleed. Patient states has not been feeling well over the past few days describing nausea myalgia, and decreased appetite. Patient denies headache, throat pain, chest pain or shortness of breath. Patient with history of ESRD-->hemodialysis 3x/week, anemia, CVA, CHF, dementia, diabetes, hypertension, dyslipidemia, "shingles", and thyroid disease. - Current Medication List Current Medications: Active Medications Acetaminophen (Tylenol -) 650 mg PO BID PRN PRN Reason: FEVER Last Admin: 02/20/16 16:34 Dose: 650 mg Acetaminophen (Tylenol Suppository -) 650 mg [place] Q6H PRN PRN Reason: FEVER OR PAIN Bacitracin (Bacitracin -) 1 applic TP DAILY [facility] Last Admin: 02/21/16 09:35 Dose: 1 applic Epoetin Jkaob (Epogen -) 8,000 units IVPUSH ONCE ONE Stop: 02/21/16 18:18 Hydralazine HCl (Apresoline -) 25 mg PO TID [facility] Last Admin: 02/21/16 06:28 Dose: 25 mg Nafcillin Sodium 2 gm/ (Dextrose) 100 mls @ 100 mls/hr IVPB Q4H-IV DUC Last Admin: 02/21/16 09:00 Dose: 100 mls/hr Pantoprazole Sodium (Protonix 40mg Ivpb (Pre-Docked)) 100 mls @ 200 mls/hr IVPB DAILY [facility] Last Admin: 02/21/16 09:00 Dose: 200 mls/hr Insulin Aspart (Novolog Vial Sliding Scale -) 1 vial SQ ACHS DUC PRN Reason: Protocol Last Admin: 02/21/16 06:29 Dose: Not Given Methimazole (Tapazole -) 5 mg PO TID [facility] Last Admin: 02/21/16 06:28 Dose: 5 mg Metoprolol Succinate (Toprol Xl -) 25 mg PO DAILY [facility] Last Admin: 02/21/16 09:01 Dose: 25 mg Sevelamer Carbonate (Renvela -) 1,600 mg PO TIDCM [facility] Last Admin: 02/21/16 09:00 Dose: 1,600 mg Simethicone (Mylicon -) 80 mg PO Q4H PRN PRN Reason: GAS Valacyclovir HCl (Valtrex -) 500 mg PO DAILY [facility] Last Admin: 02/21/16 09:34 Dose: 500 mg - Objective Vital Signs: Vital Signs Temperature 98 F 02/21/16 10:00 Pulse Rate 84 02/21/16 10:00 Respiratory Rate 16 02/21/16 10:00 Blood Pressure 150/55 02/21/16 10:00 O2 Sat by Pulse Oximetry (%) 96 02/21/16 09:00 Constitutional: Yes: Anxious Eyes: Yes: WNL HENT: Yes: WNL Neck: Yes: WNL Cardiovascular: Yes: Regular Rate and Rhythm Respiratory: Yes: WNL Gastrointestinal: Yes: Soft ...Rectal Exam: Yes: Deferred Genitourinary: No: Anuria Breast(s): Yes: WNL Musculoskeletal: Yes: Muscle Weakness Extremities: Yes: Cool Edema: No Peripheral Pulses WNL: No Peripheral Pulses: Left Doralis Pedis: 1+, Right Dorsalis Pedis: 1+ Labs: CBC, BMP 02/21/16 05:20 02/21/16 05:20 INR, PTT INR 1.04 (0.82-1.09) 02/17/16 05:00 - ....Imaging EKG: Image Reviewed (no significnat change (NSR; 1st degree AVB)) Other: Image Reviewed (telemetry: NSR) Problem List - Problems (1) Dialysis AV fistula malfunction Assessment/Plan: AV graft removed. Plan for Permacath next week. Code(s): T82.590A - [facility] COMPL OF SURGICALLY CREATED ARTERIOVENOUS FISTULA, INIT Qualifiers: Encounter type: initial encounter Qualified Code(s): T82.590A - Other mechanical complication of surgically created arteriovenous fistula, initial encounter (2) Elevated troponin Assessment/Plan: TNI 1.09-->1.38-->3.25-->2.5. EKG: NSR; 1st degree AVB, without acute ST-T changes (no significant change from 12/2015). Likely NSTEMI/demand ischemia, though multiple other factors may contribute to TNI elevation, including CHF, ESRD, sepsis, hypoxia. Problematic starting antiplatelets and systemic AC due to AV graft bleed, but would consider doing so if cleared by surgeon. On metoprolol. ECHO: normal LVEF; moderate ; mild-moderate AR; severe TR; mild OR and MR; no pericardial effusion. Pt will require coronary artery evaluation when stable (after Permacath). Code(s): R79.89 - OTHER SPECIFIED ABNORMAL FINDINGS OF BLOOD CHEMISTRY (3) ESRD (end stage renal disease) on dialysis Assessment/Plan: Hemodialysis per straightening machine operator. Code(s): N18.6 - END STAGE RENAL DISEASE Z99.2 - DEPENDENCE ON RENAL DIALYSIS (4) Hypertension Assessment/Plan: on metoprolol and hydralazine. Code(s): I10 - ESSENTIAL (PRIMARY) HYPERTENSION (5) Pulmonary hypertension Assessment/Plan: severe pulmonary HTN by 02/11/2015 ECHO; normal LVEF. Code(s): I27.2 - OTHER SECONDARY PULMONARY HYPERTENSION (6) Anemia Code(s): D64.9 - ANEMIA, UNSPECIFIED Qualifiers: Other causes of anemia: acute posthemorrhagic (7) Leukocytosis Code(s): D72.829 - ELEVATED WHITE BLOOD CELL COUNT, UNSPECIFIED (8) Thyroid disease Assessment/Plan: low TSH; elevated Free T4; adjust Tapazole accordingly. Code(s): E07.9 - DISORDER OF THYROID, UNSPECIFIED (9) Acute on chronic diastolic CHF (congestive heart failure) Assessment/Plan: f/u daily weight, Is and Os, BUN/Cr, electrolytes. Code(s): I50.33 - ACUTE ON CHRONIC DIASTOLIC (CONGESTIVE) HEART FAILURE (10) Zoster Assessment/Plan: on Valtrex (adjusted for renal dysfunction). Code(s): B02.9 - ZOSTER WITHOUT COMPLICATIONS (11) Vitreous hemorrhage, bilateral Assessment/Plan: some improvement in vision Code(s): H43.13 - VITREOUS HEMORRHAGE, BILATERAL
--- NOTE | 2016-02-21 12:00 | PN ---
Progress Note (short form) - Note Progress Note: Neurology 75-year-old female presented to the ED initally for evaluation of bleeding left AV fistula. As per notes, she went to dialysis, they were unable to access her fistula and then it began to bleed. Neurologically, she reports vision loss which has been ongoing with macular degeneration but reports acute vision loss superimposed on this since being admitted. CT head completed and without acute changes. Ordered MRI brain and optic nerves but limitation due to amauri in L antecubidal region. Optho note reviewed and with mention of bilteral vitreous hemorrhages likely etiology. More awake, alert and conversive with her teacher friends at bedside today. Neurologically, stable. Active Medications Acetaminophen (Tylenol -) 650 mg PO BID PRN PRN Reason: FEVER Last Admin: 02/20/16 16:34 Dose: 650 mg Acetaminophen (Tylenol Suppository -) 650 mg [place] Q6H PRN PRN Reason: FEVER OR PAIN Bacitracin (Bacitracin -) 1 applic TP DAILY [facility] Last Admin: 02/21/16 09:35 Dose: 1 applic Epoetin Jakob (Epogen -) 8,000 units IVPUSH ONCE ONE Stop: 02/21/16 18:18 Hydralazine HCl (Apresoline -) 25 mg PO TID [facility] Last Admin: 02/21/16 06:28 Dose: 25 mg Nafcillin Sodium 2 gm/ (Dextrose) 100 mls @ 100 mls/hr IVPB Q4H-IV DUC Last Admin: 02/21/16 09:00 Dose: 100 mls/hr Pantoprazole Sodium (Protonix 40mg Ivpb (Pre-Docked)) 100 mls @ 200 mls/hr IVPB DAILY [facility] Last Admin: 02/21/16 09:00 Dose: 200 mls/hr Insulin Aspart (Novolog Vial Sliding Scale -) 1 vial SQ ACHS DUC PRN Reason: Protocol Last Admin: 02/21/16 06:29 Dose: Not Given Methimazole (Tapazole -) 5 mg PO TID [facility] Last Admin: 02/21/16 06:28 Dose: 5 mg Metoprolol Succinate (Toprol Xl -) 25 mg PO DAILY [facility] Last Admin: 02/21/16 09:01 Dose: 25 mg Sevelamer Carbonate (Renvela -) 1,600 mg PO TIDCM [facility] Last Admin: 02/21/16 09:00 Dose: 1,600 mg Simethicone (Mylicon -) 80 mg PO Q4H PRN PRN Reason: GAS Valacyclovir HCl (Valtrex -) 500 mg PO DAILY [facility] Last Admin: 02/21/16 09:34 Dose: 500 mg *Physical Exam - Physical Exam General Appearance: Yes: Nourished, Appropriately Dressed. No: Apparent Distress HEENT: positive: EOMI, ZACARIAS, Pharynx Normal (dry). negative: Pale Conjunctivae Neck: positive: Supple Respiratory/Chest: positive: Lungs Clear, Normal Breath Sounds. negative: Respiratory Distress, Accessory Muscle Use Cardiovascular: positive: Regular Rhythm. negative: Murmur, Bradycardia Gastrointestinal/Abdominal: positive: Soft. negative: Tenderness Extremity: positive: Normal Capillary Refill. negative: Pedal Edema Integumentary: positive: Normal Color, Dry, Warm Neurologic: Alert, awake, slow movements, pupil equal and reactive, EOMI, Sensory intact, Strength equal b/l CBCD WBC 12.3 K/mm3 (4.0-10.0) H 02/21/16 05:20 RBC 3.15 M/mm3 (3.60-5.2) L 02/21/16 05:20 Hgb 9.0 GM/dL (10.7-15.3) L D 02/21/16 05:20 Hct 27.3 % (32.4-45.2) L D 02/21/16 05:20 MCV 86.6 fl (80-96) 02/21/16 05:20 MCHC 33.0 g/dl (32.0-36.0) 02/21/16 05:20 RDW 16.5 % (11.6-15.6) H 02/21/16 05:20 Plt Count 285 K/MM3 (134-434) 02/21/16 05:20 MPV 7.5 fl (7.5-11.1) 02/21/16 05:20 CMP Sodium 135 mmol/L (136-145) L 02/21/16 05:20 Potassium 4.1 mmol/L (3.5-5.1) 02/21/16 05:20 Chloride 95 mmol/L (98-107) L 02/21/16 05:20 Carbon Dioxide 30 mmol/L (21-32) 02/21/16 05:20 Anion Gap 10 (8-16) 02/21/16 05:20 BUN 44 mg/dL (7-18) H D 02/21/16 05:20 Creatinine 3.3 mg/dL (0.55-1.02) H D 02/21/16 05:20 Creat Clearance w eGFR 13.70 (>60) 02/21/16 05:20 Calcium 7.4 mg/dL (8.5-10.1) L 02/21/16 05:20 Total Bilirubin 2.4 mg/dL (0.2-1.0) H 02/21/16 05:20 AST 17 U/L (15-37) 02/21/16 05:20 ALT 11 U/L (12-78) L 02/21/16 05:20 Alkaline Phosphatase 81 U/L (45-117) 02/21/16 05:20 Total Protein 5.6 g/dl (6.4-8.2) L 02/21/16 05:20 Albumin 1.7 g/dl (3.4-5.0) L 02/21/16 05:20 CT head reviewed Medical Decision Making 75-year-old female presented to the ED initally for evaluation of bleeding left AV fistula. As per notes, she went to dialysis, they were unable to access her fistula and then it began to bleed. Neurologically, she reports vision loss which has been ongoing with macular degeneration but reports acute vision loss superimposed on this since being admitted. CT head completed and without acute changes. Ordered MRI brain and optic nerves but limitation due to amauri in L antecubidal region. Optho note reviewed and with mention of bilteral vitreous hemorrhages likely etiology. Can defer on MRI for now. Neurologically stable, will sign off for now. Please call if further questions.
[2016-02-21] MEDS ORDERED: EPOETIN ALFA 6,000 UNIT, EPOETIN ALFA 2,000 UNIT IVPUSH ONE (14:00)
--- NOTE | 2016-02-21 15:33 | PN ---
Progress Note, Physician History of Present Illness: Pt seen and examined at bedside. She is awake and alert. She is tolerating HD. She says she can see now. She was able to tell me the color of my shirt and the gown I was wearing. - Current Medication List Current Medications: Active Medications Acetaminophen (Tylenol -) 650 mg PO BID PRN PRN Reason: FEVER Last Admin: 02/20/16 16:34 Dose: 650 mg Acetaminophen (Tylenol Suppository -) 650 mg [place] Q6H PRN PRN Reason: FEVER OR PAIN Bacitracin (Bacitracin -) 1 applic TP DAILY [facility] Last Admin: 02/21/16 09:35 Dose: 1 applic Hydralazine HCl (Apresoline -) 25 mg PO TID [facility] Last Admin: 02/21/16 13:10 Dose: 25 mg Nafcillin Sodium 2 gm/ (Dextrose) 100 mls @ 100 mls/hr IVPB Q4H-IV DUC Last Admin: 02/21/16 13:11 Dose: 100 mls/hr Pantoprazole Sodium (Protonix 40mg Ivpb (Pre-Docked)) 100 mls @ 200 mls/hr IVPB DAILY [facility] Last Admin: 02/21/16 09:00 Dose: 200 mls/hr Insulin Aspart (Novolog Vial Sliding Scale -) 1 vial SQ ACHS DUC PRN Reason: Protocol Last Admin: 02/21/16 13:09 Dose: 4 units Methimazole (Tapazole -) 5 mg PO TID [facility] Last Admin: 02/21/16 13:11 Dose: 5 mg Metoprolol Succinate (Toprol Xl -) 25 mg PO DAILY [facility] Last Admin: 02/21/16 09:01 Dose: 25 mg Sevelamer Carbonate (Renvela -) 1,600 mg PO TIDCM [facility] Last Admin: 02/21/16 13:09 Dose: 1,600 mg Simethicone (Mylicon -) 80 mg PO Q4H PRN PRN Reason: GAS Valacyclovir HCl (Valtrex -) 500 mg PO DAILY [facility] Last Admin: 02/21/16 09:34 Dose: 500 mg - Objective Vital Signs: Vital Signs Temperature 98.2 F 02/21/16 14:00 Pulse Rate 84 02/21/16 15:00 Respiratory Rate 19 02/21/16 15:00 Blood Pressure 152/53 02/21/16 15:00 O2 Sat by Pulse Oximetry (%) 96 02/21/16 09:00 Constitutional: Yes: Calm HENT: Yes: Atraumatic Cardiovascular: Yes: S1, S2 Respiratory: Yes: On Nasal O2 Gastrointestinal: Yes: Soft Genitourinary: Yes: Incontinence Musculoskeletal: Yes: Muscle Weakness Edema: Yes Neurological: Yes: Oriented Psychiatric: Yes: Oriented Labs: CBC, BMP 02/21/16 05:20 02/21/16 05:20 INR, PTT INR 1.04 (0.82-1.09) 02/17/16 05:00 Problem List - Problems (1) Altered mental status, unspecified Code(s): R41.82 - ALTERED MENTAL STATUS, UNSPECIFIED Qualifiers: Altered mental status type: unspecified Qualified Code(s): R41.82 - Altered mental status, unspecified (2) Dialysis AV fistula malfunction Code(s): T82.590A - [facility] COMPL OF SURGICALLY CREATED ARTERIOVENOUS FISTULA, INIT Qualifiers: Encounter type: initial encounter Qualified Code(s): T82.590A - Other mechanical complication of surgically created arteriovenous fistula, initial encounter (3) Elevated troponin Code(s): R79.89 - OTHER SPECIFIED ABNORMAL FINDINGS OF BLOOD CHEMISTRY (4) ESRD (end stage renal disease) on dialysis Code(s): N18.6 - END STAGE RENAL DISEASE Z99.2 - DEPENDENCE ON RENAL DIALYSIS (5) Anemia Code(s): D64.9 - ANEMIA, UNSPECIFIED Qualifiers: Other causes of anemia: acute posthemorrhagic (6) Hypertension Code(s): I10 - ESSENTIAL (PRIMARY) HYPERTENSION Assessment/Plan Current Medications Generic Name Dose Route Start Last Admin Trade Name Freq PRN Reason Stop Dose Admin Acetaminophen 650 mg 02/17/16 11:15 02/20/16 16:34 Tylenol - PO 650 mg BID PRN Administration FEVER Acetaminophen 650 mg 02/17/16 11:15 Tylenol Suppository - [place] Q6H PRN FEVER OR PAIN Bacitracin 1 applic 02/18/16 10:00 02/21/16 09:35 Bacitracin - TP 1 applic DAILY [facility] Administration Hydralazine HCl 25 mg 02/17/16 14:00 02/21/16 13:10 Apresoline - PO 25 mg TID [facility] Administration Nafcillin Sodium 2 gm/ 100 mls @ 100 mls/hr 02/17/16 14:00 02/21/16 13:11 Dextrose IVPB 100 mls/hr Q4H-IV DUC Administration Pantoprazole Sodium 100 mls @ 200 mls/hr 02/18/16 10:00 02/21/16 09:00 Protonix 40mg Ivpb (Pre-Docked) IVPB 200 mls/hr DAILY [facility] Administration Insulin Aspart 1 vial 02/17/16 16:30 02/21/16 13:09 Novolog Vial Sliding Scale - SQ 4 units ACHS DUC Administration Protocol Methimazole 5 mg 02/17/16 14:00 02/21/16 13:11 Tapazole - PO 5 mg TID [facility] Administration Metoprolol Succinate 25 mg 02/18/16 10:00 02/21/16 09:01 Toprol Xl - PO 25 mg DAILY [facility] Administration Sevelamer Carbonate 1,600 mg 02/17/16 12:00 02/21/16 13:09 Renvela - PO 1,600 mg TIDCM DUC Administration Simethicone 80 mg 02/20/16 20:28 Mylicon - PO Q4H PRN GAS Valacyclovir HCl 500 mg 02/19/16 10:00 02/21/16 09:34 Valtrex - PO 500 mg DAILY [facility] Administration Impression 1. ESRD 2. av access malfunction 3. hyperkalemia 4. CHF 5. DM 6. HTN 7. anemia 8. depression 9. hyperlipidemia 10. leukocytosis 11. NSTEMI 12. bacteremia Plan - pt is tolerating HD - femoral catheter to be removed - cont to monitor cultures - pts vision is improved - cardio follow up - will need PC for HD - monitor HG - permacath next week - follow cultures - monitor pulse ox Dr Jones
--- NOTE | 2016-02-21 16:18 | EKG ---
Test Reason : Blood Pressure : / mmHG Vent. Rate : 084 BPM Atrial Rate : 084 BPM P-R Int : 290 ms QRS Dur : 086 ms QT Int : 386 ms P-R-T Axes : 054 034 099 degrees QTc Int : 456 ms SINUS RHYTHM WITH 1ST DEGREE A-V BLOCK NONSPECIFIC T WAVE ABNORMALITY ABNORMAL ECG WHEN COMPARED WITH ECG OF 16-FEB-2016 08:57, NO SIGNIFICANT CHANGE WAS FOUND Confirmed by PONCE DAILEY, PETE ([id number]) on 02/21/2016 4:17:48 PM Referred By: PETE SERRA Confirmed By:PETE SERRA MD
[2016-02-21] MEDS ORDERED: EPOETIN ALFA 2,000 UNITS/1 ML VIAL IVPUSH ONE (18:17)
[2016-02-22] MEDS: NAFCILLIN - 2 GM in DEXTROSE 5%-WATER - 100 ML IVPB SCH ×7 (02:24→22:15)
[2016-02-22 06:24] LABS: BASOPHIL 0.7 % (0-2.0); EOSINOPHIL 0.6 % (0-4.5); MCH 29.4 pg (25.7-33.7); MCHC 33.5 g/dl (32.0-36.0); MEAN CELL VOLUME 87.6 fl (80-96); MEAN PLT VOLUME 7.4 fl (7.5-11.1); NEUTROPHILS 86.6 % (42.8-82.8); PLATELET COUNT 321 K/MM3 (134-434); RDW 16.2 % (11.6-15.6); WHITE BLOOD COUNT 12.3 K/mm3 (4.0-10.0)
[2016-02-22 06:50] LABS: ALBUMIN 1.6 g/dl (3.4-5.0); CALCIUM 7.5 mg/dL (8.5-10.1); CREATININE 3.1 mg/dL (0.55-1.02); MAGNESIUM 1.7 mg/dL (1.8-2.4); PHOSPHOROUS 2.8 mg/dL (2.5-4.9)
[2016-02-22 06:52] LABS: BILIRUBIN,TOTAL 2.2 mg/dL (0.2-1.0); TOT PROT 5.6 g/dl (6.4-8.2)
--- NOTE | 2016-02-22 07:14 | PN ---
Progress Note (short form) - Note Progress Note: PULM/CCM SUBJECTIVE: Patient seen and examined in the ICU. HD yestersday, tolerated well Reports some improvement in her vision bcxl have cleared Vital Signs Temp 98.2 F 02/21/16 18:00 Pulse 86 02/22/16 06:00 Resp 18 02/22/16 06:00 BP 144/59 02/22/16 06:00 Pulse Ox 95 02/21/16 19:30 Intake & Output 02/21/16 02/21/16 02/22/16 11:59 23:59 11:59 Intake Total 250 920 300 Balance 250 920 300 Weight 64.7 kg 66 kg Intake: IVPB 200 400 200 Oral 50 520 100 Other: Voiding Method Diaper Bowel Movement Yes Weight Measurement Method Built in Bedscale Built in Bedscale Active Medications Acetaminophen (Tylenol -) 650 mg PO BID PRN PRN Reason: FEVER Last Admin: 02/20/16 16:34 Dose: 650 mg Acetaminophen (Tylenol Suppository -) 650 mg [place] Q6H PRN PRN Reason: FEVER OR PAIN Bacitracin (Bacitracin -) 1 applic TP DAILY [facility] Last Admin: 02/21/16 09:35 Dose: 1 applic Hydralazine HCl (Apresoline -) 25 mg PO TID [facility] Last Admin: 02/21/16 21:04 Dose: 25 mg Nafcillin Sodium 2 gm/ (Dextrose) 100 mls @ 100 mls/hr IVPB Q4H-IV DUC Last Admin: 02/22/16 02:24 Dose: 100 mls/hr Pantoprazole Sodium (Protonix 40mg Ivpb (Pre-Docked)) 100 mls @ 200 mls/hr IVPB DAILY [facility] Last Admin: 02/21/16 09:00 Dose: 200 mls/hr Insulin Aspart (Novolog Vial Sliding Scale -) 1 vial SQ ACHS DUC PRN Reason: Protocol Last Admin: 02/21/16 21:06 Dose: 2 units Methimazole (Tapazole -) 5 mg PO TID [facility] Last Admin: 02/21/16 21:06 Dose: 5 mg Metoprolol Succinate (Toprol Xl -) 25 mg PO DAILY [facility] Last Admin: 02/21/16 09:01 Dose: 25 mg Sevelamer Carbonate (Renvela -) 1,600 mg PO TIDCM [facility] Last Admin: 02/21/16 17:11 Dose: 1,600 mg Simethicone (Mylicon -) 80 mg PO Q4H PRN PRN Reason: GAS Valacyclovir HCl (Valtrex -) 500 mg PO DAILY [facility] Last Admin: 02/21/16 09:34 Dose: 500 mg Gen: Awake and responsive Heart: RRR Lung: decreased breath sounds at the bases Abd: soft, nontender, typanic slightly distended Ext: +edema Sacrum: +vesicles, not pain ful ASSESSMENT AND PLAN: Staph Bacteremia from likely AVG infection Acute Blood Loss from AVG NSTEMI Altered Mental Status ESRD on HD Hyperkalemia resolved Pulmonary HTN HTN DM - ABX per ID, cont nafcillin two weeks post last positive blood cxl - follow up repeat blood cultures, negative so far - HD per renal,dialyzed yesterday, needs tunneled cath on Tuesday - BB, anti-HTN - aspiration precautions - DVT prophylaxis - can monitor on floor today - if TDC on Tuesday, should get picc for intermediate abx at same time - renal diet Peewee Fernandez ACNP [id number]
[2016-02-22] MEDS: METHIMAZOLE 5 MG TABLET (FP) PO SCH ×4 (07:28→21:44)
[2016-02-22] MEDS: INSULIN SLIDING SCALE (NOVOLOG) 1 VIAL SQ SCH ×4 (07:28→21:50)
[2016-02-22] MEDS: SEVELAMER CARBONATE 800 MG TAB (FP) PO SCH ×3 (09:00→18:01)
[2016-02-22] MEDS ORDERED: PT OWN MED DRAWER 7, Y5N ONE ×3 (09:05→21:38)
--- NOTE | 2016-02-22 09:08 | PN ---
Progress Note (short form) - Note Progress Note: s/p HD 02/20 then trialysis cath removed without incident. Left groin: no hematoma. Awaiting repeat blood cultures. Once confirmed negative, we can proceed with placing new permacath. Problem List - Problems (1) ESRD (end stage renal disease) on dialysis Code(s): N18.6 - END STAGE RENAL DISEASE Z99.2 - DEPENDENCE ON RENAL DIALYSIS
[2016-02-22] MEDS: hydrALAZINE HCL 25 MG TABLET (FP) PO SCH ×3 (09:09→21:44)
[2016-02-22] MEDS: BACITRACIN 30 GM TUBE TOPICAL OINTMENT TP SCH (09:10)
[2016-02-22] MEDS: METOPROLOL SUCCINATE 25 MG TAB.SR.24H (FP) PO SCH (09:11)
[2016-02-22] MEDS: PANTOPRAZOLE SODIUM 100 ML IVPB SCH (09:11)
--- NOTE | 2016-02-22 10:28 | PN ---
Progress Note, Physician History of Present Illness: Lethargic today Offers no complaints Afebrile Repeat blood c/s no growth - Current Medication List Current Medications: Active Medications Acetaminophen (Tylenol -) 650 mg PO BID PRN PRN Reason: FEVER Last Admin: 02/20/16 16:34 Dose: 650 mg Acetaminophen (Tylenol Suppository -) 650 mg [place] Q6H PRN PRN Reason: FEVER OR PAIN Bacitracin (Bacitracin -) 1 applic TP DAILY [facility] Last Admin: 02/22/16 09:10 Dose: 1 applic Hydralazine HCl (Apresoline -) 25 mg PO TID [facility] Last Admin: 02/22/16 09:09 Dose: 25 mg Nafcillin Sodium 2 gm/ (Dextrose) 100 mls @ 100 mls/hr IVPB Q4H-IV [facility] Last Admin: 02/22/16 07:28 Dose: 100 mls/hr Pantoprazole Sodium (Protonix 40mg Ivpb (Pre-Docked)) 100 mls @ 200 mls/hr IVPB DAILY [facility] Last Admin: 02/22/16 09:11 Dose: 200 mls/hr Insulin Aspart (Novolog Vial Sliding Scale -) 1 vial SQ ACHS DUC PRN Reason: Protocol Last Admin: 02/22/16 07:28 Dose: 2 units Methimazole (Tapazole -) 5 mg PO TID [facility] Last Admin: 02/22/16 07:28 Dose: 5 mg Metoprolol Succinate (Toprol Xl -) 25 mg PO DAILY [facility] Last Admin: 02/22/16 09:11 Dose: 25 mg Sevelamer Carbonate (Renvela -) 1,600 mg PO TIDCM [facility] Last Admin: 02/22/16 09:00 Dose: 1,600 mg Simethicone (Mylicon -) 80 mg PO Q4H PRN PRN Reason: GAS Valacyclovir HCl (Valtrex -) 500 mg PO DAILY [facility] Last Admin: 02/21/16 09:34 Dose: 500 mg - Objective Vital Signs: Vital Signs Temperature 98.2 F 02/21/16 18:00 Pulse Rate 84 02/22/16 08:00 Respiratory Rate 18 02/22/16 08:00 Blood Pressure 134/57 02/22/16 08:00 O2 Sat by Pulse Oximetry (%) 95 02/21/16 19:30 Constitutional: Yes: No Distress Eyes: Yes: Conjunctiva Clear Cardiovascular: Yes: Regular Rate and Rhythm, S1, S2 Respiratory: Yes: CTA Bilaterally Gastrointestinal: Yes: Normal Bowel Sounds, Soft. No: Tenderness Integumentary: Yes: Other (dry VZV rash L buttock) Labs: CBC, BMP 02/22/16 05:20 02/22/16 05:20 INR, PTT INR 1.04 (0.82-1.09) 02/17/16 05:00 Assessment/Plan MSSA bacteremia , possible endocarditis ESRD S/P excision infected L AVG VZV- now dry repeat blood c/s (02/17, 02/19) no growth Continue nafcillin Discontinue valtrex
[2016-02-22] MEDS: valACYclovir HCL 500 MG TABLET (FP) PO SCH (10:39)
--- NOTE | 2016-02-22 12:46 | PN ---
Progress Note (short form) - Note Progress Note: pt seen/ examined in icu. awake/ comfortable feels well. no complains Shiley taken out. Vital Signs Temp 98.9 F 02/22/16 10:00 Pulse 84 02/22/16 12:00 Resp 22 02/22/16 12:00 BP 139/53 02/22/16 12:00 Pulse Ox 100 02/22/16 10:55 Intake & Output 02/21/16 02/22/16 02/22/16 23:59 11:59 23:59 Intake Total 920 300 Balance 920 300 Weight 145 lb 8.081 oz Intake: IVPB 400 200 Oral 520 100 Other: Voiding Method Diaper Bowel Movement Yes Yes: very large amt soft brown # Bowel Movements 1 Weight Measurement Method Built in [facility] Active Medications Acetaminophen (Tylenol -) 650 mg PO BID PRN PRN Reason: FEVER Last Admin: 02/20/16 16:34 Dose: 650 mg Acetaminophen (Tylenol Suppository -) 650 mg [place] Q6H PRN PRN Reason: FEVER OR PAIN Bacitracin (Bacitracin -) 1 applic TP DAILY [facility] Last Admin: 02/21/16 09:35 Dose: 1 applic Epoetin Jakob (Epogen -) 8,000 units IVPUSH ONCE ONE Stop: 02/21/16 18:18 Hydralazine HCl (Apresoline -) 25 mg PO TID [facility] Last Admin: 02/21/16 06:28 Dose: 25 mg Nafcillin Sodium 2 gm/ (Dextrose) 100 mls @ 100 mls/hr IVPB Q4H-IV DUC Last Admin: 02/21/16 09:00 Dose: 100 mls/hr Pantoprazole Sodium (Protonix 40mg Ivpb (Pre-Docked)) 100 mls @ 200 mls/hr IVPB DAILY [facility] Last Admin: 02/21/16 09:00 Dose: 200 mls/hr Insulin Aspart (Novolog Vial Sliding Scale -) 1 vial SQ ACHS DUC PRN Reason: Protocol Last Admin: 02/21/16 06:29 Dose: Not Given Methimazole (Tapazole -) 5 mg PO TID [facility] Last Admin: 02/21/16 06:28 Dose: 5 mg Metoprolol Succinate (Toprol Xl -) 25 mg PO DAILY [facility] Last Admin: 02/21/16 09:01 Dose: 25 mg Sevelamer Carbonate (Renvela -) 1,600 mg PO TIDCM [facility] Last Admin: 02/21/16 09:00 Dose: 1,600 mg Simethicone (Mylicon -) 80 mg PO Q4H PRN PRN Reason: GAS Valacyclovir HCl (Valtrex -) 500 mg PO DAILY [facility] Last Admin: 02/21/16 09:34 Dose: 500 mg CBC, BMP 02/22/16 05:20 02/22/16 05:20 Microbiology 02/18/16 05:15 Blood Culture - Preliminary Blood - Peripheral Venous NO GROWTH OBTAINED AFTER 96 HOURS, INCUBATION TO CONTINUE FOR 1 DAYS. 02/18/16 05:15 Blood Culture - Preliminary Blood - Peripheral Venous NO GROWTH OBTAINED AFTER 96 HOURS, INCUBATION TO CONTINUE FOR 1 DAYS. 02/20/16 11:37 Blood Culture - Preliminary Blood - Shiley Catheter NO GROWTH OBTAINED AFTER 24 HOURS, INCUBATION TO CONTINUE FOR 4 DAYS. 02/20/16 11:37 Blood Culture - Preliminary Blood - Shiley Catheter NO GROWTH OBTAINED AFTER 24 HOURS, INCUBATION TO CONTINUE FOR 4 DAYS. 02/17/16 11:00 Gram Stain - Final Tissue-Other Tissue Culture - Final Staphylococcus Aureus Anaerobic Culture - Final NO ANAEROBES WERE ISOLATED PHYSICAL EXAMINATION: Constitutional: Yes: No Distress/ comfortable Cardiovascular: Yes: Regular Rate and Rhythm, Murmur Respiratory: Yes: Diminished at bases Gastrointestinal: Yes: Normal Bowel Sounds, Soft. No: Distention, Tenderness Extremities: Yes: Other Edema: Yes--trace Psychiatric: Yes: Alert Problem List - Problems (1) Altered mental status, unspecified Code(s): R41.82 - ALTERED MENTAL STATUS, UNSPECIFIED Qualifiers: Altered mental status type: unspecified Qualified Code(s): R41.82 - Altered mental status, unspecified (2) Dialysis AV fistula malfunction Code(s): T82.590A - [facility] COMPL OF SURGICALLY CREATED ARTERIOVENOUS FISTULA, INIT Qualifiers: Encounter type: initial encounter Qualified Code(s): T82.590A - Other mechanical complication of surgically created arteriovenous fistula, initial encounter (3) Elevated troponin Code(s): R79.89 - OTHER SPECIFIED ABNORMAL FINDINGS OF BLOOD CHEMISTRY (4) Thrombosis of surgically created arteriovenous fistula Code(s): T82.868A - THROMBOSIS DUE TO VASCULAR PROSTH DEV/GRFT, INIT (5) ESRD (end stage renal disease) on dialysis Code(s): N18.6 - END STAGE RENAL DISEASE Z99.2 - DEPENDENCE ON RENAL DIALYSIS (6) Diabetes mellitus Code(s): E11.9 - TYPE 2 DIABETES MELLITUS WITHOUT COMPLICATIONS Qualifiers: Diabetes mellitus type: type 2 Diabetes mellitus complication status: without complication (7) Bacteremia Code(s): R78.81 - BACTEREMIA (8) Arteriovenous graft infection Code(s): T82.7XXA - INFECT/INFLM REACT D/T OTH CARDI/VASC DEV/IMPLNT/GRFT, INIT Qualifiers: Encounter type: subsequent encounter Qualified Code(s): T82.7XXD - Infection and inflammatory reaction due to other cardiac and vascular devices, implants and grafts, subsequent encounter (9) Zoster Code(s): B02.9 - ZOSTER WITHOUT COMPLICATIONS ASSESSMENT & PLAN: MSSA bacteremia , endocarditis ? ESRD-- on hd S/P excision infected L AVG VZV vitreous hemmorage - Clinically stable. - overall better - Hemodialysis per Renal. - Follow up cultures. - Antibiotics - Continue present care. - Will follow. - may transfer to floor
[2016-02-22] MEDS ORDERED: EPOETIN ALFA 2,000 UNITS/1 ML VIAL IVPUSH ONE (13:07)
[2016-02-22] MEDS ORDERED: SIMETHICONE 80 MG TAB.CHEW (FP) PO PRN (13:07)
[2016-02-22] MEDS ORDERED: ACETAMINOPHEN 325 MG TABLET (FP) PO PRN (13:07)
[2016-02-22] MEDS ORDERED: ACETAMINOPHEN 650 MG SUPP.RECT PR PRN (13:07)
--- NOTE | 2016-02-22 15:52 | PN ---
Progress Note, Physician History of Present Illness: Pt seen and examined at bedside. She is awake and more alert today. Her PO intake is improved. - Current Medication List Current Medications: Active Medications Acetaminophen (Tylenol -) 650 mg PO BID PRN PRN Reason: FEVER Acetaminophen (Tylenol Suppository -) 650 mg [place] Q6H PRN PRN Reason: FEVER OR PAIN Bacitracin (Bacitracin -) 1 applic TP DAILY [facility] Hydralazine HCl (Apresoline -) 25 mg PO TID [facility] Nafcillin Sodium 2 gm/ (Dextrose) 100 mls @ 100 mls/hr IVPB Q4H-IV DUC Last Admin: 02/22/16 14:59 Dose: Not Given Pantoprazole Sodium (Protonix 40mg Ivpb (Pre-Docked)) 100 mls @ 200 mls/hr IVPB DAILY [facility] Insulin Aspart (Novolog Vial Sliding Scale -) 1 vial SQ ACHS DUC PRN Reason: Protocol Methimazole (Tapazole -) 5 mg PO TID [facility] Last Admin: 02/22/16 14:59 Dose: Not Given Metoprolol Succinate (Toprol Xl -) 25 mg PO DAILY [facility] Sevelamer Carbonate (Renvela -) 1,600 mg PO TIDCM DUC Simethicone (Mylicon -) 80 mg PO Q4H PRN PRN Reason: GAS - Objective Vital Signs: Vital Signs Temperature 99.0 F 02/22/16 14:00 Pulse Rate 83 02/22/16 14:00 Respiratory Rate 22 02/22/16 14:00 Blood Pressure 138/62 02/22/16 14:00 O2 Sat by Pulse Oximetry (%) 100 02/22/16 10:55 Constitutional: Yes: Calm Eyes: Yes: Conjunctiva Clear HENT: Yes: Atraumatic Neck: Yes: Supple Cardiovascular: Yes: S1, S2 Respiratory: Yes: CTA Bilaterally Gastrointestinal: Yes: Soft Genitourinary: Yes: Incontinence Musculoskeletal: Yes: Muscle Weakness Edema: Yes Edema: LUE: 1+, RUE: 1+ Neurological: Yes: Oriented Psychiatric: Yes: Oriented Labs: CBC, BMP 02/22/16 05:20 02/22/16 05:20 INR, PTT INR 1.04 (0.82-1.09) 02/17/16 05:00 Problem List - Problems (1) Altered mental status, unspecified Code(s): R41.82 - ALTERED MENTAL STATUS, UNSPECIFIED Qualifiers: Altered mental status type: unspecified Qualified Code(s): R41.82 - Altered mental status, unspecified (2) Dialysis AV fistula malfunction Code(s): T82.590A - [facility] COMPL OF SURGICALLY CREATED ARTERIOVENOUS FISTULA, INIT Qualifiers: Encounter type: initial encounter Qualified Code(s): T82.590A - Other mechanical complication of surgically created arteriovenous fistula, initial encounter (3) Elevated troponin Code(s): R79.89 - OTHER SPECIFIED ABNORMAL FINDINGS OF BLOOD CHEMISTRY (4) ESRD (end stage renal disease) on dialysis Code(s): N18.6 - END STAGE RENAL DISEASE Z99.2 - DEPENDENCE ON RENAL DIALYSIS (5) Anemia Code(s): D64.9 - ANEMIA, UNSPECIFIED Qualifiers: Other causes of anemia: acute posthemorrhagic (6) Hypertension Code(s): I10 - ESSENTIAL (PRIMARY) HYPERTENSION Assessment/Plan Current Medications Generic Name Dose Route Start Last Admin Trade Name Freq PRN Reason Stop Dose Admin Acetaminophen 650 mg 02/22/16 13:07 Tylenol - PO BID PRN FEVER Acetaminophen 650 mg 02/22/16 13:07 Tylenol Suppository - NV Q6H PRN FEVER OR PAIN Bacitracin 1 applic 02/23/16 10:00 Bacitracin - TP DAILY [facility] Hydralazine HCl 25 mg 02/22/16 14:00 Apresoline - PO TID [facility] Nafcillin Sodium 2 gm/ 100 mls @ 100 mls/hr 02/22/16 14:00 02/22/16 14:59 Dextrose IVPB Not Given Q4H-IV DUC Pantoprazole Sodium 100 mls @ 200 mls/hr 02/23/16 10:00 Protonix 40mg Ivpb (Pre-Docked) IVPB DAILY [facility] Insulin Aspart 1 vial 02/22/16 16:30 Novolog Vial Sliding Scale - SQ ACHS DUC Protocol Methimazole 5 mg 02/22/16 14:00 02/22/16 14:59 Tapazole - PO Not Given TID [facility] Metoprolol Succinate 25 mg 02/23/16 10:00 Toprol Xl - PO DAILY D[facility] Sevelamer Carbonate 1,600 mg 02/22/16 17:30 Renvela - PO TIDCM DUC Simethicone 80 mg 02/22/16 13:07 Mylicon - PO Q4H PRN GAS Impression 1. ESRD 2. av access malfunction 3. hyperkalemia 4. CHF 5. DM 6. HTN 7. anemia 8. depression 9. hyperlipidemia 10. leukocytosis 11. NSTEMI 12. bacteremia Plan - pt will need a permacath, will discuss with vascular tomorrow - cont abx - pt now has peripheral line - shiley removed - monitor HG - follow cultures - monitor pulse ox Dr Jones
[2016-02-22] MEDS ORDERED: HEMOQUE TEST 1 EACH EACH ONE (21:45)
--- NOTE | 2016-02-23 00:03 | PN ---
Progress Note, Physician Chief Complaint: Pt A&Ox3; lying in bed; no chest pain or dyspnea; moves all extremities on request. History of Present Illness: 75-year-old white female presents to the ED for evaluation of bleeding left AV fistula. As per pt she had dialysis but has not been feeling well and today when she went to dialysis they were unable to access her fistula and then it began to bleed. Patient states has not been feeling well over the past few days describing nausea myalgia, and decreased appetite. Patient denies headache, throat pain, chest pain or shortness of breath. Patient with history of ESRD-->hemodialysis 3x/week, anemia, CVA, CHF, dementia, diabetes, hypertension, dyslipidemia, "shingles", and thyroid disease. - Current Medication List Current Medications: Active Medications Acetaminophen (Tylenol -) 650 mg PO BID PRN PRN Reason: FEVER Acetaminophen (Tylenol Suppository -) 650 mg ID Q6H PRN PRN Reason: FEVER OR PAIN Bacitracin (Bacitracin -) 1 applic TP DAILY [facility] Hydralazine HCl (Apresoline -) 25 mg PO TID [facility] Last Admin: 02/22/16 21:44 Dose: 25 mg Nafcillin Sodium 2 gm/ (Dextrose) 100 mls @ 100 mls/hr IVPB Q4H-IV [facility] Last Admin: 02/22/16 22:15 Dose: 100 mls/hr Pantoprazole Sodium (Protonix 40mg Ivpb (Pre-Docked)) 100 mls @ 200 mls/hr IVPB DAILY [facility] Insulin Aspart (Novolog Vial Sliding Scale -) 1 vial SQ ACHS [facility] PRN Reason: Protocol Last Admin: 02/22/16 21:50 Dose: 2 units Methimazole (Tapazole -) 5 mg PO TID [facility] Last Admin: 02/22/16 21:44 Dose: 5 mg Metoprolol Succinate (Toprol Xl -) 25 mg PO DAILY [facility] Sevelamer Carbonate (Renvela -) 1,600 mg PO TIDCM [facility] Last Admin: 02/22/16 18:01 Dose: 1,600 mg Simethicone (Mylicon -) 80 mg PO Q4H PRN PRN Reason: GAS - Objective Vital Signs: Vital Signs Temperature 98.8 F 02/22/16 22:00 Pulse Rate 85 02/22/16 22:00 Respiratory Rate 24 02/22/16 22:00 Blood Pressure 150/80 02/22/16 22:00 O2 Sat by Pulse Oximetry (%) 99 02/22/16 20:19 Constitutional: Yes: Calm Eyes: Yes: WNL HENT: Yes: WNL Neck: Yes: WNL Cardiovascular: Yes: Regular Rate and Rhythm, S1 (split) Respiratory: Yes: Regular Gastrointestinal: Yes: Soft ...Rectal Exam: No: Deferred Genitourinary: No: Anuria Breast(s): Yes: WNL Musculoskeletal: Yes: Muscle Weakness Extremities: Yes: Other (Left arm s/p AV graft removal) Peripheral Pulses WNL: Yes Integumentary: Yes: Incision Wound/Incision: Yes: Other (dressing with small amount of dried blood) Neurological: Yes: Alert, Oriented, Weakness Psychiatric: Yes: Alert, Oriented Labs: CBC, BMP 02/22/16 05:20 02/22/16 05:20 INR, PTT INR 1.04 (0.82-1.09) 02/17/16 05:00 Abnormal Lab Results 02/22/16 02/22/16 05:20 05:20 WBC 12.3 H RBC 3.31 L Hgb 9.7 L Hct 29.0 L RDW 16.2 H MPV 7.4 L Neutrophils % 86.6 H Lymphocytes % 5.5 L Sodium 132 L Chloride 93 L BUN 39 H Creatinine 3.1 H Random Glucose 146 H Calcium 7.5 L Magnesium 1.7 L Total Bilirubin 2.2 H Total Protein 5.6 L Albumin 1.6 L - ....Imaging Other: Image Reviewed (telemetry: NSR; 1st degre AVB; no arrhythmias) Problem List - Problems (1) Dialysis AV fistula malfunction Assessment/Plan: AV graft removed. Plan for Permacath. Code(s): T82.590A - [facility] COMPL OF SURGICALLY CREATED ARTERIOVENOUS FISTULA, INIT Qualifiers: Encounter type: initial encounter Qualified Code(s): T82.590A - Other mechanical complication of surgically created arteriovenous fistula, initial encounter (2) Elevated troponin Assessment/Plan: TNI 1.09-->1.38-->3.25-->2.5. EKG: NSR; 1st degree AVB, without acute ST-T changes (no significant change from 12/2015). Likely NSTEMI/demand ischemia, though multiple other factors may contribute to TNI elevation, including CHF, ESRD, sepsis, hypoxia. Problematic starting antiplatelets and systemic AC due to AV graft bleed, but would consider doing so if cleared by surgeon. On metoprolol. ECHO: normal LVEF; moderate ; mild-moderate AR; severe TR; mild ID and MR; no pericardial effusion. Pt will require coronary artery evaluation when stable (after Permacath). Code(s): R79.89 - OTHER SPECIFIED ABNORMAL FINDINGS OF BLOOD CHEMISTRY (3) ESRD (end stage renal disease) on dialysis Assessment/Plan: Hemodialysis per insert operator. Code(s): N18.6 - END STAGE RENAL DISEASE Z99.2 - DEPENDENCE ON RENAL DIALYSIS (4) Hypertension Assessment/Plan: on metoprolol and hydralazine. Code(s): I10 - ESSENTIAL (PRIMARY) HYPERTENSION (5) Pulmonary hypertension Assessment/Plan: severe pulmonary HTN by 02/11/2015 ECHO; normal LVEF. Code(s): I27.2 - OTHER SECONDARY PULMONARY HYPERTENSION (6) Anemia Assessment/Plan: On Epogen. Hb 7.1-->9.7. Code(s): D64.9 - ANEMIA, UNSPECIFIED Qualifiers: Other causes of anemia: acute posthemorrhagic (7) Leukocytosis Assessment/Plan: f/u blood c/s (02/17 blood remains negative; for repeat cultures). On Nafcillin and Valtrex. Code(s): D72.829 - ELEVATED WHITE BLOOD CELL COUNT, UNSPECIFIED (8) Thyroid disease Assessment/Plan: low TSH; elevated Free T4; adjust Tapazole accordingly. Code(s): E07.9 - DISORDER OF THYROID, UNSPECIFIED (9) Acute on chronic diastolic CHF (congestive heart failure) Assessment/Plan: f/u daily weight, Is and Os, BUN/Cr, electrolytes. On hydralazine and Metoprolol ER. Code(s): I50.33 - ACUTE ON CHRONIC DIASTOLIC (CONGESTIVE) HEART FAILURE (10) Zoster Assessment/Plan: on Valtrex (adjusted for renal dysfunction). Code(s): B02.9 - ZOSTER WITHOUT COMPLICATIONS (11) Vitreous hemorrhage, bilateral Assessment/Plan: some improvement in vision. Code(s): H43.13 - VITREOUS HEMORRHAGE, BILATERAL
[2016-02-23] MEDS: NAFCILLIN - 2 GM in DEXTROSE 5%-WATER - 100 ML IVPB SCH ×2 (01:09→06:17)
[2016-02-23] MEDS: METHIMAZOLE 5 MG TABLET (FP) PO SCH ×3 (06:17→22:22)
[2016-02-23] MEDS: hydrALAZINE HCL 25 MG TABLET (FP) PO SCH ×3 (06:18→22:25)
[2016-02-23] MEDS: INSULIN SLIDING SCALE (NOVOLOG) 1 VIAL SQ SCH ×4 (06:25→22:24)
[2016-02-23 07:42] LABS: MCH 29.8 pg (25.7-33.7); MCHC 33.8 g/dl (32.0-36.0); MEAN CELL VOLUME 88.2 fl (80-96); MEAN PLT VOLUME 7.2 fl (7.5-11.1); PLATELET COUNT 311 K/MM3 (134-434); RDW 16.2 % (11.6-15.6)
[2016-02-23 08:06] LABS: INR 1.09 (0.82-1.09)
[2016-02-23 08:09] LABS: ALBUMIN 1.6 g/dl (3.4-5.0); BILIRUBIN,TOTAL 2.8 mg/dL (0.2-1.0); CALCIUM 7.9 mg/dL (8.5-10.1); CREATININE 3.8 mg/dL (0.55-1.02); PHOSPHOROUS 3.9 mg/dL (2.5-4.9); TOT PROT 5.7 g/dl (6.4-8.2)
[2016-02-23] MEDS: SEVELAMER CARBONATE 800 MG TAB (FP) PO SCH ×3 (09:00→18:04)
--- NOTE | 2016-02-23 09:32 | PN ---
Progress Note, Physician Chief Complaint: ID Nafcillin continues - Current Medication List Current Medications: Active Medications Acetaminophen (Tylenol -) 650 mg PO BID PRN PRN Reason: FEVER Acetaminophen (Tylenol Suppository -) 650 mg [place] Q6H PRN PRN Reason: FEVER OR PAIN Bacitracin (Bacitracin -) 1 applic TP DAILY [facility] Hydralazine HCl (Apresoline -) 25 mg PO TID [facility] Last Admin: 02/23/16 06:18 Dose: 25 mg Nafcillin Sodium 2 gm/ (Dextrose) 100 mls @ 100 mls/hr IVPB Q4H-IV DUC Last Admin: 02/23/16 06:17 Dose: 100 mls/hr Pantoprazole Sodium (Protonix 40mg Ivpb (Pre-Docked)) 100 mls @ 200 mls/hr IVPB DAILY [facility] Insulin Aspart (Novolog Vial Sliding Scale -) 1 vial SQ ACHS DUC PRN Reason: Protocol Last Admin: 02/23/16 06:25 Dose: Not Given Methimazole (Tapazole -) 5 mg PO TID [facility] Last Admin: 02/23/16 06:17 Dose: 5 mg Metoprolol Succinate (Toprol Xl -) 25 mg PO DAILY [facility] Sevelamer Carbonate (Renvela -) 1,600 mg PO TIDCM [facility] Last Admin: 02/22/16 18:01 Dose: 1,600 mg Simethicone (Mylicon -) 80 mg PO Q4H PRN PRN Reason: GAS - Objective Vital Signs: Vital Signs Temperature 98.6 F 02/23/16 06:12 Pulse Rate 83 02/23/16 06:12 Respiratory Rate 22 02/23/16 06:12 Blood Pressure 140/60 02/23/16 06:12 O2 Sat by Pulse Oximetry (%) 99 02/23/16 02:33 Labs: CBC, BMP 02/23/16 06:15 02/23/16 06:15 INR, PTT INR 1.09 (0.82-1.09) 02/23/16 06:15 Assessment/Plan Microbiology 02/18/16 05:15 Blood - Peripheral Venous Blood Culture - Final NO GROWTH AFTER 5 DAYS INCUBATION 02/18/16 05:15 Blood - Peripheral Venous Blood Culture - Final NO GROWTH AFTER 5 DAYS INCUBATION 02/20/16 11:37 Blood - Shiley Catheter Blood Culture - Preliminary NO GROWTH OBTAINED AFTER 48 HOURS, INCUBATION TO CONTINUE FOR 3 DAYS. 02/20/16 11:37 Blood - Shiley Catheter Blood Culture - Preliminary NO GROWTH OBTAINED AFTER 48 HOURS, INCUBATION TO CONTINUE FOR 3 DAYS. Laboratory Tests 02/23/16 06:15 WBC 8.0 D Hgb 9.9 L Plt Count 311 Assessment MSSA bacteremia cleared now Removal of left AVG with "source control " Plan Can switch to 3 times weekly Cefazolin 2 grs Tuesday 2grs 3grms tuesday assuming this is her dialysis day Start today first dose and stop Nafcillin Repeat CRP to make sure coming down From ID perspective clear to do insert monica Morales MD
--- NOTE | 2016-02-23 09:55 | PN ---
Progress Note (short form) - Note Progress Note: SUBJECTIVE: Patient seen and examined. Awake and comfortable. Afebrile. No complaints offered. Eye sight better. OBJECTIVE: Vital Signs - 8 hr 02/23/16 02/23/16 02:33 06:12 Temperature 98.6 F Pulse Rate 83 Respiratory 20 22 Rate Blood Pressure 140/60 O2 Sat by Pulse 99 Oximetry (%) Intake & Output 02/22/16 02/23/16 02/23/16 23:59 07:59 15:59 Intake Total 860 Balance 860 Weight 75.568 kg Intake: IVPB 500 Oral 360 Other: Voiding Method Diaper Diaper Bowel Movement Yes Yes # Bowel Movements 1 1 Weight Measurement Method Patient Lift Scale Active Medications Acetaminophen (Tylenol -) 650 mg PO BID PRN PRN Reason: FEVER Acetaminophen (Tylenol Suppository -) 650 mg [place] Q6H PRN PRN Reason: FEVER OR PAIN Bacitracin (Bacitracin -) 1 applic TP DAILY [facility] Hydralazine HCl (Apresoline -) 25 mg PO TID [facility] Last Admin: 02/23/16 06:18 Dose: 25 mg Pantoprazole Sodium (Protonix 40mg Ivpb (Pre-Docked)) 100 mls @ 200 mls/hr IVPB DAILY [facility] Cefazolin Sodium/Dextrose (Ancef 2 Gm Premixed Ivpb -) 50 mls @ 100 mls/hr IVPB ONCE ONE Stop: 02/23/16 10:29 Insulin Aspart (Novolog Vial Sliding Scale -) 1 vial SQ ACHS [facility]S [facility] PRN Reason: Protocol Last Admin: 02/23/16 06:25 Dose: Not Given Methimazole (Tapazole -) 5 mg PO TID [facility] Last Admin: 02/23/16 06:17 Dose: 5 mg Metoprolol Succinate (Toprol Xl -) 25 mg PO DAILY [facility] Sevelamer Carbonate (Renvela -) 1,600 mg PO TIDCM [facility]S [facility] Last Admin: 02/23/16 09:00 Dose: 1,600 mg Simethicone (Mylicon -) 80 mg PO Q4H PRN PRN Reason: GAS CBC, BMP 02/23/16 06:15 02/23/16 06:15 Laboratory Results - last 24 hr 02/22/16 02/22/16 02/23/16 12:05 17:59 06:15 WBC 8.0 D RBC 3.31 L Hgb 9.9 L Hct 29.2 L MCV 88.2 MCHC 33.8 RDW 16.2 H Plt Count 311 MPV 7.2 L INR Sodium Potassium Chloride Carbon Dioxide Anion Gap BUN Creatinine Creat Clearance w eGFR POC Glucometer [id number] 229.29530 Random Glucose Calcium Phosphorus Total Bilirubin AST ALT Alkaline Phosphatase Total Protein Albumin 02/23/16 02/23/16 02/23/16 06:15 06:15 06:25 WBC RBC Hgb Hct MCV MCHC RDW Plt Count MPV INR 1.09 Sodium 127 L Potassium 4.4 Chloride 92 L Carbon Dioxide 27 Anion Gap 8 BUN 54 H D Creatinine 3.8 H D Creat Clearance w eGFR 11.64 POC Glucometer 127 Random Glucose 126 H Calcium 7.9 L Phosphorus 3.9 D Total Bilirubin 2.8 H D AST 12 L D ALT 10 L D Alkaline Phosphatase 80 Total Protein 5.7 L Albumin 1.6 L Microbiology 02/18/16 05:15 Blood Culture - Final Blood - Peripheral Venous NO GROWTH AFTER 5 DAYS INCUBATION 02/18/16 05:15 Blood Culture - Final Blood - Peripheral Venous NO GROWTH AFTER 5 DAYS INCUBATION 02/20/16 11:37 Blood Culture - Preliminary Blood - Shiley Catheter NO GROWTH OBTAINED AFTER 48 HOURS, INCUBATION TO CONTINUE FOR 3 DAYS. 02/20/16 11:37 Blood Culture - Preliminary Blood - Shiley Catheter NO GROWTH OBTAINED AFTER 48 HOURS, INCUBATION TO CONTINUE FOR 3 DAYS. PHYSICAL EXAMINATION: Constitutional: Yes: No Distress/ comfortable Cardiovascular: Yes: Regular Rate and Rhythm, Murmur Respiratory: Yes: Diminished at bases Gastrointestinal: Yes: Normal Bowel Sounds, Soft. 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 - Overall better. - Hemodialysis per Renal. - Follow up cultures. - Antibiotics - Continue present care. - ID follow up noted. - Cleared for PermaCath placement. - Will contact Vascular. - Will follow. Problem List - Problems (1) Altered mental status, unspecified Code(s): R41.82 - ALTERED MENTAL STATUS, UNSPECIFIED Qualifiers: Altered mental status type: unspecified Qualified Code(s): R41.82 - Altered mental status, unspecified (2) Dialysis AV fistula malfunction Code(s): T82.590A - [facility] COMPL OF SURGICALLY CREATED ARTERIOVENOUS FISTULA, INIT Qualifiers: Encounter type: initial encounter Qualified Code(s): T82.590A - Other mechanical complication of surgically created arteriovenous fistula, initial encounter (3) Elevated troponin Code(s): R79.89 - OTHER SPECIFIED ABNORMAL FINDINGS OF BLOOD CHEMISTRY (4) Thrombosis of surgically created arteriovenous fistula Code(s): T82.868A - THROMBOSIS DUE TO VASCULAR PROSTH DEV/GRFT, INIT (5) ESRD (end stage renal disease) on dialysis Code(s): N18.6 - END STAGE RENAL DISEASE Z99.2 - DEPENDENCE ON RENAL DIALYSIS (6) Diabetes mellitus Code(s): E11.9 - TYPE 2 DIABETES MELLITUS WITHOUT COMPLICATIONS Qualifiers: Diabetes mellitus type: type 2 Diabetes mellitus complication status: without complication (7) Bacteremia Code(s): R78.81 - BACTEREMIA (8) Arteriovenous graft infection Code(s): T82.7XXA - INFECT/INFLM REACT D/T OTH CARDI/VASC DEV/IMPLNT/GRFT, INIT Qualifiers: Encounter type: subsequent encounter Qualified Code(s): T82.7XXD - Infection and inflammatory reaction due to other cardiac and vascular devices, implants and grafts, subsequent encounter (9) Zoster Code(s): B02.9 - ZOSTER WITHOUT COMPLICATIONS Documentation prepared by Tatum Lomas, acting as a medical/surgery registered nurse for Abhishek Oneal MD.
[2016-02-23] MEDS ORDERED: PANTOPRAZOLE SODIUM 100 ML IVPB SCH (10:00)
[2016-02-23] MEDS ORDERED: METOPROLOL SUCCINATE 25 MG TAB.SR.24H (FP) PO SCH (10:00)
[2016-02-23] MEDS ORDERED: BACITRACIN 30 GM TUBE TOPICAL OINTMENT TP SCH (10:00)
[2016-02-23] MEDS ORDERED: CEFAZOLIN 2 GM/D5W 50 ML IVPB ONE (10:00)
--- NOTE | 2016-02-23 10:53 | PN ---
Progress Note (short form) - Note Progress Note: Resting in NAD. No acute events overnight. Reports some improvement in her vision. Intake & Output 02/20/16 02/21/16 02/22/16 02/23/16 23:59 23:59 23:59 23:59 Intake Total 2170 1170 1160 Output Total 300 Balance 1870 1170 1160 Weight 147 lb 2 oz 142 lb 10.225 oz 145 lb 8.081 oz 166 lb 9.6 oz Last Vital Signs Temp Pulse Resp BP Pulse Ox 98.6 F 83 22 140/60 99 02/23/16 06:12 02/23/16 06:12 02/23/16 06:12 02/23/16 06:12 02/23/16 02:33 Active Medications Acetaminophen (Tylenol -) 650 mg PO BID PRN PRN Reason: FEVER Acetaminophen (Tylenol Suppository -) 650 mg [place] Q6H PRN PRN Reason: FEVER OR PAIN Bacitracin (Bacitracin -) 1 applic TP DAILY [facility] Last Admin: 02/23/16 09:59 Dose: 1 applic Hydralazine HCl (Apresoline -) 25 mg PO TID [facility] Last Admin: 02/23/16 06:18 Dose: 25 mg Pantoprazole Sodium (Protonix 40mg Ivpb (Pre-Docked)) 100 mls @ 200 mls/hr IVPB DAILY [facility] Last Admin: 02/23/16 09:58 Dose: 200 mls/hr Insulin Aspart (Novolog Vial Sliding Scale -) 1 vial SQ ACHS DUC PRN Reason: Protocol Last Admin: 02/23/16 06:25 Dose: Not Given Methimazole (Tapazole -) 5 mg PO TID [facility] Last Admin: 02/23/16 06:17 Dose: 5 mg Metoprolol Succinate (Toprol Xl -) 25 mg PO DAILY [facility] Last Admin: 02/23/16 09:58 Dose: 25 mg Sevelamer Carbonate (Renvela -) 1,600 mg PO TIDCM [facility] Last Admin: 02/23/16 09:00 Dose: 1,600 mg Simethicone (Mylicon -) 80 mg PO Q4H PRN PRN Reason: GAS Gen: Awake and responsive Heart: RRR Lung: decreased breath sounds at the bases Abd: soft, nontender Ext: +edema Laboratory Results - last 24 hr 02/18/16 02/22/16 02/22/16 14:30 12:05 17:59 WBC RBC Hgb Hct MCV MCHC RDW Plt Count MPV INR Sodium Potassium Chloride Carbon Dioxide Anion Gap BUN Creatinine Creat Clearance w eGFR POC Glucometer [phone] Random Glucose Calcium Phosphorus Total Bilirubin AST ALT Alkaline Phosphatase Total Protein Albumin Blood Type A POSITIVE Antibody Screen Negative Crossmatch See Detail 02/23/16 02/23/16 02/23/16 06:15 06:15 06:15 WBC 8.0 D RBC 3.31 L Hgb 9.9 L Hct 29.2 L MCV 88.2 MCHC 33.8 RDW 16.2 H Plt Count 311 MPV 7.2 L INR 1.09 Sodium 127 L Potassium 4.4 Chloride 92 L Carbon Dioxide 27 Anion Gap 8 BUN 54 H D Creatinine 3.8 H D Creat Clearance w eGFR 11.64 POC Glucometer Random Glucose 126 H Calcium 7.9 L Phosphorus 3.9 D Total Bilirubin 2.8 H D AST 12 L D ALT 10 L D Alkaline Phosphatase 80 Total Protein 5.7 L Albumin 1.6 L Blood Type Antibody Screen Crossmatch 02/23/16 06:25 WBC RBC Hgb Hct MCV MCHC RDW Plt Count MPV INR Sodium Potassium Chloride Carbon Dioxide Anion Gap BUN Creatinine Creat Clearance w eGFR POC Glucometer 127 Random Glucose Calcium Phosphorus Total Bilirubin AST ALT Alkaline Phosphatase Total Protein Albumin Blood Type Antibody Screen Crossmatch ASSESSMENT AND PLAN: Staph Bacteremia from likely AVG infection Acute Blood Loss from AVG NSTEMI Altered Mental Status ESRD on HD Hyperkalemia resolved Pulmonary HTN HTN DM - ABX per ID - HD per renal - aspiration precautions - DVT prophylaxis Dr Pryor
[2016-02-23 11:51] LABS: C-REACTIVE PROTEIN 12.8 MG/DL (0.00-0.3)
[2016-02-23] MEDS ORDERED: INSULIN (NOVOLOG) ASPART 100 UNITS/ML 10ML VIAL ONE (12:11)
--- NOTE | 2016-02-23 13:53 | PN ---
Progress Note (short form) - Note Progress Note: PRE-OP Note PRE-OP Dx: ESRD Planned Procedure: Permacath placement 02/24/16 Surgeon: True Reid Last Vital Signs Temp Pulse Resp BP Pulse Ox 98.6 F 83 22 140/60 99 02/23/16 06:12 02/23/16 06:12 02/23/16 06:12 02/23/16 06:12 02/23/16 02:33 CBC, BMP 02/23/16 06:15 02/23/16 06:15 INR, PTT INR 1.09 (0.82-1.09) 02/23/16 06:15 Blood cultures 02/17 final- no growth Blood cultures 02/19 prelim- no growth Problem List - Problems (1) ESRD (end stage renal disease) on dialysis Assessment/Plan: To OR for Permacath placement 02/24/[address] Reid NPO after midnight T&S Medical optimization Code(s): N18.6 - END STAGE RENAL DISEASE Z99.2 - DEPENDENCE ON RENAL DIALYSIS
--- NOTE | 2016-02-23 14:18 | PN ---
Progress Note, Physician History of Present Illness: Pt seen and examined at bedside. She is awake and alert today. - Current Medication List Current Medications: Active Medications Acetaminophen (Tylenol -) 650 mg PO BID PRN PRN Reason: FEVER Acetaminophen (Tylenol Suppository -) 650 mg [place] Q6H PRN PRN Reason: FEVER OR PAIN Bacitracin (Bacitracin -) 1 applic TP DAILY [facility] Last Admin: 02/23/16 09:59 Dose: 1 applic Hydralazine HCl (Apresoline -) 25 mg PO TID [facility] Last Admin: 02/23/16 06:18 Dose: 25 mg Pantoprazole Sodium (Protonix 40mg Ivpb (Pre-Docked)) 100 mls @ 200 mls/hr IVPB DAILY [facility] Last Admin: 02/23/16 09:58 Dose: 200 mls/hr Insulin Aspart (Novolog Vial Sliding Scale -) 1 vial SQ ACHS [facility] PRN Reason: Protocol Last Admin: 02/23/16 12:05 Dose: 6 units Methimazole (Tapazole -) 5 mg PO TID [facility] Last Admin: 02/23/16 06:17 Dose: 5 mg Metoprolol Succinate (Toprol Xl -) 25 mg PO DAILY [facility] Last Admin: 02/23/16 09:58 Dose: 25 mg Sevelamer Carbonate (Renvela -) 1,600 mg PO TIDCM [facility] Last Admin: 02/23/16 12:06 Dose: 1,600 mg Simethicone (Mylicon -) 80 mg PO Q4H PRN PRN Reason: GAS - Objective Vital Signs: Vital Signs Temperature 98.6 F 02/23/16 06:12 Pulse Rate 83 02/23/16 06:12 Respiratory Rate 22 02/23/16 06:12 Blood Pressure 140/60 02/23/16 06:12 O2 Sat by Pulse Oximetry (%) 99 02/23/16 02:33 Constitutional: Yes: Calm Eyes: Yes: Conjunctiva Clear HENT: Yes: Atraumatic Neck: Yes: Supple Cardiovascular: Yes: S1, S2 Respiratory: Yes: CTA Bilaterally, On Nasal O2 Gastrointestinal: Yes: Soft Genitourinary: Yes: Incontinence Musculoskeletal: Yes: Muscle Weakness Edema: Yes Neurological: Yes: Oriented Psychiatric: Yes: Oriented Labs: CBC, BMP 02/23/16 06:15 02/23/16 06:15 INR, PTT INR 1.09 (0.82-1.09) 02/23/16 06:15 Problem List - Problems (1) Altered mental status, unspecified Code(s): R41.82 - ALTERED MENTAL STATUS, UNSPECIFIED Qualifiers: Altered mental status type: unspecified Qualified Code(s): R41.82 - Altered mental status, unspecified (2) Dialysis AV fistula malfunction Code(s): T82.590A [facility] COMPL OF SURGICALLY CREATED ARTERIOVENOUS FISTULA, INIT Qualifiers: Encounter type: initial encounter Qualified Code(s): T82.590A - Other mechanical complication of surgically created arteriovenous fistula, initial encounter (3) Elevated troponin Code(s): R79.89 - OTHER SPECIFIED ABNORMAL FINDINGS OF BLOOD CHEMISTRY (4) ESRD (end stage renal disease) on dialysis Code(s): N18.6 - END STAGE RENAL DISEASE Z99.2 - DEPENDENCE ON RENAL DIALYSIS (5) Anemia Code(s): D64.9 - ANEMIA, UNSPECIFIED Qualifiers: Other causes of anemia: acute posthemorrhagic (6) Hypertension Code(s): I10 - ESSENTIAL (PRIMARY) HYPERTENSION Assessment/Plan Current Medications Generic Name Dose Route Start Last Admin Trade Name Freq PRN Reason Stop Dose Admin Acetaminophen 650 mg 02/22/16 13:07 Tylenol - PO BID PRN FEVER Acetaminophen 650 mg 02/22/16 13:07 Tylenol Suppository - [place] Q6H PRN FEVER OR PAIN Bacitracin 1 applic 02/23/16 10:00 02/23/16 09:59 Bacitracin - TP 1 applic DAILY [facility] Administration Hydralazine HCl 25 mg 02/22/16 14:00 02/23/16 06:18 Apresoline - PO 25 mg TID DUC Administration Pantoprazole Sodium 100 mls @ 200 mls/hr 02/23/16 10:00 02/23/16 09:58 Protonix 40mg Ivpb (Pre-Docked) IVPB 200 mls/hr DAILY [facility] Administration Insulin Aspart 1 vial 02/22/16 16:30 02/23/16 12:05 Novolog Vial Sliding Scale - SQ 6 units ACHS DUC Administration Protocol Methimazole 5 mg 02/22/16 14:00 02/23/16 06:17 Tapazole - PO 5 mg TID DUC Administration Metoprolol Succinate 25 mg 02/23/16 10:00 02/23/16 09:58 Toprol Xl - PO 25 mg DAILY [facility]UC Administration Sevelamer Carbonate 1,600 mg 02/22/16 17:30 02/23/16 12:06 Renvela - PO 1,600 mg TIDCM DUC Administration Simethicone 80 mg 02/22/16 13:07 Mylicon - PO Q4H PRN GAS Impression 1. ESRD 2. av access malfunction 3. hyperkalemia 4. CHF 5. DM 6. HTN 7. anemia 8. depression 9. hyperlipidemia 10. leukocytosis 11. NSTEMI 12. bacteremia 13. malnutrition Plan - ID input appreciated - permacath insertion tomorrow - cardiology follow up - will arrange for HD tomorrow - monitor HG - follow cultures - start nepro supplements - monitor pulse ox Dr Jones
--- NOTE | 2016-02-23 15:48 | PN ---
Progress Note, Physician History of Present Illness: 75-year-old female presents to the ED for evaluation of bleeding left AV fistula. As per pt she had dialysis but has not been feeling well and today when she went to dialysis they were unable to access her fistula and then it began to bleed. Patient states has not been feeling well over the past few days describing nausea myalgia, and decreased appetite. Patient denies headache, throat pain, chest pain or shortness of breath. Patient with history of anemia, CVA, CHF, dementia, diabetes, dialysis, hypertension and dyslipidemia , and thyroid disease. - Current Medication List Current Medications: Active Medications Acetaminophen (Tylenol -) 650 mg PO BID PRN PRN Reason: FEVER Acetaminophen (Tylenol Suppository -) 650 mg [place] Q6H PRN PRN Reason: FEVER OR PAIN Bacitracin (Bacitracin -) 1 applic TP DAILY [facility] Last Admin: 02/23/16 09:59 Dose: 1 applic Epoetin Jakob (Epogen -) 8,000 units IVPUSH ONCE ONE Stop: 02/24/16 13:01 Hydralazine HCl (Apresoline -) 25 mg PO TID [facility] Last Admin: 02/23/16 14:32 Dose: 25 mg Pantoprazole Sodium (Protonix 40mg Ivpb (Pre-Docked)) 100 mls @ 200 mls/hr IVPB DAILY [facility] Last Admin: 02/23/16 09:58 Dose: 200 mls/hr Insulin Aspart (Novolog Vial Sliding Scale -) 1 vial SQ ACHS DUC PRN Reason: Protocol Last Admin: 02/23/16 12:05 Dose: 6 units Methimazole (Tapazole -) 5 mg PO TID [facility] Last Admin: 02/23/16 14:32 Dose: 5 mg Metoprolol Succinate (Toprol Xl -) 25 mg PO DAILY [facility] Last Admin: 02/23/16 09:58 Dose: 25 mg Sevelamer Carbonate (Renvela -) 1,600 mg PO TIDCM [facility] Last Admin: 02/23/16 12:06 Dose: 1,600 mg Simethicone (Mylicon -) 80 mg PO Q4H PRN PRN Reason: GAS - Objective Vital Signs: Vital Signs Temperature 97.7 F 02/23/16 14:44 Pulse Rate 87 02/23/16 14:44 Respiratory Rate 20 02/23/16 14:44 Blood Pressure 139/60 02/23/16 14:44 O2 Sat by Pulse Oximetry (%) 99 02/23/16 02:33 Eyes: Yes: WNL, Conjunctiva Clear, EOM Intact HENT: Yes: WNL, Atraumatic, Normocephalic Neck: Yes: WNL, Supple, Trachea Midline Cardiovascular: Yes: WNL, Regular Rate and Rhythm Respiratory: Yes: WNL, Regular, CTA Bilaterally Gastrointestinal: Yes: WNL, Normal Bowel Sounds Genitourinary: Yes: WNL Musculoskeletal: Yes: WNL Extremities: Yes: WNL Edema: No Integumentary: Yes: WNL Neurological: Yes: WNL, Alert, Oriented ...Motor Strength: WNL Psychiatric: Yes: WNL Labs: CBC, BMP 02/23/16 06:15 02/23/16 06:15 INR, PTT INR 1.09 (0.82-1.09) 02/23/16 06:15 Assessment/Plan - Problems (1) Dialysis AV fistula malfunction Assessment/Plan: AV graft removed tyday by Dr. Krystin Reid. Plan for Permacath later this week. Code(s): T82.590A - [facility] COMPL OF SURGICALLY CREATED ARTERIOVENOUS FISTULA, INIT Qualifiers: Encounter type: initial encounter Qualified Code(s): T82.590A - Other mechanical complication of surgically created arteriovenous fistula, initial encounter (2) Elevated troponin Assessment/Plan: TNI 1.09-->1.38-->3.25-->2.5. EKG: NSR; 1st degree AVB, without acute ST-T changes (no significant change from 12/2015). Likely NSTEMI/demand ischemia, though multiple other factors may contribute to TNI elevation, including CHF, ESRD, sepsis, hypoxia. Problematic starting antiplatelets and systemic AC due to AV graft bleed, but would consider doing so if cleared by surgeon. On metoprolol. ECHO: normal LVEF; moderate ; mild-moderate AR; severe TR; mild FL and MR; no pericardial effusion. Pt will require coronary artery evaluation when stable (after Permacath). Code(s): R79.89 - OTHER SPECIFIED ABNORMAL FINDINGS OF BLOOD CHEMISTRY (3) ESRD (end stage renal disease) on dialysis Assessment/Plan: Hemodialysis per packaging supervisor. Code(s): N18.6 - END STAGE RENAL DISEASE Z99.2 - DEPENDENCE ON RENAL DIALYSIS (4) Hypertension Assessment/Plan: on metoprolol and hydralazine. Code(s): I10 - ESSENTIAL (PRIMARY) HYPERTENSION (5) Pulmonary hypertension Assessment/Plan: severe pulmonary HTN by 02/11/2015 ECHO; normal LVEF. Code(s): I27.2 - OTHER SECONDARY PULMONARY HYPERTENSION (6) Anemia Code(s): D64.9 - ANEMIA, UNSPECIFIED Qualifiers: Other causes of anemia: acute posthemorrhagic (7) Leukocytosis Code(s): D72.829 - ELEVATED WHITE BLOOD CELL COUNT, UNSPECIFIED (8) Thyroid disease Code(s): E07.9 - DISORDER OF THYROID, UNSPECIFIED (9) Acute on chronic diastolic CHF (congestive heart failure) Code(s): I50.33 - ACUTE ON CHRONIC DIASTOLIC (CONGESTIVE) HEART FAILURE Bacteremia. repeated BC Pending if persistantly positive despite AVG removal will proceed with [facility] CC time 35 min
[2016-02-24] MEDS: METHIMAZOLE 5 MG TABLET (FP) PO SCH ×3 (06:16→21:48)
[2016-02-24] MEDS: INSULIN SLIDING SCALE (NOVOLOG) 1 VIAL SQ SCH ×4 (06:16→21:47)
[2016-02-24] MEDS: hydrALAZINE HCL 25 MG TABLET (FP) PO SCH ×3 (06:16→21:48)
[2016-02-24] MEDS ORDERED: LIDOCAINE HCL 1%, 10 MG/ML (20ML VIAL) ONE (07:07)
[2016-02-24 07:36] LABS: INR 1.17 (0.82-1.09); PROTHROMBIN TIME (PATIENT) 12.9 SEC (9.98-11.88)
[2016-02-24] MEDS ORDERED: MIDAZOLAM HCL 2 MG/2 ML SINGLE DOSE VIAL ONE (08:59)
[2016-02-24] MEDS ORDERED: ceFAZolin SODIUM 1 GM VIAL ONE (09:06)
[2016-02-24] MEDS ORDERED: ceFAZolin SODIUM 1 GM VIAL IVPB ONE ×2 (09:08)
[2016-02-24] MEDS ORDERED: LIDOCAINE HCL 1%, 10 MG/ML (50 mL VIAL) IJ ONE ×2 (09:15)
--- NOTE | 2016-02-24 09:25 | OP ---
Operative Note - Note: Operative Date: 02/24/16 Pre-Operative Diagnosis: ESRD Operation: Insertion of permacath Post-Operative Diagnosis: Same as Pre-op Surgeon: True Reid Anesthesia: Fractional Estimated Blood Loss (mls): 20 Operative Report Dictated: Yes
[2016-02-24] MEDS ORDERED: SIMETHICONE 80 MG TAB.CHEW (FP) PO PRN (09:43)
[2016-02-24] MEDS ORDERED: ACETAMINOPHEN 650 MG SUPP.RECT PR PRN (09:43)
[2016-02-24] MEDS ORDERED: ACETAMINOPHEN 325 MG TABLET (FP) PO PRN (09:43)
[2016-02-24] MEDS ORDERED: EPOETIN ALFA 10,000 UNIT/1 ML VIAL IVPUSH ONE ×2 (10:00)
--- NOTE | 2016-02-24 11:13 | PN ---
[id number] List Current Medications: Active Medications Acetaminophen (Tylenol -) 650 mg PO BID PRN PRN Reason: FEVER Acetaminophen (Tylenol Suppository -) 650 mg [place] Q6H PRN PRN Reason: FEVER OR PAIN Bacitracin (Bacitracin -) 1 applic TP DAILY [facility] Epoetin Jakob (Procrit -) 8,000 unit IVPUSH ONCE ONE Stop: 02/24/16 10:01 Fentanyl (Sublimaze Injection -) 25 mcg IVPUSH [id number] PRN PRN Reason: PAIN Stop: 02/27/16 09:30 Hydralazine HCl (Apresoline -) 25 mg PO TID [facility] Pantoprazole Sodium (Protonix 40mg Ivpb (Pre-Docked)) 100 mls @ 200 mls/hr IVPB DAILY [facility] Insulin Aspart (Novolog Vial Sliding Scale -) 1 vial SQ ACHS DUC PRN Reason: Protocol Methimazole (Tapazole -) 5 mg PO TID [facility] Metoprolol Succinate (Toprol Xl -) 25 mg PO DAILY [facility] Sevelamer Carbonate (Renvela -) 1,600 mg PO TIDCM DUC Simethicone (Mylicon -) 80 mg PO Q4H PRN PRN Reason: GAS - Objective Vital Signs: Vital Signs Temperature 98.4 F 02/24/16 10:40 Pulse Rate 82 02/24/16 10:40 Respiratory Rate 16 02/24/16 10:40 Blood Pressure 148/61 02/24/16 10:40 O2 Sat by Pulse Oximetry (%) 100 02/24/16 10:25 Constitutional: Yes: No Distress, Calm Cardiovascular: Yes: Regular Rate and Rhythm Respiratory: Yes: Diminished, Other (rt chest wall permacath) Gastrointestinal: Yes: Normal Bowel Sounds, Soft. No: Distention, Tenderness Edema: No Labs: CBC, BMP 02/23/16 06:15 02/23/16 06:15 INR, PTT INR 1.17 (0.82-1.09) H 02/24/16 06:00 Problem List - Problems (1) Altered mental status, unspecified Code(s): R41.82 - ALTERED MENTAL STATUS, UNSPECIFIED Qualifiers: Altered mental status type: unspecified Qualified Code(s): R41.82 - Altered mental status, unspecified (2) Dialysis AV fistula malfunction Code(s): T82.590A - [facility] COMPL OF SURGICALLY CREATED ARTERIOVENOUS FISTULA, INIT Qualifiers: Encounter type: initial encounter Qualified Code(s): T82.590A - Other mechanical complication of surgically created arteriovenous fistula, initial encounter (3) Elevated troponin Code(s): R79.89 - OTHER SPECIFIED ABNORMAL FINDINGS OF BLOOD CHEMISTRY (4) Thrombosis of surgically created arteriovenous fistula Code(s): T82.868A - THROMBOSIS DUE TO VASCULAR PROSTH DEV/GRFT, INIT (5) ESRD (end stage renal disease) on dialysis Code(s): N18.6 - END STAGE RENAL DISEASE Z99.2 - DEPENDENCE ON RENAL DIALYSIS (6) Diabetes mellitus Code(s): E11.9 - TYPE 2 DIABETES MELLITUS WITHOUT COMPLICATIONS Qualifiers: Diabetes mellitus type: type 2 Diabetes mellitus complication status: without complication (7) Bacteremia Code(s): R78.81 - BACTEREMIA (8) Arteriovenous graft infection Code(s): T82.7XXA - INFECT/INFLM REACT D/T OTH CARDI/VASC DEV/IMPLNT/GRFT, INIT Qualifiers: Encounter type: subsequent encounter Qualified Code(s): T82.7XXD - Infection and inflammatory reaction due to other cardiac and vascular devices, implants and grafts, subsequent encounter (9) Zoster Code(s): B02.9 - ZOSTER WITHOUT COMPLICATIONS Assessment/Plan continue with antibiotics HD per renal s/p permacath placement today continue with Valtrex for Zoster
--- NOTE | 2016-02-24 12:44 | PN ---
Progress Note, Physician Chief Complaint: Pt had Permacath inserted; now undergoing hemodialysis. History of Present Illness: 75-year-old white female presents to the ED for evaluation of bleeding left AV fistula. As per pt she had dialysis but has not been feeling well and today when she went to dialysis they were unable to access her fistula and then it began to bleed. Patient states has not been feeling well over the past few days describing nausea, myalgia, and decreased appetite. Patient denies headache, throat pain, chest pain or shortness of breath. Patient with history of ESRD-->hemodialysis 3x/week, anemia, CVA, diastolic CHF, dementia, diabetes, hypertension, dyslipidemia, "shingles", and thyroid disease. - Current Medication List Current Medications: Active Medications Acetaminophen (Tylenol -) 650 mg PO BID PRN PRN Reason: FEVER Acetaminophen (Tylenol Suppository -) 650 mg [place] Q6H PRN PRN Reason: FEVER OR PAIN Bacitracin (Bacitracin -) 1 applic TP DAILY [facility] Fentanyl (Sublimaze Injection -) 25 mcg IVPUSH [id number] PRN PRN Reason: PAIN Stop: 02/27/16 09:30 Hydralazine HCl (Apresoline -) 25 mg PO TID [facility] Pantoprazole Sodium (Protonix 40mg Ivpb (Pre-Docked)) 100 mls @ 200 mls/hr IVPB DAILY [facility] Insulin Aspart (Novolog Vial Sliding Scale -) 1 vial SQ ACHS [facility] PRN Reason: Protocol Methimazole (Tapazole -) 5 mg PO TID [facility] Metoprolol Succinate (Toprol Xl -) 25 mg PO DAILY [facility] Sevelamer Carbonate (Renvela -) 1,600 mg PO TIDCM [facility] Simethicone (Mylicon -) 80 mg PO Q4H PRN PRN Reason: GAS - Objective Vital Signs: Vital Signs Temperature 98.4 F 02/24/16 10:40 Pulse Rate 82 02/24/16 12:10 Respiratory Rate 18 02/24/16 12:10 Blood Pressure 141/64 02/24/16 12:10 O2 Sat by Pulse Oximetry (%) 100 02/24/16 10:25 Constitutional: Yes: No Distress, Thin Eyes: Yes: WNL HENT: Yes: WNL Neck: Yes: WNL Cardiovascular: Yes: Regular Rate and Rhythm Respiratory: Yes: Regular Gastrointestinal: Yes: Soft ...Rectal Exam: Yes: Deferred Genitourinary: No: Anuria Breast(s): Yes: WNL Musculoskeletal: Yes: Muscle Weakness Extremities: Yes: Cool Edema: No Peripheral Pulses WNL: No Peripheral Pulses: Left Doralis Pedis: 1+, Right Dorsalis Pedis: 1+ Integumentary: Yes: Incision Neurological: Yes: Alert, Oriented, Weakness Psychiatric: Yes: Alert, Oriented Labs: CBC, BMP 02/23/16 06:15 02/23/16 06:15 INR, PTT INR 1.17 (0.82-1.09) H 02/24/16 06:00 Abnormal Lab Results 02/18/16 02/24/16 02/24/16 14:30 06:00 11:30 INR 1.17 H BUN 58 H Creatinine 4.1 H Crossmatch See Detail - ....Imaging Chest X-ray: Image Reviewed (Permacath in place; no acute pulmonary pathology) Problem List - Problems (1) Dialysis AV fistula malfunction Assessment/Plan: AV graft removed. s/p Permacath. Code(s): T82.590A [facility] COMPL OF SURGICALLY CREATED ARTERIOVENOUS FISTULA, INIT Qualifiers: Encounter type: initial encounter Qualified Code(s): T82.590A - Other mechanical complication of surgically created arteriovenous fistula, initial encounter (2) Elevated troponin Assessment/Plan: TNI 1.09-->1.38-->3.25-->2.5. EKG: NSR; 1st degree AVB, without acute ST-T changes (no significant change from 12/2015). Likely NSTEMI/demand ischemia, though multiple other factors may contribute to TNI elevation, including CHF, ESRD, sepsis, hypoxia. Problematic starting antiplatelets and systemic AC due to AV graft bleed, but would consider doing so if cleared by surgeon. On metoprolol. ECHO: normal LVEF; moderate ; mild-moderate AR; severe TR; mild [place] and MR; no pericardial effusion. Pt will require coronary artery evaluation when stable; now has Permacath for hemodialysis. Code(s): R79.89 - OTHER SPECIFIED ABNORMAL FINDINGS OF BLOOD CHEMISTRY (3) ESRD (end stage renal disease) on dialysis Assessment/Plan: Hemodialysis today. Code(s): N18.6 - END STAGE RENAL DISEASE Z99.2 - DEPENDENCE ON RENAL DIALYSIS (4) Hypertension Assessment/Plan: on metoprolol and hydralazine. Code(s): I10 - ESSENTIAL (PRIMARY) HYPERTENSION (5) Pulmonary hypertension Assessment/Plan: severe pulmonary HTN by 02/11/2015 ECHO; normal LVEF. Code(s): I27.2 - OTHER SECONDARY PULMONARY HYPERTENSION (6) Anemia Assessment/Plan: On Epogen. Hb 7.1-->9.9. Code(s): D64.9 - ANEMIA, UNSPECIFIED Qualifiers: Other causes of anemia: acute posthemorrhagic (7) Leukocytosis Code(s): D72.829 - ELEVATED WHITE BLOOD CELL COUNT, UNSPECIFIED (8) Thyroid disease Assessment/Plan: low TSH; elevated Free T4; adjust Tapazole accordingly. Code(s): E07.9 - DISORDER OF THYROID, UNSPECIFIED (9) Acute on chronic diastolic CHF (congestive heart failure) Assessment/Plan: f/u daily weight, Is and Os, BUN/Cr, electrolytes. On hydralazine and Metoprolol ER. Code(s): I50.33 - ACUTE ON CHRONIC DIASTOLIC (CONGESTIVE) HEART FAILURE (10) Zoster Assessment/Plan: Received Valtrex. Code(s): B02.9 - ZOSTER WITHOUT COMPLICATIONS (11) Vitreous hemorrhage, bilateral Assessment/Plan: F/u with opththalmology. Code(s): H43.13 - VITREOUS HEMORRHAGE, BILATERAL (12) Hypoalbuminemia Assessment/Plan: sepsis; poor nutrition; ESRD. Code(s): E88.09 - OTH DISORDERS OF PLASMA-PROTEIN METABOLISM, NEC
--- NOTE | 2016-02-24 12:56 | PN ---
Progress Note, Physician History of Present Illness: Pt seen and examined at bedside. She had the permacath placed today. She is currently getting HD. - Current Medication List Current Medications: Active Medications Acetaminophen (Tylenol -) 650 mg PO BID PRN PRN Reason: FEVER Acetaminophen (Tylenol Suppository -) 650 mg NV Q6H PRN PRN Reason: FEVER OR PAIN Bacitracin (Bacitracin -) 1 applic TP DAILY DUC Fentanyl (Sublimaze Injection -) 25 mcg IVPUSH [id number] PRN PRN Reason: PAIN Stop: 02/27/16 09:30 Hydralazine HCl (Apresoline -) 25 mg PO TID DUC Pantoprazole Sodium (Protonix 40mg Ivpb (Pre-Docked)) 100 mls @ 200 mls/hr IVPB DAILY DUC Cefazolin Sodium/Dextrose (Ancef 2 Gm Premixed Ivpb -) 50 mls @ 100 mls/hr IVPB ONCE ONE Stop: 02/24/16 18:29 Insulin Aspart (Novolog Vial Sliding Scale -) 1 vial SQ ACHS DUC PRN Reason: Protocol Methimazole (Tapazole -) 5 mg PO TID DUC Metoprolol Succinate (Toprol Xl -) 25 mg PO DAILY DUC Sevelamer Carbonate (Renvela -) 1,600 mg PO TIDCM DUC Simethicone (Mylicon -) 80 mg PO Q4H PRN PRN Reason: GAS - Objective Vital Signs: Vital Signs Temperature 98.4 F 02/24/16 10:40 Pulse Rate 82 02/24/16 12:10 Respiratory Rate 18 02/24/16 12:10 Blood Pressure 141/64 02/24/16 12:10 O2 Sat by Pulse Oximetry (%) 100 02/24/16 10:25 Constitutional: Yes: Calm Eyes: Yes: Conjunctiva Clear HENT: Yes: Atraumatic Cardiovascular: Yes: S1, S2 Respiratory: Yes: On Nasal O2 Gastrointestinal: Yes: Soft Genitourinary: Yes: Incontinence Musculoskeletal: Yes: Muscle Weakness Edema: Yes Neurological: Yes: Oriented Psychiatric: Yes: Oriented Labs: CBC, BMP 02/23/16 06:15 INR, PTT INR 1.17 (0.82-1.09) H 02/24/16 06:00 Problem List - Problems (1) Altered mental status, unspecified Code(s): R41.82 - ALTERED MENTAL STATUS, UNSPECIFIED Qualifiers: Altered mental status type: unspecified Qualified Code(s): R41.82 - Altered mental status, unspecified (2) Dialysis AV fistula malfunction Code(s): T82.590A - [facility] COMPL OF SURGICALLY CREATED ARTERIOVENOUS FISTULA, INIT Qualifiers: Encounter type: initial encounter Qualified Code(s): T82.590A - Other mechanical complication of surgically created arteriovenous fistula, initial encounter (3) Elevated troponin Code(s): R79.89 - OTHER SPECIFIED ABNORMAL FINDINGS OF BLOOD CHEMISTRY (4) ESRD (end stage renal disease) on dialysis Code(s): N18.6 - END STAGE RENAL DISEASE Z99.2 - DEPENDENCE ON RENAL DIALYSIS (5) Anemia Code(s): D64.9 - ANEMIA, UNSPECIFIED Qualifiers: Other causes of anemia: acute posthemorrhagic (6) Hypertension Code(s): I10 - ESSENTIAL (PRIMARY) HYPERTENSION Assessment/Plan Current Medications Generic Name Dose Route Start Last Admin Trade Name Freq PRN Reason Stop Dose Admin Acetaminophen 650 mg 02/24/16 09:43 Tylenol - PO BID PRN FEVER Acetaminophen 650 mg 02/24/16 09:43 Tylenol Suppository - NV Q6H PRN FEVER OR PAIN Bacitracin 1 applic 02/24/16 10:00 Bacitracin - TP DAILY DUC Fentanyl 25 mcg 02/24/16 09:29 Sublimaze Injection - IVPUSH 02/27/16 09:30 [id number] PRN PAIN Hydralazine HCl 25 mg 02/24/16 14:00 Apresoline - PO TID DUC Pantoprazole Sodium 100 mls @ 200 mls/hr 02/24/16 10:00 Protonix 40mg Ivpb (Pre-Docked) IVPB DAILY DUC Cefazolin Sodium/Dextrose 50 mls @ 100 mls/hr 02/24/16 18:00 Ancef 2 Gm Premixed Ivpb - IVPB 02/24/16 18:29 ONCE ONE Insulin Aspart 1 vial 02/24/16 11:00 Novolog Vial Sliding Scale - SQ ACHS DUC Protocol Methimazole 5 mg 02/24/16 14:00 Tapazole - PO TID DUC Metoprolol Succinate 25 mg 02/24/16 10:00 Toprol Xl - PO DAILY DUC Sevelamer Carbonate 1,600 mg 02/24/16 12:00 Renvela - PO TIDCM DUC Simethicone 80 mg 02/24/16 09:43 Mylicon - PO Q4H PRN GAS Impression 1. ESRD 2. av access malfunction 3. hyperkalemia 4. CHF 5. DM 6. HTN 7. anemia 8. depression 9. hyperlipidemia 10. leukocytosis 11. NSTEMI 12. bacteremia 13. malnutrition Plan - HD today - abx per ID, will get first dose after HD - epogen for anemia - monitor cbc - cardiology follow up - follow cultures, 02/17 and 02/19 cultures are negative to date - cont nepro supplements - monitor pulse ox Dr Jones
--- NOTE | 2016-02-24 13:08 | PN ---
Progress Note (short form) - Note Progress Note: s/p PC placement today receiving HD no complaints Vital Signs Period Temp Pulse Resp BP Sys/Rangel Pulse Ox Last 24 Hr 97.7 F-99 F 80-96 16-20 118-150/51-68 96-100 cor-rrr lungs clear abd soft,nt ext no edema CBC, BMP 02/23/16 06:15 Microbiology 02/20/16 11:37 Blood Culture - Preliminary Blood - Shiley Catheter NO GROWTH OBTAINED AFTER 72 HOURS, INCUBATION TO CONTINUE FOR 2 DAYS. 02/20/16 11:37 Blood Culture - Preliminary Blood - Shiley Catheter NO GROWTH OBTAINED AFTER 72 HOURS, INCUBATION TO CONTINUE FOR 2 DAYS. a/p MSSA bacteremia resolved after removal of avg to switch to cefazolin after each HD tues/thurs/sat 2g cefazolin tues, 2 g cefazolin thurs/ 3 g Sat treat 6 weeks after last positive culture
[2016-02-24 13:15] LABS: CREATININE 4.1 mg/dL (0.55-1.02)
--- NOTE | 2016-02-24 14:41 | OP ---
DATE OF OPERATION: 02/24/2016 PREOPERATIVE DIAGNOSIS: End-stage renal disease. POSTOPERATIVE DIAGNOSIS: End-stage renal disease. PROCEDURE: Insertion of Perma-Cath. SURGEON: True Salas DO ANESTHESIA: Fractional blood loss 20 mL. HISTORY: The patient is a 75-year-old female who had an infected left AV graft that was removed last week. Now she is culture negative and needs permanent catheter placement. The patient was consented for the procedure, understanding all risks, benefits, and alternatives, and then taken to the operating room. DESCRIPTION OF PROCEDURE: Once in the operating room, she was laid on the operative table in a supine manner. The area of the right neck and chest were prepped and draped in a sterile surgical manner. Under ultrasound guidance, we visualized the right internal jugular vein and was injected over the vein. We then took a micropuncture needle and punctured the right internal jugular vein under ultrasound guidance. The micropuncture was inserted under fluoroscopy. was inserted. guidewire was inserted under fluoroscopy. We then injected 10 mL of 1% lidocaine above and below the clavicle. We then took an 11 blade and made a 1-cm incision at the puncture site. We then took a 15 blade and made a 1-cm incision below the clavicle. We then tunneled the PermCath up to the puncture site. We then took a breakaway sheath and placed it over the guidewire into the vein under fluoroscopy and the and guidewire were removed. We then placed a PermCath into the sheath, and the sheath was broken away as the catheter was placed inside the vein. The neck of the catheter nice and smooth to the right atrium. We then jennifer back on each port and there was good flow. Heparinized saline was injected and 2000 units of IV heparin were injected into each port. We then took 4-0 Biosyn, and 2 simple sutures were placed at the puncture site. Then, 3-0 nylon was used at the catheter sites on the skin. A Biopatch, Steri-Strips, 4 x 4 and Tegaderms were placed. The patient tolerated the procedure with no complications. The patient was transferred to the PACU in stable condition where a chest x-ray will be obtained. TRUE SALAS DO [employer] MACHINE OPERATOR/[id number]
[2016-02-24] MEDS: BACITRACIN 30 GM TUBE TOPICAL OINTMENT TP SCH (16:49)
[2016-02-24] MEDS: SEVELAMER CARBONATE 800 MG TAB (FP) PO SCH ×2 (16:50→17:18)
[2016-02-24 16:53] LABS: CREATININE 1.3 mg/dL (0.55-1.02)
[2016-02-24] MEDS: PANTOPRAZOLE SODIUM 100 ML IVPB SCH (17:15)
[2016-02-24] MEDS: METOPROLOL SUCCINATE 25 MG TAB.SR.24H (FP) PO SCH (17:17)
[2016-02-24] MEDS ORDERED: ceFAZolin 2 GRAM PREMIX BAG IVPB ONE (18:00)
[2016-02-24] MEDS ORDERED: CEFAZOLIN 2 GM/D5W 50 ML IVPB ONE (18:00)
[2016-02-24] MEDS ORDERED: PT OWN MED DRAWER 7, Y5N ONE ×3 (18:14→21:28)
[2016-02-25] MEDS: METHIMAZOLE 5 MG TABLET (FP) PO SCH ×3 (06:14→21:37)
[2016-02-25] MEDS: INSULIN SLIDING SCALE (NOVOLOG) 1 VIAL SQ SCH ×4 (06:14→21:36)
[2016-02-25] MEDS: hydrALAZINE HCL 25 MG TABLET (FP) PO SCH ×3 (06:14→21:37)
--- NOTE | 2016-02-25 07:17 | PN ---
Progress Note (short form) - Note Progress Note: POD #1 s/p Permacath insertion POD #8 s/p removal of lue avg Resting comfortably without complaint. Full session of HD yesterday (removed 3Kg) Denies n/v/f/c, CP or SOB AVSS. Afebrile General: Nad Neck: Large goiter (right midline-lateral neck) Cx: PC right chest wall. No hematoma LUE: wound clean Problem List - Problems (1) ESRD (end stage renal disease) on dialysis Assessment/Plan: HD per pt's schedule ID note appreciated regarding antibiotic and length of time pt will be on No plans for fistula at this time. Continue care per medicine Continue dressing changes as ordered No further surgical intervention Re-consult PRN Code(s): N18.6 - END STAGE RENAL DISEASE Z99.2 - DEPENDENCE ON RENAL DIALYSIS
[2016-02-25 07:38] LABS: BASOPHIL 1.1 % (0-2.0); EOSINOPHIL 0.8 % (0-4.5); MCHC 33.8 g/dl (32.0-36.0); MEAN CELL VOLUME 88.7 fl (80-96); MEAN PLT VOLUME 7.1 fl (7.5-11.1); NEUTROPHILS 78.8 % (42.8-82.8); PLATELET COUNT 270 K/MM3 (134-434); RDW 16.6 % (11.6-15.6); WHITE BLOOD COUNT 5.1 K/mm3 (4.0-10.0)
[2016-02-25 07:53] LABS: CALCIUM 7.8 mg/dL (8.5-10.1); CREATININE 2.7 mg/dL (0.55-1.02)
[2016-02-25] MEDS: SEVELAMER CARBONATE 800 MG TAB (FP) PO SCH ×3 (08:38→18:10)
--- NOTE | 2016-02-25 10:06 | PN ---
Progress Note (short form) - Note Progress Note: s/p PC placement yesterday quite alert eyes open-reports she can see me today! conversant no complaints Vital Signs Period Temp Pulse Resp BP Sys/Rangel Pulse Ox Last 24 Hr 98.4 F-99 F 80-103 16-20 126-148/43-68 100-100 cor-rrr lungs clear abd soft,nt ext no edema +PC dressing left arm skin- few healing vesicles on the back a/p MSSA bacteremia secondary to infected AVG resolved after removal of avg to switch to cefazolin after each HD tues/thurs/sat 2g cefazolin tues, 2 g cefazolin thurs/ 3 g Sat treat 6 weeks after last positive culture healing zoster-one more week of valtrex po vision improved cad- per cardiology esrd/hd please call back if needed
--- NOTE | 2016-02-25 10:42 | PN ---
Progress Note, Physician History of Present Illness: 75-year-old female presents to the ED for evaluation of bleeding left AV fistula. As per pt she had dialysis but has not been feeling well and today when she went to dialysis they were unable to access her fistula and then it began to bleed. Patient states has not been feeling well over the past few days describing nausea myalgia, and decreased appetite. Patient denies headache, throat pain, chest pain or shortness of breath. Patient with history of anemia, CVA, CHF, dementia, diabetes, dialysis, hypertension and dyslipidemia , and thyroid disease. - Current Medication List Current Medications: Active Medications Acetaminophen (Tylenol -) 650 mg PO BID PRN PRN Reason: FEVER Acetaminophen (Tylenol Suppository -) [address] Q6H PRN PRN Reason: FEVER OR PAIN Bacitracin (Bacitracin -) 1 applic TP DAILY [facility] Last Admin: 02/24/16 16:49 Dose: Not Given Fentanyl (Sublimaze Injection -) 25 mcg IVPUSH [id number] PRN PRN Reason: PAIN Stop: 02/27/16 09:30 Hydralazine HCl (Apresoline -) 25 mg PO TID [facility] Last Admin: 02/25/16 06:14 Dose: 25 mg Pantoprazole Sodium (Protonix 40mg Ivpb (Pre-Docked)) 100 mls @ 200 mls/hr IVPB DAILY [facility] Last Admin: 02/24/16 17:15 Dose: 200 mls/hr Insulin Aspart (Novolog Vial Sliding Scale -) 1 vial SQ ACHS DUC PRN Reason: Protocol Last Admin: 02/25/16 06:14 Dose: Not Given Methimazole (Tapazole -) 5 mg PO TID [facility] Last Admin: 02/25/16 06:14 Dose: 5 mg Metoprolol Succinate (Toprol Xl -) 25 mg PO DAILY [facility] Last Admin: 02/24/16 17:17 Dose: 25 mg Sevelamer Carbonate (Renvela -) 1,600 mg PO TIDCM [facility] Last Admin: 02/25/16 08:38 Dose: 1,600 mg Simethicone (Mylicon -) 80 mg PO Q4H PRN PRN Reason: GAS Valacyclovir HCl (Valtrex -) 500 mg PO DAILY [facility] - Objective Vital Signs: Vital Signs Temperature 98.7 F 02/25/16 05:00 Pulse Rate 97 H 02/25/16 10:28 Respiratory Rate 20 02/25/16 05:00 Blood Pressure 138/59 02/25/16 05:00 O2 Sat by Pulse Oximetry (%) 96 02/25/16 10:28 Eyes: Yes: WNL, Conjunctiva Clear, EOM Intact HENT: Yes: WNL, Atraumatic, Normocephalic Neck: Yes: WNL, Supple, Trachea Midline Cardiovascular: Yes: WNL, Regular Rate and Rhythm Respiratory: Yes: WNL, Regular, CTA Bilaterally Gastrointestinal: Yes: WNL, Normal Bowel Sounds Genitourinary: Yes: WNL Musculoskeletal: Yes: WNL Extremities: Yes: WNL Edema: No Integumentary: Yes: WNL Neurological: Yes: WNL, Alert, Oriented ...Motor Strength: WNL Psychiatric: Yes: WNL Labs: CBC, BMP 02/25/16 05:35 02/25/16 05:35 INR, PTT INR 1.17 (0.82-1.09) H 02/24/16 06:00 Assessment/Plan - Problems (1) Dialysis AV fistula malfunction Assessment/Plan: AV graft removed. s/p Permacath. Code(s): T82.590A - [facility] COMPL OF SURGICALLY CREATED ARTERIOVENOUS FISTULA, INIT Qualifiers: Encounter type: initial encounter Qualified Code(s): T82.590A - Other mechanical complication of surgically created arteriovenous fistula, initial encounter (2) Elevated troponin Assessment/Plan: TNI 1.09-->1.38-->3.25-->2.5. EKG: NSR; 1st degree AVB, without acute ST-T changes (no significant change from 12/2015). Likely NSTEMI/demand ischemia, though multiple other factors may contribute to TNI elevation, including CHF, ESRD, sepsis, hypoxia. Problematic starting antiplatelets and systemic AC due to AV graft bleed, but would consider doing so if cleared by surgeon. On metoprolol. ECHO: normal LVEF; moderate ; mild-moderate AR; severe TR; mild CT and MR; no pericardial effusion. Pt will require coronary artery evaluation when stable; now has Permacath for hemodialysis. Code(s): R79.89 - OTHER SPECIFIED ABNORMAL FINDINGS OF BLOOD CHEMISTRY (3) ESRD (end stage renal disease) on dialysis Assessment/Plan: Hemodialysis today. Code(s): N18.6 - END STAGE RENAL DISEASE Z99.2 - DEPENDENCE ON RENAL DIALYSIS (4) Hypertension Assessment/Plan: on metoprolol and hydralazine. Code(s): I10 - ESSENTIAL (PRIMARY) HYPERTENSION (5) Pulmonary hypertension Assessment/Plan: severe pulmonary HTN by 02/11/2015 ECHO; normal LVEF. Code(s): I27.2 - OTHER SECONDARY PULMONARY HYPERTENSION (6) Anemia Assessment/Plan: On Epogen. Hb 7.1-->9.9. Code(s): D64.9 - ANEMIA, UNSPECIFIED Qualifiers: Other causes of anemia: acute posthemorrhagic (7) Leukocytosis Code(s): D72.829 - ELEVATED WHITE BLOOD CELL COUNT, UNSPECIFIED (8) Thyroid disease Assessment/Plan: low TSH; elevated Free T4; adjust Tapazole accordingly. Code(s): E07.9 - DISORDER OF THYROID, UNSPECIFIED (9) Acute on chronic diastolic CHF (congestive heart failure) Assessment/Plan: f/u daily weight, Is and Os, BUN/Cr, electrolytes. On hydralazine and Metoprolol ER. Code(s): I50.33 - ACUTE ON CHRONIC DIASTOLIC (CONGESTIVE) HEART FAILURE (10) Zoster Assessment/Plan: Received Valtrex. Code(s): B02.9 - ZOSTER WITHOUT COMPLICATIONS (11) Vitreous hemorrhage, bilateral Assessment/Plan: F/u with opththalmology. Code(s): H43.13 - VITREOUS HEMORRHAGE, BILATERAL (12) Hypoalbuminemia Assessment/Plan: sepsis; poor nutrition; ESRD. Code(s): E88.09 - OTH DISORDERS OF PLASMA-PROTEIN METABOLISM, NEC
--- NOTE | 2016-02-25 10:47 | PN ---
Progress Note (short form) - Note Progress Note: Anesthesia postop note 75y/o F s/p MAC anesthesia for permacath insertion POD#1, vss, aaox3, no complaints. No anesthesia complications.
[2016-02-25] MEDS: PANTOPRAZOLE SODIUM 100 ML IVPB SCH (11:21)
[2016-02-25] MEDS ORDERED: PT OWN MED DRAWER 7, Y5N ONE ×2 (11:34→20:57)
[2016-02-25] MEDS: valACYclovir HCL 500 MG TABLET (FP) PO SCH (11:39)
[2016-02-25] MEDS: METOPROLOL SUCCINATE 25 MG TAB.SR.24H (FP) PO SCH (11:39)
--- NOTE | 2016-02-25 12:08 | PN ---
Progress Note, Physician Chief Complaint: awake,back to baseline mental status She states she can see better now no complaints s/p AVG removal s/p permacath placement yesterday - Current Medication List Current Medications: Active Medications Acetaminophen (Tylenol -) 650 mg PO BID PRN PRN Reason: FEVER Acetaminophen (Tylenol Suppository -) 650 mg [place] Q6H PRN PRN Reason: FEVER OR PAIN Bacitracin (Bacitracin -) 1 applic TP DAILY [facility] Last Admin: 02/24/16 16:49 Dose: Not Given Fentanyl (Sublimaze Injection -) 25 mcg IVPUSH [id number] PRN PRN Reason: PAIN Stop: 02/27/16 09:30 Hydralazine HCl (Apresoline -) 25 mg PO TID [facility] Last Admin: 02/25/16 06:14 Dose: 25 mg Pantoprazole Sodium (Protonix 40mg Ivpb (Pre-Docked)) 100 mls @ 200 mls/hr IVPB DAILY [facility] Last Admin: 02/25/16 11:21 Dose: 200 mls/hr Insulin Aspart (Novolog Vial Sliding Scale -) 1 vial SQ ACHS [facility] PRN Reason: Protocol Last Admin: 02/25/16 06:14 Dose: Not Given Methimazole (Tapazole -) 5 mg PO TID [facility] Last Admin: 02/25/16 06:14 Dose: 5 mg Metoprolol Succinate (Toprol Xl -) 25 mg PO DAILY [facility] Last Admin: 02/25/16 11:39 Dose: 25 mg Sevelamer Carbonate (Renvela -) 1,600 mg PO TIDCM [facility] Last Admin: 02/25/16 08:38 Dose: 1,600 mg Simethicone (Mylicon -) 80 mg PO Q4H PRN PRN Reason: GAS Valacyclovir HCl (Valtrex -) 500 mg PO DAILY [facility] Last Admin: 02/25/16 11:39 Dose: 500 mg - Objective Vital Signs: Vital Signs Temperature 99.3 F 02/25/16 09:00 Pulse Rate 97 H 02/25/16 10:28 Respiratory Rate 20 02/25/16 09:00 Blood Pressure 143/62 02/25/16 09:00 O2 Sat by Pulse Oximetry (%) 96 02/25/16 10:28 Constitutional: Yes: No Distress, Calm Cardiovascular: Yes: Regular Rate and Rhythm Respiratory: Yes: Diminished, Other (right chest wall permacath) Gastrointestinal: Yes: Normal Bowel Sounds, Soft. No: Distention, Tenderness Edema: No (decreased ) Neurological: Yes: Alert, Oriented Psychiatric: Yes: Alert, Oriented Labs: CBC, BMP 02/25/16 05:35 02/25/16 05:35 INR, PTT INR 1.17 (0.82-1.09) H 02/24/16 06:00 Problem List - Problems (1) Altered mental status, unspecified Code(s): R41.82 - ALTERED MENTAL STATUS, UNSPECIFIED Qualifiers: Altered mental status type: unspecified Qualified Code(s): R41.82 - Altered mental status, unspecified (2) Dialysis AV fistula malfunction Code(s): T82.590A - [facility] COMPL OF SURGICALLY CREATED ARTERIOVENOUS FISTULA, INIT Qualifiers: Encounter type: initial encounter Qualified Code(s): T82.590A - Other mechanical complication of surgically created arteriovenous fistula, initial encounter (3) Elevated troponin Code(s): R79.89 - OTHER SPECIFIED ABNORMAL FINDINGS OF BLOOD CHEMISTRY (4) Thrombosis of surgically created arteriovenous fistula Code(s): T82.868A - THROMBOSIS DUE TO VASCULAR PROSTH DEV/GRFT, INIT (5) ESRD (end stage renal disease) on dialysis Code(s): N18.6 - END STAGE RENAL DISEASE Z99.2 - DEPENDENCE ON RENAL DIALYSIS (6) Diabetes mellitus Code(s): E11.9 - TYPE 2 DIABETES MELLITUS WITHOUT COMPLICATIONS Qualifiers: Diabetes mellitus type: type 2 Diabetes mellitus complication status: without complication (7) Bacteremia Code(s): R78.81 - BACTEREMIA (8) Arteriovenous graft infection Code(s): T82.7XXA - INFECT/INFLM REACT D/T OTH CARDI/VASC DEV/IMPLNT/GRFT, INIT Qualifiers: Encounter type: subsequent encounter Qualified Code(s): T82.7XXD - Infection and inflammatory reaction due to other cardiac and vascular devices, implants and grafts, subsequent encounter (9) Zoster Code(s): B02.9 - ZOSTER WITHOUT COMPLICATIONS Assessment/Plan PLAN s/p removal of AVG repeat blood cultures negative s/p permacath yesterday IV antibiotics per ID spoke with ID and renal will need antiplatelet therapy as she had elevated troponins-- discussed with Dr Aniyah fournier-- will start ASA she will also be transferred for cardiac cath continue with meds SCD for DVT prophylaxis
--- NOTE | 2016-02-25 17:19 | PN ---
Progress Note, Physician History of Present Illness: Pt seen and examined at bedside. She is awake and alert. She is eager to go home. - Current Medication List Current Medications: Active Medications Acetaminophen (Tylenol -) 650 mg PO BID PRN PRN Reason: FEVER Acetaminophen (Tylenol Suppository -) 650 mg [place] Q6H PRN PRN Reason: FEVER OR PAIN Aspirin (Asa -) 325 mg PO DAILY [facility] Bacitracin (Bacitracin -) 1 applic TP DAILY [facility] Last Admin: 02/24/16 16:49 Dose: Not Given Fentanyl (Sublimaze Injection -) 25 mcg IVPUSH [id number] PRN PRN Reason: PAIN Stop: 02/27/16 09:30 Hydralazine HCl (Apresoline -) 25 mg PO TID [facility] Last Admin: 02/25/16 14:24 Dose: 25 mg Pantoprazole Sodium (Protonix 40mg Ivpb (Pre-Docked)) 100 mls @ 200 mls/hr IVPB DAILY [facility] Last Admin: 02/25/16 11:21 Dose: 200 mls/hr Insulin Aspart (Novolog Vial Sliding Scale -) 1 vial SQ ACHS [facility] PRN Reason: Protocol Last Admin: 02/25/16 12:50 Dose: 6 units Methimazole (Tapazole -) 5 mg PO TID [facility] Last Admin: 02/25/16 14:25 Dose: 5 mg Metoprolol Succinate (Toprol Xl -) 25 mg PO DAILY [facility] Last Admin: 02/25/16 11:39 Dose: 25 mg Sevelamer Carbonate (Renvela -) 1,600 mg PO TIDCM [facility] Last Admin: 02/25/16 12:12 Dose: 1,600 mg Simethicone (Mylicon -) 80 mg PO Q4H PRN PRN Reason: GAS Valacyclovir HCl (Valtrex -) 500 mg PO DAILY [facility] Last Admin: 02/25/16 11:39 Dose: 500 mg - Objective Vital Signs: Vital Signs Temperature 98.1 F 02/25/16 14:20 Pulse Rate 95 H 02/25/16 14:20 Respiratory Rate 20 02/25/16 14:20 Blood Pressure 129/63 02/25/16 14:20 O2 Sat by Pulse Oximetry (%) 96 02/25/16 10:28 Constitutional: Yes: Calm Eyes: Yes: Conjunctiva Clear Cardiovascular: Yes: S1, S2 Respiratory: Yes: On Nasal O2 Gastrointestinal: Yes: Soft Genitourinary: Yes: Incontinence Musculoskeletal: Yes: Muscle Weakness Edema: Yes Neurological: Yes: Oriented Psychiatric: Yes: Oriented Labs: CBC, BMP 02/25/16 05:35 02/25/16 05:35 INR, PTT INR 1.17 (0.82-1.09) H 02/24/16 06:00 Problem List - Problems (1) Altered mental status, unspecified Code(s): R41.82 - ALTERED MENTAL STATUS, UNSPECIFIED Qualifiers: Altered mental status type: unspecified Qualified Code(s): R41.82 - Altered mental status, unspecified (2) Dialysis AV fistula malfunction Code(s): T82.590A - [facility] COMPL OF SURGICALLY CREATED ARTERIOVENOUS FISTULA, INIT Qualifiers: Encounter type: initial encounter Qualified Code(s): T82.590A - Other mechanical complication of surgically created arteriovenous fistula, initial encounter (3) Elevated troponin Code(s): R79.89 - OTHER SPECIFIED ABNORMAL FINDINGS OF BLOOD CHEMISTRY (4) ESRD (end stage renal disease) on dialysis Code(s): N18.6 - END STAGE RENAL DISEASE Z99.2 - DEPENDENCE ON RENAL DIALYSIS (5) Anemia Code(s): D64.9 - ANEMIA, UNSPECIFIED Qualifiers: Other causes of anemia: acute posthemorrhagic (6) Hypertension Code(s): I10 - ESSENTIAL (PRIMARY) HYPERTENSION Assessment/Plan Current Medications Generic Name Dose Route Start Last Admin Trade Name Freq PRN Reason Stop Dose Admin Acetaminophen 650 mg 02/24/16 09:43 Tylenol - PO BID PRN FEVER Acetaminophen 650 mg 02/24/16 09:43 Tylenol Suppository - VA Q6H PRN FEVER OR PAIN Aspirin 325 mg 02/26/16 10:00 Asa - PO DAILY DUC Bacitracin 1 applic 02/24/16 10:00 02/24/16 16:49 Bacitracin - TP Not Given DAILY DUC Fentanyl 25 mcg 02/24/16 09:29 Sublimaze Injection - IVPUSH 02/27/16 09:30 [id number] PRN PAIN Hydralazine HCl 25 mg 02/24/16 14:00 02/25/16 14:24 Apresoline - PO 25 mg TID DUC Administration Pantoprazole Sodium 100 mls @ 200 mls/hr 02/24/16 10:00 02/25/16 11:21 Protonix 40mg Ivpb (Pre-Docked) IVPB 200 mls/hr DAILY DUC Administration Insulin Aspart 1 vial 02/24/16 11:00 02/25/16 12:50 Novolog Vial Sliding Scale - SQ 6 units ACHS DUC Administration Protocol Methimazole 5 mg 02/24/16 14:00 02/25/16 14:25 Tapazole - PO 5 mg TID DUC Administration Metoprolol Succinate 25 mg 02/24/16 10:00 02/25/16 11:39 Toprol Xl - PO 25 mg DAILY DUC Administration Sevelamer Carbonate 1,600 mg 02/24/16 12:00 02/25/16 12:12 Renvela - PO 1,600 mg TIDCM DUC Administration Simethicone 80 mg 02/24/16 09:43 Mylicon - PO Q4H PRN GAS Valacyclovir HCl 500 mg 02/25/16 10:15 02/25/16 11:39 Valtrex - PO 500 mg DAILY DUC Administration Impression 1. ESRD 2. av access malfunction 3. hyperkalemia 4. CHF 5. DM 6. HTN 7. anemia 8. depression 9. hyperlipidemia 10. leukocytosis 11. NSTEMI 12. bacteremia 13. malnutrition Plan - will arrange for HD in am - discussed with ID, will need to have cefazolin on HD (2gm T - 2 gm Thur - 3 gram Sat) - discussed with cardio, no plan for cardiac cath during this hospitalization, will need to see cardio as outpt - epogen for anemia - monitor cbc - 02/17 and 02/19 cultures are negative to date - cont nepro supplements - monitor pulse ox Dr Jones
[2016-02-25] MEDS: BACITRACIN 30 GM TUBE TOPICAL OINTMENT TP SCH (18:00)
[2016-02-25] MEDS ORDERED: INSULIN (NOVOLOG) ASPART 100 UNITS/ML 10ML VIAL ONE (20:56)
[2016-02-26] MEDS ORDERED: INSULIN (NOVOLOG) ASPART 100 UNITS/ML 10ML VIAL ONE (05:27)
[2016-02-26] MEDS ORDERED: PT OWN MED DRAWER 7, Y5N ONE ×2 (05:28→17:07)
[2016-02-26] MEDS: METHIMAZOLE 5 MG TABLET (FP) PO SCH ×2 (06:17→17:00)
[2016-02-26] MEDS: INSULIN SLIDING SCALE (NOVOLOG) 1 VIAL SQ SCH ×3 (06:17→18:00)
[2016-02-26] MEDS: hydrALAZINE HCL 25 MG TABLET (FP) PO SCH ×2 (06:17→17:00)
[2016-02-26] MEDS: SEVELAMER CARBONATE 800 MG TAB (FP) PO SCH ×3 (08:00→17:00)
--- NOTE | 2016-02-26 09:56 | PN ---
Progress Note (short form) - Note Progress Note: Resting in NAD. No acute events overnight. Reports overall improvement. Wants to go home,. Intake & Output 02/23/16 02/24/16 02/25/16 02/26/16 23:59 23:59 23:59 23:59 Intake Total 780 600 550 Output Total 0 20 Balance 780 580 550 Weight 166 lb 9.6 oz 166 lb 6 oz 162 lb 6 oz 164 lb 6 oz Last Vital Signs Temp Pulse Resp BP Pulse Ox 98.7 F 91 H 20 149/75 96 02/26/16 06:00 02/26/16 06:00 02/26/16 06:00 02/26/16 06:00 02/25/16 21:00 Active Medications Acetaminophen (Tylenol -) 650 mg PO BID PRN PRN Reason: FEVER Last Admin: 02/26/16 01:01 Dose: 650 mg Acetaminophen (Tylenol Suppository -) 650 mg MD Q6H PRN PRN Reason: FEVER OR PAIN Aspirin (Asa -) 325 mg PO DAILY [facility] Bacitracin (Bacitracin -) 1 applic TP DAILY [facility] Last Admin: 02/25/16 18:00 Dose: 1 applic Cefazolin Sodium/Dextrose (Ancef 2 Gm Premixed Ivpb -) 2 gm IVPB ONCE ONE Stop: 02/26/16 17:31 Epoetin Jakob (Epogen -) 8,000 units IVPUSH ONCE ONE Stop: 02/26/16 17:20 Fentanyl (Sublimaze Injection -) 25 mcg IVPUSH [id number] PRN PRN Reason: PAIN Stop: 02/27/16 09:30 Hydralazine HCl (Apresoline -) 25 mg PO TID [facility] Last Admin: 02/26/16 06:17 Dose: 25 mg Pantoprazole Sodium (Protonix 40mg Ivpb (Pre-Docked)) 100 mls @ 200 mls/hr IVPB DAILY [facility] Last Admin: 02/25/16 11:21 Dose: 200 mls/hr Insulin Aspart (Novolog Vial Sliding Scale -) 1 vial SQ ACHS [facility] PRN Reason: Protocol Last Admin: 02/26/16 06:17 Dose: Not Given Methimazole (Tapazole -) 5 mg PO TID [facility] Last Admin: 02/26/16 06:17 Dose: 5 mg Metoprolol Succinate (Toprol Xl -) 25 mg PO DAILY [facility] Last Admin: 02/25/16 11:39 Dose: 25 mg Sevelamer Carbonate (Renvela -) 1,600 mg PO TIDCM [facility] Last Admin: 02/25/16 18:10 Dose: 1,600 mg Simethicone (Mylicon -) 80 mg PO Q4H PRN PRN Reason: GAS Last Admin: 02/26/16 01:02 Dose: 80 mg Valacyclovir HCl (Valtrex -) 500 mg PO DAILY [facility] Last Admin: 02/25/16 11:39 Dose: 500 mg Gen:Awake and alert, NAD Heart: RRR Lung: decreased breath sounds at the bases Abd: soft, nontender Ext: +edema Laboratory Results - last 24 hr 02/25/16 02/25/16 02/25/16 12:44 17:26 21:36 POC Glucometer 269 151 123 02/26/16 06:14 POC Glucometer 143 ASSESSMENT AND PLAN: Staph Bacteremia from likely AVG infection Acute Blood Loss from AVG NSTEMI Altered Mental Status ESRD on HD Hyperkalemia resolved Pulmonary HTN HTN DM - ABX per ID - HD per renal - aspiration precautions - DVT prophylaxis - D/C planning Dr Pryor
[2016-02-26] MEDS ORDERED: ASPIRIN 325 MG TABLET PO SCH (10:00)
--- NOTE | 2016-02-26 11:32 | PN ---
Progress Note, Physician Chief Complaint: see dc summary - Current Medication List Current Medications: Active Medications Acetaminophen (Tylenol -) 650 mg PO BID PRN PRN Reason: FEVER Last Admin: 02/26/16 01:01 Dose: 650 mg Acetaminophen (Tylenol Suppository -) 650 mg CO Q6H PRN PRN Reason: FEVER OR PAIN Aspirin (Asa -) 325 mg PO DAILY [facility] Bacitracin (Bacitracin -) 1 applic TP DAILY [facility] Last Admin: 02/25/16 18:00 Dose: 1 applic Cefazolin Sodium/Dextrose (Ancef 2 Gm Premixed Ivpb -) 2 gm IVPB ONCE ONE Stop: 02/26/16 17:31 Epoetin Jakob (Epogen -) 8,000 units IVPUSH ONCE ONE Stop: 02/26/16 17:20 Fentanyl (Sublimaze Injection -) 25 mcg IVPUSH [id number] PRN PRN Reason: PAIN Stop: 02/27/16 09:30 Hydralazine HCl (Apresoline -) 25 mg PO TID [facility] Last Admin: 02/26/16 06:17 Dose: 25 mg Pantoprazole Sodium (Protonix 40mg Ivpb (Pre-Docked)) 100 mls @ 200 mls/hr IVPB DAILY [facility] Last Admin: 02/25/16 11:21 Dose: 200 mls/hr Insulin Aspart (Novolog Vial Sliding Scale -) 1 vial SQ ACHS [facility] PRN Reason: Protocol Last Admin: 02/26/16 06:17 Dose: Not Given Methimazole (Tapazole -) 5 mg PO TID [facility] Last Admin: 02/26/16 06:17 Dose: 5 mg Metoprolol Succinate (Toprol Xl -) 25 mg PO DAILY [facility] Last Admin: 02/25/16 11:39 Dose: 25 mg Sevelamer Carbonate (Renvela -) 1,600 mg PO TIDCM [facility] Last Admin: 02/25/16 18:10 Dose: 1,600 mg Simethicone (Mylicon -) 80 mg PO Q4H PRN PRN Reason: GAS Last Admin: 02/26/16 01:02 Dose: 80 mg Valacyclovir HCl (Valtrex -) 500 mg PO DAILY [facility] Last Admin: 02/25/16 11:39 Dose: 500 mg - Objective Vital Signs: Vital Signs Temperature 98.7 F 02/26/16 06:00 Pulse Rate 98 H 02/26/16 11:20 Respiratory Rate 18 02/26/16 11:20 Blood Pressure 151/69 02/26/16 11:20 O2 Sat by Pulse Oximetry (%) 96 02/26/16 10:32 Labs: CBC, BMP 02/25/16 05:35 02/25/16 05:35 INR, PTT INR 1.17 (0.82-1.09) H 02/24/16 06:00 Problem List - Problems (1) Altered mental status, unspecified Code(s): R41.82 - ALTERED MENTAL STATUS, UNSPECIFIED Qualifiers: Altered mental status type: unspecified Qualified Code(s): R41.82 - Altered mental status, unspecified (2) Dialysis AV fistula malfunction Code(s): T82.590A [facility] COMPL OF SURGICALLY CREATED ARTERIOVENOUS FISTULA, INIT Qualifiers: Encounter type: initial encounter Qualified Code(s): T82.590A - Other mechanical complication of surgically created arteriovenous fistula, initial encounter (3) Elevated troponin Code(s): R79.89 - OTHER SPECIFIED ABNORMAL FINDINGS OF BLOOD CHEMISTRY (4) Thrombosis of surgically created arteriovenous fistula Code(s): T82.868A - THROMBOSIS DUE TO VASCULAR PROSTH DEV/GRFT, INIT (5) ESRD (end stage renal disease) on dialysis Code(s): N18.6 - END STAGE RENAL DISEASE Z99.2 - DEPENDENCE ON RENAL DIALYSIS (6) Diabetes mellitus Code(s): E11.9 - TYPE 2 DIABETES MELLITUS WITHOUT COMPLICATIONS Qualifiers: Diabetes mellitus type: type 2 Diabetes mellitus complication status: without complication (7) Bacteremia Code(s): R78.81 - BACTEREMIA (8) Arteriovenous graft infection Code(s): T82.7XXA - INFECT/INFLM REACT D/T OTH CARDI/VASC DEV/IMPLNT/GRFT, INIT Qualifiers: Encounter type: subsequent encounter Qualified Code(s): T82.7XXD - Infection and inflammatory reaction due to other cardiac and vascular devices, implants and grafts, subsequent encounter (9) Zoster Code(s): B02.9 - ZOSTER WITHOUT COMPLICATIONS
--- NOTE | 2016-02-26 11:47 | DS ---
Physical Examination Vital Signs: Vital Signs Temperature 98.7 F 02/26/16 06:00 Pulse Rate 98 H 02/26/16 11:20 Respiratory Rate 18 02/26/16 11:20 Blood Pressure 151/69 02/26/16 11:20 O2 Sat by Pulse Oximetry (%) 96 02/26/16 10:32 Constitutional: Yes: No Distress, Calm Cardiovascular: Yes: Regular Rate and Rhythm Respiratory: Yes: Diminished, Other (rt permacath) Gastrointestinal: Yes: Normal Bowel Sounds, Soft, Abdomen, Obese. No: Distention, Tenderness Extremities: Yes: Other (dressing in place left arm) Edema: No Psychiatric: Yes: Alert, Oriented Labs: CBC, BMP 02/25/16 05:35 02/25/16 05:35 Discharge Summary Reason For Visit: DIALYSIS AV FISTULA MALFUNCTION,AMS Current Active Problems Acute on chronic diastolic CHF (congestive heart failure) (Acute) Altered mental status, unspecified (Acute) Arteriovenous graft infection (Acute) Bacteremia (Acute) Dialysis AV fistula malfunction (Acute) Elevated troponin (Acute) Hypoalbuminemia (Acute) Leukocytosis (Acute) Thrombosis of surgically created arteriovenous fistula (Acute) Thyroid disease (Acute) Vitreous hemorrhage, bilateral (Acute) Zoster (Acute) ESRD (end stage renal disease) on dialysis (Chronic) Hospital Course: Pt was admitted from [facility] for malfunction AVF left arm- continuous bleeding . Potassium was 7 and was admitted to ICU for altered mental status and sepsis Blood cultures became positive for MSSA She was emergently dialysed Seen by Pulmonary/CCU , ID and Renal Her blood cultures continued to be positive despite antibiotics- Echo showed no vegetations cardiac enzymes were elevated- seen By cardiology -- could not be placed on Heparin drip at that time due to bleeding from AVG . Cardiac enzymes trended down but still remained elevated Pt was getting dialysed through femoral shileys which were placed alternatively She underwent removal of AVG - 02/17/16 Blood cultures became negative on 02/18/16. Course complicated by Herpes Zoster on her back-- she was started on Valtrex and will need one more week of Valtrex She had repeat cultures which were negative on 02/20/16. Right chest wall permacath was later placed on 02/24/16 Pt remains afebrile Her mental status has improved remarkably She is back to baseline She is deconditioned due to her stay here She will need rehab on dc She will also need 5 more weeks of Cefazolin after dialysis - - Sat- 2gm, 2gm, 3gm respectively -- spoke to [employer] Pt will also need to follow up with [employer] as an outpt Started on ASA -- tolerating it well No bleeding episodes noted Stable for dc to NH Condition: Good - Instructions Diet, Activity, Other Instructions: Cefazolin 2gm after dialysis on Tuesdays and for the next 5 weeks and Cefazolin 3gm after dialysis on Saturdays- 5 weeks Will need to see Dr Chanel- [employer] as an outpt Referrals: Akin Chapa MD [Primary Care Provider] - Disposition: SNF FACILITY - Home Medications Comprehensive Discharge Medication List: Ambulatory Orders Acetaminophen [Tylenol] 650 mg PO BID 04/26/15 Ascorbic Acid [Vitamin C] 500 mg PO DAILY 04/26/15 Ferrous Sulfate [Feosol] 325 mg PO DAILY 04/26/15 Furosemide [Lasix -] 80 mg PO DAILY 04/26/15 Insulin (Levemir) [Levemir Vial] 5 unit SQ DAILY 04/26/15 Metoprolol Succinate [Toprol XL -] 25 mg PO DAILY 04/26/15 Pantoprazole Sodium [Protonix -] 40 mg PO DAILY 04/26/15 Paroxetine HCl 20 mg PO DAILY 04/26/15 Pregabalin [Lyrica -] 50 mg PO DAILY 04/26/15 Sevelamer Carbonate [Renvela -] 1,600 mg PO TID 04/26/15 Hydralazine HCl [Apresoline -] 25 mg PO TID #21 tablet 05/06/15 Oxycodone HCl 10 mg PO BID 05/17/15 Multivitamin [Poly-Vitamin] 1 each PO DAILY 08/15/15 Silver Sulfadiazine 1% Top Cr [Silvadene -] 1 applic TP DAILY 08/15/15 Atorvastatin Ca [Lipitor] 10 mg PO HS 08/28/15 Bisacodyl [Bisacodyl -] 20 mg PO DAILY tablet. 08/31/15 Methylnaltrexone [place] [Relistor -] 12 mg SQ Q2D@2200 kit 09/01/15 Polyethylene Glycol 3350 [Miralax 119 gm Btl -] 17 gm PO DAILY 10/17/15 Zinc Oxide 20% Topical Oint 454 gm NR DAILY 10/17/15
--- NOTE | 2016-02-26 12:31 | PN ---
Progress Note, Physician History of Present Illness: Pt seen and examined at bedside. She is currently getting HD. Pt says she feels well and is eager to go back to the NH. - Current Medication List Current Medications: Active Medications Acetaminophen (Tylenol -) 650 mg PO BID PRN PRN Reason: FEVER Last Admin: 02/26/16 01:01 Dose: 650 mg Acetaminophen (Tylenol Suppository -) 650 mg [place] Q6H PRN PRN Reason: FEVER OR PAIN Aspirin (Asa -) 325 mg PO DAILY [facility] Bacitracin (Bacitracin -) 1 applic TP DAILY [facility] Last Admin: 02/25/16 18:00 Dose: 1 applic Cefazolin Sodium/Dextrose (Ancef 2 Gm Premixed Ivpb -) 2 gm IVPB ONCE ONE Stop: 02/26/16 17:31 Epoetin Jakob (Epogen -) 8,000 units IVPUSH ONCE ONE Stop: 02/26/16 17:20 Fentanyl (Sublimaze Injection -) 25 mcg IVPUSH [id number] PRN PRN Reason: PAIN Stop: 02/27/16 09:30 Hydralazine HCl (Apresoline -) 25 mg PO TID [facility] Last Admin: 02/26/16 06:17 Dose: 25 mg Pantoprazole Sodium (Protonix 40mg Ivpb (Pre-Docked)) 100 mls @ 200 mls/hr IVPB DAILY [facility] Last Admin: 02/25/16 11:21 Dose: 200 mls/hr Insulin Aspart (Novolog Vial Sliding Scale -) 1 vial SQ ACHS [facility] PRN Reason: Protocol Last Admin: 02/26/16 06:17 Dose: Not Given Methimazole (Tapazole -) 5 mg PO TID [facility] Last Admin: 02/26/16 06:17 Dose: 5 mg Metoprolol Succinate (Toprol Xl -) 25 mg PO DAILY [facility] Last Admin: 02/25/16 11:39 Dose: 25 mg Sevelamer Carbonate (Renvela -) 1,600 mg PO TIDCM [facility] Last Admin: 02/25/16 18:10 Dose: 1,600 mg Simethicone (Mylicon -) 80 mg PO Q4H PRN PRN Reason: GAS Last Admin: 02/26/16 01:02 Dose: 80 mg Valacyclovir HCl (Valtrex -) 500 mg PO DAILY [facility] Last Admin: 02/25/16 11:39 Dose: 500 mg - Objective Vital Signs: Vital Signs Temperature 98.7 F 02/26/16 06:00 Pulse Rate 107 H 02/26/16 12:20 Respiratory Rate 18 02/26/16 12:20 Blood Pressure 143/69 02/26/16 12:20 O2 Sat by Pulse Oximetry (%) 96 02/26/16 10:32 Constitutional: Yes: Calm Eyes: Yes: Conjunctiva Clear HENT: Yes: Atraumatic Cardiovascular: Yes: S1, S2 Respiratory: Yes: CTA Bilaterally, On Nasal O2 Gastrointestinal: Yes: Soft Genitourinary: Yes: Incontinence Edema: Yes Edema: LLE: Trace, RLE: Trace Neurological: Yes: Oriented Psychiatric: Yes: Oriented Labs: CBC, BMP 02/25/16 05:35 02/25/16 05:35 INR, PTT INR 1.17 (0.82-1.09) H 02/24/16 06:00 Problem List - Problems (1) Altered mental status, unspecified Code(s): R41.82 - ALTERED MENTAL STATUS, UNSPECIFIED Qualifiers: Altered mental status type: unspecified Qualified Code(s): R41.82 - Altered mental status, unspecified (2) Dialysis AV fistula malfunction Code(s): T82.590A - [facility] COMPL OF SURGICALLY CREATED ARTERIOVENOUS FISTULA, INIT Qualifiers: Encounter type: initial encounter Qualified Code(s): T82.590A - Other mechanical complication of surgically created arteriovenous fistula, initial encounter (3) Elevated troponin Code(s): R79.89 - OTHER SPECIFIED ABNORMAL FINDINGS OF BLOOD CHEMISTRY (4) ESRD (end stage renal disease) on dialysis Code(s): N18.6 - END STAGE RENAL DISEASE Z99.2 - DEPENDENCE ON RENAL DIALYSIS (5) Anemia Code(s): D64.9 - ANEMIA, UNSPECIFIED Qualifiers: Other causes of anemia: acute posthemorrhagic (6) Hypertension Code(s): I10 - ESSENTIAL (PRIMARY) HYPERTENSION Assessment/Plan Current Medications Generic Name Dose Route Start Last Admin Trade Name Freq PRN Reason Stop Dose Admin Acetaminophen 650 mg 02/24/16 09:43 02/26/16 01:01 Tylenol - PO 650 mg BID PRN Administration FEVER Acetaminophen 650 mg 02/24/16 09:43 Tylenol Suppository - VA Q6H PRN FEVER OR PAIN Aspirin 325 mg 02/26/16 10:00 Asa - PO DAILY [facility] Bacitracin 1 applic 02/24/16 10:00 02/25/16 18:00 Bacitracin - TP 1 applic DAILY [facility] Administration Cefazolin Sodium/Dextrose 2 gm 02/26/16 17:30 Ancef 2 Gm Premixed Ivpb - IVPB 02/26/16 17:31 ONCE ONE Epoetin Jakob 8,000 units 02/26/16 17:19 Epogen - IVPUSH 02/26/16 17:20 ONCE ONE Fentanyl 25 mcg 02/24/16 09:29 Sublimaze Injection - IVPUSH 02/27/16 09:30 [id number] PRN PAIN Hydralazine HCl 25 mg 02/24/16 14:00 02/26/16 06:17 Apresoline - PO 25 mg TID DUC Administration Pantoprazole Sodium 100 mls @ 200 mls/hr 02/24/16 10:00 02/25/16 11:21 Protonix 40mg Ivpb (Pre-Docked) IVPB 200 mls/hr DAILY DUC Administration Insulin Aspart 1 vial 02/24/16 11:00 02/26/16 06:17 Novolog Vial Sliding Scale - SQ Not Given ACHS [facility] Protocol Methimazole 5 mg 02/24/16 14:00 02/26/16 06:17 Tapazole - PO 5 mg TID DUC Administration Metoprolol Succinate 25 mg 02/24/16 10:00 02/25/16 11:39 Toprol Xl - PO 25 mg DAILY DUC Administration Sevelamer Carbonate 1,600 mg 02/24/16 12:00 02/25/16 18:10 Renvela - PO 1,600 mg TIDCM DUC Administration Simethicone 80 mg 02/24/16 09:43 02/26/16 01:02 Mylicon - PO 80 mg Q4H PRN Administration GAS Valacyclovir HCl 500 mg 02/25/16 10:15 02/25/16 11:39 Valtrex - PO 500 mg DAILY DUC Administration Impression 1. ESRD 2. av access malfunction 3. hyperkalemia 4. CHF 5. DM 6. HTN 7. anemia 8. depression 9. hyperlipidemia 10. leukocytosis 11. NSTEMI 12. bacteremia 13. malnutrition Plan - HD today - will need to have cefazolin on HD (2gm T - 2 gm Thur - 3 gram Sat) - epogen for anemia - monitor cbc - 02/17 and 02/19 cultures are negative to date - cont nepro supplements - discussed with medical attending, can be discharged from renal perspective - monitor pulse ox Dr Jones
[2016-02-26] MEDS ORDERED: EPOETIN ALFA 6,000 UNIT, EPOETIN ALFA 2,000 UNIT IVPUSH ONE (13:15)
[2016-02-26 15:31] VITALS: PULSE 106
[2016-02-26] MEDS ORDERED: ceFAZolin 2 GRAM PREMIX BAG IVPB ONE (16:00)
[2016-02-26] MEDS: BACITRACIN 30 GM TUBE TOPICAL OINTMENT TP SCH (17:00)
[2016-02-26] MEDS: METOPROLOL SUCCINATE 25 MG TAB.SR.24H (FP) PO SCH (17:00)
[2016-02-26] MEDS: valACYclovir HCL 500 MG TABLET (FP) PO SCH (17:00)
[2016-02-26] MEDS ORDERED: EPOETIN ALFA 2,000 UNITS/1 ML VIAL IVPUSH ONE (17:19)
--- NOTE | 2016-02-26 17:22 | PN ---
Progress Note, Physician Chief Complaint: Pt is undergoing hemodialysis; A&Ox3; no chest pain or dyspnea. History of Present Illness: 75-year-old white female presents to the ED for evaluation of bleeding left AV fistula. As per pt she had dialysis but has not been feeling well and today when she went to dialysis they were unable to access her fistula and then it began to bleed. Patient states has not been feeling well over the past few days describing nausea, myalgia, and decreased appetite. Patient denies headache, throat pain, chest pain or shortness of breath. Patient with history of ESRD-->hemodialysis 3x/week, anemia, CVA, diastolic CHF, dementia, diabetes, hypertension, dyslipidemia, "shingles", and thyroid disease. - Current Medication List Current Medications: Active Medications Acetaminophen (Tylenol -) 650 mg PO BID PRN PRN Reason: FEVER Last Admin: 02/26/16 01:01 Dose: 650 mg Acetaminophen (Tylenol Suppository -) 650 mg [place] Q6H PRN PRN Reason: FEVER OR PAIN Aspirin (Asa -) 325 mg PO DAILY [facility] Bacitracin (Bacitracin -) 1 applic TP DAILY [facility] Last Admin: 02/25/16 18:00 Dose: 1 applic Fentanyl (Sublimaze Injection -) 25 mcg IVPUSH [id number] PRN PRN Reason: PAIN Stop: 02/27/16 09:30 Hydralazine HCl (Apresoline -) 25 mg PO TID [facility] Last Admin: 02/26/16 06:17 Dose: 25 mg Pantoprazole Sodium (Protonix 40mg Ivpb (Pre-Docked)) 100 mls @ 200 mls/hr IVPB DAILY [facility] Last Admin: 02/25/16 11:21 Dose: 200 mls/hr Insulin Aspart (Novolog Vial Sliding Scale -) 1 vial SQ ACHS [facility] PRN Reason: Protocol Last Admin: 02/26/16 06:17 Dose: Not Given Methimazole (Tapazole -) 5 mg PO TID [facility] Last Admin: 02/26/16 06:17 Dose: 5 mg Metoprolol Succinate (Toprol Xl -) 25 mg PO DAILY [facility] Last Admin: 02/25/16 11:39 Dose: 25 mg Sevelamer Carbonate (Renvela -) 1,600 mg PO TIDCM [facility] Last Admin: 02/25/16 18:10 Dose: 1,600 mg Simethicone (Mylicon -) 80 mg PO Q4H PRN PRN Reason: GAS Last Admin: 02/26/16 01:02 Dose: 80 mg Valacyclovir HCl (Valtrex -) 500 mg PO DAILY [facility] Last Admin: 02/25/16 11:39 Dose: 500 mg - Objective Vital Signs: Vital Signs Temperature 98.9 F 02/26/16 15:30 Pulse Rate 106 H 02/26/16 15:30 Respiratory Rate 20 02/26/16 15:30 Blood Pressure 118/70 02/26/16 15:30 O2 Sat by Pulse Oximetry (%) 96 02/26/16 10:32 Labs: CBC, BMP 02/25/16 05:35 02/25/16 05:35 INR, PTT INR 1.17 (0.82-1.09) H 02/24/16 06:00 Problem List - Problems (1) Dialysis AV fistula malfunction Assessment/Plan: AV graft removed. s/p Permacath. Code(s): T82.590A - [facility] COMPL OF SURGICALLY CREATED ARTERIOVENOUS FISTULA, INIT Qualifiers: Encounter type: initial encounter Qualified Code(s): T82.590A - Other mechanical complication of surgically created arteriovenous fistula, initial encounter (2) Elevated troponin Assessment/Plan: TNI 1.09-->1.38-->3.25 maximum. EKG: NSR; 1st degree AVB, without acute ST-T changes (no significant change from 12/2015). Likely NSTEMI/demand ischemia, though multiple other factors may contribute to TNI elevation, including CHF, ESRD, sepsis, hypoxia. On ASA (unless required for other reasons, would reduce dose from 325 mg to 81 mg daily). On metoprolol. ECHO: normal LVEF; moderate ; mild-moderate AR; severe TR; mild IA and MR; no pericardial effusion. Pt will require coronary artery evaluation when stable; now has Permacath for hemodialysis. She may be followed up as an outpatient, from cardiac standpoint. Code(s): R79.89 - OTHER SPECIFIED ABNORMAL FINDINGS OF BLOOD CHEMISTRY (3) ESRD (end stage renal disease) on dialysis Assessment/Plan: Hemodialysis today. Code(s): N18.6 - END STAGE RENAL DISEASE Z99.2 - DEPENDENCE ON RENAL DIALYSIS (4) Hypertension Assessment/Plan: on metoprolol and hydralazine; consider starting ACEI (HTN; pulmonary HTN; additional risks for CAD, with elevated TNI this admission likely 2ndary to NSTEMI; DM). Code(s): I10 - ESSENTIAL (PRIMARY) HYPERTENSION (5) Pulmonary hypertension Assessment/Plan: severe pulmonary HTN by 02/11/2015 ECHO; normal LVEF. Code(s): I27.2 - OTHER SECONDARY PULMONARY HYPERTENSION (6) Anemia Assessment/Plan: On Epogen. Hb 7.1-->9.9. Code(s): D64.9 - ANEMIA, UNSPECIFIED Qualifiers: Other causes of anemia: acute posthemorrhagic (7) Leukocytosis Code(s): D72.829 - ELEVATED WHITE BLOOD CELL COUNT, UNSPECIFIED (8) Thyroid disease Assessment/Plan: low TSH; elevated Free T4; adjust Tapazole accordingly. Code(s): E07.9 - DISORDER OF THYROID, UNSPECIFIED (9) Acute on chronic diastolic CHF (congestive heart failure) Assessment/Plan: f/u daily weight, Is and Os, BUN/Cr, electrolytes. On hydralazine and Metoprolol ER. Moderate aortic stenosis. Code(s): I50.33 - ACUTE ON CHRONIC DIASTOLIC (CONGESTIVE) HEART FAILURE (10) Zoster Assessment/Plan: Received Valtrex. Code(s): B02.9 - ZOSTER WITHOUT COMPLICATIONS (11) Vitreous hemorrhage, bilateral Assessment/Plan: F/u with opththalmology. Code(s): H43.13 - VITREOUS HEMORRHAGE, BILATERAL (12) Hypoalbuminemia Assessment/Plan: sepsis; poor nutrition; ESRD. Code(s): E88.09 - OTH DISORDERS OF PLASMA-PROTEIN METABOLISM, NEC (13) Aortic stenosis Assessment/Plan: ECHO: normal LVEF; moderate aortic stenosis. On metoprolol ER. Code(s): I35.0 - NONRHEUMATIC AORTIC (VALVE) STENOSIS
[2016-02-26] MEDS: PANTOPRAZOLE SODIUM 100 ML IVPB SCH (17:30)
[2016-02-26 17:34] VITALS: BP 144/64; TEMP 98.8
[2016-02-27] MEDS ORDERED: ASPIRIN 81 MG CHEWABLE TABLETS PO SCH (10:00)
== END 2016-02-26 19:41 | DRG 252 ==
LOC: JER 13:35 → JERBED 15:15 → JICU 17:20 → JERBED 17:29 → J7W 02-22 22:32
PROVIDERS: ADMIT Internal Medicine; ATTEND Internal Medicine
PROC: 06HM33Z Insertion of Infusion Device into Right Femoral Vein, Percutaneous Approach (ICD-10-PCS; 2016-02-10)
PROC: B54BZZA Ultrasonography of Right Lower Extremity Veins, Guidance (ICD-10-PCS; 2016-02-10)
PROC: 06HN33Z Insertion of Infusion Device into Left Femoral Vein, Percutaneous Approach (ICD-10-PCS; 2016-02-13)
PROC: B54CZZA Ultrasonography of Left Lower Extremity Veins, Guidance (ICD-10-PCS; 2016-02-13)
PROC: 05PY0KZ Removal of Nonautologous Tissue Substitute from Upper Vein, Open Approach (ICD-10-PCS; principal; 2016-02-17 09:00)
PROC: 30233N1 Transfusion of Nonautologous Red Blood Cells into Peripheral Vein, Percutaneous Approach (ICD-10-PCS; 2016-02-18)
PROC: 06HN33Z Insertion of Infusion Device into Left Femoral Vein, Percutaneous Approach (ICD-10-PCS; 2016-02-20)
PROC: B54CZZA Ultrasonography of Left Lower Extremity Veins, Guidance (ICD-10-PCS; 2016-02-20)
PROC: 02H633Z Insertion of Infusion Device into Right Atrium, Percutaneous Approach (ICD-10-PCS; 2016-02-24)
PROC: B244ZZZ Ultrasonography of Right Heart (ICD-10-PCS; 2016-02-24)
PROC: 5A1D60Z (ICD-10-PCS; 2016-02-26)
DX: T82.590A Other mechanical complication of surgically created arteriovenous fistula, initial encounter (principal); N18.6 End stage renal disease; I50.33 Acute on chronic diastolic (congestive) heart failure; I21.4 Non-ST elevation (NSTEMI) myocardial infarction; G93.41 Metabolic encephalopathy; A41.9 Sepsis, unspecified organism; D62 Acute posthemorrhagic anemia; I13.2 Hypertensive heart and chronic kidney disease with heart failure and with stage 5 chronic kidney disease, or end stage renal disease; E46 Unspecified protein-calorie malnutrition; Y83.9 Surgical procedure, unspecified as the cause of abnormal reaction of the patient, or of later complication, without mention of misadventure at the time of the procedure; Z99.2 Dependence on renal dialysis; I27.2 Other secondary pulmonary hypertension; D72.829 Elevated white blood cell count, unspecified; E88.09 Other disorders of plasma-protein metabolism, not elsewhere classified; I35.0 Nonrheumatic aortic (valve) stenosis; B02.9 Zoster without complications; N18.9 Chronic kidney disease, unspecified; E11.9 Type 2 diabetes mellitus without complications; E87.5 Hyperkalemia; R41.82 Altered mental status, unspecified; H43.13 Vitreous hemorrhage, bilateral; F32.9 Major depressive disorder, single episode, unspecified; Z68.23 Body mass index [BMI] 23.0-23.9, adult
CPT/HCPCS: 36415; 36430; 36600; 70450-TC; 70470-TC; 71010-TC; 74000-TC; 76000-TC; 76536-TC; 80048; 80053; 80061; 81003; 81015; 82140; 82550; 82553; 82565; 82803; 83721; 83735; 84100; 84439; 84443; 84484; 84520; 85025; 85027; 85610; 86140; 86704; 86706; 86708; 86803; 86850; 86900; 86901; 86922; 87040; 87070; 87075; 87086; 87186; 87205; 87254; 87340; 87804; 93005; 93010; 93306-TC; 94760; 99284-25; G0480; J0885; J1644; P9038; P9058; Q2037